=== PATIENT | female | born 1995 | race Caucasian/White ===

== ENCOUNTER → 2022-05-16 13:00 | Outpatient (CLI) | payer OTHER, MEDICAID, SELFPAY ==
[2022-05-16 14:12] LABS: Influenza A - CEPHEID Flu A NEGATIVE (NEGATIVE); Influenza B - CEPHEID Flu B NEGATIVE (NEGATIVE); Respiratory Syncytial Virus Negative (Negative)
[2022-05-16 14:16] LABS: COVID-19 CEPHEID PCR (VTM/NP) Negative (Negative)
== END ==
PROVIDERS: Visit Provider Student in an Organized Health Care Education/Training Program
DX: J02.9 Acute pharyngitis, unspecified (principal); R05.9 Cough, unspecified
CPT/HCPCS: 0241U; 87070; 87880

== ENCOUNTER → 2022-08-15 16:13 | Outpatient (CLI) | payer OTHER, MEDICAID, SELFPAY ==
[2022-08-15 17:32] LABS: Influenza A - CEPHEID Flu A NEGATIVE (NEGATIVE); Influenza B - CEPHEID Flu B NEGATIVE (NEGATIVE); Respiratory Syncytial Virus Negative (Negative)
[2022-08-15 18:22] LABS: COVID-19 CEPHEID 4-PLEX PCR Negative (Negative)
== END ==
PROVIDERS: Visit Provider Registered Nurse
DX: R05.1 Acute cough (principal); Z20.822 Contact with and (suspected) exposure to COVID-19
CPT/HCPCS: 0241U

== ENCOUNTER → 2022-08-25 16:53 | Outpatient (CLI) | payer OTHER, MEDICAID, SELFPAY ==
[2022-08-25 17:54] LABS: Add Manual Diff / Slide Review NO; Basophils Absolute Auto 100 /uL (0-100); Basophils Percent Auto 0.6 % (0-2); Eosinophils Absolute Auto 0 /uL (0-450); Eosinophils Percent Auto 0.1 % (2-4); Hemoglobin 14.1 g/dL (12.0-16.0); Lymphocytes Absolute Auto 2000 /uL (1100-4500); Lymphocytes Percent Auto 18.5 % (25-40); Mean Corpuscular HGB Conc 33.7 % (30-36); Mean Corpuscular Hemoglobin 30.6 PG (26-34); Monocytes Absolute Auto 600 /uL (0-900); Monocytes Percent Auto 5.8 % (3-14); Neutrophils Absolute Auto 8000 /uL (1500-7000); Platelet Count 218 X10^3/uL (150-400); Red Blood Cell Count 4.62 X10^6/uL (4.0-5.2); Red Cell Distribution Width 13.2 % (11.6-14.8); White Blood Cell Count 10.7 X10^3/uL (4.5-11.0)
[2022-08-25 18:12] LABS: Alanine Aminotransferase 32 IU/L (<35); Albumin 4.6 g/dL (3.5-5.0); Albumin Globulin Ratio 1.5 (1.0-2.8); Alkaline Phosphatase 80 U/L (38-126); Aspartate Aminotransferase 33 IU/L (14-36); Bilirubin Total 1.3 mg/dL (0.2-1.3); Blood Urea Nitrogen 24 mg/dL (7-17); Calcium 9.9 mg/dL (8.4-10.2); Carbon Dioxide 26 mmol/L (22-32); Chloride 99 mmol/L (98-107); Cholesterol 164 mg/dL (140-199); Estimated Glomerular Filt Rate > 60 mL/min (>60); Globulin 3.1 g/dL (1.7-4.1); Glucose 70 mg/dL (70-100); HDL Cholesterol 75 mg/dL (40-60); HEMOLYSIS < 15 (0-50); LDL Cholesterol Calculated 71 mg/dL (<100); Lipase 39 U/L (23-300); Potassium 3.6 mmol/L (3.4-5.1); Sodium 135 mmol/L (137-145); Total Protein 7.7 g/dL (6.3-8.2); Triglycerides 88 mg/dL (35-150)
== END ==
PROVIDERS: PCP Family Medicine; Referring Provider Family Medicine; Visit Provider Family Medicine
DX: F12.90 Cannabis use, unspecified, uncomplicated (principal); R10.13 Epigastric pain; R11.10 Vomiting, unspecified; Z78.9 Other specified health status
CPT/HCPCS: 36415; 80053; 80061; 81025; 83690; 85025

== ENCOUNTER 2022-09-14 01:50 | Emergency (ER) | payer OTHER, MEDICAID, SELFPAY ==
[2022-09-14 02:04] VITALS: BP 112/66; PULSE 67; RESP 20; TEMP 36.9; O2SAT 100; BMI 22.4
--- NOTE | 2022-09-14 02:14 | ED.SKABFB ---
HPI - Skin/Abscess/Foreign Bdy General Chief complaint: Skin/Abscess/Foreign Body Stated complaint: rt hand infection under pointer finger Time Seen by Provider: 09/14/22 01:59 Source: patient Mode of arrival: Ambulatory Limitations: no limitations History of Present Illness HPI narrative: Patient is an otherwise healthy 27-year-old patient who a couple days ago had an avulsion of the fingernail of her right index finger. She states it happened while she was asleep. She did have artificial nails on at the time. She states that the skin underneath the nail was exposed. He thinks it was approximately half way back the nail that was broken off. He then went to the nail salon where she stated that they glued the avulsed portion of the nail back down to her finger and also to the nail that was still present. They then cover the area with nail American. Since that time she has had increasing pain and discomfort and swelling over the area. She did take some ibuprofen. Related Data Home Medications Medication Instructions Recorded Confirmed aripiprazole 5 mg tablet 5 mg PO DAILY 06/28/22 09/12/22 buspirone 5 mg tablet 5 mg PO BID 06/28/22 09/12/22 methylphenidate HCl 10 mg tablet 10 mg PO DAILY 06/28/22 09/12/22 (Ritalin) Naltrexone PO 08/15/22 09/12/22 naltrexone 50 mg tablet 50 mg PO DAILY 08/25/22 09/12/22 Previous Rx's Medication Instructions Recorded azelastine 137 mcg (0.1 %) nasal 2 spray intranasal BID #30 mL 05/16/22 spray aerosol methocarbamol 500 mg tablet 500 mg PO TID PRN muscle spasm #30 06/28/22 tabs naproxen 375 mg tablet,delayed 375 mg PO BID #20 tabs 06/28/22 release ipratropium bromide 42 mcg (0.06 2 spray intranasal TID PRN allergy 08/15/22 %) nasal spray symptoms #15 mL omeprazole 20 mg capsule,delayed 20 mg PO DAILY #30 caps 08/25/22 release cephalexin 500 mg capsule 500 mg PO QID 7 days #28 caps 09/14/22 Allergies Allergy/AdvReac Type Severity Reaction Status Date / Time zolpidem [From Ambien] Allergy Mild Hallucinati Verified 09/12/22 18:10 ng Review of Systems Constitutional Constitutional: Reports system reviewed and no additional complaints, except as documented Musculoskeletal Musculoskeletal: Reports system reviewed and no additional complaints, except as documented Integumentary/Breasts Skin/Breast: Reports system reviewed and no additional complaints, except as documented Neurologic Neurologic: Reports system reviewed and no additional complaints, except as documented Hematologic/Lymphatic On Anticoagulants: No Patient History Medical History Alcohol use Marijuana use Social History Smoking Status: Former smoker Smoking Status: Former smoker Substance Use Type: marijuana Exam Initial Vital Signs Initial Vital Signs: Vital Signs Temperature 98.4 F 09/14/22 02:04 Pulse Rate 67 09/14/22 02:04 Respiratory Rate 20 09/14/22 02:04 Blood Pressure 112/66 09/14/22 02:04 Pulse Oximetry 100 09/14/22 02:04 Oxygen Delivery Method 09/14/22 02:04 Cardio Pulses: radial pulses present on the left Skin Other: Redness surrounding the nail of the left index finger and also on the pad of the finger. No active drainage. Neuro General: patient alert and patient awake Extrem Other: Patient does have a soft pad of the finger. Tender distal aspect of left index finger Course Orders Ordered: Discontinued Medications Cephalexin HCl (Cephalexin 250 Mg Capsule) 500 mg PO NOW ONE Stop: 09/14/22 02:16 Vital Signs Vital signs: Vital Signs - 8 hr 09/14/22 02:04 Temperature 98.4 F Pulse Rate 67 Respiratory Rate 20 Blood Pressure 112/66 Pulse Oximetry 100 Oxygen Delivery Method Room Air MDM - Skin/Abscess/Foreign Bdy MDM Narrative Medical decision making narrative: Patient has have findings that are consistent with a cellulitis of the left index finger. I have low suspicion for a Felon based on her presentation today. Had a long discussion with her regarding the fact that they glued the fingernail back down to the finger. I told her that our options were to treat her with oral antibiotics and do nothing with the nail. I discussed my concern with this is that potentially there is a developing infection in between the nail in the nail bed that may not improve with the oral antibiotics. We discussed potentially doing a finger block and removing the finger now although I did informed her that I was unsure as to how much more damage that we would caused the nailbed given the fingernail has been glued down to it per her report. After this discussion the patient opted to just do oral antibiotics and see if this improves her symptoms and she stated that if her symptoms do not improve or worsen that she would return to the emergency department for further evaluation. Discharge Plan Departure Patient Disposition: Home Clinical Impression: Cellulitis Instructions: DI for Cellulitis -- Adult Activity Restrictions/Additional Instructions: I do recommend that you take the antibiotics as directed. You can wash your hands like normal. If your symptoms worsen or do not improve with antibiotics you should be re-evaluated. Prescriptions: New cephalexin 500 mg capsule 500 mg PO QID 7 Days Qty: 28 0RF No Action buspirone 5 mg tablet 5 mg PO BID aripiprazole 5 mg tablet 5 mg PO DAILY methylphenidate HCl [Ritalin] 10 mg tablet 10 mg PO DAILY naproxen 375 mg tablet,delayed release (DR/EC) 375 mg PO BID Qty: 20 0RF methocarbamol 500 mg tablet 500 mg PO TID PRN (Reason: muscle spasm) Qty: 30 0RF Naltrexone PO ipratropium bromide 42 mcg (0.06 %) spray,non-aerosol 2 spray intranasal TID PRN (Reason: allergy symptoms) Qty: 15 0RF Rx Instructions: administer into each nostril azelastine 137 mcg (0.1 %) aerosol,spray 2 spray intranasal BID Qty: 30 0RF Rx Instructions: administer into each nostril omeprazole 20 mg capsule,delayed release(DR/EC) 20 mg PO DAILY Qty: 30 11RF naltrexone 50 mg tablet 50 mg PO DAILY Referrals: Radha Baca DO [Primary Care Provider] - Stand Alone Forms: Patient Portal/API
[2022-09-14] MEDS: ACETAMINOPHEN 325 MG TABLET 650 MG PO (02:52)
[2022-09-14] MEDS: cephALEXin 250 MG CAPSULE 500 MG PO (02:52)
== END 2022-09-14 02:57 | disposition home or self-care (01) ==
PROVIDERS: Emergency Provider Emergency Medicine; PCP Family Medicine
DX: L03.012 Cellulitis of left finger (principal)
CPT/HCPCS: 99283

== ENCOUNTER 2022-09-16 13:41 | Emergency (ER) | payer OTHER, MEDICAID, SELFPAY ==
[2022-09-16 13:52] VITALS: BP 125/83; PULSE 80; RESP 20; TEMP 37; O2SAT 99; BMI 22.4
[2022-09-16] MEDS: LIDOCAINE 2% INJ SDV 5ML 5 ML INJ (15:38)
[2022-09-16] MEDS: IBUPROFEN 400 MG TABLET 800 MG PO (15:53)
--- NOTE | 2022-09-16 15:55 | PC.NURSE ---
Pt sitting in chair in rm 3. Reports she is taking a medication that is contraindicated to use opioids. Pt states she forgets the name of the medication being taken. Declined Hydrocodone tablet. Reports that she is UTD on her tetanus vaccine and declined injection. Pt declined torodol injection and ibuprofen given instead. Pt denies nausea and declined zofran ODT. Lidocaine scanned and given to Becky Ayala NP for admin for I&D. Pt in NAD.
[2022-09-16 16:18] VITALS: BP 112/66; PULSE 60; RESP 16; O2SAT 100
[2022-09-16] MEDS: BACITRACIN OINT 0.9 GM PCKT 1 APPLIC TOP (16:18)
--- NOTE | 2022-09-16 18:50 | ED.SKABFB ---
HPI - Skin/Abscess/Foreign Bdy <Jocelyne Ayala, [facility] - Last Filed: 09/16/22 19:42> General Chief complaint: Skin/Abscess/Foreign Body Stated complaint: Finger infection, not getting better Time Seen by Provider: 09/16/22 14:56 Source: patient Mode of arrival: Family Vehicle Limitations: no limitations History of Present Illness HPI narrative: This is a 27 year female presents to the emergency department after she came 2 days ago for finger infection concerns after she had an injury with an acrylic nail which pulled up on natural nail. This was fully removed and patient went back to the nail salon having she lack nail [place] applied which sealed in possible infection as she has come in today with worsening pain to the distal fingertip, obvious pus underneath the skin and worsening pain in her fingertips. There does not appear to be a proximal nail bed involvement, this is on the fingertip, she does not have tenderness when pressing over the fingernail but her fingertips is painful without drainage. She denies fever chills, denies redness or streaking up her hand, denies any mobility changes or deficit, no numbness or tingling. She was seen in the emergency department 2 days ago and started on cephalexin, no interventions or procedures were done at that time. Related Data Home Medications Medication Instructions Recorded Confirmed aripiprazole 5 mg tablet 5 mg PO DAILY 06/28/22 09/12/22 buspirone 5 mg tablet 5 mg PO BID 06/28/22 09/12/22 methylphenidate HCl 10 mg tablet 10 mg PO DAILY 06/28/22 09/12/22 (Ritalin) Naltrexone PO 08/15/22 09/12/22 naltrexone 50 mg tablet 50 mg PO DAILY 08/25/22 09/12/22 Previous Rx's Medication Instructions Recorded azelastine 137 mcg (0.1 %) nasal 2 spray intranasal BID #30 mL 05/16/22 spray aerosol methocarbamol 500 mg tablet 500 mg PO TID PRN muscle spasm #30 06/28/22 tabs naproxen 375 mg tablet,delayed 375 mg PO BID #20 tabs 06/28/22 release ipratropium bromide 42 mcg (0.06 2 spray intranasal TID PRN allergy 08/15/22 %) nasal spray symptoms #15 mL omeprazole 20 mg capsule,delayed 20 mg PO DAILY #30 caps 08/25/22 release cephalexin 500 mg capsule 500 mg PO QID 7 days #28 caps 09/14/22 mupirocin 2 % topical ointment 1 applic topical DAILY #15 grams 09/16/22 Allergies Allergy/AdvReac Type Severity Reaction Status Date / Time zolpidem [From Ambien] Allergy Mild Hallucinati Verified 09/12/22 18:10 ng Review of Systems <SONIA Huang - Last Filed: 09/16/22 19:42> Review of Systems ROS Unobtainable: All systems reviewed & are unremarkable except as noted in HPI and below Patient History <SONIA Huang - Last Filed: 09/16/22 19:42> Medical History Alcohol use Marijuana use Social History Smoking Status: Former smoker Smoking Status: Former smoker tobacco type: cigarettes alcohol intake frequency: 0-2 drinks per day Substance Use Type: marijuana Exam <SONIA Huang - Last Filed: 09/16/22 19:42> Narrative Exam Narrative: Reviewed vitals signs and nursing notes. General: cooperative, comfortable, in no acute distress, well groomed MSK: moves all extremities, neurovascularly intact, no weakness, normal tone Skin: brisk capillary refill, without pallor or erythema, abscess noted to the distal fingertip that does not progress underneath the nail bed however is approximately 1 cm in diameter, superficial skin is clear showing purulent drainage underneath. No bogginess to palpation of the fingernail, no erythema or edema to the finger circumferentially, no streaking or erythema ascending proximally, this is a distal fingertip infection that does not appear to be extending, normal range of motion and strength, no sensation changes, without motor or sensory deficits Psych: mental status is grossly normal, congruent mood, normal affect, pleasant and cooperative Initial Vital Signs Initial Vital Signs: Vital Signs Temperature 98.6 F 09/16/22 13:52 Pulse Rate 80 09/16/22 13:52 Respiratory Rate 20 09/16/22 13:52 Blood Pressure 125/83 09/16/22 13:52 Pulse Oximetry 99 09/16/22 13:52 Oxygen Delivery Method 09/16/22 13:52 <Marina Guido DO - Last Filed: 09/17/22 08:03> Initial Vital Signs Initial Vital Signs: Vital Signs Temperature 98.6 F 09/16/22 13:52 Pulse Rate 80 09/16/22 13:52 Respiratory Rate 20 09/16/22 13:52 Blood Pressure 125/83 09/16/22 13:52 Pulse Oximetry 99 09/16/22 13:52 Oxygen Delivery Method 09/16/22 13:52 Procedures <SONIA Huang - Last Filed: 09/16/22 19:42> Abscess I/D I&D #1: Site: hand (distal fingertip abscess in left 2nd digit) Side (if applicable): left Sedation/analgesia: none Amount of anesthesia used (mL): 0 Technique: needle aspiration (Very superficial abscess, this was needle aspirated for purulence drainage, then used a pair of scissors to incise along the length of the abscess, probed underneath the nail and no further abscess noted, this is isolated to the fingertip, no tenderness to palpation of the nail bed, thoroughly irrig) Amount of fluid expressed (mL): 2 Irrigation: Yes Packing used?: none Complications: other (No complications, patient was very anxious, no anesthetic needed as this was very superficial) Course <SONIA Huang - Last Filed: 09/16/22 19:42> Orders Ordered: Discontinued Medications Hydrocodone Bitart/Acetaminophen (Hydrocodone/Acet 5/325 Tablet) 1 tab PO NOW ONE Stop: 09/16/22 15:13 Last Admin: 09/16/22 15:50 Dose: Not Given Documented By: GONZÁLEZ Bacitracin (Bacitracin Oint 0.9 Gm Pckt) 1 applic TOP NOW ONE Stop: 09/16/22 16:05 Last Admin: 09/16/22 16:18 Dose: 1 applic Documented By: GONZÁLEZ Ibuprofen (Ibuprofen 400 Mg Tablet) 800 mg PO NOW ONE Stop: 09/16/22 15:51 Last Admin: 09/16/22 15:53 Dose: 800 mg Documented By: CTS Ketorolac Tromethamine (Ketorolac 30 Mg/Ml Vial) 15 mg IM NOW ONE Stop: 09/16/22 15:13 Last Admin: 09/16/22 15:50 Dose: Not Given Documented By: CTS Lidocaine HCl (Lidocaine 2% Inj Sdv 5ml) 5 ml INJ INTRA-OP ONE Stop: 09/16/22 15:13 Last Admin: 09/16/22 15:38 Dose: 5 ml Documented By: CTS Lidocaine HCl (Lidocaine 2% Inj Mdv 20ml) 1 ml INJ INTRA-OP ONE Stop: 09/16/22 15:13 Last Admin: 09/16/22 15:48 Dose: Not Given Documented By: CTS Ondansetron HCl (Ondansetron 4 Mg Odt) 4 mg SL NOW ONE Stop: 09/16/22 15:13 Last Admin: 09/16/22 15:48 Dose: Not Given Documented By: CTS Tetanus/Diphtheria Toxoids (Tetanus Diphtheria Toxoids 0.5 Ml Vial) 0.5 ml IM .ONCE ONE Stop: 09/16/22 15:13 Last Admin: 09/16/22 15:50 Dose: Not Given Documented By: CTS Vital Signs Vital signs: Vital Signs - 8 hr 09/16/22 13:52 09/16/22 16:18 Temperature 98.6 F Pulse Rate 80 60 Respiratory Rate 20 16 Blood Pressure 125/83 112/66 Pulse Oximetry 99 100 Oxygen Delivery Method Room Air Room Air <Marina Guido DO - Last Filed: 09/17/22 08:03> Orders Ordered: Discontinued Medications Hydrocodone Bitart/Acetaminophen (Hydrocodone/Acet 5/325 Tablet) 1 tab PO NOW ONE Stop: 09/16/22 15:13 Last Admin: 09/16/22 15:50 Dose: Not Given Documented By: CTS Bacitracin (Bacitracin Oint 0.9 Gm Pckt) 1 applic TOP NOW ONE Stop: 09/16/22 16:05 Last Admin: 09/16/22 16:18 Dose: 1 applic Documented By: CTS Ibuprofen (Ibuprofen 400 Mg Tablet) 800 mg PO NOW ONE Stop: 09/16/22 15:51 Last Admin: 09/16/22 15:53 Dose: 800 mg Documented By: CTS Ketorolac Tromethamine (Ketorolac 30 Mg/Ml Vial) 15 mg IM NOW ONE Stop: 09/16/22 15:13 Last Admin: 09/16/22 15:50 Dose: Not Given Documented By: CTS Lidocaine HCl (Lidocaine 2% Inj Sdv 5ml) 5 ml INJ INTRA-OP ONE Stop: 09/16/22 15:13 Last Admin: 09/16/22 15:38 Dose: 5 ml Documented By: CTS Lidocaine HCl (Lidocaine 2% Inj Mdv 20ml) 1 ml INJ INTRA-OP ONE Stop: 09/16/22 15:13 Last Admin: 09/16/22 15:48 Dose: Not Given Documented By: CTS Ondansetron HCl (Ondansetron 4 Mg Odt) 4 mg SL NOW ONE Stop: 09/16/22 15:13 Last Admin: 09/16/22 15:48 Dose: Not Given Documented By: CTS Tetanus/Diphtheria Toxoids (Tetanus Diphtheria Toxoids 0.5 Ml Vial) 0.5 ml IM .ONCE ONE Stop: 09/16/22 15:13 Last Admin: 09/16/22 15:50 Dose: Not Given Documented By: CTS Vital Signs Vital signs: Vital Signs - 8 hr 09/16/22 13:52 09/16/22 16:18 Temperature 98.6 F Pulse Rate 80 60 Respiratory Rate 20 16 Blood Pressure 125/83 112/66 Pulse Oximetry 99 100 Oxygen Delivery Method Room Air Room Air MDM - Skin/Abscess/Foreign Bdy <SONIA Huang - Last Filed: 09/16/22 19:42> MDM Narrative Medical decision making narrative: Chief Complaint: Fingertip abscess and pain Independent historian: Patient Differential diagnoses include but are not limited to: Subungual hematoma/abscess, cellulitis, necrotizing fasciitis, neurovascular deficit, compartment syndrome, extension to the deeper tissue planes including tenosynovitis and osteomyelitis. I have independently reviewed the patient's vital signs and nursing notes as well as prior records if available. Course of care: Patient's tetanus was updated today, her pain was treated with Toradol, hydrocodone, Zofran, and bacitracin, she is currently on cephalexin, no further antibiotic needs are necessary at this time, does not appear to have surrounding cellulitis. This patient presents with a painful fluid pocket with fluctuance and surrounding induration and erythema, concerning for an abscess of the distal fingertip. I&D was performed with deloculation and purulence was expressed. Small amount of induration remaining. There is no lymphangitic spread visible. Low concern for osteomyelitis. Patient is not immunocompromised, and there is no bullae, pain out of proportion, or rapid progression concerning for necrotizing fasciitis. Gentle needle aspiration of superficial abscess had purulent drainage approximately 5 mL,, probing and further debridement did not show any deep tunneling or ascending up the proximal nail bed, no bogginess to the nail bed or concern for subungual hematoma/abscess as there does not appear to be evidence of after nail [place] was removed over this nail bed aspect. Patient will continue her cephalexin prescription, prescribed for her mupirocin ointment to apply topically and encouraged her to wash her hands frequently and come back if she develops any worsening symptoms like proximal spread of erythema, cellulitis, discharge worsening or worsening pain or mobility changes. Social considerations that may affect disposition: none Questions are addressed and there is agreement with the plan and for follow-up. Patient is appropriate for outpatient management. MIPS: This encounter doesn't have any diagnosis' associated with MIPS criteria. Discharge Plan Departure Patient Disposition: Home Clinical Impression: Abscess around fingernail Qualifiers: Laterality: left Qualified Code(s): L03.012 - Cellulitis of left finger Instructions: DI for Skin Abscess Activity Restrictions/Additional Instructions: *You have been diagnosed with fingertip infection called an abscess with a collection pus underneath the skin. This was drained today, you may shower and wash your hands like usual, please cover with antibiotic ointment and a Band-Aid afterwards and go back to the nail salon to have this acrylic and she lack removed so that you can see with the fingernail looks like. Use ibuprofen and Tylenol as needed for your pain, sorry for how anxious you were today, please come back to the emergency department if you have worsening symptoms related to this. Stay on your antibiotic, this should get better and not get worse. *What to do: *Please continue to take your regular medications as directed. [ x] New medication prescriptions sent to your pharmacy: [ [facility]] [ ] New medication written as a paper prescription [ ] No new medications given *Please follow up with your primary care provider in 2-3 days, call for an appointment. Let them know you were seen in the Emergency Department and that we asked that you be seen for follow-up. We will electronically transmit a record of today's note if your PCP is in our system *If you do not have a primary care provider please contact [phone] to establish care with one of the [facility] primary care providers. *Return to Emergency Department if you should have any new, worsening, or concerning symptoms, such as [fever greater than 101F, chills, worsening pain, persistent vomiting or other bothersome symptoms]. Prescriptions: New mupirocin 2 % ointment 1 applic topical DAILY Qty: 15 0RF No Action buspirone 5 mg tablet 5 mg PO BID aripiprazole 5 mg tablet 5 mg PO DAILY methylphenidate HCl [Ritalin] 10 mg tablet 10 mg PO DAILY naproxen 375 mg tablet,delayed release (DR/EC) 375 mg PO BID Qty: 20 0RF methocarbamol 500 mg tablet 500 mg PO TID PRN (Reason: muscle spasm) Qty: 30 0RF Naltrexone PO ipratropium bromide 42 mcg (0.06 %) spray,non-aerosol 2 spray intranasal TID PRN (Reason: allergy symptoms) Qty: 15 0RF Rx Instructions: administer into each nostril azelastine 137 mcg (0.1 %) aerosol,spray 2 spray intranasal BID Qty: 30 0RF Rx Instructions: administer into each nostril omeprazole 20 mg capsule,delayed release(DR/EC) 20 mg PO DAILY Qty: 30 11RF naltrexone 50 mg tablet 50 mg PO DAILY cephalexin 500 mg capsule 500 mg PO QID 7 Days Qty: 28 0RF Referrals: Radha Baca DO [Primary Care Provider] - Stand Alone Forms: Patient Portal/API <Marina Guido DO - Last Filed: 09/17/22 08:03> Cosign ED Attending Cosschuylerature Attestation: I was immediately available in the department for consultation. Documentation has been reviewed. Case was discussed.
== END 2022-09-16 16:18 | disposition home or self-care (01) ==
PROVIDERS: Emergency Provider Nurse Practitioner Critical Care Medicine; PCP Family Medicine
DX: L03.012 Cellulitis of left finger (principal)
CPT/HCPCS: 10060; 99283

== ENCOUNTER 2022-09-18 06:43 | Emergency (ER) | payer OTHER, MEDICAID, SELFPAY ==
[2022-09-18 07:01] VITALS: BP 131/73; PULSE 68; RESP 20; TEMP 37.1; O2SAT 97; BMI 22.4
[2022-09-18 07:11] VITALS: PULSE 54; O2SAT 98
[2022-09-18] MEDS: ONDANSETRON 4 MG ODT SL (07:14)
--- NOTE | 2022-09-18 07:18 | ED.NAVMDI ---
HPI - Nausea/Vomiting/Diarrhea General Chief complaint: Nausea/Vomiting/Diarrhea Stated complaint: throwing up, can't hold any liquid down Time Seen by Provider: 09/18/22 07:01 Source: patient Mode of arrival: Ambulatory Limitations: no limitations History of Present Illness HPI Narrative: 27-year-old female who has been seen here in the emergency department a couple times over the past couple days for an infection related to her index finger. The last time she was seen here she had an abscess drained. She was placed on topical antibiotics. She stated that over the past 24 hours she has had nausea and vomiting and upper abdominal pain. At about 0400 hours this morning things got much worse. She denies any fevers. No diarrhea. No urinary symptoms. Related Data Home Medications Medication Instructions Recorded Confirmed aripiprazole 5 mg tablet 5 mg PO DAILY 06/28/22 09/12/22 buspirone 5 mg tablet 5 mg PO BID 06/28/22 09/12/22 methylphenidate HCl 10 mg tablet 10 mg PO DAILY 06/28/22 09/12/22 (Ritalin) Naltrexone PO 08/15/22 09/12/22 naltrexone 50 mg tablet 50 mg PO DAILY 08/25/22 09/12/22 Previous Rx's Medication Instructions Recorded azelastine 137 mcg (0.1 %) nasal 2 spray intranasal BID #30 mL 05/16/22 spray aerosol methocarbamol 500 mg tablet 500 mg PO TID PRN muscle spasm #30 06/28/22 tabs naproxen 375 mg tablet,delayed 375 mg PO BID #20 tabs 06/28/22 release ipratropium bromide 42 mcg (0.06 2 spray intranasal TID PRN allergy 08/15/22 %) nasal spray symptoms #15 mL omeprazole 20 mg capsule,delayed 20 mg PO DAILY #30 caps 08/25/22 release cephalexin 500 mg capsule 500 mg PO QID 7 days #28 caps 09/14/22 mupirocin 2 % topical ointment 1 applic topical DAILY #15 grams 09/16/22 lorazepam 0.5 mg tablet (Ativan) 0.5 mg PO BID PRN nausea and 09/18/22 vomiting #7 tabs ondansetron 4 mg disintegrating 4 mg PO Q8H PRN nausea and 09/18/22 tablet vomiting #20 tabs vit no.95-ferrous 1 tab PO DAILY #30 tabs 09/18/22 fumarate 28 mg-folic acid 800 mcg tablet Allergies Allergy/AdvReac Type Severity Reaction Status Date / Time zolpidem [From Ambien] Allergy Mild Hallucinati Verified 09/12/22 18:10 ng Review of Systems Constitutional Constitutional: Reports system reviewed and no additional complaints, except as documented Gastrointestinal Gastrointestinal: Reports system reviewed and no additional complaints, except as documented Genitourinary Genitourinary: Reports system reviewed and no additional complaints, except as documented Integumentary/Breasts Skin/Breast: Reports system reviewed and no additional complaints, except as documented Neurologic Neurologic: Reports system reviewed and no additional complaints, except as documented Patient History Medical History Alcohol use Marijuana use Social History Smoking Status: Former smoker Smoking Status: Former smoker tobacco type: cigarettes alcohol intake frequency: 0-2 drinks per day Substance Use Type: marijuana Exam Initial Vital Signs Initial Vital Signs: Vital Signs Temperature 98.8 F 09/18/22 07:01 Pulse Rate 68 09/18/22 07:01 Respiratory Rate 20 09/18/22 07:01 Blood Pressure 131/73 09/18/22 07:01 Pulse Oximetry 97 09/18/22 07:01 Oxygen Delivery Method 09/18/22 07:01 Resp Effort & Inspection: normal respiratory effort Auscultation: clear to auscultation bilaterally Cardio Rate: regular rate Rhythm: regular rhythm GI Palpation: tender (Upper abdomen) Skin General: no rashes or lesions noted Neuro General: patient alert and patient awake Course Orders Ordered: ED Orders 09/18/22 07:35 Complete Blood Count AUTO DIFF Stat Comprehensive Metabolic Panel Stat HCG Quantitative /Beta subunit Stat Lipase Stat Test Serum,Qual Stat 09/18/22 08:24 US OB <= 14 weeks fetus Stat Discontinued Medications Sodium Chloride (Normal Saline 0.9%) 1,000 mls @ 1,000 mls/hr IV BOLUS ONE Stop: 09/18/22 08:19 Last Infusion: 09/18/22 08:34 Dose: 0 mls/hr Documented By: Admin: 09/18/22 07:40 Dose: 1,000 mls/hr Documented By: GONZÁLEZ Sodium Chloride (Normal Saline 0.9%) 1,000 mls @ 1,000 mls/hr IV BOLUS ONE Stop: 09/18/22 09:26 Last Infusion: 09/18/22 09:35 Dose: 0 mls/hr Documented By: Admin: 09/18/22 08:37 Dose: 1,000 mls/hr Documented By: GONZÁLEZ Ketorolac Tromethamine (Ketorolac 30 Mg/Ml Vial) 30 mg IV NOW ONE Stop: 09/18/22 08:03 Last Admin: 09/18/22 08:05 Dose: 30 mg Documented By: GONZÁLEZ Lorazepam (Lorazepam 2 Mg/Ml Inj) 1 mg IV NOW ONE Stop: 09/18/22 08:52 Last Admin: 09/18/22 09:21 Dose: 1 mg Documented By: GONZÁLEZ Metoclopramide HCl (Metoclopramide 10 Mg/2 Ml Inj) 10 mg IV NOW ONE Stop: 09/18/22 07:48 Last Admin: 09/18/22 08:05 Dose: 10 mg Documented By: GONZÁLEZ Ondansetron HCl (Ondansetron 4 Mg Odt) 4 mg SL NOW ONE Stop: 09/18/22 07:02 Last Admin: 09/18/22 07:14 Dose: 4 mg Documented By: SYLVIA Ondansetron HCl (Ondansetron 4 Mg/2 Ml Inj) 4 mg IV NOW ONE Stop: 09/18/22 07:21 Last Admin: 09/18/22 07:40 Dose: 4 mg Documented By: GONZÁLEZ Pantoprazole Sodium (Pantoprazole 40 Mg Vial) 40 mg IV NOW ONE Stop: 09/18/22 08:03 Last Admin: 09/18/22 08:05 Dose: 40 mg Documented By: GONZÁLEZ Promethazine HCl (Promethazine 25 Mg Tablet) 25 mg PO NOW ONE Stop: 09/18/22 11:12 Last Admin: 09/18/22 11:33 Dose: 25 mg Documented By: GONZÁLEZ Vital Signs Vital signs: Vital Signs - 8 hr 09/18/22 07:01 09/18/22 07:11 09/18/22 07:30 Temperature 98.8 F Pulse Rate 68 54 L 66 Respiratory Rate 20 Blood Pressure 131/73 Pulse Oximetry 97 98 95 Oxygen Delivery Method Room Air 09/18/22 07:31 09/18/22 07:31 09/18/22 12:04 Temperature Pulse Rate 66 64 Respiratory Rate Blood Pressure 120/84 116/75 Pulse Oximetry 99 99 Oxygen Delivery Method MDM - Nausea/Vomiting/Diarrhea Lab Data Attestation: I reviewed the patient's lab results. 09/18/22 07:35 09/18/22 07:35 Labs: Lab Results 09/18/22 09/18/22 09/18/22 Range/Units 07:35 07:35 07:35 WBC 10.0 (4.5-11.0) X10^3/uL RBC 4.28 (4.0-5.2) X10^6/uL Hgb 13.2 (12.0-16.0) g/dL Hct 38.9 (36-46) % MCV 91.0 (80-100) fL MCH 30.8 (26-34) PG MCHC 33.8 (30-36) % RDW 12.8 (11.6-14.8) % Plt Count 234 (150-400) X10^3/uL Neut % (Auto) 77.6 H (50-75) % Lymph % (Auto) 13.2 L (25-40) % [place] % (Auto) 7.9 (3-14) % Eos % (Auto) 0.9 L (2-4) % Baso % (Auto) 0.4 (0-2) % Neut # (Auto) 7800 H (0437-2868) /uL Lymph # (Auto) 1300 (2973-1758) /uL [place] # (Auto) 800 (0-900) /uL Eos # (Auto) 100 (0-450) /uL Baso # (Auto) 0 (0-100) /uL Sodium 137 (137-145) mmol/L Potassium 4.0 (3.4-5.1) mmol/L Chloride 104 (98-107) mmol/L Carbon Dioxide 22 (22-32) mmol/L BUN 18 H (7-17) mg/dL Creatinine 0.62 (0.52-1.04) mg/dL Estimated GFR > 60 (>60) mL/min BUN/Creatinine Ratio 29.0 H (6-22) Glucose 108 H (70-100) mg/dL Calcium 9.1 (8.4-10.2) mg/dL Total Bilirubin 1.0 (0.2-1.3) mg/dL AST 32 (14-36) IU/L ALT 33 (<35) IU/L Alkaline Phosphatase 57 (38-126) U/L Total Protein 7.5 (6.3-8.2) g/dL Albumin 4.3 (3.5-5.0) g/dL Globulin 3.2 (1.7-4.1) g/dL Albumin/Globulin Ratio 1.3 (1.0-2.8) Lipase 37 (23-300) U/L HCG, Quant mIU/mL Serum , Qual Positive H (Negative) 09/18/22 Range/Units 07:35 WBC (4.5-11.0) X10^3/uL RBC (4.0-5.2) X10^6/uL Hgb (12.0-16.0) g/dL Hct (36-46) % MCV (80-100) fL MCH (26-34) PG MCHC (30-36) % RDW (11.6-14.8) % Plt Count (150-400) X10^3/uL Neut % (Auto) (50-75) % Lymph % (Auto) (25-40) % [place] % (Auto) (3-14) % Eos % (Auto) (2-4) % Baso % (Auto) (0-2) % Neut # (Auto) (9667-8533) /uL Lymph # (Auto) (6180-1203) /uL [place] # (Auto) (0-900) /uL Eos # (Auto) (0-450) /uL Baso # (Auto) (0-100) /uL Sodium (137-145) mmol/L Potassium (3.4-5.1) mmol/L Chloride (98-107) mmol/L Carbon Dioxide (22-32) mmol/L BUN (7-17) mg/dL Creatinine (0.52-1.04) mg/dL Estimated GFR (>60) mL/min BUN/Creatinine Ratio (6-22) Glucose (70-100) mg/dL Calcium (8.4-10.2) mg/dL Total Bilirubin (0.2-1.3) mg/dL AST (14-36) IU/L ALT (<35) IU/L Alkaline Phosphatase (38-126) U/L Total Protein (6.3-8.2) g/dL Albumin (3.5-5.0) g/dL Globulin (1.7-4.1) g/dL Albumin/Globulin Ratio (1.0-2.8) Lipase (23-300) U/L HCG, Quant 11449 mIU/mL Serum , Qual (Negative) Imaging Data US - OB: Radiologist's Impression: PROCEDURE:? US OB <= 14 WEEKS FETUS ? INDICATIONS:? UNKNOWN DATES HCG QUALITATIVE POSITIVE ? OUTSIDE/PRIOR DATING DATA:? Last menstrual period (LMP):? 07/23/2022.? LMP-based estimated date of delivery (JOHNNIE):? 04/29/2023.? First dating scan (date and location):? 09/18/2022.? Estimated date of delivery (JOHNNIE) from first dating scan:? 05/12/2023. The calculations are made using the ultrasound JOHNNIE of 05/12/2023.? ? TECHNIQUE:? Real-time scanning was performed of the fetus and maternal pelvic organs, with image documentation.? ? COMPARISON:? None. ? FINDINGS:? ? Embryo:? 0.5 cm, 6 weeks 2 days Heart rate:? 109 beats per minute ? ? Maternal organs:? Ovaries unremarkable. ? ? ? IMPRESSION:? Living very early 1st trimester intrauterine with crown-rump length and heartbeat measuring 6 weeks 2 days ? We strive to produce accurate, complete, and clear reports of imaging services. To assist us in improving patient care, this report was composed using standard report templates and voice recognition software. Therefore, it may contain abnormal punctuation, insertions and/or omissions. Occasional wrong-word or sound-alike substitutions may occur. Though we review the report and make efforts to correct it, we do recommend that the report be read carefully in proper context to recognize any text inaccuracies. MDM Narrative Medical decision making narrative: Patient did have a positive test today with an intrauterine at 6 weeks on the ultrasound. This was news to the patient. I suspect that her vomiting today is related to the antibiotics she is been on and also the . It did take quite a bit of medications to try to keep this under control. Ativan seemed to be the best medication. Patient was able to tolerate a small amount of intake. She stated that her finger has been improving after the I&D a couple days ago so I will have her stop taking the antibiotics. She was given information for follow-up with OB. Was sent home with nausea medication. No indication for further radiologic studies. Given return precautions and follow-up instructions. They expressed understanding and agreement. Discharge Plan Departure Patient Disposition: Home Clinical Impression: Nausea and vomiting during Instructions: Nausea of (Alternative Therapy) Activity Restrictions/Additional Instructions: I do recommend that you stop taking the antibiotic pills. You can continue to use the antibiotic ointment. Use the nausea medication as needed. Recommend that you make an appointment with a OB provider for follow-up. Try to increase your fluid intake by drinking small amounts over longer periods of time. Return to the emergency department for any new or worsening symptoms. Prescriptions: New ondansetron 4 mg tablet,disintegrating 4 mg PO Q8H PRN (Reason: nausea and vomiting) Qty: 20 0RF lorazepam [Ativan] 0.5 mg tablet 0.5 mg PO BID PRN (Reason: nausea and vomiting) Qty: 7 0RF PNV cmb#95-ferrous fumarate-FA 28 mg iron- 800 mcg tablet 1 tab PO DAILY Qty: 30 3RF No Action buspirone 5 mg tablet 5 mg PO BID aripiprazole 5 mg tablet 5 mg PO DAILY methylphenidate HCl [Ritalin] 10 mg tablet 10 mg PO DAILY naproxen 375 mg tablet,delayed release (DR/EC) 375 mg PO BID Qty: 20 0RF methocarbamol 500 mg tablet 500 mg PO TID PRN (Reason: muscle spasm) Qty: 30 0RF Naltrexone PO ipratropium bromide 42 mcg (0.06 %) spray,non-aerosol 2 spray intranasal TID PRN (Reason: allergy symptoms) Qty: 15 0RF Rx Instructions: administer into each nostril azelastine 137 mcg (0.1 %) aerosol,spray 2 spray intranasal BID Qty: 30 0RF Rx Instructions: administer into each nostril omeprazole 20 mg capsule,delayed release(DR/EC) 20 mg PO DAILY Qty: 30 11RF naltrexone 50 mg tablet 50 mg PO DAILY cephalexin 500 mg capsule 500 mg PO QID 7 Days Qty: 28 0RF mupirocin 2 % ointment 1 applic topical DAILY Qty: 15 0RF Referrals: Yessica Kern MD [Physician] - Radha Baca DO [Primary Care Provider] - Stand Alone Forms: Patient Portal/API
[2022-09-18 07:30] VITALS: PULSE 66; O2SAT 95
[2022-09-18 07:31] VITALS: BP 120/84; PULSE 66; O2SAT 99
[2022-09-18] MEDS: SODIUM CHLORIDE 0.9% 1,000 ML 1000 ML IV ×2 (07:40→08:37)
[2022-09-18] MEDS: ONDANSETRON 4 MG/2 ML INJ IV (07:40)
[2022-09-18 07:54] LABS: Add Manual Diff / Slide Review NO; Basophils Absolute Auto 0 /uL (0-100); Basophils Percent Auto 0.4 % (0-2); Eosinophils Absolute Auto 100 /uL (0-450); Eosinophils Percent Auto 0.9 % (2-4); Hematocrit 38.9 % (36-46); Hemoglobin 13.2 g/dL (12.0-16.0); Lymphocytes Absolute Auto 1300 /uL (1100-4500); Lymphocytes Percent Auto 13.2 % (25-40); Mean Corpuscular HGB Conc 33.8 % (30-36); Mean Corpuscular Hemoglobin 30.8 PG (26-34); Monocytes Absolute Auto 800 /uL (0-900); Monocytes Percent Auto 7.9 % (3-14); Neutrophils Absolute Auto 7800 /uL (1500-7000); Neutrophils Percent Auto 77.6 % (50-75); Platelet Count 234 X10^3/uL (150-400); Red Blood Cell Count 4.28 X10^6/uL (4.0-5.2); Red Cell Distribution Width 12.8 % (11.6-14.8)
[2022-09-18 08:02] LABS: Alanine Aminotransferase 33 IU/L (<35); Albumin 4.3 g/dL (3.5-5.0); Albumin Globulin Ratio 1.3 (1.0-2.8); Alkaline Phosphatase 57 U/L (38-126); Aspartate Aminotransferase 32 IU/L (14-36); Blood Urea Nitrogen 18 mg/dL (7-17); Calcium 9.1 mg/dL (8.4-10.2); Carbon Dioxide 22 mmol/L (22-32); Chloride 104 mmol/L (98-107); Estimated Glomerular Filt Rate > 60 mL/min (>60); Globulin 3.2 g/dL (1.7-4.1); Glucose 108 mg/dL (70-100); HEMOLYSIS < 15 (0-50); Lipase 37 U/L (23-300); Sodium 137 mmol/L (137-145); Total Protein 7.5 g/dL (6.3-8.2)
[2022-09-18] MEDS: PANTOPRAZOLE 40 MG VIAL IV (08:05)
[2022-09-18] MEDS: METOCLOPRAMIDE 10 MG/2 ML INJ IV (08:05)
[2022-09-18] MEDS: KETOROLAC 30 MG/ML VIAL IV (08:05)
[2022-09-18 08:16] LABS: Pregnancy Test Serum,Qual Positive (Negative)
--- NOTE | 2022-09-18 08:24 | DI.US.S_ITS ---
PROCEDURE: US OB <= 14 WEEKS FETUS INDICATIONS: UNKNOWN DATES HCG QUALITATIVE POSITIVE OUTSIDE/PRIOR DATING DATA: Last menstrual period (LMP): 07/23/2022. LMP-based estimated date of delivery (JOHNNIE): 04/29/2023. First dating scan (date and location): 09/18/2022. Estimated date of delivery (JOHNNIE) from first dating scan: 05/12/2023. The calculations are made using the ultrasound JOHNNIE of 05/12/2023. TECHNIQUE: Real-time scanning was performed of the fetus and maternal pelvic organs, with image documentation. COMPARISON: None. FINDINGS: Embryo: 0.5 cm, 6 weeks 2 days Heart rate: 109 beats per minute Maternal organs: Ovaries unremarkable. IMPRESSION: Living very early 1st trimester intrauterine with crown-rump length and heartbeat measuring 6 weeks 2 days We strive to produce accurate, complete, and clear reports of imaging services. To assist us in improving patient care, this report was composed using standard report templates and voice recognition software. Therefore, it may contain abnormal punctuation, insertions and/or omissions. Occasional wrong-word or sound-alike substitutions may occur. Though we review the report and make efforts to correct it, we do recommend that the report be read carefully in proper context to recognize any text inaccuracies. Dictated by: Zachery Miller M.D. on 09/18/2022 at 9:16 Approved by: Zachery Miller M.D. on 09/18/2022 at 9:18
[2022-09-18] MEDS: LORazepam 2 MG/ML INJ 1 MG IV (09:21)
[2022-09-18 09:30] LABS: HCG Quantitative /Beta subunit 27033 mIU/mL
[2022-09-18] MEDS: PROMETHAZINE 25 MG TABLET PO (11:33)
[2022-09-18 12:04] VITALS: BP 116/75; PULSE 64; O2SAT 99
== END 2022-09-18 12:05 | disposition home or self-care (01) ==
PROVIDERS: Emergency Provider Emergency Medicine; PCP Family Medicine
DX: R11.2 Nausea with vomiting, unspecified (principal); R10.10 Upper abdominal pain, unspecified; Z32.01 Encounter for pregnancy test, result positive
CPT/HCPCS: 36415; 76801; 80053; 83690; 84702; 84703; 85025; 96361; 96374; 96375; 99284; C9113; J1885; J2060; J2405; J2765

== ENCOUNTER → 2022-09-28 18:07 | Outpatient (CLI) | payer OTHER, MEDICAID, SELFPAY | PROVIDERS: PCP Family Medicine; Visit Provider Registered Nurse | DX: R30.0 Dysuria (principal) | CPT/HCPCS: 81002; 87086; 87210 ==

== ENCOUNTER 2022-10-15 09:03 | Emergency (ER) | payer OTHER, MEDICAID, SELFPAY ==
[2022-10-15 09:12] VITALS: BP 136/87; PULSE 84; RESP 16; TEMP 36.8; O2SAT 96; BMI 22.4
--- NOTE | 2022-10-15 09:23 | ED.PREGNANCY ---
HPI - General Chief complaint: OB/Uterine Contractions Stated complaint: poss miscarriage per pt Time Seen by Provider: 10/15/22 09:05 History of Present Illness HPI Narrative: Patient is a 27-year-old healthy female who presents today at presenting today concerned that she may be having a miscarriage. She was seen evaluated at [place] last week she was diagnosed with subchorionic hemorrhage. Today she feels like she is no longer constipated she sleeping well she is minimally nauseated she is not having any vaginal bleeding and minimal cramps she is worried that she may be miscarried. She is no painful or frequent urination Related Data Home Medications Medication Instructions Recorded Confirmed aripiprazole 15 mg tablet 15 mg PO DAILY 09/28/22 buspirone 5 mg tablet 5 mg PO TID 09/28/22 melatonin 5 mg capsule mg PO .HS PRN insomnia 09/28/22 Previous Rx's Medication Instructions Recorded vit no.95-ferrous 1 tab PO DAILY #30 tabs 09/18/22 fumarate 28 mg-folic acid 800 mcg tablet ondansetron 4 mg disintegrating 4 mg PO Q8H PRN nausea and 09/22/22 tablet vomiting #30 tabs Allergies Allergy/AdvReac Type Severity Reaction Status Date / Time zolpidem [From Ambien] AdvReac Intermediate Hallucinati Verified 09/28/22 13:08 ng Review of Systems Review of Systems ROS Unobtainable: All systems reviewed & are unremarkable except as noted in HPI and below Exam Initial Vital Signs Initial Vital Signs: Vital Signs Temperature 98.3 F 10/15/22 09:12 Pulse Rate 84 10/15/22 09:12 Respiratory Rate 16 10/15/22 09:12 Blood Pressure 136/87 10/15/22 09:12 Pulse Oximetry 96 10/15/22 09:12 Oxygen Delivery Method Room Air 10/15/22 09:12 GENERAL: Alert well-appearing 19-year-old female and in no acute distress. HEENT: Head atraumatic,EOMI, pupils reactive, face symmetric, moist mucous membranes CARDIOVASCULAR: Regular rate and rhythm without murmurs, rubs or gallops. RESPIRATORY: Breath sounds equal bilaterally, no wheezes rales or rhonchi. ABDOMEN: Soft, nontender. Normoactive bowel sounds all 4 quadrants. No guarding or rebound. EXTREMITIES: Normal range of motion, no clubbing or edema. Neurovascularly intact NEUROLOGICAL: Alert and oriented x4. SKIN: Warm, dry, no laceration, no petechiae, no rashes or lesions. Course Vital Signs Vital signs: Vital Signs - 8 hr 10/15/22 09:12 Temperature 98.3 F Pulse Rate 84 Respiratory Rate 16 Blood Pressure 136/87 Pulse Oximetry 96 Oxygen Delivery Method Room Air MDM - OB/Uterine Contractions MDM Narrative Medical decision making narrative: Patient 19-year-old healthy female presenting today worried that she is no longer experiencing symptoms and worried that she may no longer be . Bedside ultrasound done by myself identified IUP heartbeat is seen and heart rate 169 found by doppler. Patient is overall reassured. She is not having any vaginal bleeding she is not having any cramping. At this time I see no need for any further workup. She is an appointment Dr. Harshad LANDRUM November 01. She did have a tele visit on September 28 with him. Discharge Plan Departure Patient Disposition: Home Clinical Impression: Instructions: DI for -- Discomforts and Remedies Activity Restrictions/Additional Instructions: *You have been diagnosed with *What to do: At this time ultrasound was overall reassuring it was not an official ultrasound *Continue to take medications as directed *Follow up with your primary care provider in 2-3 days or call [phone] *Return to ER if you should have increasing vaginal bleeding cramping or any new, worsening or concerning symptoms Prescriptions: No Action aripiprazole 15 mg tablet 15 mg PO DAILY buspirone 5 mg tablet 5 mg PO TID melatonin 5 mg capsule PO .HS PRN (Reason: insomnia) ondansetron 4 mg tablet,disintegrating 4 mg PO Q8H PRN (Reason: nausea and vomiting) Qty: 30 5RF PNV cmb#95-ferrous fumarate-FA 28 mg iron- 800 mcg tablet 1 tab PO DAILY Qty: 30 3RF Referrals: Radha Baca DO [Primary Care Provider] - Stand Alone Forms: Patient Portal/API
--- NOTE | 2022-10-15 09:36 | PC.NURSE ---
pt was concerned with changes in her body the last few days. different bowel patterns, sleeping patterns and some abdominal discomfort. she was diagnosed with subcorionic hematoma last week at an ultrasound and she is here today worried the changes in her body may be due to a miscarriage. pt denies bleeding at this time. US and doppler done at bedside by provider with RN present.
== END 2022-10-15 09:39 | disposition home or self-care (01) ==
PROVIDERS: Emergency Provider Emergency Medicine; PCP Family Medicine
DX: Z34.00 Encounter for supervision of normal first pregnancy, unspecified trimester (principal); Z71.1 Person with feared health complaint in whom no diagnosis is made
CPT/HCPCS: 99281

== ENCOUNTER 2022-10-22 20:19 | Emergency (ER) | payer OTHER, MEDICAID, SELFPAY ==
[2022-10-22] VITALS (8 sets, daily range): BP systolic 97–106; BP diastolic 62–73; PULSE 61–78; RESP 14; TEMP 37.2; O2SAT 94–100; BMI 22.4
--- NOTE | 2022-10-22 20:45 | DI.US.S_ITS ---
PROCEDURE: US OB <= 14 WEEKS FETUS INDICATIONS: LOWER ABDOMEN BURNING/DIZZINESS OUTSIDE/PRIOR DATING DATA: Last menstrual period (LMP): 07/23/2022. LMP-based estimated date of delivery (JOHNNIE): 04/29/2023. First dating scan (date and location): 09/18/2022. Estimated date of delivery (JOHNNIE) from first dating scan: 05/12/2023. TECHNIQUE: Real-time scanning was performed of the fetus and maternal pelvic organs, with image documentation. COMPARISON: [facility], , OB <= 14 WEEKS FETUS, 09/18/2022, 8:42. FINDINGS: Embryo: There is an intrauterine with a gestational sac, yolk sac, and pole demonstrated. The crown-rump length measures up to 4.9 cm corresponding to a gestational age of 11 weeks 4 days. There is heart motion with a rate of 169 beats per minute. Maternal organs: Ovaries appear within normal size limits. No adnexal masses. IMPRESSION: 1. Single living intrauterine demonstrating appropriate interval growth with calculated gestational age of 11 weeks 4 days, concordant with calculated gestational age of 11 weeks 1 day by initial ultrasound. We strive to produce accurate, complete, and clear reports of imaging services. To assist us in improving patient care, this report was composed using standard report templates and voice recognition software. Therefore, it may contain abnormal punctuation, insertions and/or omissions. Occasional wrong-word or sound-alike substitutions may occur. Though we review the report and make efforts to correct it, we do recommend that the report be read carefully in proper context to recognize any text inaccuracies. Dictated by: Doyle Cary M.D. on 10/22/2022 at 22:32 Approved by: Doyle Cary M.D. on 10/22/2022 at 22:42
[2022-10-22 21:17] LABS: Alanine Aminotransferase 21 IU/L (<35); Albumin 4.5 g/dL (3.5-5.0); Albumin Globulin Ratio 1.4 (1.0-2.8); Bilirubin Total 0.8 mg/dL (0.2-1.3); Blood Urea Nitrogen 14 mg/dL (7-17); Calcium 9.6 mg/dL (8.4-10.2); Carbon Dioxide 26 mmol/L (22-32); Chloride 99 mmol/L (98-107); Estimated Glomerular Filt Rate > 60 mL/min (>60); Globulin 3.3 g/dL (1.7-4.1); Glucose 65 mg/dL (70-100); Lipase 55 U/L (23-300); Sodium 134 mmol/L (137-145); Total Protein 7.8 g/dL (6.3-8.2)
[2022-10-22 21:21] LABS: Aspartate Aminotransferase 27 IU/L (14-36); Potassium 3.8 mmol/L (3.4-5.1)
[2022-10-22 21:22] LABS: Alkaline Phosphatase 43 U/L (38-126)
[2022-10-22 21:59] LABS: HCG Quantitative /Beta subunit 155020 mIU/mL; HEMOLYSIS 52 (0-50)
[2022-10-22] MEDS: SODIUM CHLORIDE 0.9% 1,000 ML 1000 ML IV (22:05)
[2022-10-22 22:38] LABS: Add Manual Diff / Slide Review NO; Basophils Absolute Auto 100 /uL (0-100); Basophils Percent Auto 1.1 % (0-2); Eosinophils Absolute Auto 100 /uL (0-450); Eosinophils Percent Auto 0.6 % (2-4); Hematocrit 37.2 % (36-46); Hemoglobin 12.6 g/dL (12.0-16.0); Lymphocytes Absolute Auto 2200 /uL (1100-4500); Mean Corpuscular HGB Conc 33.9 % (30-36); Mean Corpuscular Hemoglobin 29.9 PG (26-34); Mean Corpuscular Volume 88.4 fL (80-100); Monocytes Absolute Auto 900 /uL (0-900); Monocytes Percent Auto 7.3 % (3-14); Neutrophils Absolute Auto 8800 /uL (1500-7000); Platelet Count 235 X10^3/uL (150-400)
[2022-10-22] MEDS: ONDANSETRON 4 MG/2 ML INJ IV (22:57)
--- NOTE | 2022-10-22 23:25 | ED_ITS ---
HPI - Abdominal Pain General Chief Complaint: Abdominal Pain Stated Complaint: lower ab burning, dizzy, 11 wks preg Time Seen by Provider: 10/22/22 20:22 Source: patient Mode of arrival: Ambulatory History of Present Illness HPI narrative: 27-year-old female nonsmoker is a at about 11 weeks and presents with the chief complaint of a burning sensation in her lower abdomen over the past day or so. She denies vaginal bleeding, discharge or leakage of fluid. She has no dysuria, frequency or urgency. She has been a bit nauseated and admittedly drinking and eating less. She does complain of some dizziness upon standing. She is had no fever or chills. She denies runny nose, sore throat or cough. She has no chest pain or shortness of breath. Related Data Home Medications Medication Instructions Recorded Confirmed aripiprazole 15 mg tablet 15 mg PO DAILY 09/28/22 buspirone 5 mg tablet 5 mg PO TID 09/28/22 melatonin 5 mg capsule mg PO .HS PRN insomnia 09/28/22 Previous Rx's Medication Instructions Recorded vit no.95-ferrous 1 tab PO DAILY #30 tabs 09/18/22 fumarate 28 mg-folic acid 800 mcg tablet ondansetron 4 mg disintegrating 4 mg PO Q8H PRN nausea and 09/22/22 tablet vomiting #30 tabs ondansetron 4 mg disintegrating 4 mg PO TID-QID PRN nausea and 10/22/22 tablet vomiting #10 tabs Allergies Allergy/AdvReac Type Severity Reaction Status Date / Time zolpidem [From Ambien] AdvReac Intermediate Hallucinati Verified 10/22/22 20:33 ng Review of Systems Review of Systems Narrative: GENERAL: See HPI HEENT: Denies sinus pain, ear pain, sore throat, difficulty swallowing, dizziness. RESPIRATORY: Denies dyspnea, cough, wheezing, hemoptysis, sputum. CARDIOVASCULAR: Denies chest pain, palpitations, orthopnea, edema, GASTROINTESTINAL: See HPI : Denies dysuria, frequency, incontinence, hematuria, urinary retention. MUSCULOSKELETAL: denies weakness, joint pain, or bony pain SKIN: Denies rash, skin lesions, or other NEUROLOGIC: Denies weakness, headache, numbness, change in speech, confusion, seizures, incoordination. PSYCHIATRIC: No concerning psychosocial issues. 12 point review of systems is negative except for those stated above Patient History Medical History ADHD Alcohol use Anorexia nervosa Anxiety Bulimia Depression Marijuana use Migraine without aura Surgical History History of appendectomy [place] teeth extracted Family History Mother Heart attack Hypertension Alcoholism Grandmother Kidney disease Family/Other Breast cancer Father Alcoholism Grandfather Alcoholism Grandfather Alcoholism Social History marital status: unmarried,living together household members: significant other and friend(s) lives independently: Yes caregiver/support person: No housing: apartment pets and animals: Yes (dog, cats, fish; aware of toxo precautions) education level: other (GED) 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) current occupational exposures/hazards: Yes (aware of chemical precautions) special boni needs: No travel history: recent seatbelt use: always water heater temp set < 120 deg: No working smoke detector in home: Yes fire extinguisher in home: No carbon monox detector in home: Yes firearms in home: No do you feel safe at home: Yes Smoking Status: Former smoker second hand exposure: No alcohol intake: former (2-3/day prior to ) substance use type: marijuana (agrees not to use while /) during the past year weight has: remained stable well-balanced diet: daily or most days daily servings fruits/ve or more times/day caffeine: Yes (aware of 200mg limit) Type(s) of exercise: aerobic, weight lifting and running frequency: 5-6 times per week Smoking Status: Former smoker tobacco type: cigarettes alcohol intake frequency: 0-2 drinks per day Substance Use Type: marijuana Exam Narrative Exam Narrative: GENERAL: [27] year old patient appears stated age. Well-developed patient, in mild distress. HEAD: Atraumatic. Normocephalic. EYES: Pupils equal round and reactive. Extraocular motions intact. No scleral icterus. No injection or drainage. ENT: Nose without bleeding, purulent drainage. Throat without erythema, tonsillar hypertrophy or exudate. Airway patent. NECK: Trachea midline. Non tender CARDIOVASCULAR: Regular rate and rhythm without murmurs, gallops, or rubs. RESPIRATORY: Clear to auscultation. Breath sounds equal bilaterally. No wheezes, rales, or rhonchi. GASTROINTESTINAL: Abdomen soft, non-tender, nondistended. EXTREMITIES: No edema or joint tenderness. BACK: Nontender without deformity or crepitance. No flank tenderness. NEURO: AOx3. SKIN: No rash or erythema of visible areas Initial Vital Signs Initial Vital Signs: Vital Signs Temperature 98.9 F 10/22/22 20:33 Pulse Rate 64 10/22/22 20:33 Respiratory Rate 14 10/22/22 20:33 Blood Pressure 106/69 10/22/22 20:33 Pulse Oximetry 100 10/22/22 20:33 Oxygen Delivery Method Room Air 10/22/22 20:33 Course Orders Ordered: ED Orders 10/22/22 20:45 US OB <= 14 weeks fetus Stat Comprehensive Metabolic Panel Stat HCG Quantitative /Beta subunit Stat Lipase Stat 10/22/22 22:25 Complete Blood Count AUTO DIFF Stat Discontinued Medications Sodium Chloride (Normal Saline 0.9%) 1,000 mls @ 1,000 mls/hr IV BOLUS ONE Stop: 10/22/22 21:45 Last Admin: 10/22/22 21:31 Dose: Not Given Documented By: ANJANA Sodium Chloride (Normal Saline 0.9%) 1,000 mls @ 1,000 mls/hr IV BOLUS ONE Stop: 10/22/22 23:53 Last Infusion: 10/22/22 23:11 Dose: 0 mls/hr Documented By: Admin: 10/22/22 22:05 Dose: 1,000 mls/hr Documented By: HEATH Ondansetron HCl (Ondansetron 4 Mg Odt) 4 mg PO NOW PRN PRN Reason: Nausea And Vomiting Ondansetron HCl (Ondansetron 4 Mg/2 Ml Inj) 4 mg IV NOW PRN PRN Reason: Nausea And Vomiting Last Admin: 10/22/22 22:57 Dose: 4 mg Documented By: HEATH Ondansetron HCl (Ondansetron 4 Mg Odt Prepack) 1 bottle MISC SEEINSTR ONE Stop: 10/22/22 23:33 Last Admin: 10/22/22 23:58 Dose: 1 bottle Documented By: HEATH Vital Signs Vital signs: Vital Signs - 8 hr 10/22/22 20:33 10/22/22 21:50 10/22/22 21:51 Temperature 98.9 F Pulse Rate 64 66 66 Respiratory Rate 14 Blood Pressure 106/69 Pulse Oximetry 100 100 100 Oxygen Delivery Method Room Air Oxygen Flow Rate 10/22/22 21:51 10/22/22 21:58 10/22/22 21:58 Temperature Pulse Rate 78 Respiratory Rate Blood Pressure 102/64 102/62 Pulse Oximetry 94 Oxygen Delivery Method Oxygen Flow Rate 10/22/22 22:00 10/22/22 22:00 10/22/22 22:30 Temperature Pulse Rate 67 Respiratory Rate Blood Pressure 97/65 102/65 Pulse Oximetry 100 Oxygen Delivery Method Oxygen Flow Rate 10/22/22 22:30 10/22/22 22:54 10/22/22 22:54 Temperature Pulse Rate 61 70 Respiratory Rate Blood Pressure 99/71 Pulse Oximetry 100 Oxygen Delivery Method Oxygen Flow Rate 10/22/22 23:00 10/22/22 23:00 10/23/22 00:00 Temperature Pulse Rate 78 Respiratory Rate Blood Pressure 101/73 98/62 Pulse Oximetry 100 Oxygen Delivery Method Room Air Oxygen Flow Rate 0 10/23/22 00:00 Temperature Pulse Rate 78 Respiratory Rate Blood Pressure Pulse Oximetry 100 Oxygen Delivery Method Oxygen Flow Rate MDM - Abdominal Pain Lab Data 10/22/22 22:25 10/22/22 20:45 Labs: Lab Results 10/22/22 10/22/22 Range/Units 20:45 22:25 WBC 12.0 H (4.5-11.0) X10^3/uL RBC 4.20 (4.0-5.2) X10^6/uL Hgb 12.6 (12.0-16.0) g/dL Hct 37.2 (36-46) % MCV 88.4 (80-100) fL MCH 29.9 (26-34) PG MCHC 33.9 (30-36) % RDW 13.0 (11.6-14.8) % Plt Count 235 (150-400) X10^3/uL Neut % (Auto) 73.0 (50-75) % Lymph % (Auto) 18.0 L (25-40) % [place] % (Auto) 7.3 (3-14) % Eos % (Auto) 0.6 L (2-4) % Baso % (Auto) 1.1 (0-2) % Neut # (Auto) 8800 H (5582-4014) /uL Lymph # (Auto) 2200 (7520-9396) /uL [place] # (Auto) 900 (0-900) /uL Eos # (Auto) 100 (0-450) /uL Baso # (Auto) 100 (0-100) /uL Sodium 134 L (137-145) mmol/L Potassium 3.8 (3.4-5.1) mmol/L Chloride 99 (98-107) mmol/L Carbon Dioxide 26 (22-32) mmol/L BUN 14 (7-17) mg/dL Creatinine 0.50 L (0.52-1.04) mg/dL Estimated GFR > 60 (>60) mL/min BUN/Creatinine Ratio 28.0 H (6-22) Glucose 65 L (70-100) mg/dL Calcium 9.6 (8.4-10.2) mg/dL Total Bilirubin 0.8 (0.2-1.3) mg/dL AST 27 (14-36) IU/L ALT 21 (<35) IU/L Alkaline Phosphatase 43 (38-126) U/L Total Protein 7.8 (6.3-8.2) g/dL Albumin 4.5 (3.5-5.0) g/dL Globulin 3.3 (1.7-4.1) g/dL Albumin/Globulin Ratio 1.4 (1.0-2.8) Lipase 55 (23-300) U/L HCG, Quant 911255 mIU/mL Point of care testing: Point of Care Testing Glucose POC 67 Urine Dip Bedside Urine Glucose Negative Bedside Urine Bilirubin - Negative Bedside Urine Ketone - Negative Urine Specific [place] 1.010 Bedside Urine Occult Blood - Negative Bedside Urine pH 8.0 Bedside Urine Protein - Negative Bedside Urine Urobilinogen - Negative Bedside Urine Nitrite - Negative Bedside Urine Leukocytes - Negative Esterase MDM Narrative Medical decision making narrative: [27] year old patient presents with lower abdominal burning and lightheadedness Multiple etiologies for patient's symptoms considered including, but not limited to: [ complication, urine infection, dehydration Prior Charts reviewed in our EMR Primary Historian: patient Labs reviewed and interpreted by myself: Minimal leukocytosis without left shift, no signs of anemia, electrolytes and renal function within normal limits, urine without signs of infection Imaging reviewed: Ultrasound demonstrates a single living intrauterine preg tmaeka at 11 weeks Patient's symptoms improved over duration of stay with above-stated therapies. Particularly after fluids and eating some, blood sugar was noted to be in the 60s at 1 point. Otherwise she is feeling significant improvement, labs and imaging are very reassuring. No significant abnormalities requiring further evaluation at this time Findings and discharge diagnosis discussed with patient/family followed by verbalization of understanding Return precautions discussed with patient/family whom verbalize understanding of diagnosis and plan Discharge Plan Departure Patient Disposition: Home Clinical Impression: Hypoglycemia Instructions: DI for Hypoglycemia Activity Restrictions/Additional Instructions: *You have been diagnosed with [ low blood sugar and vomiting] *What to do: *Please continue to take your regular medications as directed. [x ] New medication prescriptions sent to your pharmacy: [facility] ] [ ] New medication written as a paper prescription [ ] No new medications given *Please follow up with your primary care provider in 2-3 days, call for an appointment. Let them know you were seen in the Emergency Department and that we ask that you be seen in follow up. We will electronically transmit a record of today's note if your PCP is in our system *If you do not have a primary care provider please contact the [facility] Resource line at [phone]. They will ask some questions about your medical history and help get you set up with a doctor in the community. *Return to Emergency Department if you should have any new, worsening or concerning symptoms, such as [fever greater than 101 F, shaking chills, worsening pain, persistent vomiting or other bothersome symptoms] Prescriptions: New ondansetron 4 mg tablet,disintegrating 4 mg PO TID-QID PRN (Reason: nausea and vomiting) Qty: 10 0RF No Action aripiprazole 15 mg tablet 15 mg PO DAILY buspirone 5 mg tablet 5 mg PO TID melatonin 5 mg capsule PO .HS PRN (Reason: insomnia) ondansetron 4 mg tablet,disintegrating 4 mg PO Q8H PRN (Reason: nausea and vomiting) Qty: 30 5RF PNV cmb#95-ferrous fumarate-FA 28 mg iron- 800 mcg tablet 1 tab PO DAILY Qty: 30 3RF Referrals: Salari,Ali, DO [Primary Care Provider] - Stand Alone Forms: Patient Portal/API
[2022-10-22] MEDS: ONDANSETRON 4 MG ODT PREPACK 1 BOTTLE MISC (23:58)
[2022-10-23] VITALS: BP 98/62; PULSE 78; O2SAT 100
== END 2022-10-23 00:04 | disposition home or self-care (01) ==
PROVIDERS: Emergency Provider Emergency Medicine; PCP Family Medicine
DX: O26.891 Other specified pregnancy related conditions, first trimester (principal); E16.2 Hypoglycemia, unspecified; Z3A.11 11 weeks gestation of pregnancy
CPT/HCPCS: 36415; 76801; 76817; 80053; 81003; 82962; 83690; 84702; 85025; 96361; 96374; 99284; J2405

== ENCOUNTER 2022-10-28 09:50 | Emergency (ER) | payer OTHER, MEDICAID, SELFPAY ==
[2022-10-28 10:10] VITALS: PULSE 75; RESP 18; TEMP 36.9; O2SAT 100; BMI 22.8
--- NOTE | 2022-10-28 10:20 | DI.US.S_ITS ---
PROCEDURE: US OB <= 14 WEEKS FETUS INDICATIONS: PAIN; POSSIBLE ECTOPIC OUTSIDE/PRIOR DATING DATA: Last menstrual period (LMP): 07/23/2022 LMP-based estimated date of delivery (JOHNNIE): 04/29/2023 First dating scan (date and location): 09/18/2022 Estimated date of delivery (JOHNNIE) from first dating scan: 05/12/2023 TECHNIQUE: Real-time scanning was performed of the fetus and maternal pelvic organs, with image documentation. COMPARISON: [facility], OB <= 14 WEEKS FETUS, 10/22/2022, 21:19. FINDINGS: Embryo: There is an intrauterine with gestational sac and pole. The crown-rump length measurements measures 5.4 cm consistent with 12 weeks 0 days gestation. The placenta appears to be formed posterior and unremarkable in appearance. Heart rate: 169 BPM Maternal organs: Ovaries appear within normal limits of size. No adnexal mass. IMPRESSION: Unremarkable appearance of the ovaries. Single living intrauterine with with heart rate measuring 169 BPM demonstrating appropriate interval growth with calculated gestational age of 12 weeks 0 days which is concordant with gestational age of 12 weeks 0 days by LMP. We strive to produce accurate, complete, and clear reports of imaging services. To assist us in improving patient care, this report was composed using standard report templates and voice recognition software. Therefore, it may contain abnormal punctuation, insertions and/or omissions. Occasional wrong-word or sound-alike substitutions may occur. Though we review the report and make efforts to correct it, we do recommend that the report be read carefully in proper context to recognize any text inaccuracies. Dictated by: Shubham Saldana D.O. on 10/28/2022 at 10:27 Approved by: Shubham Saldana D.O. on 10/28/2022 at 10:34
--- NOTE | 2022-10-28 10:20 | ED.ABDPAIN ---
HPI - Abdominal Pain General Chief Complaint: Abdominal Pain Stated Complaint: 12 wks , lt side cramping Time Seen by Provider: 10/28/22 10:16 Source: patient, RN notes reviewed and old records reviewed Mode of arrival: Ambulatory Limitations: no limitations History of Present Illness HPI narrative: This is a 27-year-old female with no reported medical issues who is approximately 12 weeks , patient has been seen she states she has had ultrasound. She states she started having cramping particularly in the left side of her abdomen initially was on both sides. Patient states she had some low back pain but states that is chronic and not new. She denies fevers or chills. No nausea or vomiting. No chest pain or shortness of breath. Patient has been a little constipated she has not had a bowel movement in 2 or 3 days she states she has been passing gas. She states that is atypical she would normally stool more regularly. She denies dysuria, urgency or frequency. She denies any vaginal bleeding or discharge. Patient states no daily medications sides . Allergy to zolpidem. Denies active tobacco, alcohol or illicit. Patient's care is with Dr. Patricia, IT TRAINING SPECIALIST. Related Data Home Medications Medication Instructions Recorded Confirmed aripiprazole 15 mg tablet 15 mg PO DAILY 09/28/22 buspirone 5 mg tablet 5 mg PO TID 09/28/22 melatonin 5 mg capsule mg PO .HS PRN insomnia 09/28/22 Previous Rx's Medication Instructions Recorded ondansetron 4 mg disintegrating 4 mg PO Q8H PRN nausea and 09/22/22 tablet vomiting #30 tabs ondansetron 4 mg disintegrating 4 mg PO TID-QID PRN nausea and 10/22/22 tablet vomiting #10 tabs vit no.95-ferrous 1 tab PO DAILY #90 tabs 10/27/22 fumarate 28 mg-folic acid 800 mcg tablet Allergies Allergy/AdvReac Type Severity Reaction Status Date / Time zolpidem [From Ambien] AdvReac Intermediate Hallucinati Verified 10/22/22 20:33 ng Review of Systems Review of Systems ROS Unobtainable: All systems reviewed & are unremarkable except as noted in HPI and below Patient History Medical History ADHD Alcohol use Anorexia nervosa Anxiety Bulimia Depression Marijuana use Migraine without aura Surgical History History of appendectomy [place] teeth extracted Family History Mother Heart attack Hypertension Alcoholism Grandmother Kidney disease Family/Other Breast cancer Father Alcoholism Grandfather Alcoholism Grandfather Alcoholism Social History marital status: unmarried,living together household members: significant other and friend(s) lives independently: Yes caregiver/support person: No housing: apartment pets and animals: Yes (dog, cats, fish; aware of toxo precautions) education level: other (GED) 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) current occupational exposures/hazards: Yes (aware of chemical precautions) special boni needs: No travel history: recent seatbelt use: always water heater temp set < 120 deg: No working smoke detector in home: Yes fire extinguisher in home: No carbon monox detector in home: Yes firearms in home: No do you feel safe at home: Yes Smoking Status: Former smoker second hand exposure: No alcohol intake: former (2-3/day prior to ) substance use type: marijuana (agrees not to use while /) during the past year weight has: remained stable well-balanced diet: daily or most days daily servings fruits/ve or more times/day caffeine: Yes (aware of 200mg limit) Type(s) of exercise: aerobic, weight lifting and running frequency: 5-6 times per week Smoking Status: Former smoker tobacco type: cigarettes alcohol intake frequency: 0-2 drinks per day Substance Use Type: marijuana Exam Narrative Exam Narrative: GENERAL: Alert and oriented x three, female in mild distress. HEENT: Head normocephalic, atraumatic, EOMI, pupils reactive, face symmetric, moist mucous membranes NECK: Supple, full range of motion CARDIOVASCULAR: Regular rate and rhythm without murmurs, rubs or gallops. RESPIRATORY: Breath sounds equal bilaterally, no wheezes rales or rhonchi. ABDOMEN: Soft, nontender. Nondistended. Normoactive bowel sounds all 4 quadrants. No guarding or rebound, rigidity, no mass : No CVA tenderness EXTREMITIES: Normal range of motion, no clubbing or edema. Neurovascularly intact NEUROLOGICAL: Cranial nerves II through XII grossly intact. Moving all extremities, ambulating without issue. SKIN: Warm, dry, no petechiae, no rashes or lesions. Initial Vital Signs Initial Vital Signs: Vital Signs Temperature 98.4 F 10/28/22 10:10 Pulse Rate 75 10/28/22 10:10 Respiratory Rate 18 10/28/22 10:10 Pulse Oximetry 100 10/28/22 10:10 Oxygen Delivery Method Room Air 10/28/22 10:10 Course Orders Ordered: ED Orders 10/28/22 10:20 US OB <= 14 weeks fetus Stat Discontinued Medications Acetaminophen (Acetaminophen 325 Mg Tablet) 975 mg PO NOW ONE Stop: 10/28/22 10:24 Last Admin: 10/28/22 10:26 Dose: 975 mg Documented By: LSE Vital Signs Vital signs: Vital Signs - 8 hr 10/28/22 12:55 Temperature 98.3 F Pulse Rate 72 Respiratory Rate 16 Blood Pressure 111/72 Pulse Oximetry 98 Oxygen Delivery Method Room Air MDM - Abdominal Pain Lab Data Point of care testing: Urine Dip Bedside Urine Glucose Negative Bedside Urine Bilirubin - Negative Bedside Urine Ketone - Negative Urine Specific [place] 1.01 Bedside Urine Occult Blood - Negative Bedside Urine pH 7.5 Bedside Urine Protein - Negative Bedside Urine Urobilinogen - Negative Bedside Urine Nitrite - Negative Bedside Urine Leukocytes - Negative Esterase Imaging Data US - OB: Radiologist's Impression: Close Ultrasound (Signed) ShanaShubham - 10/28/22 Ultrasound (Signed) Doyle Cary - 10/22/22 DI Result 10/08/22 DI Result CC 10/08/22 DI Result 10/08/22 Ultrasound (Signed) Zachery Miller - 09/18/22 Launch?[address] [address] Ultrasound Report Signed Patient: Berenice Figueroa MR#: [id number] : 1995 Acct:[id number] Age/Sex: 27 / F Date of Service: 10/28/22 Loc: ED Accession Number: [id number] ?? Procedure: US OB <= 14 weeks fetus Ordering Provider: Marina Guido D.O. PROCEDURE:? US OB <= 14 WEEKS FETUS ? INDICATIONS:? PAIN; POSSIBLE ECTOPIC ? OUTSIDE/PRIOR DATING DATA:? Last menstrual period (LMP):? 07/23/2022 LMP-based estimated date of delivery (JOHNNIE):? 04/29/2023 First dating scan (date and location):? 09/18/2022 Estimated date of delivery (JOHNNIE) from first dating scan:? 05/12/2023 ? TECHNIQUE:? Real-time scanning was performed of the fetus and maternal pelvic organs, with image documentation.? ? COMPARISON:? [facility], , OB <= 14 WEEKS FETUS, 10/22/2022, 21:19. ? FINDINGS:? ? Embryo:? There is an intrauterine with gestational sac and pole.? The crown-rump length measurements measures 5.4 cm consistent with 12 weeks 0 days gestation. ?The placenta appears to be formed posterior and unremarkable in appearance. ? Heart rate:? 169 BPM ? Maternal organs:? Ovaries appear within normal limits of size.? No adnexal mass. ? ? IMPRESSION:? ? Unremarkable appearance of the ovaries. ? Single living intrauterine with with heart rate measuring 169 BPM demonstrating appropriate interval growth with calculated gestational age of 12 weeks 0 days which is concordant with gestational age of 12 weeks 0 days by LMP. ? We strive to produce accurate, complete, and clear reports of imaging services. To assist us in improving patient care, this report was composed using standard report templates and voice recognition software. Therefore, it may contain abnormal punctuation, insertions and/or omissions. Occasional wrong-word or sound-alike substitutions may occur. Though we review the report and make efforts to correct it, we do recommend that the report be read carefully in proper context to recognize any text inaccuracies. ? ? Dictated by: Shubham Saldana D.O. on 10/28/2022 at 10:27 ? ? Approved by: Shubham Saldana D.O. on 10/28/2022 at 10:34?? MDM Narrative Medical decision making narrative: This is a 27-year-old female who presents with complaint of likely constipation but has lower abdominal pain he is approximately 12 weeks . ultrasound shows fetus with 169 beats per minute consistent with dates. No other abruption or placenta changes are appreciated, patient does not wish to pursue any other lab work she is a difficult stick suspect she is constipated. We had discussed and she does have some symptoms consistent with this. And states now she feels like there is some stool ready to come out. Discharge Plan Departure Patient Disposition: Home Clinical Impression: Abdominal pain affecting Instructions: DI for Abdominal Pain -- Early Activity Restrictions/Additional Instructions: Follow-up if your symptoms are persisting. I would recommend increasing your fluid intake, high-fiber foods and foods such as prunes, juice, watermelon to help with stooling. You can use a glycerin suppository 1-2 times daily if you feel there is stool at the rectal opening. Please return for fevers, new or worsening abdominal pain, lightheadedness or passing out, persistent vomiting, black or bloody stools, vaginal bleeding or other new or concerning changes. Prescriptions: No Action aripiprazole 15 mg tablet 15 mg PO DAILY buspirone 5 mg tablet 5 mg PO TID melatonin 5 mg capsule PO .HS PRN (Reason: insomnia) PNV cmb#95-ferrous fumarate-FA 28 mg iron- 800 mcg tablet 1 tab PO DAILY Qty: 90 1RF ondansetron 4 mg tablet,disintegrating 4 mg PO Q8H PRN (Reason: nausea and vomiting) Qty: 30 5RF ondansetron 4 mg tablet,disintegrating 4 mg PO TID-QID PRN (Reason: nausea and vomiting) Qty: 10 0RF Referrals: Radha Baca DO [Primary Care Provider] - Paul Patricia MD [Physician] - Stand Alone Forms: Patient Portal/API
[2022-10-28] MEDS: ACETAMINOPHEN 325 MG TABLET 975 MG PO (10:26)
[2022-10-28 12:55] VITALS: BP 111/72; PULSE 72; RESP 16; TEMP 36.8; O2SAT 98
== END 2022-10-28 12:48 | disposition home or self-care (01) ==
PROVIDERS: Emergency Provider Emergency Medicine; PCP Family Medicine
DX: O26.891 Other specified pregnancy related conditions, first trimester (principal); R10.30 Lower abdominal pain, unspecified; Z3A.12 12 weeks gestation of pregnancy
CPT/HCPCS: 76801; 81003; 99283

== ENCOUNTER 2022-10-28 18:33 | Emergency (ER) | payer OTHER, MEDICAID, SELFPAY ==
[2022-10-28 18:42] VITALS: BP 114/73; PULSE 80; RESP 18; TEMP 36.9; O2SAT 100
--- NOTE | 2022-10-28 18:54 | ED.GENADULT ---
HPI - General Adult General Chief complaint: Abdominal Pain Stated complaint: VISITED TODAY WORSENING SYMPTOMS N/V/CONSTIPATION Time Seen by Provider: 10/28/22 18:46 Source: patient and family () Mode of arrival: Ambulatory Limitations: no limitations History of Present Illness HPI narrative: Patient is a 19 female who was seen here earlier in the day for lower abdominal discomfort and constipation. She is 12 weeks . She had an ultrasound which showed a normal 12 week . Was diagnosed with constipation was discharged home. States that since she is been off she is started to vomit. States she is having cramping along the bottom portion of her abdomen. States it feels like she needs to have a bowel movement but can not. She is here with her who also provided some HPI. She is not having any vaginal bleeding or vaginal discharge. She has been doing suppositories at home and also increasing her fiber. She is been doing MiraLax but has been doing it every few days. It has been several days since she is had what she considers a normal bowel movement. No urinary symptoms. Related Data Home Medications Medication Instructions Recorded Confirmed aripiprazole 15 mg tablet 15 mg PO DAILY 09/28/22 buspirone 5 mg tablet 5 mg PO TID 09/28/22 melatonin 5 mg capsule mg PO .HS PRN insomnia 09/28/22 Previous Rx's Medication Instructions Recorded ondansetron 4 mg disintegrating 4 mg PO Q8H PRN nausea and 09/22/22 tablet vomiting #30 tabs ondansetron 4 mg disintegrating 4 mg PO TID-QID PRN nausea and 10/22/22 tablet vomiting #10 tabs vit no.95-ferrous 1 tab PO DAILY #90 tabs 10/27/22 fumarate 28 mg-folic acid 800 mcg tablet Allergies Allergy/AdvReac Type Severity Reaction Status Date / Time zolpidem [From Ambien] AdvReac Intermediate Hallucinati Verified 10/22/22 20:33 ng Review of Systems Constitutional Constitutional: Reports system reviewed and no additional complaints, except as documented Gastrointestinal Gastrointestinal: Reports system reviewed and no additional complaints, except as documented Genitourinary Genitourinary: Reports system reviewed and no additional complaints, except as documented Integumentary/Breasts Skin/Breast: Reports system reviewed and no additional complaints, except as documented Neurologic Neurologic: Reports system reviewed and no additional complaints, except as documented Hematologic/Lymphatic On Anticoagulants: No Patient History Medical History ADHD Alcohol use Anorexia nervosa Anxiety Bulimia Depression Marijuana use Migraine without aura Surgical History History of appendectomy [place] teeth extracted Family History Mother Heart attack Hypertension Alcoholism Grandmother Kidney disease Family/Other Breast cancer Father Alcoholism Grandfather Alcoholism Grandfather Alcoholism Social History marital status: unmarried,living together household members: significant other and friend(s) lives independently: Yes caregiver/support person: No housing: apartment pets and animals: Yes (dog, cats, fish; aware of toxo precautions) education level: other (GED) 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) current occupational exposures/hazards: Yes (aware of chemical precautions) special boni needs: No travel history: recent seatbelt use: always water heater temp set < 120 deg: No working smoke detector in home: Yes fire extinguisher in home: No carbon monox detector in home: Yes firearms in home: No do you feel safe at home: Yes Smoking Status: Former smoker second hand exposure: No alcohol intake: former (2-3/day prior to ) substance use type: marijuana (agrees not to use while /) during the past year weight has: remained stable well-balanced diet: daily or most days daily servings fruits/ve or more times/day caffeine: Yes (aware of 200mg limit) Type(s) of exercise: aerobic, weight lifting and running frequency: 5-6 times per week Smoking Status: Former smoker tobacco type: cigarettes alcohol intake frequency: 0-2 drinks per day Substance Use Type: marijuana Exam Initial Vital Signs Initial Vital Signs: Vital Signs Temperature 98.4 F 10/28/22 18:42 Pulse Rate 80 10/28/22 18:42 Respiratory Rate 18 10/28/22 18:42 Blood Pressure 114/73 10/28/22 18:42 Pulse Oximetry 100 10/28/22 18:42 Oxygen Delivery Method Room Air 10/28/22 18:42 HENMT Head: normal to inspection and normocephalic Cardio Rate: regular rate Rhythm: regular rhythm GI Inspection: normal to inspection and non-distended Palpation: soft, No firm and No guarding Auscultation: normal bowel sounds Neuro General: patient alert, patient awake and moves all extremities Extrem General: capillary refill normal Course Orders Ordered: Discontinued Medications Sodium Biphosphate/Sodium Phosphate (Fleets Enema) 1 each [place] NOW ONE Stop: 10/28/22 18:55 Last Admin: 10/28/22 19:10 Dose: 1 each Documented By: ANTHONY Vital Signs Vital signs: Vital Signs - 8 hr 10/28/22 18:42 10/28/22 20:31 Temperature 98.4 F Pulse Rate 80 76 Respiratory Rate 18 16 Blood Pressure 114/73 113/65 Pulse Oximetry 100 100 Oxygen Delivery Method Room Air Room Air Medical Decision Making MDM Narrative Medical decision making narrative: Patient has a very benign abdominal exam and not having any OB related symptoms. No urinary symptoms as well. She is good bowel sounds. Given her status would not recommend a CT scan of her abdomen. Do have low suspicion for an acute intra-abdominal surgical issue to include bowel obstruction or appendicitis. She was given an enema which she did have a bowel movement afterwards that she states did improve her symptoms somewhat but not completely. We discussed the use of laxatives at home. We will hold on any further radiologic studies. She was given return precautions. She expressed understanding and agreement. Discharge Plan Departure Patient Disposition: Home Clinical Impression: Constipation Instructions: DI for Constipation Activity Restrictions/Additional Instructions: I recommend that you continue to take your medications as directed and keep all of your scheduled medical appointments. Contact your primary doctor for a follow-up. I do recommend the laxatives such as MiraLax like we discussed. Be sure that you are staying hydrated. Return to the emergency department for new symptoms. Prescriptions: No Action aripiprazole 15 mg tablet 15 mg PO DAILY buspirone 5 mg tablet 5 mg PO TID melatonin 5 mg capsule PO .HS PRN (Reason: insomnia) PNV cmb#95-ferrous fumarate-FA 28 mg iron- 800 mcg tablet 1 tab PO DAILY Qty: 90 1RF ondansetron 4 mg tablet,disintegrating 4 mg PO Q8H PRN (Reason: nausea and vomiting) Qty: 30 5RF ondansetron 4 mg tablet,disintegrating 4 mg PO TID-QID PRN (Reason: nausea and vomiting) Qty: 10 0RF Referrals: Radha Baca DO [Primary Care Provider] - Stand Alone Forms: Patient Portal/API
[2022-10-28] MEDS: FLEETS ENEMA 1 EACH PR (19:10)
[2022-10-28 20:31] VITALS: BP 113/65; PULSE 76; RESP 16; O2SAT 100
== END 2022-10-28 20:34 | disposition home or self-care (01) ==
PROVIDERS: Emergency Provider Emergency Medicine; PCP Family Medicine
DX: O26.891 Other specified pregnancy related conditions, first trimester (principal); K59.00 Constipation, unspecified; Z3A.12 12 weeks gestation of pregnancy; R10.30 Lower abdominal pain, unspecified
CPT/HCPCS: 76801; 81003; 99283; 99284

== ENCOUNTER → 2022-11-01 16:31 | Outpatient (CLI) | payer OTHER, MEDICAID, SELFPAY ==
[2022-11-01 17:05] LABS: Specimen Label NATERA
[2022-11-01 17:59] LABS: Add Manual Diff / Slide Review NO; Basophils Absolute Auto 0 /uL (0-100); Basophils Percent Auto 0.4 % (0-2); Eosinophils Absolute Auto 100 /uL (0-450); Eosinophils Percent Auto 0.5 % (2-4); Hematocrit 36.2 % (36-46); Hemoglobin 12.6 g/dL (12.0-16.0); Lymphocytes Absolute Auto 2100 /uL (1100-4500); Lymphocytes Percent Auto 18.9 % (25-40); Mean Corpuscular HGB Conc 34.8 % (30-36); Mean Corpuscular Hemoglobin 30.7 PG (26-34); Mean Corpuscular Volume 88.3 fL (80-100); Monocytes Absolute Auto 800 /uL (0-900); Monocytes Percent Auto 7.2 % (3-14); Neutrophils Absolute Auto 8000 /uL (1500-7000); Platelet Count 256 X10^3/uL (150-400); Red Cell Distribution Width 12.9 % (11.6-14.8)
[2022-11-01 20:55] LABS: Urine N gonorrhoeae NOT DETECTED
[2022-11-01 21:19] LABS: Urine Chlamydia NOT DETECTED
[2022-11-02 07:10] LABS: RPR Screen Non Reactive (Non Reactive)
[2022-11-02 18:54] LABS: Hep C Virus Ab w/Reflex Quant NEGATIVE s/c (NEGATIVE); Hepatitis B Surface Antigen NEGATIVE s/c (NEGATIVE); Rubella Antibody IgG 56.8 IU/mL (>15)
[2022-11-02 19:03] LABS: HIV 1 & 2 Ab/Ag 4th Gen Combo NEGATIVE (NEGATIVE)
[2022-11-03 07:31] LABS: Varicella IgG Antibody 1698 index (Immune >165)
== END ==
PROVIDERS: PCP Family Medicine; Referring Provider Obstetrics & Gynecology; Visit Provider Obstetrics & Gynecology
DX: Z34.01 Encounter for supervision of normal first pregnancy, first trimester (principal); Z3A.12 12 weeks gestation of pregnancy; Z11.3 Encounter for screening for infections with a predominantly sexual mode of transmission
CPT/HCPCS: 36415; 80055; 86787; 86803; 86850; 86900; 86901; 87086; 87389; 87491; 87591

== ENCOUNTER 2022-11-05 09:33 | Emergency (ER) | payer OTHER, MEDICAID, SELFPAY ==
[2022-11-05 09:45] VITALS: BP 131/73; PULSE 80; RESP 12; TEMP 36.7; O2SAT 99; BMI 22.8
--- NOTE | 2022-11-05 09:52 | ED_ITS ---
HPI - Recheck/Abnormal Lab/Rx General Chief Complaint: Recheck/Abnormal Lab/Rx Stated Complaint: took the wrong medication Time Seen by Provider: 11/05/22 09:37 Source: patient Mode of arrival: Ambulatory Limitations: no limitations History of Present Illness HPI narrative: Patient is a 19-year-old at approximately 13 weeks EGA who today took Ativan instead of Zofran for her nausea. She states she had a prescription for Ativan that she was given during the initial part of her because of excessive vomiting. She was told that she should stop taking this and start taking the Zofran. She is unsure as to how many time she took it because the patient's states he was just looking at the descriptions when the bottle and that they were both for nausea and so he was giving her the medication for nausea. She is not having any specific OB related complaints. She has a follow-up appointment scheduled in approximately 3 weeks. Related Data Home Medications Medication Instructions Recorded Confirmed aripiprazole 15 mg tablet 15 mg PO DAILY 09/28/22 11/05/22 buspirone 5 mg tablet 5 mg PO TID 09/28/22 11/05/22 melatonin 5 mg capsule 5 mg PO .HS PRN insomnia 09/28/22 11/05/22 Previous Rx's Medication Instructions Recorded ondansetron 4 mg disintegrating 4 mg PO TID-QID PRN nausea and 10/22/22 tablet vomiting #10 tabs vit no.95-ferrous 1 tab PO DAILY #90 tabs 10/27/22 fumarate 28 mg-folic acid 800 mcg tablet Allergies Allergy/AdvReac Type Severity Reaction Status Date / Time zolpidem [From Ambien] AdvReac Intermediate Hallucinati Verified 11/05/22 09:48 ng Review of Systems Constitutional Constitutional: Reports system reviewed and no additional complaints, except as documented Gastrointestinal Gastrointestinal: Reports system reviewed and no additional complaints, except as documented Genitourinary Genitourinary: Reports system reviewed and no additional complaints, except as documented Integumentary/Breasts Skin/Breast: Reports system reviewed and no additional complaints, except as documented Patient History Medical History ADHD Alcohol use Anorexia nervosa Anxiety Bulimia Depression Marijuana use Migraine without aura Surgical History History of appendectomy [place] teeth extracted Family History Mother Heart attack Hypertension Alcoholism Grandmother Kidney disease Family/Other Breast cancer Father Alcoholism Grandfather Alcoholism Grandfather Alcoholism Social History marital status: unmarried,living together household members: significant other and friend(s) lives independently: Yes caregiver/support person: No housing: apartment pets and animals: Yes (dog, cats, fish; aware of toxo precautions) education level: other (GED) 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) current occupational exposures/hazards: Yes (aware of chemical precautions) special boni needs: No travel history: recent seatbelt use: always water heater temp set < 120 deg: No working smoke detector in home: Yes fire extinguisher in home: No carbon monox detector in home: Yes firearms in home: No do you feel safe at home: Yes Smoking Status: Former smoker second hand exposure: No alcohol intake: former (2-3/day prior to ) substance use type: marijuana (agrees not to use while /) during the past year weight has: remained stable well-balanced diet: daily or most days daily servings fruits/ve or more times/day caffeine: Yes (aware of 200mg limit) Type(s) of exercise: aerobic, weight lifting and running frequency: 5-6 times per week Smoking Status: Former smoker tobacco type: cigarettes alcohol intake frequency: 0-2 drinks per day Substance Use Type: marijuana Exam Initial Vital Signs Initial Vital Signs: Vital Signs Temperature 98.1 F 11/05/22 09:45 Pulse Rate 80 11/05/22 09:45 Respiratory Rate 12 11/05/22 09:45 Blood Pressure 131/73 11/05/22 09:45 Pulse Oximetry 99 11/05/22 09:45 Oxygen Delivery Method Room Air 11/05/22 09:45 HENMT Head: normal to inspection and normocephalic Resp Effort & Inspection: normal respiratory effort Cardio Rate: regular rate GI Inspection: normal to inspection Skin General: no rashes or lesions noted Neuro General: patient alert and patient awake Course Vital Signs Vital signs: Vital Signs - 8 hr 11/05/22 09:45 Temperature 98.1 F Pulse Rate 80 Respiratory Rate 12 Blood Pressure 131/73 Pulse Oximetry 99 Oxygen Delivery Method Room Air MDM - Recheck/Abnormal Lab/Rx MDM Narrative Medical decision making narrative: Patient inadvertently took Ativan instead of Zofran. States she is no longer nauseous. She denies any other ingestions. No specific workup required today. She is no specific GI related complaints. I advised that they completely separate the 2 medications so she does not inadvertently take this medication again. She was instructed to keep all of her scheduled medical appointments. She was given return precautions. She expressed understanding and agreement. Discharge Plan Departure Patient Disposition: Home Clinical Impression: Nausea and vomiting during Instructions: DI for Safely Taking and Storing Medications -- Adults Activity Restrictions/Additional Instructions: I recommend that you separate the Ativan/lorazepam from the Zofran/ondansetron. You should be taken the Zofran for the nausea. Please keep all of your scheduled medical appointments. Return to the emergency department for new symptoms. Prescriptions: No Action aripiprazole 15 mg tablet 15 mg PO DAILY buspirone 5 mg tablet 5 mg PO TID melatonin 5 mg capsule 5 mg PO .HS PRN (Reason: insomnia) PNV cmb#95-ferrous fumarate-FA 28 mg iron- 800 mcg tablet 1 tab PO DAILY Qty: 90 1RF ondansetron 4 mg tablet,disintegrating 4 mg PO TID-QID PRN (Reason: nausea and vomiting) Qty: 10 0RF Referrals: Radha Baca DO [Primary Care Provider] - Stand Alone Forms: Patient Portal/API
== END 2022-11-05 10:05 | disposition home or self-care (01) ==
PROVIDERS: Emergency Provider Emergency Medicine; PCP Family Medicine
DX: O21.9 Vomiting of pregnancy, unspecified (principal); Z3A.13 13 weeks gestation of pregnancy
CPT/HCPCS: 99281

== ENCOUNTER 2022-11-13 10:53 | Emergency (ER) | payer OTHER, MEDICAID, SELFPAY ==
[2022-11-13 11:00] VITALS: BP 122/76; PULSE 73; RESP 18; TEMP 36.6; O2SAT 100; BMI 22.8
== END 2022-11-13 12:11 | disposition left against medical advice (07) ==
PROVIDERS: Emergency Provider Student in an Organized Health Care Education/Training Program; PCP Family Medicine
CPT/HCPCS: 99281

== ENCOUNTER 2022-11-21 03:21 | Emergency (ER) | payer OTHER, MEDICAID, SELFPAY ==
--- NOTE | 2022-11-21 03:25 | ED.GENADULT ---
HPI - General Adult General Chief complaint: Extremity Problem,Nontraumatic Stated complaint: muscle spasms in legs Time Seen by Provider: 11/21/22 03:25 History of Present Illness HPI narrative: 27-year-old at 15 weeks presents complaining of leg cramping at night that is keeping her awake. Today she is tried Epsom salt baths, lotion, heat, increased water intake, adding Gatorade for electrolytes and Tylenol. She is finding that the cramps will typically start in her thighs and go down the legs and then back up again and will interfere with sleep. She has no other specific complaints. She is not yet felt the baby move, no vaginal discharge, no fevers, cough, chills, cramping or vaginal bleeding. Related Data Home Medications Medication Instructions Recorded Confirmed aripiprazole 15 mg tablet 15 mg PO DAILY 09/28/22 11/05/22 buspirone 5 mg tablet 5 mg PO TID 09/28/22 11/05/22 melatonin 5 mg capsule 5 mg PO .HS PRN insomnia 09/28/22 11/05/22 Previous Rx's Medication Instructions Recorded ondansetron 4 mg disintegrating 4 mg PO TID-QID PRN nausea and 10/22/22 tablet vomiting #10 tabs vit no.95-ferrous 1 tab PO DAILY #90 tabs 10/27/22 fumarate 28 mg-folic acid 800 mcg tablet fluticasone propionate 50 1 spray intranasal DAILY 11/16/22 mcg/actuation nasal congestion, middle ear effusion 12 spray,suspension (Allergy Relief days #16 grams (fluticasone)) Allergies Allergy/AdvReac Type Severity Reaction Status Date / Time zolpidem [From Ambien] AdvReac Intermediate Hallucinati Verified 11/13/22 11:08 ng Review of Systems Review of Systems Narrative: Pertinent positive and negative findings as per HPI Patient History Medical History ADHD Alcohol use Anorexia nervosa Anxiety Bulimia Depression Marijuana use Migraine without aura Surgical History History of appendectomy [place] teeth extracted Family History Mother Heart attack Hypertension Alcoholism Grandmother Kidney disease Family/Other Breast cancer Father Alcoholism Grandfather Alcoholism Grandfather Alcoholism Social History marital status: unmarried,living together household members: significant other and friend(s) lives independently: Yes caregiver/support person: No housing: apartment pets and animals: Yes (dog, cats, fish; aware of toxo precautions) education level: other (GED) 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) current occupational exposures/hazards: Yes (aware of chemical precautions) special boni needs: No travel history: recent seatbelt use: always water heater temp set < 120 deg: No working smoke detector in home: Yes fire extinguisher in home: No carbon monox detector in home: Yes firearms in home: No do you feel safe at home: Yes Smoking Status: Former smoker second hand exposure: No alcohol intake: former (2-3/day prior to ) substance use type: marijuana (agrees not to use while /) during the past year weight has: remained stable well-balanced diet: daily or most days daily servings fruits/ve or more times/day caffeine: Yes (aware of 200mg limit) Type(s) of exercise: aerobic, weight lifting and running frequency: 5-6 times per week Smoking Status: Former smoker tobacco type: cigarettes alcohol intake frequency: 0-2 drinks per day Substance Use Type: does not use Exam Initial Vital Signs Initial Vital Signs: Vital Signs Temperature 98.8 F 11/21/22 03:28 Pulse Rate 65 11/21/22 03:28 Respiratory Rate 16 11/21/22 03:28 Blood Pressure 109/75 11/21/22 03:28 Pulse Oximetry 99 11/21/22 03:28 Oxygen Delivery Method Room Air 11/21/22 03:28 General: Alert appropriate in no acute distress Respiratory: Able to speak in full sentences, no obvious respiratory distress Skin: No obvious rashes, warm and dry Neurologic: Grossly intact no obvious asymmetries or abnormalities Psych: appropriate insight and affect, cooperative Course Vital Signs Vital signs: Vital Signs - 8 hr 11/21/22 03:28 Temperature 98.8 F Pulse Rate 65 Respiratory Rate 16 Blood Pressure 109/75 Pulse Oximetry 99 Oxygen Delivery Method Room Air Medical Decision Making MDM Narrative Medical decision making narrative: CC: Leg cramps, acute problem self-limited Complicating co-morbidities: 15 weeks' , history of anorexia/bulimia, Data collected from: patient, significant other Social determinants of health that may influence the patients condition: Current Medical records reviewed: Recent urgent care and OBGYN notes reviewed Differential considered: Leg cramps NOS, blood clot, electrolyte abnormality, claudication Exam documented above, pertinent findings include: Benign exam, no swelling to the lower extremities no evidence of blood clots Lab Test not indicated with today's visit Discussion: 27-year-old woman 15 weeks gestational age complaining of leg cramps. At this time there is no indication for additional workup. There is no suggestion of DVT, infection, life-threatening abnormality certainly no evidence of vascular or neurogenic claudication. We discussed continuing use of all of the things that she is tried so far. I also suggest trying brand-name Calm powdered drink that has magnesium and calcium and is specifically formulated for insomnia and leg cramps. It is safe . Reassurance was given, questions were answered and she is safe for discharge home Discharge Plan Departure Patient Disposition: Home Clinical Impression: Cramp in lower extremity associated with sleep Qualifiers: Weeks of gestation: 15 weeks Qualified Code(s): Z3A.15 - 15 weeks gestation of Instructions: DI for -- Discomforts and Remedies, DI for Nocturnal Leg Cramps Activity Restrictions/Additional Instructions: Thank you for coming in tonight I am sorry that you are suffering with these leg cramps and having difficulty sleeping. So far, you are doing everything right. I would continue with the Epsom salt baths, the lotion, heat increased water as well as Gatorade. My additional suggestion at this point would be to try brand name product called Calm -they sell it at [employer]. This a powdered drink that is a combination of magnesium and calcium to help with sleep and it can sometimes help with leg cramps. For the next couple of nights I would recommend to Tylenol and a glass of the powdered calm(the taste great as warm tea as well) and see if this gives you a chance to get to sleep and stay asleep without the leg cramps. Unfortunately, this can be a normally expected side effect in and hopefully will get better as the progresses. Please keep your routine schedule appointments If you find that you are getting worse or develop any new symptoms, please feel free to return to the emergency department for further evaluation. Prescriptions: No Action fluticasone propionate [Allergy Relief (fluticasone)] 50 mcg/actuation spray,suspension 1 spray intranasal DAILY 12 Days Qty: 16 0RF Rx Instructions: administer into each nostril aripiprazole 15 mg tablet 15 mg PO DAILY buspirone 5 mg tablet 5 mg PO TID melatonin 5 mg capsule 5 mg PO .HS PRN (Reason: insomnia) PNV cmb#95-ferrous fumarate-FA 28 mg iron- 800 mcg tablet 1 tab PO DAILY Qty: 90 1RF ondansetron 4 mg tablet,disintegrating 4 mg PO TID-QID PRN (Reason: nausea and vomiting) Qty: 10 0RF Referrals: Radha Baca DO [Primary Care Provider] - Stand Alone Forms: Patient Portal/API
[2022-11-21 03:28] VITALS: BP 109/75; PULSE 65; RESP 16; TEMP 37.1; O2SAT 99; BMI 22.6
== END 2022-11-21 03:46 | disposition home or self-care (01) ==
PROVIDERS: Emergency Provider Emergency Medicine; PCP Family Medicine
DX: O26.892 Other specified pregnancy related conditions, second trimester (principal); G47.62 Sleep related leg cramps; Z3A.15 15 weeks gestation of pregnancy
CPT/HCPCS: 99281

== ENCOUNTER 2022-11-22 20:24 | Emergency (ER) | payer OTHER, MEDICAID, SELFPAY ==
[2022-11-22 20:37] VITALS: BP 115/76; PULSE 81; RESP 14; TEMP 36.9; O2SAT 100; BMI 22.4
== END 2022-11-22 21:37 | disposition left against medical advice (07) ==
PROVIDERS: Emergency Provider Emergency Medicine; PCP Family Medicine
DX: S31.41XA Laceration without foreign body of vagina and vulva, initial encounter (principal)
CPT/HCPCS: 99281

== ENCOUNTER → 2022-11-28 16:01 | Outpatient (CLI) | payer OTHER, MEDICAID, SELFPAY ==
[2022-12-02 20:27] LABS: AFP Value 32.4 ng/mL (.); Gest Age on Col Date 21.1 weeks (.); Insulin Dep Diabetes No (.); OSBR Risk 1IN 10000 (.); Results Report (.); Test Results *Screen Negative* (.)
== END ==
PROVIDERS: PCP Family Medicine; Referring Provider Obstetrics & Gynecology; Visit Provider Obstetrics & Gynecology
DX: Z34.02 Encounter for supervision of normal first pregnancy, second trimester (principal); Z3A.16 16 weeks gestation of pregnancy
CPT/HCPCS: 82105

== ENCOUNTER 2022-12-05 14:57 | Emergency (ER) | payer OTHER, MEDICAID, SELFPAY ==
[2022-12-05 15:03] VITALS: BP 114/76; PULSE 78; RESP 16; TEMP 36.9; O2SAT 96; BMI 22.4
--- NOTE | 2022-12-05 15:31 | ED.GENADULT ---
HPI - General Adult General Chief complaint: Abdominal Pain Stated complaint: 17 weeks preg, cramping LLQ Time Seen by Provider: 12/05/22 15:10 Source: patient Mode of arrival: Ambulatory History of Present Illness HPI narrative: Patient is a 27-year-old at approximately 17 weeks EGA who is here for evaluation of left lower quadrant abdominal pain. She states that it did start earlier today. It is now almost resolved. She did have an episode of diarrhea but she did not think change any of her pain. She thought that it did radiate down to the front of her left leg. She is not having any urinary symptoms. No vaginal bleeding. No uterine cramping. No blood in her stool. She is 2 weeks away from her next OB appointment. Related Data Home Medications Medication Instructions Recorded Confirmed aripiprazole 15 mg tablet 15 mg PO DAILY 09/28/22 11/28/22 buspirone 5 mg tablet 5 mg PO TID 09/28/22 11/28/22 melatonin 5 mg capsule 5 mg PO .HS PRN insomnia 09/28/22 11/28/22 Previous Rx's Medication Instructions Recorded ondansetron 4 mg disintegrating 4 mg PO TID-QID PRN nausea and 10/22/22 tablet vomiting #10 tabs vit no.95-ferrous 1 tab PO DAILY #90 tabs 10/27/22 fumarate 28 mg-folic acid 800 mcg tablet mupirocin 2 % topical ointment 1 applic topical TID #15 grams 11/23/22 Allergies Allergy/AdvReac Type Severity Reaction Status Date / Time zolpidem [From Ambien] AdvReac Intermediate Hallucinati Verified 11/28/22 15:40 ng Review of Systems Constitutional Constitutional: Reports system reviewed and no additional complaints, except as documented Gastrointestinal Gastrointestinal: Reports system reviewed and no additional complaints, except as documented Genitourinary Genitourinary: Reports system reviewed and no additional complaints, except as documented Musculoskeletal Musculoskeletal: Reports system reviewed and no additional complaints, except as documented Integumentary/Breasts Skin/Breast: Reports system reviewed and no additional complaints, except as documented Hematologic/Lymphatic On Anticoagulants: No Patient History Medical History ADHD (~2020) Alcohol use Anorexia nervosa (~2013) Anxiety Back pain Bulimia (~2012) Depression Irregular menstrual cycle (~2005) Marijuana use Migraine without aura Ovarian cyst (~2012) PCOS (polycystic ovarian syndrome) Shoulder pain Surgical History (Updated 11/27/22 @ 21:38 by Claudette Baig) Anesthesia History of appendectomy [place] teeth extracted (~2021) Family History (Updated 11/27/22 @ 21:42 by Claudette Baig) Mother Heart attack Hypertension Alcoholism Hyperlipidemia Mental health problem Grandmother Kidney disease History of heart disease Hyperlipidemia Hypertension Mental health problem Family/Other Breast cancer Father Alcoholism Mental health problem Grandfather Alcoholism Grandfather Alcoholism Hypertension Mental health problem Brother Mental health problem Grandmother Breast cancer Hypertension Mental health problem Social History marital status: unmarried,living together household members: significant other and friend(s) lives independently: Yes caregiver/support person: No housing: apartment pets and animals: Yes (dog, cats, fish; aware of toxo precautions) education level: other (GED) 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) current occupational exposures/hazards: Yes (aware of chemical precautions) special boni needs: No travel history: recent seatbelt use: always water heater temp set < 120 deg: No working smoke detector in home: Yes fire extinguisher in home: No carbon monox detector in home: Yes firearms in home: No do you feel safe at home: Yes Smoking Status: Former smoker second hand exposure: No alcohol intake: former (2-3/day prior to ) substance use type: marijuana (agrees not to use while /) during the past year weight has: remained stable well-balanced diet: daily or most days daily servings fruits/ve or more times/day caffeine: Yes (aware of 200mg limit) Type(s) of exercise: aerobic, weight lifting and running frequency: 5-6 times per week Smoking Status: Former smoker tobacco type: cigarettes alcohol intake frequency: 0-2 drinks per day Substance Use Type: does not use Exam Initial Vital Signs Initial Vital Signs: Vital Signs Temperature 98.4 F 12/05/22 15:03 Pulse Rate 78 12/05/22 15:03 Respiratory Rate 16 12/05/22 15:03 Blood Pressure 114/76 12/05/22 15:03 Pulse Oximetry 96 12/05/22 15:03 Oxygen Delivery Method Room Air 12/05/22 15:03 Const General: cooperative, comfortable and No ill appearing HENMA Head: normal to inspection and normocephalic GI Inspection: normal to inspection Palpation: soft, No firm and No tender Skin General: no rashes or lesions noted Extrem General: normal to inspection and capillary refill normal Course Vital Signs Vital signs: Vital Signs - 8 hr 12/05/22 15:03 Temperature 98.4 F Pulse Rate 78 Respiratory Rate 16 Blood Pressure 114/76 Pulse Oximetry 96 Oxygen Delivery Method Room Air Medical Decision Making Lab Data Lab results reviewed: Yes I reviewed the patient's lab results. Labs: Urine Dip Bedside Urine Glucose Negative Bedside Urine Bilirubin - Negative Bedside Urine Ketone - Negative Urine Specific [place] 1.015 Bedside Urine Occult Blood - Negative Bedside Urine pH 6.0 Bedside Urine Protein - Negative Bedside Urine Urobilinogen - Negative Bedside Urine Nitrite - Negative Bedside Urine Leukocytes - Negative Esterase Point of care testing: Urine Dip Bedside Urine Glucose Negative Bedside Urine Bilirubin - Negative Bedside Urine Ketone - Negative Urine Specific [place] 1.015 Bedside Urine Occult Blood - Negative Bedside Urine pH 6.0 Bedside Urine Protein - Negative Bedside Urine Urobilinogen - Negative Bedside Urine Nitrite - Negative Bedside Urine Leukocytes - Negative Esterase MDM Narrative Medical decision making narrative: Bedside ultrasound shows intrauterine with a heart tone of 168. There is also movement. Patient has a benign abdominal exam. Actually has no discomfort on palpation today. Her urinalysis is unremarkable. Had a discussion today regarding her symptoms. I do feel given her status that we should hold on any radiologic studies for now. No indication for lab testing. Low suspicion for labor. Low suspicion for kidney stone, pyelonephritis or other intra-abdominal surgical issue. Will discharge patient home with return precautions. She expressed understanding and agreement. Discharge Plan Departure Patient Disposition: Home Clinical Impression: Abdominal pain affecting Instructions: DI for Abdominal Pain-Adult Activity Restrictions/Additional Instructions: I do recommend that you continue to take all of your medications as directed and keep all of your scheduled medical appointments. Return to the emergency department for any new or worsening symptoms. Prescriptions: No Action mupirocin 2 % ointment 1 applic topical TID Qty: 15 0RF aripiprazole 15 mg tablet 15 mg PO DAILY buspirone 5 mg tablet 5 mg PO TID melatonin 5 mg capsule 5 mg PO .HS PRN (Reason: insomnia) PNV cmb#95-ferrous fumarate-FA 28 mg iron- 800 mcg tablet 1 tab PO DAILY Qty: 90 1RF ondansetron 4 mg tablet,disintegrating 4 mg PO TID-QID PRN (Reason: nausea and vomiting) Qty: 10 0RF Referrals: Radha Baca DO [Primary Care Provider] - Stand Alone Forms: Patient Portal/API
== END 2022-12-05 15:57 | disposition home or self-care (01) ==
PROVIDERS: Emergency Provider Emergency Medicine; PCP Family Medicine
DX: O26.892 Other specified pregnancy related conditions, second trimester (principal); R10.32 Left lower quadrant pain; Z3A.17 17 weeks gestation of pregnancy
CPT/HCPCS: 81003; 99281; 99282

== ENCOUNTER → 2022-12-26 10:21 | Outpatient (CLI) | payer OTHER, MEDICAID, SELFPAY ==
--- NOTE | 2022-12-26 10:22 | DI.US.S_ITS ---
PROCEDURE: US OB >= 14 WEEKS FETUS INDICATIONS: 20WK ANATOMY SCAN OUTSIDE/PRIOR DATING DATA: Last menstrual period (LMP): 07/23/2022. LMP-based estimated date of delivery (JOHNNIE): 04/29/2023. First dating scan (date and location): 09/18/2022 Estimated date of delivery (JOHNNIE) from first dating scan: 05/12/2023 TECHNIQUE: Real-time scanning was performed of the fetus, with image documentation and biometric measurements. Endovaginal scanning: None COMPARISON: None. FINDINGS: General: A single living intrauterine gestation is present. Presentation: Cephalic. Placenta: Placental position is lateral , without previa. Amniotic fluid index: 8.8 cm, normal range is 5-24 cm. heart rate: 144 beats per minute. Maternal cervical canal: 3 point cm long. Normal lower limit is 2.5 cm. biometrics: Biparietal diameter: 4.9 cm, 20 week 6 day Head circumference: 17.5 cm, 20 week 0 day Abdominal circumference: 14.9 cm, 20 week 1 day Femur length: 3.4 cm, 20 week 4 day Clinically estimated gestational age: 20 week 3 day Composite gestational age from present scan: 20 week 3 day Estimated weight and percentile: 349 g, 41 percentile Anatomic survey: Neuro: Ventricles are non-dilated at less than 10 mm. Cisterna magna is normal at 3-11 mm. Cerebellum is normal in size and morphology. Nuchal skin fold: Normal at less than 6 mm between 14-21 weeks gestational age. Face: Nose and lips, facial profile are normal. Spine: No evidence for spina bifida. Heart: 4-chambered heart is present, with normal ventricular outflow tracts. Diaphragm: Diaphragm is intact. Stomach: Left-sided stomach is present. Kidneys: No hydronephrosis. Normal is less than 5 mm in 2nd trimester, less than 7 mm in 3rd trimester. Cord: 3-vessel cord has orthotopic insertion. Bladder: Normal in size. Extremities: All 4 extremities identified. IMPRESSION: Single live intrauterine consistent with a 20 week 3 day gestation Approved by: Colton Noonan M.D. on 12/26/2022 at 14:21
== END ==
PROVIDERS: PCP Family Medicine; Referring Provider Obstetrics & Gynecology; Visit Provider Obstetrics & Gynecology
DX: Z34.02 Encounter for supervision of normal first pregnancy, second trimester (principal); Z3A.20 20 weeks gestation of pregnancy
CPT/HCPCS: 76811

== ENCOUNTER 2023-01-08 06:43 | Outpatient (CLI) | payer OTHER, MEDICAID, SELFPAY | END 2023-01-08 07:38 | disposition home or self-care (01) | LOC: LABOR 07:49 → OB 01-12 06:18 | PROVIDERS: PCP Family Medicine; Referring Provider Obstetrics & Gynecology; Visit Provider Obstetrics & Gynecology | DX: O36.8120 Decreased fetal movements, second trimester, not applicable or unspecified (principal); Z3A.22 22 weeks gestation of pregnancy | CPT/HCPCS: 59025; G0378; G0379 ==

== ENCOUNTER 2023-01-15 17:53 | Outpatient (CLI) | payer OTHER, MEDICAID, SELFPAY ==
[2023-01-15 18:23] LABS: Appearance Urine UA CLEAR; Bilirubin Urine UA NEGATIVE (NEGATIVE); Color Urine UA YELLOW; Glucose Urine UA NEGATIVE (Negative); Ketones Urine UA NEGATIVE (NEGATIVE); Leukocyte Esterase Urine UA NEGATIVE (NEGATIVE); Nitrite Urine UA NEGATIVE (Negative); Occult Blood Urine UA NEGATIVE (Negative); Protein Urine UA NEGATIVE (Negative); Urobilinogen Urine UA 0.2 E.U./dL (0.2)
[2023-01-15 18:31] LABS: pH Urine UA 6.5 (4.5-8.0)
[2023-01-15 18:51] LABS: Bacteria Urine Few (2-10); RBC Urine 1-5/HPF (0-5/HPF); Squamous Epithelial Cell Urine 1-5 /HPF (0-5/HPF); WBC Urine 1-5/HPF (0-5/HPF)
[2023-01-15 18:52] LABS: Culture Indicated Urine Cult Not Indicated
[2023-01-15 19:22] LABS: COVID19 -Nasal RAPID Negative (Negative)
== END 2023-01-15 19:13 | disposition home or self-care (01) ==
LOC: OB 01-26 09:49
PROVIDERS: PCP Family Medicine; Referring Provider Family Medicine; Visit Provider Family Medicine
DX: O21.9 Vomiting of pregnancy, unspecified (principal); O26.892 Other specified pregnancy related conditions, second trimester; R19.7 Diarrhea, unspecified; Z3A.23 23 weeks gestation of pregnancy; Z20.822 Contact with and (suspected) exposure to COVID-19
CPT/HCPCS: 59025; 81001; 87635; C9803; G0378; G0379

== ENCOUNTER 2023-02-09 16:22 | Observation (INO) | payer OTHER, MEDICAID, SELFPAY ==
--- NOTE | 2023-02-09 17:06 | DI.US.S_ITS ---
PROCEDURE: US OB LIMITED INDICATIONS: HEAVY VAGINAL BLEEDING 26 WEEKS, RULE OUT ABRUPTION OUTSIDE/PRIOR DATING DATA: Last menstrual period (LMP): 07/23/2022. LMP-based estimated date of delivery (JOHNNIE): 04/29/2023. First dating scan (date and location): 09/18/2022. Estimated date of delivery (JOHNNIE) from first dating scan: 05/12/2023. The calculations are made using the sonographic JOHNNIE of 05/12/2023. TECHNIQUE: Real-time scanning was performed of the fetus, with image documentation. Endovaginal scanning: Not performed COMPARISON: None. FINDINGS: A single living intrauterine gestation is present. Presentation: Breech. Placenta: Placental position is right lateral, without previa. No evidence of abruption. Maternal cervical canal: 4.7 cm long. Normal lower limit is 2.5 cm. Estimated gestational age from initial scan: 26 weeks 6 days. IMPRESSION: No evidence of placental abruption. Dictated by: Satnam Mendoza M.D. on 02/09/2023 at 17:44 Approved by: Satnam Mendoza M.D. on 02/09/2023 at 17:45
--- NOTE | 2023-02-09 17:12 | P.TNLD_ITS ---
Visit Information Visit Information Date of evaluation: 02/09/23 Primary OB Provider: Paul Patricia On-call OB Provider: Sara Dowling Reason for Evaluation: Yes other Comments/Additional reasons for admission: Excessive vaginal bleeding after intercourse [facility] Medical History ADHD (~2020) Alcohol use Anorexia nervosa (~2013) Anxiety Back pain Bulimia (~2012) Depression Irregular menstrual cycle (~2005) Marijuana use Migraine without aura Ovarian cyst (~2012) PCOS (polycystic ovarian syndrome) Shoulder pain Surgical History (Updated 11/27/22 @ 21:38 by Claudette Baig) Anesthesia History of appendectomy [place] teeth extracted (~2021) Family History (Updated 11/27/22 @ 21:42 by Claudette Baig) Mother Heart attack Hypertension Alcoholism Hyperlipidemia Mental health problem Grandmother Kidney disease History of heart disease Hyperlipidemia Hypertension Mental health problem Family/Other Breast cancer Father Alcoholism Mental health problem Grandfather Alcoholism Grandfather Alcoholism Hypertension Mental health problem Brother Mental health problem Grandmother Breast cancer Hypertension Mental health problem Social History marital status: unmarried,living together household members: significant other and friend(s) lives independently: Yes caregiver/support person: No housing: apartment pets and animals: Yes (dog, cats, fish; aware of toxo precautions) education level: other (GED) 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) current occupational exposures/hazards: Yes (aware of chemical precautions) special boni needs: No travel history: recent seatbelt use: always water heater temp set < 120 deg: No working smoke detector in home: Yes fire extinguisher in home: No carbon monox detector in home: Yes firearms in home: No do you feel safe at home: Yes Smoking Status: Former smoker second hand exposure: No alcohol intake: former (2-3/day prior to ) substance use type: marijuana (agrees not to use while /) during the past year weight has: remained stable well-balanced diet: daily or most days daily servings fruits/ve or more times/day caffeine: Yes (aware of 200mg limit) Type(s) of exercise: aerobic, weight lifting and running frequency: 5-6 times per week Review of Systems Review of Systems Narrative: Patient had bleeding that started after intercourse. Initially was light and then began gushing heavier. She complains of feeling pressure and discomfort similar to she starts her menses. She is feeling the baby move. Exam Vital Signs (past 8 hours): Blood pressure 115/65, pulse 68, afebrile Narrative Exam Narrative: Abdomen is soft, nontender. There is blood on the vulva and in inner thighs of the patient. Speculum exam there is a moderate amount of red blood in the vagina. Cervix is closed. Vaginal exam the cervix is long, closed, fetus is high. Objective Imaging US - abdomen: My impression: No official reading yet but no obvious evidence of abruption or previous seen on ultrasound. No cause for the vaginal bleeding seen. Evaluation Evaluation Baseline heart rate: 130 Variability: Moderate (11-25) monitor accelerations: Present Monitor Decelerations: Absent Category of Tracing: Reactive Cervical dilation (cm): 0 Cervical effacement (%): 0 station: -4 Diagnosis, Plan/Disposition Final Diagnosis (1) 26 weeks gestation of : Status: Acute (2) Vaginal bleeding in patient after first trimester: Status: Acute Problem details: Postcoital Plan/Disposition Plan: Bleeding has stopped. Patient discharged home. Call if bleeding increases, increased pain, decreased movement. Keep routine OB visit. OB Disposition: home
== END 2023-02-09 18:57 | disposition home or self-care (01) ==
PROVIDERS: Admitting Provider Obstetrics & Gynecology; Referring Provider Obstetrics & Gynecology; Visit Provider Obstetrics & Gynecology
DX: O46.92 Antepartum hemorrhage, unspecified, second trimester (principal); Z3A.26 26 weeks gestation of pregnancy
CPT/HCPCS: 59025; 76815; G0378; G0379

== ENCOUNTER 2023-02-14 03:57 | Observation (INO) | payer OTHER, MEDICAID, SELFPAY ==
[2023-02-14 05:15] LABS: Appearance Urine UA SL CLOUDY; Bilirubin Urine UA NEGATIVE (NEGATIVE); Color Urine UA YELLOW; Glucose Urine UA NEGATIVE (Negative); Ketones Urine UA NEGATIVE (NEGATIVE); Leukocyte Esterase Urine UA NEGATIVE (NEGATIVE); Nitrite Urine UA NEGATIVE (Negative); Occult Blood Urine UA NEGATIVE (Negative); Protein Urine UA NEGATIVE (Negative); Specific Gravity Urine UA 1.015 (1.000-1.035); Urobilinogen Urine UA 0.2 E.U./dL (0.2)
[2023-02-14] MEDS: ACETAMINOPHEN 325 MG TABLET 975 MG PO (05:18)
[2023-02-14 05:23] LABS: Amorphous Sediment Urine 3+; Bacteria Urine Occasional (0-1); Culture Indicated Urine Cult Not Indicated; RBC Urine None Seen (0-5/HPF); Squamous Epithelial Cell Urine 0-1 /HPF (0-5/HPF); WBC Urine 0-1/HPF (0-5/HPF)
[2023-02-14 05:28] LABS: COVID19 -Nasal RAPID Negative (Negative)
[2023-02-14 06:16] LABS: Fetal Fibronectin Negative
--- NOTE | 2023-02-14 08:55 | PM.OBTRLD ---
Visit Information Visit Information Date of evaluation: 02/14/23 Primary OB Provider: Paul Patricia On-call OB Provider: Paul Patricia Reason for Evaluation: Yes other Comments/Additional reasons for admission: Berenice is a 28 yo at 27+1 presenting with lower abdominal cramping following an episode of PCP 5 days ago which resolved spontaneously. She has noted no further bleeding or any significant change in vaginal discharge. She denies UTI symptoms and also denies leakage of fluid per vagina. The cramping is intermittent rather than continuous but seems to be increasing in intensity according to the patient. The cramping subsides somewhat when she lays down and hydrates but then seems to return when she gets up and is more active. She is been at pelvic rest since the episode of bleeding and is curtailed her exercise regimen. [facility] Medical History ADHD (~2020) Alcohol use Anorexia nervosa (~2013) Anxiety Back pain Bulimia (~2012) Depression Irregular menstrual cycle (~2005) Marijuana use Migraine without aura Ovarian cyst (~2012) PCOS (polycystic ovarian syndrome) Shoulder pain Surgical History (Updated 11/27/22 @ 21:38 by Claudette Baig) Anesthesia History of appendectomy [place] teeth extracted (~2021) Family History (Updated 11/27/22 @ 21:42 by Claudette Baig) Mother Heart attack Hypertension Alcoholism Hyperlipidemia Mental health problem Grandmother Kidney disease History of heart disease Hyperlipidemia Hypertension Mental health problem Family/Other Breast cancer Father Alcoholism Mental health problem Grandfather Alcoholism Grandfather Alcoholism Hypertension Mental health problem Brother Mental health problem Grandmother Breast cancer Hypertension Mental health problem Social History marital status: unmarried,living together household members: significant other and friend(s) lives independently: Yes caregiver/support person: No housing: apartment pets and animals: Yes (dog, cats, fish; aware of toxo precautions) education level: other (GED) 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) current occupational exposures/hazards: Yes (aware of chemical precautions) special boni needs: No travel history: recent seatbelt use: always water heater temp set < 120 deg: No working smoke detector in home: Yes fire extinguisher in home: No carbon monox detector in home: Yes firearms in home: No do you feel safe at home: Yes Smoking Status: Former smoker second hand exposure: No alcohol intake: former (2-3/day prior to ) substance use type: marijuana (agrees not to use while /) during the past year weight has: remained stable well-balanced diet: daily or most days daily servings fruits/ve or more times/day caffeine: Yes (aware of 200mg limit) Type(s) of exercise: aerobic, weight lifting and running frequency: 5-6 times per week Exam HENMT Head: normal to inspection, normocephalic and atraumatic Eyes General: appearance normal, both eyes and all related structures Resp Effort & Inspection: normal respiratory effort and able to speak in complete sentences Uterus Location (Fundal Height): 27 Estimated Weight (lbs): 3 Extrem Right lower extremity: normal to inspection Objective Labs Labs: Laboratory Results - last 24 hr 02/14/23 02/14/23 02/14/23 04:50 04:58 05:00 Urine Color Yellow Urine Appearance Sl cloudy Urine pH 7.0 Ur Specific [place] 1.015 Urine Protein Negative Urine Glucose (UA) Negative Urine Ketones Negative Urine Occult Blood Negative Urine Nitrate Negative Urine Bilirubin Negative Urine Urobilinogen 0.2 Ur Leukocyte Esterase Negative Urine RBC None seen Urine WBC 0-1/hpf Ur Squamous Epith Cells 0-1 /hpf Amorphous Sediment 3+ Urine Bacteria Occasional (0-1) Ur Culture Indicated? Cult not indicated SARS-CoV-2 (PCR) Negative Fibronectin Negative Evaluation Evaluation Baseline heart rate: 145 Variability: Average (6-10) monitor accelerations: Present Monitor Decelerations: Episodic and Variable Category of Tracing: Reactive Status: Category l Comments: No contraction activity noted or palpated. Cervical exam declined. Diagnosis, Plan/Disposition Final Diagnosis (1) Abdominal cramping affecting , antepartum: Status: Acute Plan/Disposition Plan: Continue close observation for signs/symptoms of premature labor but at this point there is no indication that her cramping is uterine in origin. Patient will follow-up with me in the office in 48 hours or as needed. OB Disposition: home
== END 2023-02-14 08:30 | disposition home or self-care (01) ==
PROVIDERS: Admitting Provider Obstetrics & Gynecology; Referring Provider Obstetrics & Gynecology; Visit Provider Obstetrics & Gynecology
DX: O26.892 Other specified pregnancy related conditions, second trimester (principal); R10.9 Unspecified abdominal pain; Z3A.27 27 weeks gestation of pregnancy; Z20.822 Contact with and (suspected) exposure to COVID-19
CPT/HCPCS: 59025; 59050; 81001; 82731; 87635; C9803; G0378; G0379

== ENCOUNTER 2023-02-16 12:47 | Outpatient (CLI) | payer OTHER, MEDICAID, SELFPAY | END 2023-02-16 13:25 | disposition home or self-care (01) | LOC: LABOR 13:17 → OB 02-19 06:34 | PROVIDERS: Referring Provider Obstetrics & Gynecology; Visit Provider Obstetrics & Gynecology | DX: O36.8120 Decreased fetal movements, second trimester, not applicable or unspecified (principal); Z3A.27 27 weeks gestation of pregnancy | CPT/HCPCS: 36415; 59025; 82950; 85014; 85018; G0378; G0379 ==

== ENCOUNTER → 2023-02-16 13:29 | Outpatient (CLI) | payer OTHER, MEDICAID, SELFPAY ==
[2023-02-16 15:05] LABS: Hematocrit 34.3 % (36-46)
[2023-02-16 15:28] LABS: GTT (PREG) 1 Hour PP 50gm Dose 105 mg/dL (76-139)
== END ==
PROVIDERS: Referring Provider Obstetrics & Gynecology; Visit Provider Obstetrics & Gynecology
DX: Z34.02 Encounter for supervision of normal first pregnancy, second trimester (principal); Z3A.27 27 weeks gestation of pregnancy
CPT/HCPCS: 36415; 82950; 85014; 85018

== ENCOUNTER 2023-03-13 13:26 | Outpatient (CLI) | payer OTHER, MEDICAID, SELFPAY ==
[2023-03-13 14:51] LABS: Appearance Urine UA CLEAR; Bilirubin Urine UA NEGATIVE (NEGATIVE); Color Urine UA YELLOW; Glucose Urine UA NEGATIVE (Negative); Ketones Urine UA NEGATIVE (NEGATIVE); Leukocyte Esterase Urine UA NEGATIVE (NEGATIVE); Nitrite Urine UA NEGATIVE (Negative); Occult Blood Urine UA NEGATIVE (Negative); Protein Urine UA NEGATIVE (Negative); Urobilinogen Urine UA 0.2 E.U./dL (0.2)
[2023-03-13 15:03] LABS: Bacteria Urine Occasional (0-1); Culture Indicated Urine Cult Not Indicated; RBC Urine 0-1/HPF (0-5/HPF); Squamous Epithelial Cell Urine 0-1 /HPF (0-5/HPF); WBC Urine 0-1/HPF (0-5/HPF)
== END 2023-03-13 15:00 | disposition home or self-care (01) ==
LOC: LABOR 14:19 → OB 03-15 12:21
PROVIDERS: Referring Provider Obstetrics & Gynecology; Visit Provider Obstetrics & Gynecology
DX: O60.03 Preterm labor without delivery, third trimester (principal); Z3A.31 31 weeks gestation of pregnancy
CPT/HCPCS: 59025; 81001; G0378; G0379

== ENCOUNTER 2023-03-25 18:45 | Outpatient (CLI) | payer OTHER, MEDICAID, SELFPAY | END 2023-03-25 20:05 | disposition home or self-care (01) | LOC: LABOR 18:48 → OB 03-27 06:16 | PROVIDERS: Referring Provider Obstetrics & Gynecology; Visit Provider Obstetrics & Gynecology | DX: O36.8130 Decreased fetal movements, third trimester, not applicable or unspecified (principal); Z3A.33 33 weeks gestation of pregnancy | CPT/HCPCS: 59025; G0378; G0379 ==

== ENCOUNTER → 2023-03-27 12:16 | Outpatient (CLI) | payer OTHER, MEDICAID, SELFPAY ==
--- NOTE | 2023-03-27 12:17 | DI.US.S_ITS ---
PROCEDURE: US OB LIMITED INDICATIONS: EFW OUTSIDE/PRIOR DATING DATA: Last menstrual period (LMP): 07/23/2022. LMP-based estimated date of delivery (JOHNNIE): 04/29/2023. First dating scan (date and location): 09/18/2022. Estimated date of delivery (JOHNNIE) from first dating scan: 05/12/2023. TECHNIQUE: Real-time scanning was performed of the fetus, with image documentation and biometric measurements. Endovaginal scanning: Not performed COMPARISON: [facility], OB LIMITED, 02/09/2023, 17:24. FINDINGS: General: A single living intrauterine gestation is present. Presentation: Vertex. Placenta: Placental position is right fundal , without previa. Amniotic fluid index: 7.9 cm, normal range is 5-24 cm. Single deepest vertical pocket is 4.7 cm. heart rate: 137 beats per minute. Maternal cervical canal: 4.0 cm long. Normal lower limit is 2.5 cm. biometrics: Biparietal diameter: 8.1 cm 32 weeks 5 days Head circumference: 29.1 cm 32 weeks 0 days Abdominal circumference: 28.5 cm 32 weeks 4 days Femur length: 6.3 cm 32 weeks 4 days estimated gestational age: 33 weeks 3 days Composite gestational age from present scan: 32 weeks 3 days Estimated weight and percentile: 1985 g, 17th percentile Other: Not applicable. IMPRESSION: 1. Single living intrauterine in vertex presentation. 2. Estimated weight at the 17th percentile. We strive to produce accurate, complete, and clear reports of imaging services. To assist us in improving patient care, this report was composed using standard report templates and voice recognition software. Therefore, it may contain abnormal punctuation, insertions and/or omissions. Occasional wrong-word or sound-alike substitutions may occur. Though we review the report and make efforts to correct it, we do recommend that the report be read carefully in proper context to recognize any text inaccuracies. Dictated by: Yemi Suarez M.D. on 03/27/2023 at 17:29 Approved by: Yemi Suarez M.D. on 03/27/2023 at 17:34
== END ==
PROVIDERS: Referring Provider Obstetrics & Gynecology; Visit Provider Obstetrics & Gynecology
DX: O26.843 Uterine size-date discrepancy, third trimester (principal); Z3A.32 32 weeks gestation of pregnancy
CPT/HCPCS: 76815

== ENCOUNTER 2023-04-01 19:14 | Outpatient (CLI) | payer OTHER, MEDICAID, SELFPAY ==
[2023-04-01] MEDS: ACETAMINOPHEN 325 MG TABLET 650 MG PO (20:04)
[2023-04-01] MEDS: ONDANSETRON 4 MG ODT SL (20:04)
[2023-04-01] MEDS: CALCIUM CARBONATE 500 MG TAB 1000 MG PO (20:04)
--- NOTE | 2023-04-02 07:50 | P.TNLD_ITS ---
Visit Information Visit Information Date of evaluation: 04/01/23 Primary OB Provider: Paul Patricia On-call OB Provider: Sara Dowling Reason for Evaluation: Yes other Comments/Additional reasons for admission: 34 week gestation with nausea and headaches Vital Signs Vital Signs: Blood pressure 123/83, pulse of 83, temperature 36.5? [facility] Medical History ADHD (~2020) Alcohol use Anorexia nervosa (~2013) Anxiety Back pain Bulimia (~2012) Depression Irregular menstrual cycle (~2005) Marijuana use Migraine without aura Ovarian cyst (~2012) PCOS (polycystic ovarian syndrome) Shoulder pain Surgical History (Updated 11/27/22 @ 21:38 by Claudette Baig) Anesthesia History of appendectomy [place] teeth extracted (~2021) Family History (Updated 11/27/22 @ 21:42 by Claudette Baig) Mother Heart attack Hypertension Alcoholism Hyperlipidemia Mental health problem Grandmother Kidney disease History of heart disease Hyperlipidemia Hypertension Mental health problem Family/Other Breast cancer Father Alcoholism Mental health problem Grandfather Alcoholism Grandfather Alcoholism Hypertension Mental health problem Brother Mental health problem Grandmother Breast cancer Hypertension Mental health problem Social History marital status: unmarried,living together household members: significant other and friend(s) lives independently: Yes caregiver/support person: No housing: apartment pets and animals: Yes (dog, cats, fish; aware of toxo precautions) education level: other (GED) 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) current occupational exposures/hazards: Yes (aware of chemical precautions) special boni needs: No travel history: recent seatbelt use: always water heater temp set < 120 deg: No working smoke detector in home: Yes fire extinguisher in home: No carbon monox detector in home: Yes firearms in home: No do you feel safe at home: Yes Smoking Status: Former smoker second hand exposure: No alcohol intake: former (2-3/day prior to ) substance use type: marijuana (agrees not to use while /) during the past year weight has: remained stable well-balanced diet: daily or most days daily servings fruits/ve or more times/day caffeine: Yes (aware of 200mg limit) Type(s) of exercise: aerobic, weight lifting and running frequency: 5-6 times per week Review of Systems Review of Systems Narrative: Patient denies scotomata or epigastric pain. No fevers. No leakage of fluid. No vaginal bleeding. Good movement. Evaluation Evaluation Baseline heart rate: 140 Variability: Moderate (11-25) monitor accelerations: Present Monitor Decelerations: Absent Contraction Frequency (minutes): 0 Diagnosis, Plan/Disposition Final Diagnosis (1) Headache: Status: Acute (2) Nausea: Status: Acute (3) 34 weeks gestation of : Status: Acute Plan/Disposition Plan: Patient was evaluated for headache and nausea at 34 weeks' gestation. No evidence of preeclampsia. Patient's symptoms improved with Zofran Tylenol. Patient is discharged home to be followed up at her routine OB visit with precautions reviewed. OB Disposition: home
== END 2023-04-01 20:20 | disposition home or self-care (01) ==
LOC: OB 04-02 11:55
PROVIDERS: Referring Provider Specialist; Visit Provider Specialist
DX: O99.891 Other specified diseases and conditions complicating pregnancy (principal); O21.9 Vomiting of pregnancy, unspecified; R19.7 Diarrhea, unspecified; R51.9 Headache, unspecified; Z3A.34 34 weeks gestation of pregnancy
CPT/HCPCS: 59025; G0378; G0379

== ENCOUNTER 2023-04-16 07:20 | Outpatient (CLI) | payer OTHER, MEDICAID, SELFPAY ==
--- NOTE | 2023-04-16 08:40 | P.TNLD_ITS ---
Visit Information Visit Information Date of evaluation: 04/16/23 On-call OB Provider: Maty Bailey Reason for Evaluation: Yes other Comments/Additional reasons for admission: 28yo G1 at 36+2wks presents with her support person for left groin pain that woke her from sleep. She states she has had intermittent bilateral groin pain over the last few weeks, but this time the pain woke her from sleep and has been constant. She states the pain is worse with standing and walking, better with resting. Denies abdominal pain, vaginal bleeding, leaking fluid, or decreased movement. Denies fever, chills, new nausea, vomiting, or diarrhea. Reports some baseline nausea due to her GERD. Vital Signs Vital Signs: BP 117/78, P 85, T 36.3 PFSH Medical History ADHD (~2020) Alcohol use Anorexia nervosa (~2013) Anxiety Back pain Bulimia (~2012) Depression Irregular menstrual cycle (~2005) Marijuana use Migraine without aura Ovarian cyst (~2012) PCOS (polycystic ovarian syndrome) Shoulder pain Surgical History (Updated 11/27/22 @ 21:38 by Claudette Baig) Anesthesia History of appendectomy [place] teeth extracted (~2021) Family History (Updated 11/27/22 @ 21:42 by Claudette Baig) Mother Heart attack Hypertension Alcoholism Hyperlipidemia Mental health problem Grandmother Kidney disease History of heart disease Hyperlipidemia Hypertension Mental health problem Family/Other Breast cancer Father Alcoholism Mental health problem Grandfather Alcoholism Grandfather Alcoholism Hypertension Mental health problem Brother Mental health problem Grandmother Breast cancer Hypertension Mental health problem Social History marital status: unmarried,living together household members: significant other and friend(s) lives independently: Yes caregiver/support person: No housing: apartment pets and animals: Yes (dog, cats, fish; aware of toxo precautions) education level: other (GED) 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) current occupational exposures/hazards: Yes (aware of chemical precautions) special boni needs: No travel history: recent seatbelt use: always water heater temp set < 120 deg: No working smoke detector in home: Yes fire extinguisher in home: No carbon monox detector in home: Yes firearms in home: No do you feel safe at home: Yes Smoking Status: Former smoker second hand exposure: No alcohol intake: former (2-3/day prior to ) substance use type: marijuana (agrees not to use while /) during the past year weight has: remained stable well-balanced diet: daily or most days daily servings fruits/ve or more times/day caffeine: Yes (aware of 200mg limit) Type(s) of exercise: aerobic, weight lifting and running frequency: 5-6 times per week Review of Systems Review of Systems ROS: Yes All systems reviewed with the patient and are negative except as otherwise documented Exam Const General: comfortable, well developed and No acute distress Resp Effort & Inspection: normal respiratory effort and able to speak in complete sentences GI Other: gravid, no fundal tenderness, no uterine tenderness, mildly tender to palpation of left groin, no masses appreciated Presentation: vertex Evaluation Evaluation Baseline heart rate: 130 Variability: Moderate (11-25) monitor accelerations: Present Monitor Decelerations: Absent Contraction Frequency (minutes): 0 Category of Tracing: Reactive Comments: bedside sono: vtx presentation, SDP 3.7cm Diagnosis, Plan/Disposition Final Diagnosis (1) Left groin pain: Status: Acute Plan/Disposition Plan: 28yo at 36+2wks here with constant left groin pain that occurred last night. Obstetric evaluation reassuring. Her pain seems musculoskeletal in nature. -encouraged to try a support belt, use warm compresses, and rest -encouraged to stay well hydrated as well -f/u in clinic this week as scheduled OB Disposition: home
== END 2023-04-16 08:35 | disposition home or self-care (01) ==
LOC: LABOR 08:42 → OB 04-18 06:17
PROVIDERS: Referring Provider Specialist; Visit Provider Specialist
DX: O26.893 Other specified pregnancy related conditions, third trimester (principal); R10.32 Left lower quadrant pain; Z3A.36 36 weeks gestation of pregnancy
CPT/HCPCS: 59025; 76815; G0378; G0379

== ENCOUNTER 2023-04-16 13:36 | Observation (INO) | payer OTHER, MEDICAID, SELFPAY ==
--- NOTE | 2023-04-16 14:39 | PM.OBTRLD ---
Visit Information Visit Information Date of evaluation: 04/16/23 Primary OB Provider: Yessica Kern On-call OB Provider: Sara Dowling Reason for Evaluation: Yes other Comments/Additional reasons for admission: Patient comes in for the 2nd time today for complaints groin pain on the left side. The patient had pain that woke her from sleep and presented to labor and delivery earlier today. She went home and the pain only intensified after laying down and placing a heating pad so she returned. No vaginal bleeding. No fevers. Vital Signs Vital Signs: Blood pressure 115/72, pulse of 90, temperature 36.4? [facility] Medical History ADHD (~2020) Alcohol use Anorexia nervosa (~2013) Anxiety Back pain Bulimia (~2012) Depression Irregular menstrual cycle (~2005) Marijuana use Migraine without aura Ovarian cyst (~2012) PCOS (polycystic ovarian syndrome) Shoulder pain Surgical History (Updated 11/27/22 @ 21:38 by Claudette Baig) Anesthesia History of appendectomy [place] teeth extracted (~2021) Family History (Updated 11/27/22 @ 21:42 by Claudette Baig) Mother Heart attack Hypertension Alcoholism Hyperlipidemia Mental health problem Grandmother Kidney disease History of heart disease Hyperlipidemia Hypertension Mental health problem Family/Other Breast cancer Father Alcoholism Mental health problem Grandfather Alcoholism Grandfather Alcoholism Hypertension Mental health problem Brother Mental health problem Grandmother Breast cancer Hypertension Mental health problem Social History marital status: unmarried,living together household members: significant other and friend(s) lives independently: Yes caregiver/support person: No housing: apartment pets and animals: Yes (dog, cats, fish; aware of toxo precautions) education level: other (GED) 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) current occupational exposures/hazards: Yes (aware of chemical precautions) special boni needs: No travel history: recent seatbelt use: always water heater temp set < 120 deg: No working smoke detector in home: Yes fire extinguisher in home: No carbon monox detector in home: Yes firearms in home: No do you feel safe at home: Yes Smoking Status: Former smoker second hand exposure: No alcohol intake: former (2-3/day prior to ) substance use type: marijuana (agrees not to use while /) during the past year weight has: remained stable well-balanced diet: daily or most days daily servings fruits/ve or more times/day caffeine: Yes (aware of 200mg limit) Type(s) of exercise: aerobic, weight lifting and running frequency: 5-6 times per week Exam Narrative Exam Narrative: On examination the patient's uterus is nontender. There is some minor tenderness with palpation of the groin on the left side. Evaluation Evaluation Baseline heart rate: 125 Variability: Moderate (11-25) monitor accelerations: Present Monitor Decelerations: Absent Contraction Frequency (minutes): 0 Category of Tracing: Reactive Status: Category l Diagnosis, Plan/Disposition Final Diagnosis (1) Left groin pain: Status: Acute (2) 36 weeks gestation of : Status: Acute Plan/Disposition Plan: Reassured patient that the pain she is feeling is either round ligament pain or pain from pressure the baby on her pelvic floor muscles. Patient is reassured. Discussed she should return if she has vaginal bleeding, menstrual like cramps that do not go away with rest and fluids, fevers. OB Disposition: home
== END 2023-04-16 14:40 | disposition home or self-care (01) ==
PROVIDERS: Admitting Provider Specialist; Referring Provider Specialist; Visit Provider Specialist
DX: O26.893 Other specified pregnancy related conditions, third trimester (principal); R10.32 Left lower quadrant pain; Z3A.36 36 weeks gestation of pregnancy
CPT/HCPCS: G0378; G0379

== ENCOUNTER → 2023-04-18 09:20 | Outpatient (CLI) | payer OTHER, MEDICAID, SELFPAY ==
[2023-04-19 11:00] LABS: Strep Grp B PCR NEG for Grp B Strep
== END ==
PROVIDERS: Visit Provider Obstetrics & Gynecology
DX: Z34.03 Encounter for supervision of normal first pregnancy, third trimester (principal); Z3A.36 36 weeks gestation of pregnancy
CPT/HCPCS: 87653

== ENCOUNTER 2023-04-24 01:07 | Emergency (ER) | payer OTHER, MEDICAID, SELFPAY ==
[2023-04-24 01:16] VITALS: BP 110/74; PULSE 90; RESP 18; TEMP 36.6; O2SAT 97; BMI 26.6
--- NOTE | 2023-04-24 01:34 | ED_ITS ---
HPI - URI/Sore Throat General Chief Complaint: Upper Respiratory Symptoms Stated Complaint: throat hurts to swallow Time Seen by Provider: 04/24/23 01:20 Source: patient Mode of arrival: Ambulatory History of Present Illness HPI Narrative: Patient 28-year-old female currently 37 weeks presenting today with sore throat that started after dinner tonight. He reports that this hurts to swallow but she was not sure if it was an allergic reaction she denies any throat swelling or difficulty swallowing. She says it just hurts. She is not had any fever. She took Tylenol just prior to arrival she previously took Benadryl. She feels like the pain has progressively gotten worse. She denies any abdominal pain nausea vomiting cough or ear pain. No one else is sick and she remains afebrile. Related Data Home Medications Medication Instructions Recorded Confirmed aripiprazole 15 mg tablet 15 mg PO DAILY 09/28/22 04/05/23 buspirone 5 mg tablet 5 mg PO TID 09/28/22 04/05/23 melatonin 5 mg capsule 5 mg PO .HS PRN insomnia 09/28/22 04/05/23 doxylamine succinate 25 mg tablet 25 mg PO PRN PRN Sleep 03/13/23 04/05/23 (Unisom (doxylamine)) fluticasone propionate 50 50 mcg intranasal 03/13/23 04/05/23 mcg/actuation nasal spray,suspension Previous Rx's Medication Instructions Recorded vit no.95-ferrous 1 tab PO DAILY #90 tabs 10/27/22 fumarate 28 mg-folic acid 800 mcg tablet omeprazole 40 mg capsule,delayed 40 mg PO DAILY acid reflux #30 caps 04/15/23 release Allergies Allergy/AdvReac Type Severity Reaction Status Date / Time zolpidem [From Ambien] AdvReac Intermediate Hallucinati Verified 04/05/23 11:40 ng Review of Systems Review of Systems ROS Unobtainable: All systems reviewed & are unremarkable except as noted in HPI and below Patient History Medical History ADHD (~2020) Alcohol use Anorexia nervosa (~2013) Anxiety Back pain Bulimia (~2012) Depression Irregular menstrual cycle (~2005) Marijuana use Migraine without aura Ovarian cyst (~2012) PCOS (polycystic ovarian syndrome) Shoulder pain Surgical History Anesthesia History of appendectomy [place] teeth extracted (~2021) Family History Mother Heart attack Hypertension Alcoholism Hyperlipidemia Mental health problem Grandmother Kidney disease History of heart disease Hyperlipidemia Hypertension Mental health problem Family/Other Breast cancer Father Alcoholism Mental health problem Grandfather Alcoholism Grandfather Alcoholism Hypertension Mental health problem Brother Mental health problem Grandmother Breast cancer Hypertension Mental health problem Social History marital status: unmarried,living together household members: significant other and friend(s) lives independently: Yes caregiver/support person: No housing: apartment pets and animals: Yes (dog, cats, fish; aware of toxo precautions) education level: other (GED) 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) current occupational exposures/hazards: Yes (aware of chemical precautions) special boni needs: No travel history: recent seatbelt use: always water heater temp set < 120 deg: No working smoke detector in home: Yes fire extinguisher in home: No carbon monox detector in home: Yes firearms in home: No do you feel safe at home: Yes Smoking Status: Former smoker second hand exposure: No alcohol intake: former (2-3/day prior to ) substance use type: marijuana (agrees not to use while /) during the past year weight has: remained stable well-balanced diet: daily or most days daily servings fruits/ve or more times/day caffeine: Yes (aware of 200mg limit) Type(s) of exercise: aerobic, weight lifting and running frequency: 5-6 times per week Smoking Status: Former smoker tobacco type: cigarettes alcohol intake frequency: 0-2 drinks per day Substance Use Type: does not use Exam Initial Vital Signs Initial Vital Signs: Vital Signs Temperature 97.8 F 04/24/23 01:16 Pulse Rate 90 04/24/23 01:16 Respiratory Rate 18 04/24/23 01:16 Blood Pressure 110/74 04/24/23 01:16 Pulse Oximetry 97 04/24/23 01:16 Oxygen Delivery Method Room Air 04/24/23 01:16 GENERAL: 28-year-old year old patient appears stated age. Well-developed patien t, in mild distress. HEAD: Atraumatic. Normocephalic. EYES: Pupils equal round and reactive. Extraocular motions intact. No scleral icterus. No injection or drainage. ENT: Nose without bleeding, purulent drainage. Throat without erythema, tonsillar hypertrophy or exudate. Airway patent. No uvula swelling or deviation no cervical lymphadenopathy NECK: Trachea midline. Non tender CARDIOVASCULAR: Regular rate and rhythm without murmurs, gallops, or rubs. RESPIRATORY: Clear to auscultation. Breath sounds equal bilaterally. No wheezes, rales, or rhonchi. GASTROINTESTINAL: Abdomen gravid soft non-tender, nondistended. EXTREMITIES: No edema or joint tenderness. NEURO: AOx3. SKIN: No rash or erythema of visible areas Course Orders Ordered: ED Orders 04/24/23 01:25 Strep Grp A by PCR Rapid Stat Throat Culture Stat 04/24/23 01:27 Covid-19 + FLU A/B + RSV - PCR Stat Vital Signs Vital signs: Vital Signs - 8 hr 04/24/23 01:16 04/24/23 02:31 Temperature 97.8 F 97.9 F Pulse Rate 90 72 Respiratory Rate 18 18 Blood Pressure 110/74 111/77 Pulse Oximetry 97 97 Oxygen Delivery Method Room Air Room Air MDM - URI/Sore Throat Lab Data Labs: Lab Results 04/24/23 04/24/23 Range/Units 01:25 01:25 SARS-CoV-2 (PCR) Negative (Negative) Influenza A (RT-PCR) Flu a negative (NEGATIVE) Influenza B (RT-PCR) Flu b negative (NEGATIVE) RSV (PCR) Negative (Negative) Group A Strep (PCR) Negative (Negative) MDM Narrative Medical decision making narrative: The patient 28-year-old female currently 37 weeks presenting today with sore throat ongoing for a few hours. She took Tylenol just prior to arrival. She has no uvula swelling or deviation not erythematous on exam. She has no airway obstruction no evidence of peritonsillar abscess or severe infection. Rapid strep and viral panel are negative. Supportive care only. She is not having any abdominal pain vaginal bleeding or any -related issue at this time. Discharge Plan Departure Patient Disposition: Home Clinical Impression: Upper respiratory infection Instructions: DI for Viral Upper Respiratory Infection -- Adult Activity Restrictions/Additional Instructions: *You have been diagnosed with upper respiratory *What to do: At this time no need for antibiotics probably viral. However I do recommend Re swabbing for COVID in a couple of days. Stay hydrated recommend tea with honey, cough drops etc *Continue to take medications as directed Tylenol 1000 mg every 6 hours if needed for [id number] *Follow up with your primary care provider in 2-3 days or call [phone] *Return to ER if you should have increasing pain inability to swallow, muffled voice or any new, worsening or concerning symptoms Prescriptions: No Action aripiprazole 15 mg tablet 15 mg PO DAILY buspirone 5 mg tablet 5 mg PO TID melatonin 5 mg capsule 5 mg PO .HS PRN (Reason: insomnia) PNV cmb#95-ferrous fumarate-FA 28 mg iron- 800 mcg tablet 1 tab PO DAILY Qty: 90 1RF omeprazole 40 mg capsule,delayed release(DR/EC) 40 mg PO DAILY Qty: 30 0RF Unisom (doxylamine) 25 mg Tablet 25 mg PO PRN PRN (Reason: Sleep) fluticasone propionate [Flonase] 50 mcg/actuation [place],Suspension 50 mcg INTRANASAL Referrals: Provider,Jong HOFFMANN [Primary Care Provider] - Stand Alone Forms: Patient Portal/API
[2023-04-24 01:47] LABS: Strep Grp A by PCR Rapid Negative (Negative)
[2023-04-24 02:12] LABS: Influenza A - CEPHEID Flu A NEGATIVE (NEGATIVE); Influenza B - CEPHEID Flu B NEGATIVE (NEGATIVE); Respiratory Syncytial Virus Negative (Negative)
[2023-04-24 02:14] LABS: COVID-19 CEPHEID 4-PLEX PCR Negative (Negative)
[2023-04-24 02:31] VITALS: BP 111/77; PULSE 72; RESP 18; TEMP 36.6; O2SAT 97
== END 2023-04-24 02:40 | disposition home or self-care (01) ==
PROVIDERS: Emergency Provider Emergency Medicine
DX: J06.9 Acute upper respiratory infection, unspecified (principal); Z20.822 Contact with and (suspected) exposure to COVID-19; Z3A.37 37 weeks gestation of pregnancy
CPT/HCPCS: 0241U; 87070; 87651; 99281; 99282

== ENCOUNTER 2023-04-25 07:23 | Emergency (ER) | payer OTHER, MEDICAID, SELFPAY ==
[2023-04-25 07:28] VITALS: BP 117/67; PULSE 98; RESP 16; TEMP 36.7; O2SAT 96; BMI 26.6
--- NOTE | 2023-04-25 07:53 | ED.URI ---
HPI - URI/Sore Throat General Chief Complaint: Upper Respiratory Symptoms Stated Complaint: here T-1/sore throat/fever/congestion Time Seen by Provider: 04/25/23 07:35 Source: patient Mode of arrival: Ambulatory Limitations: no limitations History of Present Illness HPI Narrative: Patient is 37 weeks , . She is been ill for 2 days with URI symptoms. She currently complains of sinus pressure, headache and sore throat. She has no dysphagia. She is no fever chills. She is occasional cough, no dyspnea. She is no chest discomfort. She is hydrating well. She did takes normal motion, she is no OB concerns. She is experiencing lower abdominal/suprapubic cramping. She has no dysuria or hematuria. She was seen here yesterday. COVID 19, influenza, and strep test are all negative. A throat culture is pending. Related Data Home Medications Medication Instructions Recorded Confirmed aripiprazole 15 mg tablet 15 mg PO DAILY 09/28/22 04/05/23 buspirone 5 mg tablet 5 mg PO TID 09/28/22 04/05/23 melatonin 5 mg capsule 5 mg PO .HS PRN insomnia 09/28/22 04/05/23 doxylamine succinate 25 mg tablet 25 mg PO PRN PRN Sleep 03/13/23 04/05/23 (Unisom (doxylamine)) fluticasone propionate 50 50 mcg intranasal 03/13/23 04/05/23 mcg/actuation nasal spray,suspension Previous Rx's Medication Instructions Recorded vit no.95-ferrous 1 tab PO DAILY #90 tabs 10/27/22 fumarate 28 mg-folic acid 800 mcg tablet omeprazole 40 mg capsule,delayed 40 mg PO DAILY acid reflux #30 caps 04/15/23 release Allergies Allergy/AdvReac Type Severity Reaction Status Date / Time zolpidem [From Ambien] AdvReac Intermediate Hallucinati Verified 04/25/23 07:51 ng Review of Systems Constitutional Constitutional: Reports body ache(s), Denies chills, Denies fever(s), Reports headache(s), Reports lethargy and Denies night sweats Eyes Eyes: Denies change in vision and Denies irritation ENT Ears, Nose, Mouth, and Throat: Denies dizziness, Denies otalgia, Reports headache(s), Denies neck pain and Reports sore throat Cardiovascular Cardiovascular: Denies chest pain Respiratory Respiratory: Denies chest congestion and Reports cough Gastrointestinal Gastrointestinal: Denies abdominal pain, Denies dyspepsia and Denies diarrhea Genitourinary Genitourinary: Denies dysuria, Denies pelvic pain and Reports other (No vaginal discharge or vaginal bleeding.) Musculoskeletal Musculoskeletal: Denies back pain and Denies neck pain Integumentary/Breasts Skin/Breast: Denies rash Neurologic Neurologic: Denies dizziness and Reports headache(s) Patient History Medical History Back pain Shoulder pain PCOS (polycystic ovarian syndrome) Ovarian cyst (~2012) Irregular menstrual cycle (~2005) ADHD (~2020) Anxiety Depression Migraine without aura Bulimia (~2012) Anorexia nervosa (~2013) Alcohol use Marijuana use Surgical History Anesthesia History of appendectomy [place] teeth extracted (~2021) Family History Mother Heart attack Hypertension Alcoholism Hyperlipidemia Mental health problem Grandmother Kidney disease History of heart disease Hyperlipidemia Hypertension Mental health problem Family/Other Breast cancer Father Alcoholism Mental health problem Grandfather Alcoholism Grandfather Alcoholism Hypertension Mental health problem Brother Mental health problem Grandmother Breast cancer Hypertension Mental health problem Social History marital status: unmarried,living together household members: significant other and friend(s) lives independently: Yes caregiver/support person: No housing: apartment pets and animals: Yes (dog, cats, fish; aware of toxo precautions) education level: other (GED) 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) current occupational exposures/hazards: Yes (aware of chemical precautions) special boni needs: No travel history: recent seatbelt use: always water heater temp set < 120 deg: No working smoke detector in home: Yes fire extinguisher in home: No carbon monox detector in home: Yes firearms in home: No do you feel safe at home: Yes Smoking Status: Former smoker second hand exposure: No alcohol intake: former (2-3/day prior to ) substance use type: marijuana (agrees not to use while /) during the past year weight has: remained stable well-balanced diet: daily or most days daily servings fruits/ve or more times/day caffeine: Yes (aware of 200mg limit) Type(s) of exercise: aerobic, weight lifting and running frequency: 5-6 times per week Smoking Status: Former smoker tobacco type: cigarettes alcohol intake frequency: 0-2 drinks per day Substance Use Type: does not use Exam Initial Vital Signs Initial Vital Signs: Vital Signs Temperature 98.1 F 04/25/23 07:28 Pulse Rate 98 H 04/25/23 07:28 Respiratory Rate 16 04/25/23 07:28 Blood Pressure 117/67 04/25/23 07:28 Pulse Oximetry 96 04/25/23 07:28 Oxygen Delivery Method Room Air 04/25/23 07:28 Const General: cooperative, comfortable and other (She appears fatigued.) Nutritional Appearance: average body habitus and well nourished [facility] Head: normocephalic and atraumatic Nose: external nose normal Face and sinus: normal facial exam and no sinus tenderness Mouth: oral mucosae normal, mucous membranes abnormal and other (No oropharyngeal erythema or exudate.) Eyes General: Yes appearance normal, both eyes and all related structures Conjunctivae: conjunctivae normal Neck Neck: no meningeal signs and No lymphadenopathy Resp Effort & Inspection: normal respiratory effort Auscultation: clear to auscultation bilaterally Cardio Palpation: normal PMI Rate: regular rate Rhythm: regular rhythm Heart Sounds: S1 normal, S2 normal and no murmurs GI Other: Gravid, consistent with 37 week . No uterine tenderness. Slight suprapubic discomfort with palpation. No guarding or rebound. No additional abdominal discomfort. Bowel sounds are normal. Back/Spine/Pelvis Back: No CVA tenderness Skin General: no rashes or lesions noted Neuro General: patient alert, patient awake and patient oriented x3 Course Course Course Narrative: Patient is 37 weeks . She is no fever, omkar vitals. Primary complaints are URI symptoms. She is value yesterday. Testing is repeated a. She is negative for COVID-19, influenza. Rapid strep testing was negative yesterday. Throat culture still pending. Evaluations consistent with URI. She is no OB complaints. I am going to encourage rest, hydration, and URI management. Throat culture results for probably be available tomorrow, we will contact her if necessary. Orders Ordered: ED Orders 04/25/23 10:03 Urine Culture Stat Urine Microscopic Stat Discontinued Medications Acetaminophen (Acetaminophen 325 Mg Tablet) 650 mg PO NOW ONE Stop: 04/25/23 08:03 Last Admin: 04/25/23 08:07 Dose: 650 mg Documented By: CTS Vital Signs Vital signs: Vital Signs - 8 hr 04/25/23 07:28 Temperature 98.1 F Pulse Rate 98 H Respiratory Rate 16 Blood Pressure 117/67 Pulse Oximetry 96 Oxygen Delivery Method Room Air MDM - URI/Sore Throat Lab Data Labs: Lab Results 04/25/23 04/25/23 Range/Units 07:39 10:03 Urine RBC 30-100/hpf H (0-5/HPF) Urine WBC 5-10/hpf H (0-5/HPF) Ur Squamous Epith Cells 1-5 /hpf (0-5/HPF) Calcium Oxalate Crystal Few H Urine Bacteria Occasional (0-1) (None) Urine Mucus 3+ H (Negative) Ur Culture Indicated? Specimen cultured SARS-CoV-2 (PCR) Negative (Negative) Influenza A (RT-PCR) Flu a negative (NEGATIVE) Influenza B (RT-PCR) Flu b negative (NEGATIVE) RSV (PCR) Negative (Negative) Urine Dip Bedside Urine Glucose Negative Bedside Urine Bilirubin + 1 Bedside Urine Ketone - Negative Urine Specific [place] 1.025 Bedside Urine Occult Blood +++ Bedside Urine pH 6.0 Bedside Urine Protein +/- 15 Bedside Urine Urobilinogen - Negative Bedside Urine Nitrite - Negative Bedside Urine Leukocytes +/- 15 Esterase [facility] Narrative Medical decision making narrative: Patient was seen here yesterday. She is 37 weeks , she presented with URI symptoms. Symptoms persist. Evaluation would suggest viral URI once again. Dysplasia congestion sore throat, she is no dyspnea. She is no dysphagia. COVID-19 and influenza testing was negative yesterday. Rapid strep is negative yesterday. She thinks she is hydrating well. She is not having GI symptoms. She is normal motion. Repeat testing of COVID-19 and influenza remain negative. A throat culture is pending. She is notified of the findings. She is advised to assure good hydration, Tylenol as needed for pain. She should follow-up with her doctor return here for persistent sinus congestion, increasing cough or fever. Discharge Plan Departure Patient Disposition: Home Clinical Impression: Upper respiratory infection, viral Instructions: Common Cold Activity Restrictions/Additional Instructions: Be sure you plenty of rest. Assure good hydration. Tylenol every 4 hours for headache, body aches, or fever. The throat culture results from yesterday are not yet available. We will contact you if there is a positive culture. This is unlikely. Recheck with your doctor in 3-4 days if not improving. There is a small amount of blood in the urine sample. This should simply be rechecked by your doctor in the next 1-2 weeks. Be sure you are drinking plenty of fluids. Return here as necessary. Prescriptions: No Action aripiprazole 15 mg tablet 15 mg PO DAILY buspirone 5 mg tablet 5 mg PO TID melatonin 5 mg capsule 5 mg PO .HS PRN (Reason: insomnia) PNV cmb#95-ferrous fumarate-FA 28 mg iron- 800 mcg tablet 1 tab PO DAILY Qty: 90 1RF omeprazole 40 mg capsule,delayed release(DR/EC) 40 mg PO DAILY Qty: 30 0RF Unisom (doxylamine) 25 mg Tablet 25 mg PO PRN PRN (Reason: Sleep) fluticasone propionate [Flonase] 50 mcg/actuation [place],Suspension 50 mcg INTRANASAL Referrals: ProviderJong [Primary Care Provider] - Stand Alone Forms: Patient Portal/API
[2023-04-25] MEDS: ACETAMINOPHEN 325 MG TABLET 650 MG PO (08:07)
--- NOTE | 2023-04-25 08:10 | PC.NURSE ---
resp panel pending. given hot tea and honey. sitting in waiting area for results. needs met.
[2023-04-25 08:20] LABS: Influenza A - CEPHEID Flu A NEGATIVE (NEGATIVE); Influenza B - CEPHEID Flu B NEGATIVE (NEGATIVE); Respiratory Syncytial Virus Negative (Negative)
[2023-04-25 08:21] LABS: COVID-19 CEPHEID 4-PLEX PCR Negative (Negative)
[2023-04-25 10:22] VITALS: BP 113/72; PULSE 88; O2SAT 97
[2023-04-25 10:34] LABS: RBC Urine 30-100/HPF (0-5/HPF)
[2023-04-25 10:35] LABS: Bacteria Urine Occasional (0-1); Mucus Urine 3+ (Negative); Squamous Epithelial Cell Urine 1-5 /HPF (0-5/HPF)
[2023-04-25 10:36] LABS: Calcium Oxalate Crystals Urine Few; Culture Indicated Urine Specimen Cultured; WBC Urine 5-10/HPF (0-5/HPF)
== END 2023-04-25 10:22 | disposition home or self-care (01) ==
PROVIDERS: Emergency Provider Emergency Medicine
DX: J06.9 Acute upper respiratory infection, unspecified (principal); Z20.822 Contact with and (suspected) exposure to COVID-19; Z3A.37 37 weeks gestation of pregnancy
CPT/HCPCS: 0241U; 81003; 81015; 87086; 99282; 99283

== ENCOUNTER → 2023-04-27 17:48 | Outpatient (CLI) | payer OTHER, MEDICAID, SELFPAY ==
[2023-04-27 18:08] LABS: Appearance Urine UA CLEAR; Bilirubin Urine UA NEGATIVE (NEGATIVE); Color Urine UA YELLOW; Glucose Urine UA NEGATIVE (Negative); Ketones Urine UA NEGATIVE (NEGATIVE); Leukocyte Esterase Urine UA NEGATIVE (NEGATIVE); Nitrite Urine UA NEGATIVE (Negative); Occult Blood Urine UA NEGATIVE (Negative); Protein Urine UA NEGATIVE (Negative)
[2023-04-27 18:19] LABS: Bacteria Urine Few (2-10); Culture Indicated Urine Cult Not Indicated; RBC Urine 0-1/HPF (0-5/HPF); Squamous Epithelial Cell Urine 10-30 /HPF (0-5/HPF); WBC Urine 1-5/HPF (0-5/HPF)
== END ==
PROVIDERS: Referring Provider Obstetrics & Gynecology; Visit Provider Obstetrics & Gynecology
DX: R82.90 Unspecified abnormal findings in urine (principal)
CPT/HCPCS: 81001

== ENCOUNTER 2023-04-29 00:15 | Outpatient (CLI) | payer OTHER, MEDICAID, SELFPAY ==
--- NOTE | 2023-04-29 07:59 | PM.OBTRLD ---
Visit Information Visit Information Date of evaluation: 04/29/23 Primary OB Provider: Paul Patricia On-call OB Provider: Sara Dowling Reason for Evaluation: Yes rule out labor Comments/Additional reasons for admission: Patient came in c/o contractions Vital Signs Vital Signs: BP 130/89 P 81 T 36.5 PFSH Medical History Back pain Shoulder pain PCOS (polycystic ovarian syndrome) Ovarian cyst (~2012) Irregular menstrual cycle (~2005) ADHD (~2020) Anxiety Depression Migraine without aura Bulimia (~2012) Anorexia nervosa (~2013) Alcohol use Marijuana use Surgical History Anesthesia History of appendectomy [place] teeth extracted (~2021) Family History Mother Heart attack Hypertension Alcoholism Hyperlipidemia Mental health problem Grandmother Kidney disease History of heart disease Hyperlipidemia Hypertension Mental health problem Family/Other Breast cancer Father Alcoholism Mental health problem Grandfather Alcoholism Grandfather Alcoholism Hypertension Mental health problem Brother Mental health problem Grandmother Breast cancer Hypertension Mental health problem Social History marital status: unmarried,living together household members: significant other and friend(s) lives independently: Yes caregiver/support person: No housing: apartment pets and animals: Yes (dog, cats, fish; aware of toxo precautions) education level: other (GED) 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) current occupational exposures/hazards: Yes (aware of chemical precautions) special boni needs: No travel history: recent seatbelt use: always water heater temp set < 120 deg: No working smoke detector in home: Yes fire extinguisher in home: No carbon monox detector in home: Yes firearms in home: No do you feel safe at home: Yes Smoking Status: Former smoker second hand exposure: No alcohol intake: former (2-3/day prior to ) substance use type: marijuana (agrees not to use while /) during the past year weight has: remained stable well-balanced diet: daily or most days daily servings fruits/ve or more times/day caffeine: Yes (aware of 200mg limit) Type(s) of exercise: aerobic, weight lifting and running frequency: 5-6 times per week Review of Systems Review of Systems Narrative: Patient in c/o possible labor. good movement, no leakage of fluid or bleeding. Timing contractions. Evaluation Evaluation Baseline heart rate: 125 Variability: Moderate (11-25) monitor accelerations: Present Monitor Decelerations: Absent Contraction Frequency (minutes): 10 Uterine Contraction Intensity: Mild Category of Tracing: Reactive Status: Category l Diagnosis, Plan/Disposition Final Diagnosis (1) 38 weeks gestation of : Status: Acute (2) False labor after 37 completed weeks of gestation: Status: Acute Plan/Disposition Plan: labor precautions reviewed OB Disposition: home
== END 2023-04-29 01:25 | disposition home or self-care (01) ==
LOC: LABOR 00:20 → OB 05-03 16:59
PROVIDERS: Referring Provider Obstetrics & Gynecology; Visit Provider Specialist
DX: O47.1 False labor at or after 37 completed weeks of gestation (principal); Z3A.38 38 weeks gestation of pregnancy
CPT/HCPCS: 59025; G0378; G0379

== ENCOUNTER → 2023-04-30 12:55 | Outpatient (CLI) | payer OTHER, MEDICAID, SELFPAY ==
[2023-04-30 14:43] LABS: Appearance Urine UA CLEAR; Bilirubin Urine UA NEGATIVE (NEGATIVE); Color Urine UA YELLOW; Glucose Urine UA NEGATIVE (Negative); Ketones Urine UA NEGATIVE (NEGATIVE); Leukocyte Esterase Urine UA NEGATIVE (NEGATIVE); Nitrite Urine UA NEGATIVE (Negative); Occult Blood Urine UA NEGATIVE (Negative); Protein Urine UA NEGATIVE (Negative); Urobilinogen Urine UA 0.2 E.U./dL (0.2)
[2023-04-30 14:44] LABS: pH Urine UA 6.5 (4.5-8.0)
[2023-04-30 14:47] LABS: Bacteria Urine None Seen; Culture Indicated Urine Cult Not Indicated; RBC Urine None Seen (0-5/HPF); Squamous Epithelial Cell Urine None Seen (0-5/HPF); WBC Urine None Seen (0-5/HPF)
== END ==
PROVIDERS: Referring Provider Obstetrics & Gynecology; Visit Provider Obstetrics & Gynecology
DX: R30.0 Dysuria (principal); Z3A.37 37 weeks gestation of pregnancy
CPT/HCPCS: 81001

== ENCOUNTER 2023-05-02 14:38 | Observation (INO) | payer OTHER, MEDICAID, SELFPAY ==
--- NOTE | 2023-05-02 15:56 | DI.US.S_ITS ---
PROCEDURE: US OB BIOPHYSICAL PROFILE INDICATIONS: VARIATIONS ON NON-STRESS TEST OUTSIDE/PRIOR DATING DATA: Last menstrual period (LMP): 07/23/2022. LMP-based estimated date of delivery (JOHNNIE): 04/29/2023. First dating scan (date and location): 09/18/2022. Estimated date of delivery (JOHNNIE) from first dating scan: 05/12/2023. The calculations are made using the ultrasound JOHNNIE of 05/12/2023. TECHNIQUE: Real-time scanning was performed of the fetus, with image documentation and biometric measurements. Biophysical profile was also obtained. COMPARISON: [facility], OB LIMITED, 03/27/2023, 12:24. [facility], OB LIMITED, 02/09/2023, 17:24. FINDINGS: General: A single living intrauterine gestation is present. Presentation: Vertex. Placenta: Placental position is fundal , without previa. Amniotic fluid index: 7.6 cm, normal range is 5-24 cm. Single deepest vertical pocket is 3.3 cm. heart rate: 128 beats per minute. Maternal cervical canal: Not measured cm long. Normal lower limit is 2.5 cm. biometrics: Composite gestational age from initial scan: 38 weeks 4 days Biophysical profile: Tone: 2 points. Movement: 2 points. Respiration: 2 points. Largest pocket of fluid: 2 points. IMPRESSION: Single live intrauterine with ultrasound gestational age today of 38 weeks 4 days. [facility] 02/27 We strive to produce accurate, complete, and clear reports of imaging services. To assist us in improving patient care, this report was composed using standard report templates and voice recognition software. Therefore, it may contain abnormal punctuation, insertions and/or omissions. Occasional wrong-word or sound-alike substitutions may occur. Though we review the report and make efforts to correct it, we do recommend that the report be read carefully in proper context to recognize any text inaccuracies. Dictated by: Anna Branch M.D. on 05/02/2023 at 17:07 Approved by: Anna Branch M.D. on 05/02/2023 at 17:08
== END 2023-05-02 16:56 | disposition home or self-care (01) ==
PROVIDERS: Admitting Provider Obstetrics & Gynecology; Referring Provider Obstetrics & Gynecology; Visit Provider Obstetrics & Gynecology
DX: O26.893 Other specified pregnancy related conditions, third trimester (principal); R11.2 Nausea with vomiting, unspecified; R19.7 Diarrhea, unspecified; M54.9 Dorsalgia, unspecified; Z3A.38 38 weeks gestation of pregnancy
CPT/HCPCS: 59025; 76819; G0378; G0379

== ENCOUNTER 2023-05-04 03:01 | Outpatient (CLI) | payer OTHER, MEDICAID, SELFPAY ==
[2023-05-04] MEDS: MORPHINE 10 MG/ML INJ 8 MG IM (03:55)
--- NOTE | 2023-05-04 08:24 | PM.OBTRLD ---
Visit Information Visit Information Date of evaluation: 05/04/23 On-call OB Provider: Yessenia Jaquez Reason for Evaluation: Yes rule out labor Vital Signs Vital Signs: T36 116/76 HR85 PFSH Medical History Back pain Shoulder pain PCOS (polycystic ovarian syndrome) Ovarian cyst (~2012) Irregular menstrual cycle (~2005) ADHD (~2020) Anxiety Depression Migraine without aura Bulimia (~2012) Anorexia nervosa (~2013) Alcohol use Marijuana use Surgical History Anesthesia History of appendectomy [place] teeth extracted (~2021) Family History Mother Heart attack Hypertension Alcoholism Hyperlipidemia Mental health problem Grandmother Kidney disease History of heart disease Hyperlipidemia Hypertension Mental health problem Family/Other Breast cancer Father Alcoholism Mental health problem Grandfather Alcoholism Grandfather Alcoholism Hypertension Mental health problem Brother Mental health problem Grandmother Breast cancer Hypertension Mental health problem Social History marital status: unmarried,living together household members: significant other and friend(s) lives independently: Yes caregiver/support person: No housing: apartment pets and animals: Yes (dog, cats, fish; aware of toxo precautions) education level: other (GED) 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) current occupational exposures/hazards: Yes (aware of chemical precautions) special boni needs: No travel history: recent seatbelt use: always water heater temp set < 120 deg: No working smoke detector in home: Yes fire extinguisher in home: No carbon monox detector in home: Yes firearms in home: No do you feel safe at home: Yes Smoking Status: Former smoker second hand exposure: No alcohol intake: former (2-3/day prior to ) substance use type: marijuana (agrees not to use while /) during the past year weight has: remained stable well-balanced diet: daily or most days daily servings fruits/ve or more times/day caffeine: Yes (aware of 200mg limit) Type(s) of exercise: aerobic, weight lifting and running frequency: 5-6 times per week Review of Systems Review of Systems ROS: Yes All systems reviewed with the patient and are negative except as otherwise documented Exam Const General: cooperative Resp Effort & Inspection: normal respiratory effort Extrem General: normal to inspection Psych Appearance: grossly normal Evaluation Evaluation Baseline heart rate: 120 Variability: Moderate (11-25) monitor accelerations: Present (15x15) Monitor Decelerations: Absent Contraction Frequency (minutes): 8 Uterine Contraction Intensity: Mild Category of Tracing: Reactive Status: Category l Cervical dilation (cm): 0 Diagnosis, Plan/Disposition Plan/Disposition Plan: 28yo at 38.6w presenting with continued back pains radiating down. Before she was feeling contractions/cramping in the front. Denies leaking fluid or bleeding. Good movement. Evaluated 2d ago for labor check. VSS Exam benign Cervix closed NST reactive 28yo at 38.6w, false labor - NST reactive - Uncomfortable, given morphine 8mg prior to discharge - Discharge to home with labor precautions
== END 2023-05-04 03:58 | disposition home or self-care (01) ==
LOC: OB 05-08 12:08
PROVIDERS: Referring Provider Obstetrics & Gynecology; Visit Provider Obstetrics & Gynecology
DX: O47.1 False labor at or after 37 completed weeks of gestation (principal); Z3A.38 38 weeks gestation of pregnancy
CPT/HCPCS: 59025; 96372; G0378; G0379; J2270

== ENCOUNTER 2023-05-07 11:22 | Outpatient (CLI) | payer OTHER, MEDICAID, SELFPAY | END 2023-05-07 12:05 | disposition home or self-care (01) | LOC: LABOR 11:32 → OB 05-08 12:08 | PROVIDERS: Referring Provider Obstetrics & Gynecology; Visit Provider Obstetrics & Gynecology | DX: O36.8130 Decreased fetal movements, third trimester, not applicable or unspecified (principal); O47.1 False labor at or after 37 completed weeks of gestation; Z3A.39 39 weeks gestation of pregnancy | CPT/HCPCS: 59025; G0378; G0379 ==

== ENCOUNTER 2023-05-08 17:48 | Outpatient (CLI) | payer OTHER, MEDICAID, SELFPAY ==
--- NOTE | 2023-05-08 19:07 | PM.OBTRLD ---
Visit Information Visit Information Date of evaluation: 05/08/23 Primary OB Provider: Paul Patricia On-call OB Provider: Paul Patricia Reason for Evaluation: Yes rule out labor Comments/Additional reasons for admission: Contractions have increased today. BOWI, no bleeding, PFSH Medical History Back pain Shoulder pain PCOS (polycystic ovarian syndrome) Ovarian cyst (~2012) Irregular menstrual cycle (~2005) ADHD (~2020) Anxiety Depression Migraine without aura Bulimia (~2012) Anorexia nervosa (~2013) Alcohol use Marijuana use Surgical History Anesthesia History of appendectomy [place] teeth extracted (~2021) Family History Mother Heart attack Hypertension Alcoholism Hyperlipidemia Mental health problem Grandmother Kidney disease History of heart disease Hyperlipidemia Hypertension Mental health problem Family/Other Breast cancer Father Alcoholism Mental health problem Grandfather Alcoholism Grandfather Alcoholism Hypertension Mental health problem Brother Mental health problem Grandmother Breast cancer Hypertension Mental health problem Social History marital status: unmarried,living together household members: significant other and friend(s) lives independently: Yes caregiver/support person: No housing: apartment pets and animals: Yes (dog, cats, fish; aware of toxo precautions) education level: other (GED) 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) current occupational exposures/hazards: Yes (aware of chemical precautions) special boni needs: No travel history: recent seatbelt use: always water heater temp set < 120 deg: No working smoke detector in home: Yes fire extinguisher in home: No carbon monox detector in home: Yes firearms in home: No do you feel safe at home: Yes Smoking Status: Former smoker second hand exposure: No alcohol intake: former (2-3/day prior to ) substance use type: marijuana (agrees not to use while /) during the past year weight has: remained stable well-balanced diet: daily or most days daily servings fruits/ve or more times/day caffeine: Yes (aware of 200mg limit) Type(s) of exercise: aerobic, weight lifting and running frequency: 5-6 times per week Evaluation Evaluation Baseline heart rate: 145 Variability: Moderate (11-25) monitor accelerations: Present Monitor Decelerations: Absent Contraction Frequency (minutes): 4 Uterine Contraction Intensity: Mild Category of Tracing: Reactive Status: Category l Cervical dilation (cm): 1 Cervical effacement (%): 60 station: -2 Diagnosis, Plan/Disposition Final Diagnosis (1) False labor after 37 completed weeks of gestation: Status: Acute Plan/Disposition Plan: [facility]ART and [facility] Home w/ instructions NETTIE visit scheduled for later this week Admit for ripening on the evening of 05/14/2023 OB Disposition: home
[2023-05-08] MEDS: hydrOXYzine 50 MG/ML INJ 25 MG IM (19:34)
[2023-05-08] MEDS: MORPHINE 10 MG/ML INJ IM (19:34)
== END 2023-05-08 19:55 | disposition home or self-care (01) ==
LOC: LABOR 17:51 → OB 05-25 11:03
PROVIDERS: Referring Provider Obstetrics & Gynecology; Visit Provider Obstetrics & Gynecology
DX: O47.1 False labor at or after 37 completed weeks of gestation (principal); Z3A.39 39 weeks gestation of pregnancy
CPT/HCPCS: 59025; 96372; G0378; G0379; J2270; J3410

== ENCOUNTER 2023-05-09 17:10 | Observation (INO) | payer OTHER, MEDICAID, SELFPAY ==
--- NOTE | 2023-05-09 18:15 | PM.OBTRLD ---
Visit Information Visit Information Date of evaluation: 05/09/23 Primary OB Provider: Paul Patricia On-call OB Provider: Suleman Goyal Reason for Evaluation: Yes other Comments/Additional reasons for admission: Decreased movement since earlier today Vital Signs Vital Signs: T: 36.4? C BP: 111/68 HR: 80 bpm PFSH Medical History Back pain Shoulder pain PCOS (polycystic ovarian syndrome) Ovarian cyst (~2012) Irregular menstrual cycle (~2005) ADHD (~2020) Anxiety Depression Migraine without aura Bulimia (~2012) Anorexia nervosa (~2013) Alcohol use Marijuana use Surgical History Anesthesia History of appendectomy [place] teeth extracted (~2021) Family History Mother Heart attack Hypertension Alcoholism Hyperlipidemia Mental health problem Grandmother Kidney disease History of heart disease Hyperlipidemia Hypertension Mental health problem Family/Other Breast cancer Father Alcoholism Mental health problem Grandfather Alcoholism Grandfather Alcoholism Hypertension Mental health problem Brother Mental health problem Grandmother Breast cancer Hypertension Mental health problem Social History marital status: unmarried,living together household members: significant other and friend(s) lives independently: Yes caregiver/support person: No housing: apartment pets and animals: Yes (dog, cats, fish; aware of toxo precautions) education level: other (GED) 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) current occupational exposures/hazards: Yes (aware of chemical precautions) special boni needs: No travel history: recent seatbelt use: always water heater temp set < 120 deg: No working smoke detector in home: Yes fire extinguisher in home: No carbon monox detector in home: Yes firearms in home: No do you feel safe at home: Yes Smoking Status: Former smoker second hand exposure: No alcohol intake: former (2-3/day prior to ) substance use type: marijuana (agrees not to use while /) during the past year weight has: remained stable well-balanced diet: daily or most days daily servings fruits/ve or more times/day caffeine: Yes (aware of 200mg limit) Type(s) of exercise: aerobic, weight lifting and running frequency: 5-6 times per week Evaluation Evaluation Baseline heart rate: 120 Variability: Moderate (11-25) monitor accelerations: Present Monitor Decelerations: Variable (mild) Contraction Frequency (minutes): 7 Uterine Contraction Intensity: Mild Category of Tracing: Reactive Status: Category ll Cervical dilation (cm): 1 Cervical effacement (%): 60 station: -2 Diagnosis, Plan/Disposition Final Diagnosis (1) Decreased movement: Status: Acute (2) 39 weeks gestation of : Status: Acute Plan/Disposition Plan: FHR initially somewhat flat, improved after maternal p.o. intake Reactive NST and now feeling normal movement Home with return precautions Scheduled for ripening on the evening of 05/14/2023 OB Disposition: home
== END 2023-05-09 18:24 | disposition home or self-care (01) ==
LOC: LABOR 17:14
PROVIDERS: Admitting Provider Obstetrics & Gynecology; Referring Provider Obstetrics & Gynecology; Visit Provider Obstetrics & Gynecology
DX: O36.8130 Decreased fetal movements, third trimester, not applicable or unspecified (principal); Z3A.39 39 weeks gestation of pregnancy
CPT/HCPCS: 59025; G0378; G0379

== ENCOUNTER 2023-05-09 21:45 | Inpatient (IN) | payer OTHER, MEDICAID, SELFPAY ==
[2023-05-10 00:03] VITALS: BP 120/76
[2023-05-10 01:50] LABS: Add Manual Diff / Slide Review NO; Basophils Absolute Auto 100 /uL (0-100); Eosinophils Absolute Auto 100 /uL (0-450); Eosinophils Percent Auto 0.7 % (2-4); Hemoglobin 11.8 g/dL (12.0-16.0); Lymphocytes Absolute Auto 2400 /uL (1100-4500); Lymphocytes Percent Auto 21.5 % (25-40); Mean Corpuscular HGB Conc 34.7 % (30-36); Mean Corpuscular Hemoglobin 30.8 PG (26-34); Mean Corpuscular Volume 88.8 fL (80-100); Monocytes Absolute Auto 800 /uL (0-900); Monocytes Percent Auto 7.1 % (3-14); Neutrophils Absolute Auto 7700 /uL (1500-7000); Neutrophils Percent Auto 69.7 % (50-75); Platelet Count 250 X10^3/uL (150-400); Red Blood Cell Count 3.83 X10^6/uL (4.0-5.2); Red Cell Distribution Width 12.9 % (11.6-14.8); White Blood Cell Count 11.1 X10^3/uL (4.5-11.0)
[2023-05-10] MEDS: fentaNYL 100 MCG/2 ML INJ IV ×3 (02:01→10:36)
--- NOTE | 2023-05-10 07:46 | PM.OBHP.1 ---
OB HPI Date/Time Date of admission: 05/09/23 Date Patient Seen: 05/10/23 Time Patient Seen: 07:45 History of Present Condition Chief complaint: observation of labor : 1 Para: 0 Estimated Date of Delivery: 05/12/23 Estimated Gestational Age (weeks): 39+5 Narrative: Berenice Figueroa is a 28 year old primigravida admitted now at 39+ 5 weeks gestational age with spontaneous rupture membranes at about 2000 on the evening of 05/09/2023. Fluid was clear and the patient has started having more intense contractions. Her course has generally been unremarkable aside from some anxiety and frequent visits to the center over various concerns in the 3rd trimester. Her early dating is solid and milestones are appropriate throughout. GBS is negative. History of Present care: good care Dating criteria: LMP confirmed by 1st trimester US Ultrasounds: normal 1st trimester US and normal mid trimester US Obstetrical complications: none Medical complications: none Preadmission Labs Blood type: O (+) positive -: Antibody screen: negative, GBS status: negative, HBsAG: negative, HIV: negative and RPR/VDLR: negative -: Chlamydia screen: not detected and Gonorrhea screen: not detected -: Rubella: immune and Varicella: immune HCT: 34.0 HCAB: negative PAP: Normal Quad screen: Normal (Normal AFP testing) Cell-free DNA: Low risk female 1 hr GTT: 105 Prior (ies) History: N/A Evaluation Evaluation Baseline heart rate: 130 Variability: Moderate (11-25) monitor accelerations: Present Monitor Decelerations: Absent Contraction Frequency (minutes): 5 Uterine Contraction Intensity: Mild Category of Tracing: Reactive Status: Category l Dilation (cm): 1 Effacement (%): 80 Dilation: 1-2 cm Effacement: >/=80% station: -2 Position of cervix: anterior Consistency: medium Lynn score: 8 Non-invasive Membranes Rupture Test: positive PFSH Medical History Back pain Shoulder pain PCOS (polycystic ovarian syndrome) Ovarian cyst (~2012) Irregular menstrual cycle (~2005) ADHD (~2020) Anxiety Depression Migraine without aura Bulimia (~2012) Anorexia nervosa (~2013) Alcohol use Marijuana use Surgical History Anesthesia History of appendectomy [place] teeth extracted (~2021) Family History Mother Heart attack Hypertension Alcoholism Hyperlipidemia Mental health problem Grandmother Kidney disease History of heart disease Hyperlipidemia Hypertension Mental health problem Family/Other Breast cancer Father Alcoholism Mental health problem Grandfather Alcoholism Grandfather Alcoholism Hypertension Mental health problem Brother Mental health problem Grandmother Breast cancer Hypertension Mental health problem Social History marital status: unmarried,living together household members: significant other and friend(s) lives independently: Yes caregiver/support person: No housing: apartment pets and animals: Yes (dog, cats, fish; aware of toxo precautions) education level: other (GED) 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) current occupational exposures/hazards: Yes (aware of chemical precautions) special boni needs: No travel history: recent seatbelt use: always water heater temp set < 120 deg: No working smoke detector in home: Yes fire extinguisher in home: No carbon monox detector in home: Yes firearms in home: No do you feel safe at home: Yes Smoking Status: Never smoker second hand exposure: No alcohol intake: former (2-3/day prior to ) substance use type: marijuana (agrees not to use while /) during the past year weight has: remained stable well-balanced diet: daily or most days daily servings fruits/ve or more times/day caffeine: Yes (aware of 200mg limit) Type(s) of exercise: aerobic, weight lifting and running frequency: 5-6 times per week Meds Home Medications and Allergies Home Medications Medication Instructions Recorded Confirmed Type aripiprazole 15 mg tablet 15 mg PO DAILY 09/28/22 05/10/23 History buspirone 5 mg tablet 10 mg PO TID 09/28/22 05/10/23 History melatonin 5 mg capsule 5 mg PO .HS PRN insomnia 09/28/22 05/03/23 History vit no.95-ferrous 1 tab PO DAILY #90 tabs 10/27/22 05/03/23 Rx fumarate 28 mg-folic acid 800 mcg tablet doxylamine succinate 25 mg tablet 25 mg PO PRN PRN Sleep 03/13/23 05/03/23 History (Unisom (doxylamine)) fluticasone propionate 50 50 mcg intranasal 03/13/23 05/03/23 History mcg/actuation nasal spray,suspension omeprazole 40 mg capsule,delayed 40 mg PO DAILY acid reflux #30 caps 04/15/23 05/03/23 Rx release Allergies Allergy/AdvReac Type Severity Reaction Status Date / Time zolpidem [From Ambien] AdvReac Intermediate Hallucinati Verified 05/03/23 15:57 ng Review of Systems Review of Systems Narrative: Problem-specific ROS positives included in HPI OB Exam Vital signs Blood Pressure: 111/68 Pulse Rate: 80 Temperature: 97.5 F HENMT Head: normal to inspection, normocephalic and atraumatic Eyes General: appearance normal, both eyes and all related structures Resp Effort & Inspection: normal respiratory effort and able to speak in complete sentences Auscultation: clear to auscultation bilaterally Cardio Rate: regular rate Rhythm: regular rhythm Heart Sounds: S1 normal, S2 normal and no murmurs Extremities Lower extremity: Yes normal to inspection GI Inspection: normal to inspection Palpation: Yes soft and Yes no hepatosplenomegaly Uterus Location (Fundal Height): 35 Presentation: vertex Estimated Weight (lbs): 7 Objective Labs 05/10/23 01:45 Labs: Laboratory Results - last 24 hr 05/10/23 01:45 WBC 11.1 H RBC 3.83 L Hgb 11.8 L Hct 34.0 L MCV 88.8 MCH 30.8 MCHC 34.7 RDW 12.9 Plt Count 250 Neut % (Auto) 69.7 Lymph % (Auto) 21.5 L [place] % (Auto) 7.1 Eos % (Auto) 0.7 L Baso % (Auto) 1.0 Neut # (Auto) 7700 H Lymph # (Auto) 2400 [place] # (Auto) 800 Eos # (Auto) 100 Baso # (Auto) 100 Blood Type O Positive Antibody Screen Negative Assessment and Plan Assessment and Plan Assessment and Plan narrative: ASSESSMENT 1. Intrauterine , 39+5 wks EGA 2. SROM, clear fluid 199905/09/2023 3. GBS Negative status PLAN 1. Admit for delivery 2. Initiate pitocin augmentation as spontaneous contractions are increasing in frequency/intensity but thus far have not affected any change in the cervical exam or descent of the vertex 3. See admission orders
[2023-05-10] MEDS: OXYTOCIN PREMIX 30 UNIT/500 ML PLAST..BAG IV (09:15)
[2023-05-10] MEDS: LACTATED RINGERS 1,000 ML 100 ML IV ×3 (09:16→17:28)
[2023-05-10] MEDS: BUSPIRONE 5 MG TABLET 15 MG PO ×2 (09:47→22:10)
[2023-05-10] MEDS: ARIPiprazole 10 MG TABLET 15 MG PO (09:47)
[2023-05-10 10:00] VITALS: BP 111/68; PULSE 80; TEMP 36.4
[2023-05-10] MEDS: ePHEDrine 50 MG/ML VIAL (12:50)
[2023-05-10] MEDS: FENT 2MCG/ML BUPIV 0.1% EPI 200 MCG/100 ML PLAST..BAG 8 MCG EPIDURAL ×2 (13:09→22:11)
[2023-05-10] MEDS: ONDANSETRON 4 MG/2 ML INJ (13:09)
--- NOTE | 2023-05-10 13:24 | PM.OBPNLAB ---
Date/Time Date Patient Seen: 05/10/23 Time Patient Seen: 12:55 Pain Control Pain control: epidural (just placed) Comments: Called to see patient for drop in blood pressure after epidural. heart rate dropped as well. Patient's pulse dropped to 40s to 50s. She was given IV ephedrine with return to normal. Pitocin was discontinued. Oxygen was placed on mom. Fluid bolus was given. Pelvic Exam Dilation (cm): 1.5 Effacement (%): 90 station: -1 Amniotic membrane status: Intact Contractions Contractions on admission: none Pitocin rate (mU/min): 0 Contraction frequency (min): 4 Contraction duration (min): 1 Contraction intensity: Mild Status status: Category ll Heart Rate Baseline: 135 Monitor Accelerations: Present Monitor Decelerations: Recurrent Monitor Variability: Moderate Assessment and Plan Assessment: induction ongoing Comments: Keep Pitocin off for 30 min, then restart
--- NOTE | 2023-05-10 13:27 | P.PCN_ITS ---
Regional [facility] <Johana De Dios CRNA - Last Filed: 05/11/23 07:41> Pre-procedure Procedure: Continuous Lumbar Epidural for L&D Labs: Hct 34.0 % (36-46) L 05/10/23 01:45 Plt Count 250 X10^3/uL (150-400) 05/10/23 01:45 Medications: Current Medications Generic Name Dose Route Start Last Admin Trade Name Freq PRN Reason Stop Dose Admin Aripiprazole 15 mg 05/10/23 09:45 05/10/23 09:47 Aripiprazole 10 Mg Tablet PO 15 mg DAILY [place] Administration Buspirone HCl 15 mg 05/10/23 09:45 05/10/23 09:47 Buspirone 5 Mg Tablet PO 15 mg BID [place] Administration Carboprost Tromethamine 250 mcg 05/09/23 22:52 Carboprost 250 Mcg/Ml Ampul IM Q90M PRN Bleeding Fentanyl 100 mcg 05/10/23 01:43 05/10/23 10:36 Fentanyl 100 Mcg/2 Ml Inj IV 50 mcg Q1H PRN Administration Pain, Severe (7-10) Oxytocin/Lactated Ringer's 30 unit in 500 mls @ 200 mls/hr 05/09/23 22:52 Oxytocin Premix IV CONT PRN Bleeding Protocol Tranexamic Acid 1,000 mg/ 100 mls @ 200 mls/hr 05/09/23 22:52 Sodium Chloride IV NOW PRN Bleeding Lactated Ringer's 1,000 mls @ 100 mls/hr 05/09/23 23:00 05/10/23 13:25 Lactated Ringers IV 100 mls/hr CONT LAKE Administration Oxytocin/Lactated Ringer's 30 unit in 500 mls @ 2 mls/hr 05/10/23 09:00 05/10/23 09:15 Oxytocin Premix IV 2 milliunit/min TITRATE [place] 2 mls/hr Administration Protocol 2 MILLIUNIT/MIN Lidocaine HCl 20 ml 05/09/23 22:52 Lidocaine 1% 20 Ml INJ INTRA-OP PRN Post Delivery Methylergonovine Maleate 0.2 mg 05/09/23 22:52 Methylergonovine 0.2 Mg Tablet PO Q6HR PRN Heavy Bleeding Methylergonovine Maleate 0.2 mg 05/09/23 22:52 Methylergonovine 0.2 Mg/Ml Vial IM NOW PRN Bleeding Misoprostol 800 mcg 05/09/23 22:52 Misoprostol 200 Mcg Tablet WI NOW PRN Bleeding Misoprostol 400 mcg 05/09/23 22:52 Misoprostol 200 Mcg Tablet SL NOW PRN Bleeding Naloxone HCl 0.2 mg 05/09/23 22:52 Naloxone 0.4 Mg/Ml Vial IV Q2MIN PRN Opiate Reversal Oxytocin 10 unit 05/09/23 22:52 Oxytocin 10 Unit/Ml Vial IM NOW PRN Bleeding pt admits to fear of needles and fear of blood. pt admits to severe anxiety and panic attacks. syncopal episodes since hospitalization for cardiac abnormalities from hypokalemia 2/2 anorexia. syncopal episodes include LINK, sweating, loss of consciousness. at 1245 while administering test dose pt states she isnt feeling right. pt HR dropped to 45 bpm. called for RN to draw up ephedrine. rolled patient onto left side. gave oxygen. checked BP. gave 10 mg ephedrine at 1250. BP 129/84. once patient on left side, after measures instituted pt states she is feeling better. pump started at 1309. Allergies: Allergies Allergy/AdvReac Type Severity Reaction Status Date / Time zolpidem [From Ambien] AdvReac Intermediate Hallucinati Verified 05/03/23 15:57 ng Procedure Insertion date: 05/10/23 Insertion time: 12:44 Prep/Local: betadine x3 Interspace: l3 l4 Patient position: sitting Needle: 17 gauge Tuohy Loss of resistance with: saline ADRI at (cm): 6 Catheter placed at SKIN (cm): 12 Catheter in SPACE (cm): 12 Sensory level: t8 Insertion: No CSF, No Blood, No Paresthesia with insertion, No Paresthesia with injection and No Test dose reaction Initial Medications TEST DOSE time: 12:45 BOLUS DOSE (mL): 0 Infusion INFUSION: 0.125% bupivacaine and with fentanyl 2 mcg/mL Post-procedure Anesthesia time START: 12:31 Anesthesia time END: 12:21 Post-procedure Anesthesia Assessment: Yes CV function: HR/BP stable, Yes Resp function: RR/sat/airway adequate, Yes Post-op hydration adequate, Yes Pain control adequate, Yes Nausea & vomiting absent, Yes Temperature > 36 C, Yes Mental status appropriate and Yes Anesthesia complications <Sen Robbins CRNA - Last Filed: 05/10/23 22:21> Pre-procedure Exam narrative: 175 Patient requested 'decrease' in GISELA rate. States 'feeling too little' , discussi on with RN, Dr Patricia, and patient. Rate decreased from 8ml down to 6mL / hour . PCEA dose adjusted up to 5mL / hour with LOCKOUT rate at 20mL / hr. Patient education regarding changes. Continue to monitor and progression with induction ~ 4cm. 1999 Patient request additional 'decrease' in GISELA rate d/t feeling to heavy in legs. Discussion with RN in room, patient and patient's significant other regarding concerns of decreasing rate too much while labor progressing. After questions answered, patient expressed verbal understanding. Decreased from 6mL/hr down to 4mL/hr base rate. Keeping PCEA dose at 5mL/hr with lockout remaining at 20mL/hr. Patient education and re-assurance. VS remaining stable for both mom and baby, RN at bedside continuing education and monitoring per OB. 2149 Requested patient be checked for labor progression. Patient c/o worsening pain over past 30min despite using PCEA dose x 2. Encourged ongoing use, GISELA settings reset, new epidural bag hung per RN, epidural dose bas rate increased to 6mL/hr, PCEA bolus per patient at 5ml/hr q 15min w/ 20mL total lockout per hour. Repositioned per RN (worse pain upper left hip which was upside) , fentanyl 2mL / 100mcg per epidural per FINANCIAL SECRETARY w/ 2mL 0.125% bupivacaine . RN will check patient within the hour, membrances ruptures > 24 hours. Infusion Subsequent interventions: see above notation in exam narrative for dosage adjustments
[2023-05-10] MEDS: ACETAMINOPHEN 325 MG TABLET 650 MG PO (14:40)
--- NOTE | 2023-05-10 17:25 | PM.OBPNLAB ---
Date/Time Date Patient Seen: 05/10/23 Time Patient Seen: 17:25 Pain Control Pain control: tolerating well and epidural Comments: Patient is ?freaked out? about her lack of muscle control of her lower extremities with epidural in place. Anesthesia consulted and will be in to reduce epidural infusion rate. Patient reassured. Pelvic Exam Effacement (%): 90 station: -1 Amniotic membrane status: Ruptured ([place] present, forebag ruptured w/ amnihook, clear fluid) Contractions Contractions on admission: irregular Monitor mode: External Pitocin rate (mU/min): 4 (Pitocin stopped earlier this afternoon due to decels following GISELA placement; now titrating upwards) Contraction frequency (min): 4 Contraction duration (min): 1 Contraction pattern: Regular Contraction phase: Resting Contraction intensity: Mild Status status: Category l Heart Rate Baseline: 135 Monitor Accelerations: Present Monitor Decelerations: Early and Episodic Monitor Variability: Moderate Assessment and Plan Assessment: induction ongoing Plan: continuous present management Comments: Close observation for signs/symptoms of chorio as we are approaching 24 hrs. s/p SROM. Anesthesia will evaluate for reduction of basal GISELA infusion rate. Patient will be cared for overnight by [facility] w/ Dr. Viri Kern as backup; warm phone handoff w/ Ariana Miller CNM @ [phone]
[2023-05-10] MEDS: diphenhydrAMINE 50 MG/ML VIAL 25 MG IV ×2 (17:32→18:06)
--- NOTE | 2023-05-11 00:44 | PM.OBPRVD ---
Events: Labor Augmentation and Prolonged Rupture Membrane (28hrs ) Labor & Delivery Delivery date: 05/11/23 Induction method: per pitocin protocol Delivery monitor: external FHT Route of delivery: Episiotomy description: None L&D Laceration Description: Perineal - 1st Degree (midline, well approximated and hemostatic, repair not indicated ) Estimated blood loss (mL): 255 Anesthesia Type: Epidural Narrative: Berenice progressed well in labor with pitocin augmentation. She was found to be C/C/+2 and started to push at 23:03. With a very dense epidural and a lot of coaching, Berenice pushed for 1hr and 18 minutes. FHR was primarily Cat 2 throughout 2nd stage. RT was present for delivery for concerns of recent fentanyl administration, decels and difficulty picking heart tones immediately prior to delivery. As baby was , CNM used external rectal pressure to aid in delivery of the chin. SNM guided VIRAL Miller to place hands on head, in CIERRA position, for easy delivery of shoulders through a single nuchal cord. Baby was placed on maternal abdomen where she was dried and stimulated. Apgars 8/9. They remained skin to skin while cord was cut and placenta was delivered. 30U Pitocin in 500mL LR infusion started at 250mL for AMSTL. Cord blood collected per unit policy. Placenta delivered spontaneously with gentle cord traction and maternal efforts and appeared to be intact. 3 vessel cord double clamped by RN and cut by VIRAL Miller at 6 minutes of life after cord pulsing had stopped. Perineum inspected and midline first degree perineal laceration noted, hemostatic and well approximated, repair not indicated. Swelling of perineum extending to anterior rectum noted as well. Blood loss measured 255 mL. Mom and baby left stable and skin to skin. Paul Ng and Berenice's family are thrilled to meet their baby girl Elen. Ariana SCOTT, ZEESHAN, IBCLC LIZANDRO Mccain Baby 1: Infant gender: Female Presentation: vertex Position: Left Occiput Anterior Placenta delivery description: Spontaneous Cord Vessel Description: 3 Vessels score (1 min): 8 score (5 min): 9 weight: 2.841 kg Plan for aftercare: Routine care
[2023-05-11] MEDS: KETOROLAC 30 MG/ML VIAL IV (02:09)
[2023-05-11] MEDS: ACETAMINOPHEN 325 MG TABLET 650 MG PO ×4 (02:09→20:02)
[2023-05-11] MEDS: DERMOPLAST SPRAY 20% 60 ML 1 SPRAY TOP ×2 (02:12→08:06)
[2023-05-11] MEDS: IBUPROFEN 600 MG TABLET PO ×3 (08:05→20:01)
[2023-05-11] MEDS: LANOLIN OINT 7 GM 1 APPLIC TOP (08:06)
[2023-05-11] MEDS: SUMAtriptan 25 MG TABLET 50 MG PO (08:58)
[2023-05-11] MEDS: BUSPIRONE 5 MG TABLET 10 MG PO ×2 (08:59→14:57)
[2023-05-11] MEDS: ARIPiprazole 10 MG TABLET 15 MG PO (08:59)
[2023-05-11] MEDS: CYCLOBENZAPRINE 10 MG TABLET PO ×2 (13:14→21:28)
[2023-05-11] MEDS: OXYCODONE IR 5 MG TABLET PO ×2 (14:15→20:01)
[2023-05-11] MEDS: LORazepam 1 MG TABLET 2 MG PO (14:19)
[2023-05-11] MEDS: LORazepam 1 MG TABLET PO (14:36)
--- NOTE | 2023-05-11 16:42 | PM.CN ---
History of Present Illness Consult details Chief complaint: OB Narrative: pt with c/o LINK. sitting up right in well lit room. able to ambulate. use rest room. and showered. LINK worsens in standing position (10/10 pain), some relief when sitting/laying in bed (3/10). pt with hx of syncope and LINK. pt also has hx of LINK and migraines. pt states the pain radiates between her shoulder blades and she is also sore in her lower back. validated concerns and LINK symptoms. encouraged PO intake of fluids, caffeine, good body mechanics for . encouraged to listen to body and rest when she needs it, ambulate when tolerating. orders given to RN. Meds Home Medications and Allergies Home Medications Medication Instructions Recorded Confirmed Type aripiprazole 15 mg tablet 15 mg PO DAILY 09/28/22 05/10/23 History buspirone 5 mg tablet 10 mg PO TID 09/28/22 05/10/23 History melatonin 5 mg capsule 5 mg PO .HS PRN insomnia 09/28/22 05/03/23 History vit no.95-ferrous 1 tab PO DAILY #90 tabs 10/27/22 05/03/23 Rx fumarate 28 mg-folic acid 800 mcg tablet doxylamine succinate 25 mg tablet 25 mg PO PRN PRN Sleep 03/13/23 05/03/23 History (Unisom (doxylamine)) fluticasone propionate 50 50 mcg intranasal 03/13/23 05/03/23 History mcg/actuation nasal spray,suspension omeprazole 40 mg capsule,delayed 40 mg PO DAILY acid reflux #30 caps 04/15/23 05/03/23 Rx release Allergies Allergy/AdvReac Type Severity Reaction Status Date / Time zolpidem [From Ambien] AdvReac Intermediate Hallucinati Verified 05/03/23 15:57 ng Objective Labs 05/10/23 01:45 PFSH Medical History Back pain Shoulder pain PCOS (polycystic ovarian syndrome) Ovarian cyst (~2012) Irregular menstrual cycle (~2005) ADHD (~2020) Anxiety Depression Migraine without aura Bulimia (~2012) Anorexia nervosa (~2013) Alcohol use Marijuana use Surgical History Anesthesia History of appendectomy [place] teeth extracted (~2021) Family History Mother Heart attack Hypertension Alcoholism Hyperlipidemia Mental health problem Grandmother Kidney disease History of heart disease Hyperlipidemia Hypertension Mental health problem Family/Other Breast cancer Father Alcoholism Mental health problem Grandfather Alcoholism Grandfather Alcoholism Hypertension Mental health problem Brother Mental health problem Grandmother Breast cancer Hypertension Mental health problem Social History marital status: unmarried,living together household members: significant other and friend(s) lives independently: Yes caregiver/support person: No housing: apartment pets and animals: Yes (dog, cats, fish; aware of toxo precautions) education level: other (GED) 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) current occupational exposures/hazards: Yes (aware of chemical precautions) special boni needs: No travel history: recent Safety seatbelt use: always water heater temp set < 120 deg: No working smoke detector in home: Yes fire extinguisher in home: No carbon monox detector in home: Yes firearms in home: No do you feel safe at home: Yes Tobacco & Substance Use Smoking Status: Never smoker second hand exposure: No alcohol intake: former (2-3/day prior to ) substance use type: marijuana (agrees not to use while /) Diet and Exercise during the past year weight has: remained stable well-balanced diet: daily or most days daily servings fruits/ve or more times/day caffeine: Yes (aware of 200mg limit) Type(s) of exercise: aerobic, weight lifting and running frequency: 5-6 times per week
[2023-05-11] MEDS: BUTALB/APAP/CAFFEINE 50/325/40 TABLET 1 EACH PO (17:16)
[2023-05-12] MEDS: OXYCODONE IR 5 MG TABLET PO (03:27)
[2023-05-12] MEDS: ACETAMINOPHEN 325 MG TABLET 650 MG PO (03:27)
[2023-05-12] MEDS: IBUPROFEN 600 MG TABLET PO ×2 (03:28→10:36)
[2023-05-12] MEDS: BUTALB/APAP/CAFFEINE 50/325/40 TABLET 1 EACH PO (08:51)
[2023-05-12] MEDS: BUSPIRONE 5 MG TABLET 10 MG PO (08:52)
--- NOTE | 2023-05-12 10:19 | P.DS_ITS ---
Discharge Providers Provider Date of admission: 05/09/23 21:45 Discharge Date: 05/12/23 Primary care physician: Jong HOFFMANN Provider Consults: 05/09/23 22:52 Consult to Anesthesiology Urgent Comment: Consulting Provider: Mendel Toney Reason for consultation: Epidural 05/12/23 00:51 Consult to Clinical Athletic Instructor Routine Comment: Discharge provider: Maty Bailey DO Summary Hospital Course Date Patient Seen: 05/12/23 Time Patient Seen: 10:20 Diagnoses: Term ramirez gestation, delivered via spontaneous vaginal delivery History of depression and anxiety History of anorexia/bulimia Hospital Course: 28-year-old G1 now P1 status post uncomplicated vaginal delivery, now day 2. She reports feeling well and better than yesterday. Her headache has improved with Fioricet and Flexeril. Her back pain is also improving. She states that her vaginal bleeding is similar to a period. She is otherwise ambulating, tolerating regular diet, voiding spontaneously. She does feel like she is constipated. She is otherwise meeting discharge criteria and will be discharged to home today. Peripartum Data Infant Delivery Method: Natural Vaginal Laceration Description: Perineal - 1st Degree complications: none Status at Discharge Cognitive/behavioral status at discharge: oriented Functional status at discharge: independent ambulation Time Spent with Patient Time attestation: Total time spent providing and/or coordinating discharge services: Time spent: Less than 30 minutes Objective Labs 05/10/23 01:45 Exam Vital Signs (past 8 hours): Vitals reviewed in obix, within normal parameters Const General: cooperative, healthy appearing, comfortable and No acute distress Resp Effort & Inspection: normal respiratory effort Skin General: no rashes or lesions noted Extrem General: normal to inspection Psych Mood: congruent mood Affect: normal affect Discharge Plan Discharge Plan Patient Disposition: Home Provider Discharge Comment: Use Tylenol or ibuprofen as needed for pain. Discharge orders & Medications Prescriptions: New dwsvwhtxmq-ninwfeuaqyoan-imvv 50-325-40 mg Tablet 1 tab PO Q4HR PRN (Reason: Headache) Qty: 20 0RF ibuprofen 600 mg Tablet 600 mg PO Q6HR PRN (Reason: Pain, Mild (1-3)) Qty: 30 0RF Purelan Cream 1 applic topical PRN PRN (Reason: Tenderness) Qty: 7 0RF cyclobenzaprine 10 mg Tablet 10 mg PO Q8HR PRN (Reason: Spasms) Qty: 10 0RF acetaminophen 325 mg Tablet 650 mg PO Q6HR PRN (Reason: Pain, Mild (1-3)) Qty: 30 0RF Rx Instructions: do not take with fioricet docusate sodium [Stool Softener] 100 mg capsule 100 mg PO BID Qty: 90 0RF Continued aripiprazole 15 mg tablet 15 mg PO DAILY buspirone 5 mg tablet 10 mg PO TID melatonin 5 mg capsule 5 mg PO .HS PRN (Reason: insomnia) PNV cmb#95-ferrous fumarate-FA 28 mg iron- 800 mcg tablet 1 tab PO DAILY Qty: 90 1RF omeprazole 40 mg capsule,delayed release(DR/EC) 40 mg PO DAILY Qty: 30 0RF Unisom (doxylamine) 25 mg Tablet 25 mg PO PRN PRN (Reason: Sleep) fluticasone propionate [Flonase] 50 mcg/actuation [place],Suspension 50 mcg INTRANASAL Follow up/Referrals: Paul Patricia MD [Physician] - ( Appt w/ Dr. Patricia: Jun 22 @ 1:30pm) Activity Restrictions/Additional Instructions: Nothing in the vagina for at least 6 weeks. Diet/Activity/Treatments Diet: Diet as Tolerated Activity: Activity as tolerated Visit Report/Discharge Packet Instructions: DI for Depression Stand Alone Forms: Discharge: Care, Patient Portal/API, Stroke Signs & Symptoms Discharge Data Primary Care Provider: ProviderJong
[2023-05-12] MEDS: DOCUSATE 100 MG CAPSULE PO (10:36)
[2023-05-12 15:30] VITALS: BP 118/81; PULSE 84; RESP 16; TEMP 37.2
== END 2023-05-12 16:00 | disposition home or self-care (01) | DRG 806 ==
PROVIDERS: Admitting Provider Obstetrics & Gynecology; Referring Provider Obstetrics & Gynecology; Visit Provider Obstetrics & Gynecology
DX: O42.12 Full-term premature rupture of membranes, onset of labor more than 24 hours following rupture (principal); O99.354 Diseases of the nervous system complicating childbirth; Z37.0 Single live birth; R51.9 Headache, unspecified; Z3A.39 39 weeks gestation of pregnancy; O99.344 Other mental disorders complicating childbirth; F41.9 Anxiety disorder, unspecified; F32.A Depression, unspecified; O36.8130 Decreased fetal movements, third trimester, not applicable or unspecified
CPT/HCPCS: 36415; 59025; 59050; 84112; 85025; 86850; 86900; 86901; G0378; G0379; J1200; J1885; J2405; J2590; J3010

== ENCOUNTER 2023-05-13 17:24 | Emergency (ER) | payer OTHER, MEDICAID, SELFPAY ==
[2023-05-13 17:29] VITALS: BP 140/88; PULSE 58; RESP 16; TEMP 36.4; O2SAT 100; BMI 26.4
[2023-05-13] MEDS: KETOROLAC 30 MG/ML VIAL 15 MG IV (17:54)
[2023-05-13] MEDS: SODIUM CHLORIDE 0.9% 1,000 ML 1000 ML IV (17:54)
[2023-05-13 18:03] LABS: Add Manual Diff / Slide Review NO; Basophils Absolute Auto 0 /uL (0-100); Basophils Percent Auto 0.4 % (0-2); Eosinophils Absolute Auto 400 /uL (0-450); Eosinophils Percent Auto 3.5 % (2-4); Hematocrit 31.9 % (36-46); Hemoglobin 11.1 g/dL (12.0-16.0); Lymphocytes Absolute Auto 2100 /uL (1100-4500); Lymphocytes Percent Auto 18.5 % (25-40); Mean Corpuscular HGB Conc 34.6 % (30-36); Mean Corpuscular Hemoglobin 31.1 PG (26-34); Mean Corpuscular Volume 89.8 fL (80-100); Monocytes Absolute Auto 700 /uL (0-900); Monocytes Percent Auto 6.3 % (3-14); Neutrophils Absolute Auto 8200 /uL (1500-7000); Neutrophils Percent Auto 71.3 % (50-75); Platelet Count 303 X10^3/uL (150-400); Red Blood Cell Count 3.56 X10^6/uL (4.0-5.2); Red Cell Distribution Width 13.2 % (11.6-14.8); White Blood Cell Count 11.5 X10^3/uL (4.5-11.0)
[2023-05-13 18:11] LABS: Appearance Urine UA CLEAR; Bilirubin Urine UA NEGATIVE (NEGATIVE); Color Urine UA YELLOW; Glucose Urine UA NEGATIVE (Negative); Ketones Urine UA NEGATIVE (NEGATIVE); Leukocyte Esterase Urine UA 1+ (NEGATIVE); Nitrite Urine UA NEGATIVE (Negative); Occult Blood Urine UA 1+ (Negative); Protein Urine UA NEGATIVE (Negative); Urobilinogen Urine UA 0.2 E.U./dL (0.2)
[2023-05-13 18:18] LABS: pH Urine UA 7.5 (4.5-8.0)
[2023-05-13 18:30] LABS: Bacteria Urine Many (>30); Culture Indicated Urine Specimen Cultured; RBC Urine 5-10/HPF (0-5/HPF); Squamous Epithelial Cell Urine 0-1 /HPF (0-5/HPF); WBC Urine 30-100/HPF (0-5/HPF)
[2023-05-13 18:41] LABS: Alanine Aminotransferase 19 IU/L (<35); Albumin 3.7 g/dL (3.5-5.0); Albumin Globulin Ratio 1.2 (1.0-2.8); Alkaline Phosphatase 118 U/L (38-126); Aspartate Aminotransferase 25 IU/L (14-36); BUN Creatinine Ratio 20.7 (6-22); Bilirubin Total 0.3 mg/dL (0.2-1.3); Blood Urea Nitrogen 12 mg/dL (7-17); Calcium 9.9 mg/dL (8.4-10.2); Chloride 105 mmol/L (98-107); Estimated Glomerular Filt Rate > 60 mL/min (>60); Globulin 3.2 g/dL (1.7-4.1); Glucose 86 mg/dL (70-100); HEMOLYSIS < 15 (0-50); Potassium 3.7 mmol/L (3.4-5.1); Sodium 137 mmol/L (137-145); Total Protein 6.9 g/dL (6.3-8.2)
[2023-05-13 18:42] LABS: Carbon Dioxide 25 mmol/L (22-32)
[2023-05-13 18:58] VITALS: BP 149/101; PULSE 74; RESP 16; O2SAT 99
[2023-05-13 19:23] VITALS: BP 123/64; PULSE 63; RESP 16; O2SAT 98
--- NOTE | 2023-05-13 19:27 | ED_ITS ---
HPI - Headache General Chief Complaint: Headache Stated Complaint: Thinks complications with epidural Time Seen by Provider: 05/13/23 19:27 Source: patient, RN notes reviewed and old records reviewed Mode of arrival: Ambulatory Limitations: no limitations History of Present Illness HPI Narrative: This is a 28-year-old female status post vaginal delivery, day 3. Patient had epidural and did have a syncopal episode when that occurred. She was doing well afterwards and she states after the epidural was removed she developed a headache which has been persistent. Patient states it is worse when she sits up or stands. It is better when she lays flat. She states it has been persistent. She is tried Tylenol and ibuprofen without improvement. She was prescribed Fioricet but it did not make it to the pharmacy and she is not been able to fill it. Patient denies fevers, states that she has had some tightness in her shoulders radiating down her arms but no paresthesias. No weakness. She denies chest pain or shortness of breath no nausea or vomiting. She denies any dysuria, urgency or frequency, no incontinence. No weakness in her lower extremities. She has not had a bowel movement since she left the hospital but had a small 1 before she was discharged. She is had persistent vaginal bleeding but states it has not been worsening. She has not had any new abdominal back or flank pain. Patient states she is on buspirone and aripiprazole for daily medications, patient states allergic to zolpidem. Denies any major surgeries. Patient states she is , she states they have been having some trouble with latching but she has not appointment tomorrow with services. Related Data Home Medications Medication Instructions Recorded Confirmed aripiprazole 15 mg tablet 15 mg PO DAILY 09/28/22 05/10/23 buspirone 5 mg tablet 10 mg PO TID 09/28/22 05/10/23 melatonin 5 mg capsule 5 mg PO .HS PRN insomnia 09/28/22 05/03/23 doxylamine succinate 25 mg tablet 25 mg PO PRN PRN Sleep 03/13/23 05/03/23 (Unisom (doxylamine)) fluticasone propionate 50 50 mcg intranasal 03/13/23 05/03/23 mcg/actuation nasal spray,suspension Previous Rx's Medication Instructions Recorded vit no.95-ferrous 1 tab PO DAILY #90 tabs 10/27/22 fumarate 28 mg-folic acid 800 mcg tablet omeprazole 40 mg capsule,delayed 40 mg PO DAILY acid reflux #30 caps 04/15/23 release acetaminophen 325 mg tablet 650 mg (2 x 325 mg) PO Q6HR PRN 05/12/23 Pain, Mild (1-3) #30 tabs dhcwwgrygr-xmeglwqeelcmo-nrimmrrd 1 tab PO Q4HR PRN Headache #20 tabs 05/12/23 50 mg-325 mg-40 mg tablet cyclobenzaprine 10 mg tablet 10 mg PO Q8HR PRN Spasms #10 tabs 05/12/23 docusate sodium 100 mg tablet 100 mg PO BID #90 tabs 05/12/23 ibuprofen 600 mg tablet 600 mg PO Q6HR PRN Pain, Mild 05/12/23 (1-3) #30 tabs lanolin (Purelan topical cream) 1 applic topical PRN PRN 05/12/23 Tenderness #7 grams ketorolac 10 mg tablet 10 mg PO Q6H PRN pain 5 days #14 05/13/23 tabs oxycodone 5 mg tablet 5 mg PO Q6H PRN pain #10 tabs 05/13/23 Allergies Allergy/AdvReac Type Severity Reaction Status Date / Time zolpidem [From Ambien] AdvReac Intermediate Hallucinati Verified 05/03/23 15:57 ng Review of Systems Review of Systems ROS Unobtainable: All systems reviewed & are unremarkable except as noted in HPI and below Patient History Medical History Back pain Shoulder pain PCOS (polycystic ovarian syndrome) Ovarian cyst (~2012) Irregular menstrual cycle (~2005) ADHD (~2020) Anxiety Depression Migraine without aura Bulimia (~2012) Anorexia nervosa (~2013) Alcohol use Marijuana use Surgical History Anesthesia History of appendectomy [place] teeth extracted (~2021) Family History Mother Heart attack Hypertension Alcoholism Hyperlipidemia Mental health problem Grandmother Kidney disease History of heart disease Hyperlipidemia Hypertension Mental health problem Family/Other Breast cancer Father Alcoholism Mental health problem Grandfather Alcoholism Grandfather Alcoholism Hypertension Mental health problem Brother Mental health problem Grandmother Breast cancer Hypertension Mental health problem Social History marital status: unmarried,living together household members: significant other and friend(s) lives independently: Yes caregiver/support person: No housing: apartment pets and animals: Yes (dog, cats, fish; aware of toxo precautions) education level: other (GED) 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) current occupational exposures/hazards: Yes (aware of chemical precautions) special boni needs: No travel history: recent seatbelt use: always water heater temp set < 120 deg: No working smoke detector in home: Yes fire extinguisher in home: No carbon monox detector in home: Yes firearms in home: No do you feel safe at home: Yes Smoking Status: Never smoker second hand exposure: No alcohol intake: former (2-3/day prior to ) substance use type: marijuana (agrees not to use while /) during the past year weight has: remained stable well-balanced diet: daily or most days daily servings fruits/ve or more times/day caffeine: Yes (aware of 200mg limit) Type(s) of exercise: aerobic, weight lifting and running frequency: 5-6 times per week Smoking Status: Never smoker tobacco type: cigarettes alcohol intake frequency: 0-2 drinks per day Substance Use Type: does not use Exam Narrative Exam Narrative: GEN: well nourished, well appearing female, alert and oriented x 3, patient appears to be in mild distress. Patient is seated upright in the bed. HEENT: Atraumatic, pupils are equal round reactive to light, extraocular movements are intact, no photophobia, nares are clear, TMs are clear with no fluid, there is no conjunctival pallor. Throat is clear without any exudates, erythema, tonsillar enlargement or uvular deviation, no facial droop. HEART: Regular rate and rhythm without murmur, clicks, rubs. Pulses are equal in upper and lower extremities LUNGS:Lungs clear to auscultation, no wheezes, rales, crackles, chest moves symmetrically ABD:bowel sounds normal, soft, non-tender, no guarding, rebound, rigidity, no masses noted, no hepatosplenomegaly :No CVA tenderness MSCL: Non-tender, no muscle atrophy, muscles strength 5/5 upper and lower extremities, full range of motion, normal gait NEURO:CN 2-12 intact, sensation normal, reflexes 2/4 upper and lower extremities. finger nose finger test normal, heel green test normal SKIN: No rash, erythema or other skin changes noted. Initial Vital Signs Initial Vital Signs: Vital Signs Temperature 97.5 F L 05/13/23 17:29 Pulse Rate 58 L 05/13/23 17:29 Respiratory Rate 16 05/13/23 17:29 Blood Pressure 140/88 05/13/23 17:29 Pulse Oximetry 100 05/13/23 17:29 Oxygen Delivery Method Room Air 05/13/23 17:29 Course Orders Ordered: ED Orders 05/13/23 17:43 UA Complete [Urinalysis and Microscopic] Stat Urine Culture Stat 05/13/23 17:50 Complete Blood Count AUTO DIFF Stat Comprehensive Metabolic Panel Stat Discontinued Medications Sodium Chloride (Normal Saline 0.9%) 1,000 mls @ 1,000 mls/hr IV BOLUS ONE Stop: 05/13/23 18:40 Last Infusion: 05/13/23 18:36 Dose: Infused Documented By: Admin: 05/13/23 17:54 Dose: 1,000 mls/hr Documented By: TC Ketorolac Tromethamine (Ketorolac 30 Mg/Ml Vial) 15 mg IV NOW ONE Stop: 05/13/23 17:42 Last Admin: 05/13/23 17:54 Dose: 15 mg Documented By: TC Vital Signs Vital signs: Vital Signs - 8 hr 05/13/23 17:29 05/13/23 18:58 05/13/23 19:23 Temperature 97.5 F L Pulse Rate 58 L 74 63 Respiratory Rate 16 16 16 Blood Pressure 140/88 149/101 H 123/64 Pulse Oximetry 100 99 98 Oxygen Delivery Method Room Air Room Air 05/13/23 19:47 05/13/23 20:16 Temperature 98.4 F Pulse Rate 56 L 57 L Respiratory Rate 16 16 Blood Pressure 146/84 H 155/82 H Pulse Oximetry 99 100 Oxygen Delivery Method Room Air Room Air MDM - Headache Lab Data 05/13/23 17:50 05/13/23 17:50 Labs: Lab Results 05/13/23 05/13/23 05/13/23 Range/Units 17:43 17:43 17:43 WBC (4.5-11.0) X10^3/uL RBC (4.0-5.2) X10^6/uL Hgb (12.0-16.0) g/dL Hct (36-46) % MCV (80-100) fL MCH (26-34) PG MCHC (30-36) % RDW (11.6-14.8) % Plt Count (150-400) X10^3/uL Neut % (Auto) (50-75) % Lymph % (Auto) (25-40) % [place] % (Auto) (3-14) % Eos % (Auto) (2-4) % Baso % (Auto) (0-2) % Neut # (Auto) (9119-7192) /uL Lymph # (Auto) (4774-0664) /uL [place] # (Auto) (0-900) /uL Eos # (Auto) (0-450) /uL Baso # (Auto) (0-100) /uL Sodium (137-145) mmol/L Potassium (3.4-5.1) mmol/L Chloride (98-107) mmol/L Carbon Dioxide (22-32) mmol/L BUN (7-17) mg/dL Creatinine (0.52-1.04) mg/dL Estimated GFR (>60) mL/min BUN/Creatinine Ratio (6-22) Glucose (70-100) mg/dL Calcium (8.4-10.2) mg/dL Total Bilirubin (0.2-1.3) mg/dL AST (14-36) IU/L ALT (<35) IU/L Alkaline Phosphatase (38-126) U/L Total Protein (6.3-8.2) g/dL Albumin (3.5-5.0) g/dL Globulin (1.7-4.1) g/dL Albumin/Globulin Ratio (1.0-2.8) Urine Color Yellow Urine Appearance Clear Urine pH 7.5 (4.5-8.0) Ur Specific [place] 1.010 (1.000-1.035) Urine Protein Negative (Negative) Urine Glucose (UA) Negative (Negative) g/dL Urine Ketones Negative (NEGATIVE) Urine Occult Blood 1+ H (Negative) Urine Nitrate Negative (Negative) Urine Bilirubin Negative (NEGATIVE) Urine Urobilinogen 0.2 (0.2) E.U./dL Ur Leukocyte Esterase 1+ H (NEGATIVE) Urine RBC Cancelled 5-10/hpf H Urine WBC Cancelled 30-100/hpf H Ur Squamous Epith Cells Cancelled Ur Transition Epith Cell Ur Renal Epithelial Cell Calcium Oxalate Crystal Uric Acid Crystals Triple Phos Crystals Other Crystals Amorphous Sediment Urine Bacteria Hyaline Casts Granular Casts RBC Casts WBC Casts Other Casts Urine Mucus Urine Trichomonas Urine Yeast Urine Sperm Ur Culture Indicated? Micro UA Comment 05/13/23 05/13/23 05/13/23 Range/Units 17:43 17:43 17:43 WBC (4.5-11.0) X10^3/uL RBC (4.0-5.2) X10^6/uL Hgb (12.0-16.0) g/dL Hct (36-46) % MCV (80-100) fL MCH (26-34) PG MCHC (30-36) % RDW (11.6-14.8) % Plt Count (150-400) X10^3/uL Neut % (Auto) (50-75) % Lymph % (Auto) (25-40) % [place] % (Auto) (3-14) % Eos % (Auto) (2-4) % Baso % (Auto) (0-2) % Neut # (Auto) (3218-3148) /uL Lymph # (Auto) (1042-4864) /uL [place] # (Auto) (0-900) /uL Eos # (Auto) (0-450) /uL Baso # (Auto) (0-100) /uL Sodium (137-145) mmol/L Potassium (3.4-5.1) mmol/L Chloride (98-107) mmol/L Carbon Dioxide (22-32) mmol/L BUN (7-17) mg/dL Creatinine (0.52-1.04) mg/dL Estimated GFR (>60) mL/min BUN/Creatinine Ratio (6-22) Glucose (70-100) mg/dL Calcium (8.4-10.2) mg/dL Total Bilirubin (0.2-1.3) mg/dL AST (14-36) IU/L ALT (<35) IU/L Alkaline Phosphatase (38-126) U/L Total Protein (6.3-8.2) g/dL Albumin (3.5-5.0) g/dL Globulin (1.7-4.1) g/dL Albumin/Globulin Ratio (1.0-2.8) Urine Color Urine Appearance Urine pH (4.5-8.0) Ur Specific [place] (1.000-1.035) Urine Protein (Negative) Urine Glucose (UA) (Negative) g/dL Urine Ketones (NEGATIVE) Urine Occult Blood (Negative) Urine Nitrate (Negative) Urine Bilirubin (NEGATIVE) Urine Urobilinogen (0.2) E.U./dL Ur Leukocyte Esterase (NEGATIVE) Urine RBC Urine WBC Ur Squamous Epith Cells 0-1 /hpf Ur Transition Epith Cell Cancelled Ur Renal Epithelial Cell Cancelled Calcium Oxalate Crystal Cancelled Uric Acid Crystals Cancelled Triple Phos Crystals Cancelled Other Crystals Cancelled Amorphous Sediment Cancelled Urine Bacteria Cancelled Many (>30) H Hyaline Casts Cancelled Granular Casts Cancelled RBC Casts Cancelled WBC Casts Cancelled Other Casts Cancelled Urine Mucus Cancelled Urine Trichomonas Cancelled Urine Yeast Cancelled Urine Sperm Cancelled Ur Culture Indicated? Cancelled Specimen cultured Micro UA Comment Cancelled 05/13/23 Range/Units 17:50 WBC 11.5 H (4.5-11.0) X10^3/uL RBC 3.56 L (4.0-5.2) X10^6/uL Hgb 11.1 L (12.0-16.0) g/dL Hct 31.9 L (36-46) % MCV 89.8 (80-100) fL MCH 31.1 (26-34) PG MCHC 34.6 (30-36) % RDW 13.2 (11.6-14.8) % Plt Count 303 (150-400) X10^3/uL Neut % (Auto) 71.3 (50-75) % Lymph % (Auto) 18.5 L (25-40) % [place] % (Auto) 6.3 (3-14) % Eos % (Auto) 3.5 (2-4) % Baso % (Auto) 0.4 (0-2) % Neut # (Auto) 8200 H (5768-3935) /uL Lymph # (Auto) 2100 (7973-7738) /uL [place] # (Auto) 700 (0-900) /uL Eos # (Auto) 400 (0-450) /uL Baso # (Auto) 0 (0-100) /uL Sodium 137 (137-145) mmol/L Potassium 3.7 (3.4-5.1) mmol/L Chloride 105 (98-107) mmol/L Carbon Dioxide 25 (22-32) mmol/L BUN 12 (7-17) mg/dL Creatinine 0.58 (0.52-1.04) mg/dL Estimated GFR > 60 (>60) mL/min BUN/Creatinine Ratio 20.7 (6-22) Glucose 86 (70-100) mg/dL Calcium 9.9 (8.4-10.2) mg/dL Total Bilirubin 0.3 (0.2-1.3) mg/dL AST 25 (14-36) IU/L ALT 19 (<35) IU/L Alkaline Phosphatase 118 (38-126) U/L Total Protein 6.9 (6.3-8.2) g/dL Albumin 3.7 (3.5-5.0) g/dL Globulin 3.2 (1.7-4.1) g/dL Albumin/Globulin Ratio 1.2 (1.0-2.8) Urine Color Urine Appearance Urine pH (4.5-8.0) Ur Specific [place] (1.000-1.035) Urine Protein (Negative) Urine Glucose (UA) (Negative) g/dL Urine Ketones (NEGATIVE) Urine Occult Blood (Negative) Urine Nitrate (Negative) Urine Bilirubin (NEGATIVE) Urine Urobilinogen (0.2) E.U./dL Ur Leukocyte Esterase (NEGATIVE) Urine RBC Urine WBC Ur Squamous Epith Cells Ur Transition Epith Cell Ur Renal Epithelial Cell Calcium Oxalate Crystal Uric Acid Crystals Triple Phos Crystals Other Crystals Amorphous Sediment Urine Bacteria Hyaline Casts Granular Casts RBC Casts WBC Casts Other Casts Urine Mucus Urine Trichomonas Urine Yeast Urine Sperm Ur Culture Indicated? Micro UA Comment Urine Dip Bedside Urine Glucose Negative Bedside Urine Bilirubin - Negative Bedside Urine Ketone - Negative Urine Specific [place] 1.005 Bedside Urine Occult Blood ++ Bedside Urine pH 7.0 Bedside Urine Protein - Negative Bedside Urine Urobilinogen - Negative Bedside Urine Nitrite - Negative Bedside Urine Leukocytes +/- 15 Esterase MDM Narrative Medical decision making narrative: 28-year-old female well-appearing with no fevers, has symptoms consistent with spinal headache. She did have a syncopal episode when they were placing her epidural but endorse quite a bit if you are if needles and has not had any additional and headache started after epidural was removed. Patient was given prescription for Fioricet and Flexeril but states she was not able to fill that because it was not initially sent. Patient has tried Tylenol ibuprofen [id number]. She had fluids here, Toradol she is feeling much improved and able to ambulate without significant worsening of her headache. We discussed blood patch but at this time she is feeling much better and is reluctant to pursue that. Patient has a white count 11 point consistent on the at 11.1 and 11 on 11/01/2022 hemoglobin appears stable at 11 platelets are appropriate at 303. Patient's electrolytes renal function and LFTs show no acute change today. Urine shows 5-10 RBCs 3200 wbc's, many bacteria was sent for culture. Patient does not have active UTI symptoms at this time so will hold off for culture. Discussed with patient she is going to fill her Fioricet prescription tomorrow, we will give a prescription for oral Toradol discussed she can take this while . Discussed fluids maybe helpful as well at home. Follow up as needed and return precautions discussed. If headaches are worsening significantly or other new changes which we reviewed patient should return emergently. Discharge Plan Departure Patient Disposition: Home Clinical Impression: Spinal headache Instructions: DI for Post-Spinal Puncture Headache Activity Restrictions/Additional Instructions: I hope you continue to feel better. Continue to hydrate regularly. Your urine was sent for culture if this is positive you will be contacted to be started on oral antibiotic for possible UTI or bladder infection. You may take Tylenol up to a 1000 mg every 6 hours as needed for pain, you can take this medication with the ketorolac. Overnight you can take ibuprofen up to 600 mg every 6 hours. Once you take the ketorolac or Toradol you may take 1 tablet every 6 hours, do not take other NSAIDs such as Aleve, ibuprofen or Motrin with this medication. You may take the Fioricet or drink caffeine with these medications sometimes helpful for post spinal headaches. Prescription was sent to [facility] in [place] for the ketorolac. Please return for fevers, rapidly worsening headache, passing out, new chest pain or shortness of breath, new numbness, tingling weakness, new incontinence, difficulty with ambulation, persistent vomiting or any other new or concerning changes. Prescriptions: New ketorolac 10 mg tablet 10 mg PO Q6H PRN (Reason: pain) 5 Days Qty: 14 0RF No Action aripiprazole 15 mg tablet 15 mg PO DAILY buspirone 5 mg tablet 10 mg PO TID melatonin 5 mg capsule 5 mg PO .HS PRN (Reason: insomnia) PNV cmb#95-ferrous fumarate-FA 28 mg iron- 800 mcg tablet 1 tab PO DAILY Qty: 90 1RF omeprazole 40 mg capsule,delayed release(DR/EC) 40 mg PO DAILY Qty: 30 0RF cyclobenzaprine 10 mg tablet 10 mg PO Q8HR PRN (Reason: Spasms) Qty: 10 0RF docusate sodium 100 mg tablet 100 mg PO BID Qty: 90 0RF oxycodone 5 mg tablet 5 mg PO Q6H PRN (Reason: pain) Qty: 10 0RF acetaminophen 325 mg Tablet 650 mg PO Q6HR PRN (Reason: Pain, Mild (1-3)) Qty: 30 0RF Rx Instructions: do not take with fioricet qhmvsywpmn-fnsyngdvbywcx-tsxp 50-325-40 mg Tablet 1 tab PO Q4HR PRN (Reason: Headache) Qty: 20 0RF ibuprofen 600 mg Tablet 600 mg PO Q6HR PRN (Reason: Pain, Mild (1-3)) Qty: 30 0RF Purelan Cream 1 applic topical PRN PRN (Reason: Tenderness) Qty: 7 0RF Unisom (doxylamine) 25 mg Tablet 25 mg PO PRN PRN (Reason: Sleep) fluticasone propionate 50 mcg/actuation [place],Suspension 50 mcg INTRANASAL Referrals: ProviderJong [Primary Care Provider] - Stand Alone Forms: Patient Portal/API
[2023-05-13 19:47] VITALS: BP 146/84; PULSE 56; RESP 16; O2SAT 99
[2023-05-13 20:16] VITALS: BP 155/82; PULSE 57; RESP 16; TEMP 36.9; O2SAT 100
== END 2023-05-13 20:17 | disposition home or self-care (01) ==
PROVIDERS: Emergency Medicine; Emergency Provider Emergency Medicine
DX: G97.1 Other reaction to spinal and lumbar puncture (principal)
CPT/HCPCS: 36415; 80053; 81001; 81003; 85025; 87086; 96361; 96374; 99284; J1885

== ENCOUNTER 2023-05-15 02:54 | Emergency (ER) | payer OTHER, MEDICAID, SELFPAY ==
[2023-05-15] VITALS (10 sets, daily range): BP systolic 107–162; BP diastolic 56–96; PULSE 52–86; RESP 16–20; TEMP 36.6; O2SAT 94–100; BMI 25.7
--- NOTE | 2023-05-15 03:15 | PC.NURSE ---
Patient presents to ED for headache since getting epidural on 05/10/2023. Patient seen for same in ED, states headache is worse when sitting or standing, and relief when lying down. Patient states photosensitivity and nausea, denies vomiting. Patient post- 4 days, states vaginal bleeding is decreasing.
--- NOTE | 2023-05-15 03:18 | DI.CT.S_ITS ---
PROCEDURE: CT HEAD/BRAIN WO CON INDICATIONS: severe LINK TECHNIQUE: Noncontrast 4.5 mm thick angled axial sections acquired from the foramen magnum to the vertex, with coronal and sagittal reformats. For radiation dose reduction, the following was used: automated exposure control, adjustment of mA and/or kV according to patient size. COMPARISON: None. FINDINGS: Image quality: Excellent. CSF spaces: Basal cisterns are patent. No extra-axial fluid collections. Ventricles are normal in size and shape. Brain: No midline shift. No intracranial masses or hemorrhage. [place]-white matter interface is normal. Skull and face: Calvarium and visualized facial bones are intact, without suspicious lesions. Sinuses: Visualized sinuses and mastoids are clear. IMPRESSION: No evidence acute intracranial process. Comment: Final report is concordant with preliminary interpretation provided by [facility]. Dictated by: Zachery Miller M.D. on 05/15/2023 at 7:50 Approved by: Zachery Miller M.D. on 05/15/2023 at 7:52
--- NOTE | 2023-05-15 03:27 | ED_ITS ---
HPI - Headache <Sean Loza DO - Last Filed: 05/15/23 21:36> General Chief Complaint: Headache Stated Complaint: spinal headache from epidural, gave meds not worki Time Seen by Provider: 05/15/23 03:01 Mode of arrival: Ambulatory History of Present Illness HPI Narrative: 28-year-old female nonsmoker is a that recently delivered by spontaneous vaginal delivery on 05/13. She had an epidural during delivery and no prior issues with hypertension presents with a chief complaint of ongoing headache. She states that ever since her delivery she has had a severe headache any time she sits up that improves when she lies flat. There was apparently discussion at the time of discharge and it was thought that her headache was not spinal in nature and that she also had back pain and shoulder pain this was thought to be musculoskeletal in nature. Since then she has been breast-feeding and taking various medications including Toradol, oxycodone, cyclobenzaprine that provide little relief, she states that the only thing that seems to help is lying flat. She has no fever or chills. She has no blurred vision or trouble with speech. She was seen and evaluated in the emergency department a few days ago and had thorough evaluation with prescriptions including Toradol and Fioricet given. Related Data Home Medications Medication Instructions Recorded Confirmed aripiprazole 15 mg tablet 15 mg PO DAILY 09/28/22 05/10/23 buspirone 5 mg tablet 10 mg PO TID 09/28/22 05/10/23 melatonin 5 mg capsule 5 mg PO .HS PRN insomnia 09/28/22 05/03/23 doxylamine succinate 25 mg tablet 25 mg PO PRN PRN Sleep 03/13/23 05/03/23 (Unisom (doxylamine)) fluticasone propionate 50 50 mcg intranasal 03/13/23 05/03/23 mcg/actuation nasal spray,suspension Previous Rx's Medication Instructions Recorded vit no.95-ferrous 1 tab PO DAILY #90 tabs 10/27/22 fumarate 28 mg-folic acid 800 mcg tablet omeprazole 40 mg capsule,delayed 40 mg PO DAILY acid reflux #30 caps 04/15/23 release acetaminophen 325 mg tablet 650 mg (2 x 325 mg) PO Q6HR PRN 05/12/23 Pain, Mild (1-3) #30 tabs [id number]-[id number]-[id number] 1 tab PO Q4HR PRN Headache #20 tabs 05/12/23 50 mg-325 mg-40 mg tablet cyclobenzaprine 10 mg tablet 10 mg PO Q8HR PRN Spasms #10 tabs 05/12/23 docusate sodium 100 mg tablet 100 mg PO BID #90 tabs 05/12/23 ibuprofen 600 mg tablet 600 mg PO Q6HR PRN Pain, Mild 05/12/23 (1-3) #30 tabs lanolin (Purelan topical cream) 1 applic topical PRN PRN 05/12/23 Tenderness #7 grams ketorolac 10 mg tablet 10 mg PO Q6H PRN pain 5 days #14 05/13/23 tabs oxycodone 5 mg tablet 5 mg PO Q6H PRN pain #10 tabs 05/13/23 Allergies Allergy/AdvReac Type Severity Reaction Status Date / Time zolpidem [From Ambien] AdvReac Intermediate Hallucinati Verified 05/03/23 15:57 ng Review of Systems <Sean Loza DO - Last Filed: 05/15/23 21:36> Review of Systems Narrative: GENERAL: Denies chills, fatigue, malaise, fever, sweats. HEENT: Denies sinus pain, ear pain, sore throat, difficulty swallowing, dizziness. RESPIRATORY: Denies dyspnea, cough, wheezing, hemoptysis, sputum. CARDIOVASCULAR: Denies chest pain, palpitations, orthopnea, edema, GASTROINTESTINAL: Denies nausea, vomiting, abdominal pain, diarrhea, constipation, melena. : Denies dysuria, frequency, incontinence, hematuria, urinary retention. MUSCULOSKELETAL: See HPI SKIN: Denies rash, skin lesions, or other NEUROLOGIC: See HPI PSYCHIATRIC: No concerning psychosocial issues. 12 point review of systems is negative except for those stated above Patient History <Sean Loza DO - Last Filed: 05/15/23 21:36> Medical History Back pain Shoulder pain PCOS (polycystic ovarian syndrome) Ovarian cyst (~2012) Irregular menstrual cycle (~2005) ADHD (~2020) Anxiety Depression Migraine without aura Bulimia (~2012) Anorexia nervosa (~2013) Alcohol use Marijuana use Surgical History Anesthesia History of appendectomy [place] teeth extracted (~2021) Family History Mother Heart attack Hypertension Alcoholism Hyperlipidemia Mental health problem Grandmother Kidney disease History of heart disease Hyperlipidemia Hypertension Mental health problem Family/Other Breast cancer Father Alcoholism Mental health problem Grandfather Alcoholism Grandfather Alcoholism Hypertension Mental health problem Brother Mental health problem Grandmother Breast cancer Hypertension Mental health problem Social History marital status: unmarried,living together household members: significant other and friend(s) lives independently: Yes caregiver/support person: No housing: apartment pets and animals: Yes (dog, cats, fish; aware of toxo precautions) education level: other (GED) 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) current occupational exposures/hazards: Yes (aware of chemical precautions) special boni needs: No travel history: recent seatbelt use: always water heater temp set < 120 deg: No working smoke detector in home: Yes fire extinguisher in home: No carbon monox detector in home: Yes firearms in home: No do you feel safe at home: Yes Smoking Status: Never smoker second hand exposure: No alcohol intake: former (2-3/day prior to ) substance use type: marijuana (agrees not to use while /) during the past year weight has: remained stable well-balanced diet: daily or most days daily servings fruits/ve or more times/day caffeine: Yes (aware of 200mg limit) Type(s) of exercise: aerobic, weight lifting and running frequency: 5-6 times per week Smoking Status: Never smoker tobacco type: cigarettes alcohol intake frequency: 0-2 drinks per day Substance Use Type: does not use Exam <Sean Loza DO - Last Filed: 05/15/23 21:36> Narrative Exam Narrative: GENERAL: []28 year old patient appears stated age. Well-developed patient, in mild distress. HEAD: Atraumatic. Normocephalic. EYES: Pupils equal round and reactive. Extraocular motions intact. No scleral icterus. No injection or drainage. ENT: Nose without bleeding, purulent drainage. Throat without erythema, tonsillar hypertrophy or exudate. Airway patent. NECK: Trachea midline. Non tender, negative Kernig's and Brudzinski's CARDIOVASCULAR: Regular rate and rhythm without murmurs, gallops, or rubs. RESPIRATORY: Clear to auscultation. Breath sounds equal bilaterally. No wheezes, rales, or rhonchi. GASTROINTESTINAL: Abdomen soft, non-tender, nondistended. EXTREMITIES: No edema or joint tenderness. BACK: Nontender without deformity or crepitance. No flank tenderness. NEURO: AOx3. SKIN: No rash or erythema of visible areas Initial Vital Signs Initial Vital Signs: Vital Signs Temperature 98 F 05/15/23 03:02 Pulse Rate 75 05/15/23 03:02 Respiratory Rate 18 05/15/23 03:02 Blood Pressure 162/96 H 05/15/23 03:02 Pulse Oximetry 100 05/15/23 03:02 Oxygen Delivery Method Room Air 05/15/23 03:02 <Eliezer Ruff MD - Last Filed: 05/15/23 08:35> Initial Vital Signs Initial Vital Signs: Vital Signs Temperature 98 F 05/15/23 03:02 Pulse Rate 75 05/15/23 03:02 Respiratory Rate 18 05/15/23 03:02 Blood Pressure 162/96 H 05/15/23 03:02 Pulse Oximetry 100 05/15/23 03:02 Oxygen Delivery Method Room Air 05/15/23 03:02 Course <Sean Loza DO - Last Filed: 05/15/23 21:36> Orders Ordered: Discontinued Medications Sodium Chloride (Normal Saline 0.9%) 1,000 mls @ 1,000 mls/hr IV BOLUS ONE Stop: 05/15/23 04:17 Last Infusion: 05/15/23 04:28 Dose: Infused Documented By: Admin: 05/15/23 03:28 Dose: 1,000 mls/hr Documented By: MICHELLE Ketorolac Tromethamine (Ketorolac 30 Mg/Ml Vial) 15 mg IV NOW ONE Stop: 05/15/23 03:19 Last Admin: 05/15/23 03:29 Dose: 15 mg Documented By: MICHELLE Midazolam HCl (Midazolam 2 Mg/2 Ml Vial) 2 mg IV NOW ONE Stop: 05/15/23 06:48 Last Admin: 05/15/23 06:50 Dose: 2 mg Documented By: MICHELLE Reevaluation(s) Reevaluation #1: initial BP elevated, however soon after initial check she is re-evaluated and BP improves to 127/89 Vital Signs Vital signs: Vital Signs - 8 hr 05/15/23 03:02 05/15/23 03:30 05/15/23 04:44 Temperature 98 F Pulse Rate 75 60 70 Respiratory Rate 18 16 20 Blood Pressure 162/96 H 127/89 107/56 L Pulse Oximetry 100 96 97 Oxygen Delivery Method Room Air Room Air Room Air 05/15/23 05:00 05/15/23 05:30 05/15/23 06:00 Temperature Pulse Rate 66 86 67 Respiratory Rate 16 16 18 Blood Pressure 135/96 H 138/89 139/91 H Pulse Oximetry 97 94 97 Oxygen Delivery Method Room Air Room Air Room Air 05/15/23 06:30 05/15/23 07:11 05/15/23 07:25 Temperature Pulse Rate 61 58 L 52 L Respiratory Rate 18 16 16 Blood Pressure 149/96 H 135/85 147/91 H Pulse Oximetry 97 97 97 Oxygen Delivery Method Room Air Room Air Room Air 05/15/23 07:40 Temperature Pulse Rate 55 L Respiratory Rate 16 Blood Pressure 140/85 Pulse Oximetry 98 Oxygen Delivery Method Room Air <Eliezer Ruff MD - Last Filed: 05/15/23 08:35> Orders Ordered: Discontinued Medications Sodium Chloride (Normal Saline 0.9%) 1,000 mls @ 1,000 mls/hr IV BOLUS ONE Stop: 05/15/23 04:17 Last Infusion: 05/15/23 04:28 Dose: Infused Documented By: Admin: 05/15/23 03:28 Dose: 1,000 mls/hr Documented By: MICHELLE Ketorolac Tromethamine (Ketorolac 30 Mg/Ml Vial) 15 mg IV NOW ONE Stop: 05/15/23 03:19 Last Admin: 05/15/23 03:29 Dose: 15 mg Documented By: MICHELLE Midazolam HCl (Midazolam 2 Mg/2 Ml Vial) 2 mg IV NOW ONE Stop: 05/15/23 06:48 Last Admin: 05/15/23 06:50 Dose: 2 mg Documented By: MICHELLE Vital Signs Vital signs: Vital Signs - 8 hr 05/15/23 03:02 05/15/23 03:30 05/15/23 04:44 Temperature 98 F Pulse Rate 75 60 70 Respiratory Rate 18 16 20 Blood Pressure 162/96 H 127/89 107/56 L Pulse Oximetry 100 96 97 Oxygen Delivery Method Room Air Room Air Room Air 05/15/23 05:00 05/15/23 05:30 05/15/23 06:00 Temperature Pulse Rate 66 86 67 Respiratory Rate 16 16 18 Blood Pressure 135/96 H 138/89 139/91 H Pulse Oximetry 97 94 97 Oxygen Delivery Method Room Air Room Air Room Air 05/15/23 06:30 05/15/23 07:11 05/15/23 07:25 Temperature Pulse Rate 61 58 L 52 L Respiratory Rate 18 16 16 Blood Pressure 149/96 H 135/85 147/91 H Pulse Oximetry 97 97 97 Oxygen Delivery Method Room Air Room Air Room Air 05/15/23 07:40 Temperature Pulse Rate 55 L Respiratory Rate 16 Blood Pressure 140/85 Pulse Oximetry 98 Oxygen Delivery Method Room Air MDM - Headache <Sean Loza, DO - Last Filed: 05/15/23 21:36> Lab Data 05/15/23 03:05 05/15/23 03:05 Labs: Lab Results 05/15/23 05/15/23 Range/Units 03:05 04:55 WBC 7.9 (4.5-11.0) X10^3/uL RBC 3.43 L (4.0-5.2) X10^6/uL Hgb 10.6 L (12.0-16.0) g/dL Hct 30.6 L (36-46) % MCV 89.3 (80-100) fL MCH 30.8 (26-34) PG MCHC 34.5 (30-36) % RDW 12.9 (11.6-14.8) % Plt Count 283 (150-400) X10^3/uL Neut % (Auto) 65.2 (50-75) % Lymph % (Auto) 24.0 L (25-40) % Faulk % (Auto) 8.0 (3-14) % Eos % (Auto) 2.6 (2-4) % Baso % (Auto) 0.2 (0-2) % Neut # (Auto) 5100 (0033-0947) /uL Lymph # (Auto) 1900 (4912-5016) /uL Faulk # (Auto) 600 (0-900) /uL Eos # (Auto) 200 (0-450) /uL Baso # (Auto) 0 (0-100) /uL Sodium 137 (137-145) mmol/L Potassium 4.0 (3.4-5.1) mmol/L Chloride 108 H (98-107) mmol/L Carbon Dioxide 23 (22-32) mmol/L BUN 23 H (7-17) mg/dL Creatinine 0.58 (0.52-1.04) mg/dL Estimated GFR > 60 (>60) mL/min BUN/Creatinine Ratio 39.7 H (6-22) Glucose 87 (70-100) mg/dL Uric Acid 3.6 (2.5-6.2) mg/dL Calcium 8.9 (8.4-10.2) mg/dL Total Bilirubin 0.3 (0.2-1.3) mg/dL AST 33 (14-36) IU/L ALT 29 (<35) IU/L Alkaline Phosphatase 107 (38-126) U/L Total Protein 6.3 (6.3-8.2) g/dL Albumin 3.2 L (3.5-5.0) g/dL Globulin 3.1 (1.7-4.1) g/dL Albumin/Globulin Ratio 1.0 (1.0-2.8) Urine RBC 1-5/hpf (0-5/HPF) Urine WBC 1-5/hpf (0-5/HPF) Ur Squamous Epith Cells None seen (0-5/HPF) Urine Bacteria None seen (None) Micro UA Comment * Urine Dip Bedside Urine Glucose Negative Bedside Urine Bilirubin - Negative Bedside Urine Ketone - Negative Urine Specific [place] 1.015 Bedside Urine Occult Blood +++ Bedside Urine pH 6.0 Bedside Urine Protein - Negative Bedside Urine Urobilinogen - Negative Bedside Urine Nitrite - Negative Bedside Urine Leukocytes - Negative Esterase <Eliezer Ruff MD - Last Filed: 05/15/23 08:35> Lab Data Labs: Lab Results 05/15/23 05/15/23 Range/Units 03:05 04:55 WBC 7.9 (4.5-11.0) X10^3/uL RBC 3.43 L (4.0-5.2) X10^6/uL Hgb 10.6 L (12.0-16.0) g/dL Hct 30.6 L (36-46) % MCV 89.3 (80-100) fL MCH 30.8 (26-34) PG MCHC 34.5 (30-36) % RDW 12.9 (11.6-14.8) % Plt Count 283 (150-400) X10^3/uL Neut % (Auto) 65.2 (50-75) % Lymph % (Auto) 24.0 L (25-40) % Faulk % (Auto) 8.0 (3-14) % Eos % (Auto) 2.6 (2-4) % Baso % (Auto) 0.2 (0-2) % Neut # (Auto) 5100 (5667-2262) /uL Lymph # (Auto) 1900 (8393-6200) /uL Faulk # (Auto) 600 (0-900) /uL Eos # (Auto) 200 (0-450) /uL Baso # (Auto) 0 (0-100) /uL Sodium 137 (137-145) mmol/L Potassium 4.0 (3.4-5.1) mmol/L Chloride 108 H (98-107) mmol/L Carbon Dioxide 23 (22-32) mmol/L BUN 23 H (7-17) mg/dL Creatinine 0.58 (0.52-1.04) mg/dL Estimated GFR > 60 (>60) mL/min BUN/Creatinine Ratio 39.7 H (6-22) Glucose 87 (70-100) mg/dL Uric Acid 3.6 (2.5-6.2) mg/dL Calcium 8.9 (8.4-10.2) mg/dL Total Bilirubin 0.3 (0.2-1.3) mg/dL AST 33 (14-36) IU/L ALT 29 (<35) IU/L Alkaline Phosphatase 107 (38-126) U/L Total Protein 6.3 (6.3-8.2) g/dL Albumin 3.2 L (3.5-5.0) g/dL Globulin 3.1 (1.7-4.1) g/dL Albumin/Globulin Ratio 1.0 (1.0-2.8) Urine RBC 1-5/hpf (0-5/HPF) Urine WBC 1-5/hpf (0-5/HPF) Ur Squamous Epith Cells None seen (0-5/HPF) Urine Bacteria None seen (None) Micro UA Comment * Urine Dip Bedside Urine Glucose Negative Bedside Urine Bilirubin - Negative Bedside Urine Ketone - Negative Urine Specific [place] 1.015 Bedside Urine Occult Blood +++ Bedside Urine pH 6.0 Bedside Urine Protein - Negative Bedside Urine Urobilinogen - Negative Bedside Urine Nitrite - Negative Bedside Urine Leukocytes - Negative Esterase MDM Narrative Medical decision making narrative: May 15, 2023 7:50 a.m.. Patient seen by Dr Loza. Patient also seen by anesthesia for blood patch. Add brief headache afterwards. However at this time headache free. Patient's heart rate noted at times goes down to the upper 40s. Likely vasovagal response from the procedure. In addition, patient did receive Versed and may be response to the medication. Blood pressure is stable. No headache at this time. Patient needs breast pump as she did not receive any consult for breast pump 4 days ago when she delivered a baby here. She has a breast pump at home but does not know how to use it.. Nursing staff here did contact L and D floor. Patient will need to make appointment today for consult. They are able to do that for her. She does have formula at home to give to patient to bridge feeding. Not toxic at discharge. Return precautions reviewed with her. She and partner desire discharge home. It has been 1 hour since blood patch. Instructions followed by anesthesia. Heart rate improved at time of discharge. 55-65 heart rate. Not toxic discharge. Return precautions reviewed with her. Discharge Plan Departure Patient Disposition: Home Clinical Impression: Spinal puncture headache Instructions: DI for Post-Spinal Puncture Headache Activity Restrictions/Additional Instructions: *You have been diagnosed with [spinal headache] *What to do: *Please continue to take your regular medications as directed. *Please follow up with your primary care provider in 2-3 days, call for an appointment. Let them know you were seen in the Emergency Department and that we ask that you be seen in follow up. We will electronically transmit a record of today's note if your PCP is in our system * no heavy lifting or vigorous activity for the next 24 hours *Return to Emergency Department if you should have any new, worsening or concerning symptoms, such as [fever greater than 101 F, shaking chills, worsening pain, persistent vomiting or other bothersome symptoms] Be sure to pump and dump breast milk through today. You have received medication and should be out of your body by tonight. You may resume tomorrow morning. Prescriptions: No Action aripiprazole 15 mg tablet 15 mg PO DAILY buspirone 5 mg tablet 10 mg PO TID melatonin 5 mg capsule 5 mg PO .HS PRN (Reason: insomnia) PNV cmb#95-ferrous fumarate-FA 28 mg iron- 800 mcg tablet 1 tab PO DAILY Qty: 90 1RF omeprazole 40 mg capsule,delayed release(DR/EC) 40 mg PO DAILY Qty: 30 0RF cyclobenzaprine 10 mg tablet 10 mg PO Q8HR PRN (Reason: Spasms) Qty: 10 0RF docusate sodium 100 mg tablet 100 mg PO BID Qty: 90 0RF oxycodone 5 mg tablet 5 mg PO Q6H PRN (Reason: pain) Qty: 10 0RF acetaminophen 325 mg Tablet 650 mg PO Q6HR PRN (Reason: Pain, Mild (1-3)) Qty: 30 0RF Rx Instructions: do not take with fioricet zzdppxjdtx-[id number]-zczx 50-325-40 mg Tablet 1 tab PO Q4HR PRN (Reason: Headache) Qty: 20 0RF ibuprofen 600 mg Tablet 600 mg PO Q6HR PRN (Reason: Pain, Mild (1-3)) Qty: 30 0RF Purelan Cream 1 applic topical PRN PRN (Reason: Tenderness) Qty: 7 0RF Unisom (doxylamine) 25 mg Tablet 25 mg PO PRN PRN (Reason: Sleep) fluticasone propionate 50 mcg/actuation [place],Suspension 50 mcg INTRANASAL ketorolac 10 mg tablet 10 mg PO Q6H PRN (Reason: pain) 5 Days Qty: 14 0RF Referrals: ProviderJong [Primary Care Provider] - Stand Alone Forms: Patient Portal/API
[2023-05-15] MEDS: SODIUM CHLORIDE 0.9% 1,000 ML 1000 ML IV (03:28)
[2023-05-15] MEDS: KETOROLAC 30 MG/ML VIAL 15 MG IV (03:29)
[2023-05-15 04:00] LABS: Add Manual Diff / Slide Review NO; Basophils Absolute Auto 0 /uL (0-100); Basophils Percent Auto 0.2 % (0-2); Eosinophils Absolute Auto 200 /uL (0-450); Eosinophils Percent Auto 2.6 % (2-4); Hematocrit 30.6 % (36-46); Hemoglobin 10.6 g/dL (12.0-16.0); Lymphocytes Absolute Auto 1900 /uL (1100-4500); Mean Corpuscular HGB Conc 34.5 % (30-36); Mean Corpuscular Hemoglobin 30.8 PG (26-34); Mean Corpuscular Volume 89.3 fL (80-100); Monocytes Absolute Auto 600 /uL (0-900); Neutrophils Absolute Auto 5100 /uL (1500-7000); Neutrophils Percent Auto 65.2 % (50-75); Platelet Count 283 X10^3/uL (150-400); Red Blood Cell Count 3.43 X10^6/uL (4.0-5.2); Red Cell Distribution Width 12.9 % (11.6-14.8); White Blood Cell Count 7.9 X10^3/uL (4.5-11.0)
[2023-05-15 04:12] LABS: Alanine Aminotransferase 29 IU/L (<35); Albumin 3.2 g/dL (3.5-5.0); Alkaline Phosphatase 107 U/L (38-126); Aspartate Aminotransferase 33 IU/L (14-36); BUN Creatinine Ratio 39.7 (6-22); Bilirubin Total 0.3 mg/dL (0.2-1.3); Blood Urea Nitrogen 23 mg/dL (7-17); Calcium 8.9 mg/dL (8.4-10.2); Carbon Dioxide 23 mmol/L (22-32); Chloride 108 mmol/L (98-107); Estimated Glomerular Filt Rate > 60 mL/min (>60); Globulin 3.1 g/dL (1.7-4.1); Glucose 87 mg/dL (70-100); HEMOLYSIS < 15 (0-50); Sodium 137 mmol/L (137-145); Total Protein 6.3 g/dL (6.3-8.2); Uric Acid 3.6 mg/dL (2.5-6.2)
[2023-05-15 05:40] LABS: Bacteria Urine None Seen; RBC Urine 1-5/HPF (0-5/HPF); Squamous Epithelial Cell Urine None Seen (0-5/HPF); WBC Urine 1-5/HPF (0-5/HPF)
[2023-05-15] MEDS: MIDAZOLAM 2 MG/2 ML VIAL IV (06:50)
--- NOTE | 2023-05-15 07:22 | PC.NURSE ---
report received, care assumed, pt lying supine in stretcher, patch placed at 0700 per offgoing RN. Pt on monitoring equipment, VSS.
--- NOTE | 2023-05-15 07:27 | PM.PROC.1 ---
Procedures Date/Time Date of procedure: 05/15/23 Time of procedure: 07:00 General Procedure description: 28 y/o now post delivery day 4 w/ c/o postural headache. Pt reports onset of LINK after delivery. She had an epidural in place for labor analgesia. She reports that the LINK improves with lying down, and is worse with sitting or standing. She denies any focal neurological changes, fever, chills, or rash. She has no history of chronic LINK. Associated sympoms are reported: neck ache and back pain between her scapulae. PDPH was considered prior to discharge, pt desired conservative management. This is her second visit to the ED since discharge. VS WNL (see EMR), labs reviewed (WBC, platelets normal, mild anemia), CT head (no acute intracranial process), afebrile. Pt alert, groggy (in ED since approx 0200), appropriate. No focal deficits noted. A: likely PDPH, with onset, symptoms, and mechanism consistent with dx. Other causes such as meningitis, intracranial bleed unlikely. P: epidural blood patch. Procedure: procedure was discussed with pt and SO. Risks, including infection, no improvement in symptoms, need for repeat were discussed. Benefits of likely resolution of PDPH, and alternative of conservative care. Pt agreed to proceed. Consent was signed and verified. 2mg versed were given for significant anxiety about the procedure. Pt seated with head resting on pillows, chloraprep, sterile drape, lido local at L3-4, Hustead advanced until clean ADRI with saline at 5cm. RN then maryann 20mL of blood after chloraprep and using sterile gloves for draw. A total of 8mL of blood injected into the epidural space, as pt noted significant feeling of fullness in the lower back. Pt tolerated procedure well with no complications. VS repeated after procedure normal (see EMR). Pt instructed to lay for 1h, then no strenuous activity for 24h. Follow-up instructions were given to call L&D if recurrence of symptomsm, fever, chills, or worsening of symptoms.
--- NOTE | 2023-05-15 07:31 | PC.NURSE ---
pt's out of room reporting pt feeling dizzy; pt awake, alert, reporting dizziness and feeling like I am dropping. pt's HR noted to be intermittently irregular and bradycardiac, down to 42. Dr. Loza aware. pt placed on court recording monitor for continuous monitoring, Q15min BP; BP hypertensive. Dr. Ruff notified of pt's new compliant of headache, reports just started. Dr. Ruff at bedside.
--- NOTE | 2023-05-15 07:55 | PC.NURSE ---
Per Dr. Ruff, pt reports resolved headache. Dr. Ruff aware of VS. Per Dr. Ruff, pt okay to be discharged, paperwork printed.
--- NOTE | 2023-05-15 11:37 | PC.NURSE ---
Pt called requesting to know what sedative she was given. Given information. No questions.
== END 2023-05-15 08:05 | disposition home or self-care (01) ==
PROVIDERS: Emergency Medicine; Emergency Provider Emergency Medicine
DX: G97.1 Other reaction to spinal and lumbar puncture (principal); R79.89 Other specified abnormal findings of blood chemistry
CPT/HCPCS: 36415; 62273; 70450; 80053; 81003; 81015; 84550; 85025; 87086; 96361; 96374; 96375; 99284; J1885; J2250

== ENCOUNTER 2023-05-16 12:19 | Emergency (ER) | payer OTHER, MEDICAID, SELFPAY ==
[2023-05-16] VITALS (13 sets, daily range): BP systolic 119–167; BP diastolic 76–97; PULSE 53–77; RESP 13–18; TEMP 36.8; O2SAT 98–100; BMI 26.2
[2023-05-16] MEDS: SODIUM CHLORIDE 0.9% 1,000 ML 1000 ML IV (13:22)
[2023-05-16 13:24] LABS: Add Manual Diff / Slide Review NO; Basophils Absolute Auto 0 /uL (0-100); Basophils Percent Auto 0.3 % (0-2); Eosinophils Absolute Auto 100 /uL (0-450); Eosinophils Percent Auto 0.8 % (2-4); Hematocrit 31.9 % (36-46); Lymphocytes Absolute Auto 1500 /uL (1100-4500); Lymphocytes Percent Auto 19.8 % (25-40); Mean Corpuscular HGB Conc 34.6 % (30-36); Mean Corpuscular Hemoglobin 30.6 PG (26-34); Mean Corpuscular Volume 88.5 fL (80-100); Monocytes Absolute Auto 400 /uL (0-900); Monocytes Percent Auto 5.6 % (3-14); Neutrophils Absolute Auto 5700 /uL (1500-7000); Neutrophils Percent Auto 73.5 % (50-75); Platelet Count 313 X10^3/uL (150-400); Red Blood Cell Count 3.61 X10^6/uL (4.0-5.2); Red Cell Distribution Width 13.1 % (11.6-14.8); White Blood Cell Count 7.8 X10^3/uL (4.5-11.0)
[2023-05-16] MEDS: HYDRALAZINE 20 MG/ML VIAL 10 MG IV (13:24)
--- NOTE | 2023-05-16 13:31 | ED.GENADULT ---
HPI - General Adult General Chief complaint: Hypertension Stated complaint: high bp 158/100 apx 1hr ago/headache since t-5 Time Seen by Provider: 05/16/23 12:47 Source: patient Mode of arrival: Ambulatory History of Present Illness HPI narrative: 28-year-old 001 at 5 days presents for headache and elevated blood pressure. 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 Reports persistent headache since her epidural, she received a blood patch yesterday. Lochia normal Related Data Home Medications Medication Instructions Recorded Confirmed aripiprazole 15 mg tablet 15 mg PO DAILY 09/28/22 05/10/23 buspirone 5 mg tablet 10 mg PO TID 09/28/22 05/10/23 melatonin 5 mg capsule 5 mg PO .HS PRN insomnia 09/28/22 05/03/23 doxylamine succinate 25 mg tablet 25 mg PO PRN PRN Sleep 03/13/23 05/03/23 (Unisom (doxylamine)) fluticasone propionate 50 50 mcg intranasal 03/13/23 05/03/23 mcg/actuation nasal spray,suspension Previous Rx's Medication Instructions Recorded vit no.95-ferrous 1 tab PO DAILY #90 tabs 10/27/22 fumarate 28 mg-folic acid 800 mcg tablet omeprazole 40 mg capsule,delayed 40 mg PO DAILY acid reflux #30 caps 04/15/23 release acetaminophen 325 mg tablet 650 mg (2 x 325 mg) PO Q6HR PRN 05/12/23 Pain, Mild (1-3) #30 tabs ycwkpefrly-veremhzfbbear-amtjrrit 1 tab PO Q4HR PRN Headache #20 tabs 05/12/23 50 mg-325 mg-40 mg tablet cyclobenzaprine 10 mg tablet 10 mg PO Q8HR PRN Spasms #10 tabs 05/12/23 docusate sodium 100 mg tablet 100 mg PO BID #90 tabs 05/12/23 ibuprofen 600 mg tablet 600 mg PO Q6HR PRN Pain, Mild 05/12/23 (1-3) #30 tabs lanolin (Purelan topical cream) 1 applic topical PRN PRN 05/12/23 Tenderness #7 grams ketorolac 10 mg tablet 10 mg PO Q6H PRN pain 5 days #14 05/13/23 tabs oxycodone 5 mg tablet 5 mg PO Q6H PRN pain #10 tabs 05/13/23 nifedipine 30 mg tablet,extended 30 mg PO DAILY #30 tabs 05/16/23 release Allergies Allergy/AdvReac Type Severity Reaction Status Date / Time zolpidem [From Ambien] AdvReac Intermediate Hallucinati Verified 05/03/23 15:57 ng Review of Systems Review of Systems Narrative: CONSTITUTIONAL- Denies: fever, chills, fatigue HEENT- Denies: sore throat, nosebleed, vision changes RESPIRATORY- Denies: shortness of breath, cough, wheezing CARDIAC- Denies: chest pain, edema, orthopnea GI- Denies: abdominal pain, nausea, vomiting, constipation, diarrhea - Denies: frequency, dysuria, hematuria, flank pain MSK- Denies: extremity pain, extremity swelling, joint pain, joint swelling SKIN- Denies: rash, itching, burn, swelling NEUROLOGICAL-reports: Headache Denies: numbness, weakness, dizziness PSYCHIATRIC- Denies: anxiety, depression, suicidal ideation, homicidal ideation Patient History Medical History Back pain Shoulder pain PCOS (polycystic ovarian syndrome) Ovarian cyst (~2012) Irregular menstrual cycle (~2005) ADHD (~2020) Anxiety Depression Migraine without aura Bulimia (~2012) Anorexia nervosa (~2013) Alcohol use Marijuana use Surgical History Anesthesia History of appendectomy [place] teeth extracted (~2021) Family History Mother Heart attack Hypertension Alcoholism Hyperlipidemia Mental health problem Grandmother Kidney disease History of heart disease Hyperlipidemia Hypertension Mental health problem Family/Other Breast cancer Father Alcoholism Mental health problem Grandfather Alcoholism Grandfather Alcoholism Hypertension Mental health problem Brother Mental health problem Grandmother Breast cancer Hypertension Mental health problem Social History marital status: unmarried,living together household members: significant other and friend(s) lives independently: Yes caregiver/support person: No housing: apartment pets and animals: Yes (dog, cats, fish; aware of toxo precautions) education level: other (GED) 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) current occupational exposures/hazards: Yes (aware of chemical precautions) special boni needs: No travel history: recent seatbelt use: always water heater temp set < 120 deg: No working smoke detector in home: Yes fire extinguisher in home: No carbon monox detector in home: Yes firearms in home: No do you feel safe at home: Yes Smoking Status: Never smoker second hand exposure: No alcohol intake: former (2-3/day prior to ) substance use type: marijuana (agrees not to use while /) during the past year weight has: remained stable well-balanced diet: daily or most days daily servings fruits/ve or more times/day caffeine: Yes (aware of 200mg limit) Type(s) of exercise: aerobic, weight lifting and running frequency: 5-6 times per week Smoking Status: Never smoker tobacco type: cigarettes alcohol intake frequency: 0-2 drinks per day Substance Use Type: does not use Exam Initial Vital Signs Initial Vital Signs: Vital Signs Temperature 98.3 F 05/16/23 12:36 Pulse Rate 53 L 05/16/23 12:36 Respiratory Rate 16 05/16/23 12:36 Blood Pressure 167/97 H 05/16/23 12:36 Pulse Oximetry 100 05/16/23 12:36 Oxygen Delivery Method Room Air 05/16/23 12:36 Const: Awake, alert, no acute distress, nontoxic appearing Eyes: PERRL, EOMI, conjunctiva normal ENT: Atraumatic, dentition normal, mucous membranes moist Cardiac: regular rate, regular rhythm RESP: unlabored, clear bilaterally, no wheezing GI: Atraumatic, soft, nontender, nondistended, no rebound, no guarding MSK: Atraumatic, full range of motion, pulses equal Skin: Warm, Dry, intact, no rashes Neuro: AO x3, CN II-XII grossly intact, moves all extremities Psych: affect normal, mood normal, not suicidal, not homicidal Course Course Course Narrative: hypertension. Given hydralazine due to pulse rate 60 with improvement in blood pressure to 130 systolic. Laboratory work is reviewed, mild elevation in ALT, no other acute abnormalities identified. Discussed patient's case with Dr. Patricia of [facility], he recommended initiation of 30 mg nifedipine extended release and he will have the clinic call to arrange follow up appointment. Patient already has oxycodone at home and she can take that for her headaches. ED return precautions discussed at bedside. Patient expressed understanding of the plan and is in agreement at this time. All questions answered at the time of discharge. Orders Ordered: ED Orders 05/16/23 13:05 CBC Auto Diff [Complete Blood Count AUTO DIFF] Stat CMP [Comprehensive Metabolic Panel] Stat 05/16/23 14:37 Creatinine Urine Random Stat UA Complete [Urinalysis and Microscopic] Stat Urine Culture Stat Discontinued Medications Hydralazine HCl (Hydralazine 20 Mg/Ml Vial) 10 mg IV NOW ONE Stop: 05/16/23 13:04 Last Admin: 05/16/23 13:24 Dose: 10 mg Documented By: HAROON Sodium Chloride (Normal Saline 0.9%) 1,000 mls @ 1,000 mls/hr IV BOLUS ONE Stop: 05/16/23 14:02 Last Infusion: 05/16/23 15:33 Dose: Infused Documented By: Admin: 05/16/23 13:22 Dose: 1,000 mls/hr Documented By: HAROON Ketorolac Tromethamine (Ketorolac 30 Mg/Ml Vial) 15 mg IV NOW ONE Stop: 05/16/23 13:52 Last Admin: 05/16/23 14:06 Dose: Not Given Documented By: KIERA Vital Signs Vital signs: Vital Signs - 8 hr 05/16/23 12:36 05/16/23 12:44 05/16/23 13:15 Temperature 98.3 F Pulse Rate 53 L 57 L Respiratory Rate 16 16 Blood Pressure 167/97 H 156/93 H 151/95 H Pulse Oximetry 100 98 Oxygen Delivery Method Room Air Room Air 05/16/23 13:24 05/16/23 13:30 05/16/23 13:45 Temperature Pulse Rate 55 L 53 L 71 Respiratory Rate Blood Pressure 163/92 H 163/94 H 142/86 H Pulse Oximetry 100 100 Oxygen Delivery Method Room Air Room Air 05/16/23 13:58 05/16/23 14:00 05/16/23 14:15 Temperature Pulse Rate 77 64 66 Respiratory Rate Blood Pressure 138/84 135/85 138/84 Pulse Oximetry 100 100 Oxygen Delivery Method Room Air Room Air 05/16/23 14:35 05/16/23 14:45 05/16/23 15:00 Temperature Pulse Rate 58 L 59 L 61 Respiratory Rate 18 14 13 Blood Pressure 151/83 H 144/87 H 120/85 Pulse Oximetry 100 100 100 Oxygen Delivery Method Room Air Room Air Room Air 05/16/23 15:33 Temperature Pulse Rate 77 Respiratory Rate 16 Blood Pressure 119/76 Pulse Oximetry 99 Oxygen Delivery Method Room Air Medical Decision Making Differential Diagnosis Differential Diagnosis: Eclampsia, preeclampsia, essential hypertension Lab Data 05/16/23 13:05 05/16/23 13:05 Labs: Lab Results 05/16/23 05/16/23 Range/Units 13:05 14:37 WBC 7.8 (4.5-11.0) X10^3/uL RBC 3.61 L (4.0-5.2) X10^6/uL Hgb 11.0 L (12.0-16.0) g/dL Hct 31.9 L (36-46) % MCV 88.5 (80-100) fL MCH 30.6 (26-34) PG MCHC 34.6 (30-36) % RDW 13.1 (11.6-14.8) % Plt Count 313 (150-400) X10^3/uL Neut % (Auto) 73.5 (50-75) % Lymph % (Auto) 19.8 L (25-40) % [place] % (Auto) 5.6 (3-14) % Eos % (Auto) 0.8 L (2-4) % Baso % (Auto) 0.3 (0-2) % Neut # (Auto) 5700 (4910-4171) /uL Lymph # (Auto) 1500 (8173-1987) /uL [place] # (Auto) 400 (0-900) /uL Eos # (Auto) 100 (0-450) /uL Baso # (Auto) 0 (0-100) /uL Sodium 137 (137-145) mmol/L Potassium 3.8 (3.4-5.1) mmol/L Chloride 107 (98-107) mmol/L Carbon Dioxide 22 (22-32) mmol/L BUN 15 (7-17) mg/dL Creatinine 0.54 (0.52-1.04) mg/dL Estimated GFR > 60 (>60) mL/min BUN/Creatinine Ratio 27.8 H (6-22) Glucose 124 H (70-100) mg/dL Calcium 9.2 (8.4-10.2) mg/dL Total Bilirubin 0.4 (0.2-1.3) mg/dL AST 36 (14-36) IU/L ALT 39 H (<35) IU/L Alkaline Phosphatase 114 (38-126) U/L Total Protein 6.4 (6.3-8.2) g/dL Albumin 3.4 L (3.5-5.0) g/dL Globulin 3.0 (1.7-4.1) g/dL Albumin/Globulin Ratio 1.1 (1.0-2.8) Urine Color Yellow Urine Appearance Clear Urine pH 7.5 (4.5-8.0) Ur Specific [place] 1.010 (1.000-1.035) Urine Protein Negative (Negative) Urine Glucose (UA) Negative (Negative) g/dL Urine Ketones Negative (NEGATIVE) Urine Occult Blood 3+ H (Negative) Urine Nitrate Negative (Negative) Urine Bilirubin Negative (NEGATIVE) Urine Urobilinogen 0.2 (0.2) E.U./dL Ur Leukocyte Esterase 2+ H (NEGATIVE) Urine RBC 1-5/hpf (0-5/HPF) Urine WBC 1-5/hpf (0-5/HPF) Ur Squamous Epith Cells 1-5 /hpf (0-5/HPF) Urine Bacteria Occasional (0-1) (None) Ur Culture Indicated? Specimen cultured Urine Creatinine 43.6 mg/dL Discharge Plan Departure Patient Disposition: Home Clinical Impression: Benign essential hypertension, Instructions: DI for High Blood Pressure Activity Restrictions/Additional Instructions: PLEASE FOLLOW UP WITH YOUR OBGYN CLINIC. TAKE THE NIFEDIPINE DAILY FOR YOUR BLOOD PRESSURE. Prescriptions: New nifedipine 30 mg tablet extended release 30 mg PO DAILY Qty: 30 0RF No Action aripiprazole 15 mg tablet 15 mg PO DAILY buspirone 5 mg tablet 10 mg PO TID melatonin 5 mg capsule 5 mg PO .HS PRN (Reason: insomnia) PNV cmb#95-ferrous fumarate-FA 28 mg iron- 800 mcg tablet 1 tab PO DAILY Qty: 90 1RF omeprazole 40 mg capsule,delayed release(DR/EC) 40 mg PO DAILY Qty: 30 0RF cyclobenzaprine 10 mg tablet 10 mg PO Q8HR PRN (Reason: Spasms) Qty: 10 0RF docusate sodium 100 mg tablet 100 mg PO BID Qty: 90 0RF oxycodone 5 mg tablet 5 mg PO Q6H PRN (Reason: pain) Qty: 10 0RF acetaminophen 325 mg Tablet 650 mg PO Q6HR PRN (Reason: Pain, Mild (1-3)) Qty: 30 0RF Rx Instructions: do not take with fioricet ipnqthtpog-omhsixvgjjwgp-upni 50-325-40 mg Tablet 1 tab PO Q4HR PRN (Reason: Headache) Qty: 20 0RF ibuprofen 600 mg Tablet 600 mg PO Q6HR PRN (Reason: Pain, Mild (1-3)) Qty: 30 0RF Purelan Cream 1 applic topical PRN PRN (Reason: Tenderness) Qty: 7 0RF Unisom (doxylamine) 25 mg Tablet 25 mg PO PRN PRN (Reason: Sleep) fluticasone propionate 50 mcg/actuation [place],Suspension 50 mcg INTRANASAL ketorolac 10 mg tablet 10 mg PO Q6H PRN (Reason: pain) 5 Days Qty: 14 0RF Referrals: ProviderJong [Primary Care Provider] - Stand Alone Forms: Patient Portal/API
[2023-05-16 13:39] LABS: Alanine Aminotransferase 39 IU/L (<35); Albumin 3.4 g/dL (3.5-5.0); Albumin Globulin Ratio 1.1 (1.0-2.8); Alkaline Phosphatase 114 U/L (38-126); Aspartate Aminotransferase 36 IU/L (14-36); BUN Creatinine Ratio 27.8 (6-22); Bilirubin Total 0.4 mg/dL (0.2-1.3); Blood Urea Nitrogen 15 mg/dL (7-17); Calcium 9.2 mg/dL (8.4-10.2); Carbon Dioxide 22 mmol/L (22-32); Chloride 107 mmol/L (98-107); Estimated Glomerular Filt Rate > 60 mL/min (>60); Glucose 124 mg/dL (70-100); HEMOLYSIS < 15 (0-50); Potassium 3.8 mmol/L (3.4-5.1); Sodium 137 mmol/L (137-145); Total Protein 6.4 g/dL (6.3-8.2)
--- NOTE | 2023-05-16 13:57 | PC.NURSE ---
1354: BP 133/84. Pt reports new dizziness and worsening headache at 7/10. Pt still reporting blurred vision and stiff neck. Provider made aware. New orders for pain meds.
--- NOTE | 2023-05-16 14:08 | PC.NURSE ---
Pt reports feeling like I couldn't catch my breath while she was nursing. Pt also reports worsening pressure in head. Pt talking in full sentences, RR 20 and 97% on RA. BP 133/84. LS clear and equal bilateral.
[2023-05-16 14:47] LABS: Appearance Urine UA CLEAR; Bilirubin Urine UA NEGATIVE (NEGATIVE); Color Urine UA YELLOW; Glucose Urine UA NEGATIVE (Negative); Ketones Urine UA NEGATIVE (NEGATIVE); Leukocyte Esterase Urine UA 2+ (NEGATIVE); Nitrite Urine UA NEGATIVE (Negative); Occult Blood Urine UA 3+ (Negative); Protein Urine UA NEGATIVE (Negative); Urobilinogen Urine UA 0.2 E.U./dL (0.2)
[2023-05-16 14:55] LABS: pH Urine UA 7.5 (4.5-8.0)
[2023-05-16 14:58] LABS: Bacteria Urine Occasional (0-1); Culture Indicated Urine Specimen Cultured; RBC Urine 1-5/HPF (0-5/HPF); Squamous Epithelial Cell Urine 1-5 /HPF (0-5/HPF); WBC Urine 1-5/HPF (0-5/HPF)
[2023-05-16 15:22] LABS: Creatinine Urine Random 43.6 mg/dL
== END 2023-05-16 15:36 | disposition home or self-care (01) ==
PROVIDERS: Emergency Provider Emergency Medicine
DX: O16.5 Unspecified maternal hypertension, complicating the puerperium (principal)
CPT/HCPCS: 80053; 81001; 82570; 85025; 87086; 96361; 96374; 99284; J0360

== ENCOUNTER 2023-05-17 12:48 | Emergency (ER) | payer OTHER, MEDICAID, SELFPAY ==
[2023-05-17] VITALS (25 sets, daily range): BP systolic 113–168; BP diastolic 69–96; PULSE 51–80; RESP 12–22; TEMP 37.1; O2SAT 95–100
--- NOTE | 2023-05-17 13:12 | ED_ITS ---
HPI - General Adult General Chief complaint: Hypertension Stated complaint: sent by DR Goyal Time Seen by Provider: 05/17/23 12:59 Source: patient Mode of arrival: Wheelchair History of Present Illness HPI narrative: Patient 28-year-old female presents for the 4th time to the ED with headache. She delivered 05/11/2023 she had an epidural on 05/10/2023 she has since presented to the ED he on 05/13 24, and again today all with headache. Initially was thought to be post lumbar puncture headache given fluids Toradol. Blood pressure initially mildly elevated in the 140s but quickly came down. She received a blood patch on the . She was seen here yesterday Ob was consulted she was started on nifedipine but it was not picked up yet [facility] has not yet filled it. She was also previously given Toradol orally so she is been taking that intermittently it does not seem to be helping. She had head CT on the which was negative. Today she presents with ongoing headaches reports that she is never been headache free. She is sometimes having some blurry vision. Denies numbness tingling or weakness. Feels nauseous feels better in a dark room. She reports that lochia is much improved. No abdominal pain. Yesterday she was given hydralazine in the ED. patient reports that her headache is significantly worse when she stands up or sits up. Today she was at appointment for baby however FP doctor her blood pressure noted it was quite elevated and sent her to the ED. Related Data Home Medications Medication Instructions Recorded Confirmed aripiprazole 15 mg tablet 15 mg PO DAILY 09/28/22 05/10/23 buspirone 5 mg tablet 10 mg PO TID 09/28/22 05/10/23 melatonin 5 mg capsule 5 mg PO .HS PRN insomnia 09/28/22 05/03/23 doxylamine succinate 25 mg tablet 25 mg PO PRN PRN Sleep 03/13/23 05/03/23 (Unisom (doxylamine)) fluticasone propionate 50 50 mcg intranasal 03/13/23 05/03/23 mcg/actuation nasal spray,suspension Previous Rx's Medication Instructions Recorded vit no.95-ferrous 1 tab PO DAILY #90 tabs 10/27/22 fumarate 28 mg-folic acid 800 mcg tablet omeprazole 40 mg capsule,delayed 40 mg PO DAILY acid reflux #30 caps 04/15/23 release acetaminophen 325 mg tablet 650 mg (2 x 325 mg) PO Q6HR PRN 05/12/23 Pain, Mild (1-3) #30 tabs fwqmvauwrx-ofvhezcknbtjo-fweqbfyi 1 tab PO Q4HR PRN Headache #20 tabs 05/12/23 50 mg-325 mg-40 mg tablet cyclobenzaprine 10 mg tablet 10 mg PO Q8HR PRN Spasms #10 tabs 05/12/23 docusate sodium 100 mg tablet 100 mg PO BID #90 tabs 05/12/23 ibuprofen 600 mg tablet 600 mg PO Q6HR PRN Pain, Mild 05/12/23 (1-3) #30 tabs lanolin (Purelan topical cream) 1 applic topical PRN PRN 05/12/23 Tenderness #7 grams ketorolac 10 mg tablet 10 mg PO Q6H PRN pain 5 days #14 05/13/23 tabs oxycodone 5 mg tablet 5 mg PO Q6H PRN pain #10 tabs 05/13/23 nifedipine 30 mg tablet,extended 30 mg PO DAILY #30 tabs 05/16/23 release hydrocodone 5 mg-acetaminophen 325 1 tab PO Q6H PRN pain #10 tabs 05/17/23 mg tablet hydrocodone 5 mg-acetaminophen 325 1 tab PO Q6H PRN pain #14 tabs 05/17/23 mg tablet Allergies Allergy/AdvReac Type Severity Reaction Status Date / Time zolpidem [From Ambien] AdvReac Intermediate Hallucinati Verified 05/17/23 13:04 ng Patient History Medical History Back pain Shoulder pain PCOS (polycystic ovarian syndrome) Ovarian cyst (~2012) Irregular menstrual cycle (~2005) ADHD (~2020) Anxiety Depression Migraine without aura Bulimia (~2012) Anorexia nervosa (~2013) Alcohol use Marijuana use Surgical History Anesthesia History of appendectomy [place] teeth extracted (~2021) Family History Mother Heart attack Hypertension Alcoholism Hyperlipidemia Mental health problem Grandmother Kidney disease History of heart disease Hyperlipidemia Hypertension Mental health problem Family/Other Breast cancer Father Alcoholism Mental health problem Grandfather Alcoholism Grandfather Alcoholism Hypertension Mental health problem Brother Mental health problem Grandmother Breast cancer Hypertension Mental health problem Social History marital status: unmarried,living together household members: significant other and friend(s) lives independently: Yes caregiver/support person: No housing: apartment pets and animals: Yes (dog, cats, fish; aware of toxo precautions) education level: other occupational status: employed current occupational exposures/hazards: Yes (aware of chemical precautions) special boni needs: No travel history: recent seatbelt use: always water heater temp set < 120 deg: No working smoke detector in home: Yes fire extinguisher in home: No carbon monox detector in home: Yes firearms in home: No do you feel safe at home: Yes Smoking Status: Never smoker second hand exposure: No alcohol intake: former substance use type: marijuana during the past year weight has: remained stable well-balanced diet: daily or most days daily servings fruits/ve or more times/day caffeine: Yes (aware of 200mg limit) Type(s) of exercise: aerobic, weight lifting and running frequency: 5-6 times per week Smoking Status: Never smoker tobacco type: cigarettes alcohol intake frequency: 0-2 drinks per day Substance Use Type: does not use Exam Initial Vital Signs Initial Vital Signs: Vital Signs Temperature 98.7 F 05/17/23 13:00 Pulse Rate 60 05/17/23 13:00 Respiratory Rate 20 05/17/23 13:00 Blood Pressure 155/95 H 05/17/23 13:00 Pulse Oximetry 100 05/17/23 13:00 Oxygen Delivery Method Room Air 05/17/23 13:00 GENERAL: Alert pleasant 28-year-old female appears uncomfortable and in no acute distress. HEENT: Head atraumatic,EOMI, pupils reactive, face symmetric, moist mucous membranes CARDIOVASCULAR: Regular rate and rhythm without murmurs, rubs or gallops. RESPIRATORY: Breath sounds equal bilaterally, no wheezes rales or rhonchi. ABDOMEN: Soft, nontender. Normoactive bowel sounds all 4 quadrants. No guarding or rebound. EXTREMITIES: Normal range of motion, no clubbing or edema. Neurovascularly intact NEUROLOGICAL: Alert and oriented x4.Normal gait and speech. Cranial nerves II through XII grossly intact. Wrapper Sheeter strength equal bilaterally able to lift lower extremity SKIN: Warm, dry, no laceration, no petechiae, no rashes or lesions. Course Orders Ordered: ED Orders 05/17/23 13:01 CBC Auto Diff [Complete Blood Count AUTO DIFF] Stat CMP [Comprehensive Metabolic Panel] Stat Uric Acid Stat 05/17/23 13:31 EKG-12 Lead Stat 05/17/23 14:05 UA Complete [Urinalysis and Microscopic] Stat Discontinued Medications Hydralazine HCl (Hydralazine 20 Mg/Ml Vial) 10 mg IV NOW ONE Stop: 05/17/23 13:14 Last Admin: 05/17/23 13:45 Dose: 10 mg Documented By: SPF Sodium Chloride (Normal Saline 0.9%) 1,000 mls @ 1,000 mls/hr IV BOLUS ONE Stop: 05/17/23 14:12 Last Infusion: 05/17/23 15:08 Dose: Infused Documented By: Admin: 05/17/23 13:35 Dose: 1,000 mls/hr Documented By: SPF Acetaminophen (Ofirmev) 1,000 mg in 100 mls @ 400 mls/hr IV NOW ONE Stop: 05/17/23 16:01 Last Infusion: 05/17/23 16:24 Dose: Infused Documented By: Admin: 05/17/23 15:57 Dose: 400 mls/hr Documented By: SPF Ketorolac Tromethamine (Ketorolac 30 Mg/Ml Vial) 15 mg IV NOW ONE Stop: 05/17/23 13:14 Last Admin: 05/17/23 13:39 Dose: 15 mg Documented By: SPF Metoclopramide HCl (Metoclopramide 10 Mg/2 Ml Inj) 10 mg IV NOW ONE Stop: 05/17/23 14:37 Last Admin: 05/17/23 16:18 Dose: Not Given Documented By: SPF Morphine Sulfate (Morphine 2 Mg/Ml Inj) 2 mg IV NOW ONE Stop: 05/17/23 14:40 Last Admin: 05/17/23 15:06 Dose: 2 mg Documented By: RLS Morphine Sulfate (Morphine 2 Mg/Ml Inj) 2 mg IV NOW ONE Stop: 05/17/23 15:48 Last Admin: 05/17/23 15:58 Dose: 2 mg Documented By: SPF Nifedipine (Nifedipine 30 Mg Tab Er) 30 mg PO NOW ONE Stop: 05/17/23 14:36 Last Admin: 05/17/23 15:06 Dose: 30 mg Documented By: LEOLA Ondansetron HCl (Ondansetron 4 Mg/2 Ml Inj) 4 mg IV NOW ONE Stop: 05/17/23 13:14 Last Admin: 05/17/23 13:34 Dose: 4 mg Documented By: DEENA Vital Signs Vital signs: Vital Signs - 8 hr 05/17/23 13:00 05/17/23 13:06 05/17/23 13:30 Temperature 98.7 F Pulse Rate 60 57 L 52 L Respiratory Rate 20 17 Blood Pressure 155/95 H Pulse Oximetry 100 100 100 Oxygen Delivery Method Room Air 05/17/23 13:30 05/17/23 13:45 05/17/23 13:51 Temperature Pulse Rate 51 L 60 Respiratory Rate 13 Blood Pressure 168/96 H 168/96 H 147/88 H Pulse Oximetry 100 Oxygen Delivery Method Room Air 05/17/23 14:00 05/17/23 14:15 05/17/23 14:30 Temperature Pulse Rate 69 72 73 Respiratory Rate 14 17 16 Blood Pressure 147/89 H Pulse Oximetry 100 Oxygen Delivery Method Room Air 05/17/23 14:45 05/17/23 15:00 05/17/23 15:06 Temperature Pulse Rate 68 70 80 Respiratory Rate 14 13 18 Blood Pressure Pulse Oximetry 99 Oxygen Delivery Method Room Air 05/17/23 15:06 05/17/23 15:07 05/17/23 15:07 Temperature Pulse Rate 67 69 Respiratory Rate 16 Blood Pressure 115/69 113/73 Pulse Oximetry 99 Oxygen Delivery Method 05/17/23 15:07 05/17/23 15:15 05/17/23 15:15 Temperature Pulse Rate 79 Respiratory Rate 16 Blood Pressure 113/73 113/71 Pulse Oximetry 99 Oxygen Delivery Method Room Air 05/17/23 15:30 05/17/23 15:30 05/17/23 15:45 Temperature Pulse Rate 64 73 Respiratory Rate 18 19 Blood Pressure 128/79 Pulse Oximetry 99 99 Oxygen Delivery Method Room Air Room Air 05/17/23 15:45 05/17/23 16:00 05/17/23 16:00 Temperature Pulse Rate 70 Respiratory Rate 15 Blood Pressure 139/87 141/91 H Pulse Oximetry 99 Oxygen Delivery Method 05/17/23 16:15 05/17/23 16:15 05/17/23 16:30 Temperature Pulse Rate 70 65 Respiratory Rate 17 14 Blood Pressure 125/79 Pulse Oximetry 96 96 Oxygen Delivery Method Room Air 05/17/23 16:30 05/17/23 16:45 05/17/23 16:45 Temperature Pulse Rate 63 Respiratory Rate 12 Blood Pressure 127/78 129/80 Pulse Oximetry 95 Oxygen Delivery Method Room Air 05/17/23 17:00 05/17/23 17:00 05/17/23 17:15 Temperature Pulse Rate 65 65 Respiratory Rate 16 13 Blood Pressure 129/83 Pulse Oximetry 97 95 Oxygen Delivery Method Room Air 05/17/23 17:15 05/17/23 17:30 05/17/23 17:30 Temperature Pulse Rate 70 Respiratory Rate 20 Blood Pressure 125/76 128/79 Pulse Oximetry 96 Oxygen Delivery Method Room Air 05/17/23 17:45 05/17/23 17:45 05/17/23 18:00 Temperature Pulse Rate 73 67 Respiratory Rate 22 20 Blood Pressure 122/80 Pulse Oximetry 96 97 Oxygen Delivery Method Room Air 05/17/23 18:00 05/17/23 18:15 Temperature Pulse Rate 72 Respiratory Rate 21 Blood Pressure 133/82 142/88 H Pulse Oximetry 96 Oxygen Delivery Method Room Air Medical Decision Making Lab Data 05/17/23 13:01 05/17/23 13:01 Labs: Lab Results 05/17/23 05/17/23 Range/Units 13:01 14:05 WBC 8.9 (4.5-11.0) X10^3/uL RBC 3.73 L (4.0-5.2) X10^6/uL Hgb 11.4 L (12.0-16.0) g/dL Hct 32.9 L (36-46) % MCV 88.3 (80-100) fL MCH 30.5 (26-34) PG MCHC 34.5 (30-36) % RDW 12.6 (11.6-14.8) % Plt Count 338 (150-400) X10^3/uL Neut % (Auto) 74.3 (50-75) % Lymph % (Auto) 18.3 L (25-40) % [place] % (Auto) 6.4 (3-14) % Eos % (Auto) 0.6 L (2-4) % Baso % (Auto) 0.4 (0-2) % Neut # (Auto) 6600 (4750-4746) /uL Lymph # (Auto) 1600 (7466-8329) /uL [place] # (Auto) 600 (0-900) /uL Eos # (Auto) 100 (0-450) /uL Baso # (Auto) 0 (0-100) /uL Sodium 137 (137-145) mmol/L Potassium 3.6 (3.4-5.1) mmol/L Chloride 108 H (98-107) mmol/L Carbon Dioxide 21 L (22-32) mmol/L BUN 15 (7-17) mg/dL Creatinine 0.58 (0.52-1.04) mg/dL Estimated GFR > 60 (>60) mL/min BUN/Creatinine Ratio 25.9 H (6-22) Glucose 86 (70-100) mg/dL Uric Acid 3.8 (2.5-6.2) mg/dL Calcium 9.5 (8.4-10.2) mg/dL Total Bilirubin 0.7 (0.2-1.3) mg/dL AST 32 (14-36) IU/L ALT 40 H (<35) IU/L Alkaline Phosphatase 126 (38-126) U/L Total Protein 7.2 (6.3-8.2) g/dL Albumin 3.9 (3.5-5.0) g/dL Globulin 3.3 (1.7-4.1) g/dL Albumin/Globulin Ratio 1.2 (1.0-2.8) Urine Color Yellow Urine Appearance Clear Urine pH 5.0 D (4.5-8.0) Ur Specific [place] 1.020 (1.000-1.035) Urine Protein Negative (Negative) Urine Glucose (UA) Negative (Negative) g/dL Urine Ketones Negative (NEGATIVE) Urine Occult Blood 3+ H (Negative) Urine Nitrate Negative (Negative) Urine Bilirubin Negative (NEGATIVE) Urine Urobilinogen 0.2 (0.2) E.U./dL Ur Leukocyte Esterase 1+ H (NEGATIVE) Urine RBC 5-10/hpf H (0-5/HPF) Urine WBC 10-30/hpf H D (0-5/HPF) Ur Squamous Epith Cells 1-5 /hpf (0-5/HPF) Urine Bacteria None seen (None) Ur Culture Indicated? Specimen cultured Urine Dip Bedside Urine Glucose Negative Bedside Urine Bilirubin - Negative Bedside Urine Ketone - Negative Urine Specific [place] 1.020 Bedside Urine Occult Blood +++ Bedside Urine pH 6.0 Bedside Urine Protein - Negative Bedside Urine Urobilinogen - Negative Bedside Urine Nitrite - Negative Bedside Urine Leukocytes ++ 125 Esterase Point of care testing: Urine Dip Bedside Urine Glucose Negative Bedside Urine Bilirubin - Negative Bedside Urine Ketone - Negative Urine Specific [place] 1.020 Bedside Urine Occult Blood +++ Bedside Urine pH 6.0 Bedside Urine Protein - Negative Bedside Urine Urobilinogen - Negative Bedside Urine Nitrite - Negative Bedside Urine Leukocytes ++ 125 Esterase ECG Data Interpretation: Normal sinus rhythm rate 52 MN interval 134 QRS [address] changes T-wave inversion noted only in V2 MDM Narrative Medical decision making narrative: Patient 28-year-old female with ongoing headache intermittently elevated blood pressures presents today with persistent headache. It is her 4th emergency department visit for headache. Initially concerned for spinal headache anesthesia was consulted she got blood patch on the she continues to have headache. Concern for hypertension started on nifedipine however she was unable to start taking it because pharmacy yet filled it. She missed her OB appointment today because she is been in the ED. she definitely has a positional headache she was slightly hypertensive no evidence of preeclampsia. She is no protein in her urine she is not swollen no elevation in uric acid or liver enzymes. Blood pressure is better after hydralazine and nifedipine. She is given Toradol Tylenol and 2 doses morphine she continues to have headache. Dr. Jaquez, on-call OB has actually been spoken to twice. Initially recommended patient just fill and take her medication no need for admission. After multiple doses of pain his blood pressure medications and can name to have headache she was consulted again. At this time she spoke with patient's Ob Dr. Patricia who reports that he will see her in the office tomorrow recommended continuing to take Zoloft and other medications. No imaging was done today however she did have a head CT on the which was negative. She has no fever no evidence of a meningitis. No leukocytosis. Blood work has been reviewed normal platelets no leukocytosis normal kidney function. She does have minimally elevated ALT which is rising previously was 19 today it is 40 AST is within. Discharge Plan Departure Patient Disposition: Home Clinical Impression: spinal headache Instructions: DI for Post-Spinal Puncture Headache Activity Restrictions/Additional Instructions: You are doing a great job At this time I do think her headache is probably from the epidural. Stay hydrated rest. I do recommend checking your blood pressure twice daily and recording it to determine if you really do need to take blood pressure medication. Please see or speak with Dr. Patricia tomorrow he is aware and will be calling Medication Fioricet: 1 tablet every 4 hours if needed for pain [place] 1 tablet every 6 hours only if needed for severe pain--> [facility] in [place] Toradol or ibuprofen/Aleve/Advil/naproxen as directed Please return to ED if persistently vomiting fever neck pain numbness tingling weakness or any new or concerning symptom CONTROLLED SUBSTANCE DISCHARGE (Narcotoic/benzodiazepine/Flexeril/Phenergan) 1. You have been prescribed narcotic medications, it does have acetaminophen/Tylenol/paracetamol in it, DO NOT TAKE MORE THAN 4,00mg in 24 hours of Tylenol. TRAMADOL DOES NOT CONTAIN TYLENOL 2. Please understand that we cannot provide further refills of narcotics, benzodiazepines or controlled substances through the ED and her pain management will need to be through your provider. 3. While on these medications you cannot drive or operate heavy machinery. 4. You cannot sign legal documents or perform any duties such as this. 5. As long as you're taking opiate pain medications he should also be taking a stool softener such as Colace, Dulcolax, MiraLAX or prune juice, to help avoid constipation. Prescriptions: New hydrocodone-acetaminophen 5-325 mg tablet 1 tab PO Q6H PRN (Reason: pain) Qty: 10 0RF hydrocodone-acetaminophen 5-325 mg tablet 1 tab PO Q6H PRN (Reason: pain) Qty: 14 0RF No Action aripiprazole 15 mg tablet 15 mg PO DAILY buspirone 5 mg tablet 10 mg PO TID melatonin 5 mg capsule 5 mg PO .HS PRN (Reason: insomnia) PNV cmb#95-ferrous fumarate-FA 28 mg iron- 800 mcg tablet 1 tab PO DAILY Qty: 90 1RF omeprazole 40 mg capsule,delayed release(DR/EC) 40 mg PO DAILY Qty: 30 0RF cyclobenzaprine 10 mg tablet 10 mg PO Q8HR PRN (Reason: Spasms) Qty: 10 0RF docusate sodium 100 mg tablet 100 mg PO BID Qty: 90 0RF oxycodone 5 mg tablet 5 mg PO Q6H PRN (Reason: pain) Qty: 10 0RF acetaminophen 325 mg Tablet 650 mg PO Q6HR PRN (Reason: Pain, Mild (1-3)) Qty: 30 0RF Rx Instructions: do not take with fioricet nbwykwmrgr-swxysnebtonec-dgaz 50-325-40 mg Tablet 1 tab PO Q4HR PRN (Reason: Headache) Qty: 20 0RF ibuprofen 600 mg Tablet 600 mg PO Q6HR PRN (Reason: Pain, Mild (1-3)) Qty: 30 0RF Purelan Cream 1 applic topical PRN PRN (Reason: Tenderness) Qty: 7 0RF nifedipine 30 mg tablet extended release 30 mg PO DAILY Qty: 30 0RF Unisom (doxylamine) 25 mg Tablet 25 mg PO PRN PRN (Reason: Sleep) fluticasone propionate 50 mcg/actuation [place],Suspension 50 mcg INTRANASAL ketorolac 10 mg tablet 10 mg PO Q6H PRN (Reason: pain) 5 Days Qty: 14 0RF Referrals: ProviderJong [Primary Care Provider] - Stand Alone Forms: Patient Portal/API
[2023-05-17 13:21] LABS: Add Manual Diff / Slide Review NO; Basophils Absolute Auto 0 /uL (0-100); Basophils Percent Auto 0.4 % (0-2); Eosinophils Absolute Auto 100 /uL (0-450); Eosinophils Percent Auto 0.6 % (2-4); Hematocrit 32.9 % (36-46); Hemoglobin 11.4 g/dL (12.0-16.0); Lymphocytes Absolute Auto 1600 /uL (1100-4500); Lymphocytes Percent Auto 18.3 % (25-40); Mean Corpuscular HGB Conc 34.5 % (30-36); Mean Corpuscular Hemoglobin 30.5 PG (26-34); Mean Corpuscular Volume 88.3 fL (80-100); Monocytes Absolute Auto 600 /uL (0-900); Monocytes Percent Auto 6.4 % (3-14); Neutrophils Absolute Auto 6600 /uL (1500-7000); Neutrophils Percent Auto 74.3 % (50-75); Platelet Count 338 X10^3/uL (150-400); Red Blood Cell Count 3.73 X10^6/uL (4.0-5.2); Red Cell Distribution Width 12.6 % (11.6-14.8); White Blood Cell Count 8.9 X10^3/uL (4.5-11.0)
[2023-05-17 13:25] LABS: Alanine Aminotransferase 40 IU/L (<35); Albumin 3.9 g/dL (3.5-5.0); Albumin Globulin Ratio 1.2 (1.0-2.8); Alkaline Phosphatase 126 U/L (38-126); Aspartate Aminotransferase 32 IU/L (14-36); BUN Creatinine Ratio 25.9 (6-22); Bilirubin Total 0.7 mg/dL (0.2-1.3); Blood Urea Nitrogen 15 mg/dL (7-17); Calcium 9.5 mg/dL (8.4-10.2); Carbon Dioxide 21 mmol/L (22-32); Chloride 108 mmol/L (98-107); Estimated Glomerular Filt Rate > 60 mL/min (>60); Globulin 3.3 g/dL (1.7-4.1); Glucose 86 mg/dL (70-100); HEMOLYSIS < 15 (0-50); Potassium 3.6 mmol/L (3.4-5.1); Sodium 137 mmol/L (137-145); Total Protein 7.2 g/dL (6.3-8.2)
[2023-05-17] MEDS: ONDANSETRON 4 MG/2 ML INJ IV (13:34)
[2023-05-17] MEDS: SODIUM CHLORIDE 0.9% 1,000 ML 1000 ML IV (13:35)
[2023-05-17] MEDS: KETOROLAC 30 MG/ML VIAL 15 MG IV (13:39)
[2023-05-17] MEDS: HYDRALAZINE 20 MG/ML VIAL 10 MG IV (13:45)
[2023-05-17 14:23] LABS: Appearance Urine UA CLEAR; Bilirubin Urine UA NEGATIVE (NEGATIVE); Color Urine UA YELLOW; Glucose Urine UA NEGATIVE (Negative); Ketones Urine UA NEGATIVE (NEGATIVE); Leukocyte Esterase Urine UA 1+ (NEGATIVE); Nitrite Urine UA NEGATIVE (Negative); Occult Blood Urine UA 3+ (Negative); Protein Urine UA NEGATIVE (Negative); Urobilinogen Urine UA 0.2 E.U./dL (0.2)
[2023-05-17 14:26] LABS: Bacteria Urine None Seen; Culture Indicated Urine Specimen Cultured; RBC Urine 5-10/HPF (0-5/HPF); Squamous Epithelial Cell Urine 1-5 /HPF (0-5/HPF); WBC Urine 10-30/HPF (0-5/HPF)
[2023-05-17 14:28] LABS: Uric Acid 3.8 mg/dL (2.5-6.2)
[2023-05-17] MEDS: MORPHINE 2 MG/ML INJ IV ×2 (15:06→15:58)
[2023-05-17] MEDS: NIFEdipine 30 MG TAB ER PO (15:06)
[2023-05-17] MEDS: ACETAMINOPHEN IV 1,000 MG/100 ML VIAL 400 MG IV (15:57)
--- NOTE | 2023-05-17 16:24 | PC.NURSE ---
Pt received all ordered IV morphine and tylenol, still feels a profound headache, sharp pain which worsens when she tries to sit up. Pt and family concerned about managing her pain at home if she is not admitted.
== END 2023-05-17 18:29 | disposition home or self-care (01) ==
PROVIDERS: Emergency Provider Emergency Medicine
DX: O89.4 Spinal and epidural anesthesia-induced headache during the puerperium (principal)
CPT/HCPCS: 36415; 80053; 81001; 81003; 84550; 85025; 93005; 93010; 96361; 96365; 96375; 96376; 99284; J0131; J0360; J1885; J2270; J2405

== ENCOUNTER 2023-05-22 18:17 | Emergency (ER) | payer OTHER, MEDICAID, SELFPAY ==
[2023-05-22 18:20] VITALS: BP 145/102; PULSE 70; RESP 16; TEMP 36.9; O2SAT 100; BMI 25.0
[2023-05-22] MEDS: NIFEdipine 30 MG TAB ER PO (18:47)
[2023-05-22 19:01] VITALS: BP 153/96
--- NOTE | 2023-05-22 19:41 | ED.GENADULT ---
HPI - General Adult General Chief complaint: Hypertension Stated complaint: BP 157/[address] Time Seen by Provider: 05/22/23 19:26 Source: patient and family Mode of arrival: Ambulatory History of Present Illness HPI narrative: The patient 28-year-old female presenting for the time the ED this month for elevated blood pressure. She delivered on 05/11/2023 she is had headache, thought to be combination of preeclampsia and spinal headache. She received a blood patch did not really work she got prescribed nicardipine. Today she reports that she did not feel quite right and took her blood pressure at [facility] and it was elevated. She denies any headache abdominal pain nausea or vomiting. She is been evaluated multiple times for preeclampsia and determine that she is not have preeclampsia. She is unsure if she took her nifedipine today or not. She has not gotten a blood pressure cuff at home they are waiting for it to come in the mail she is not been taking it regularly. She would a follow-up appointment from her last visit of the ED on May 18 that no is not yet complete. Patient otherwise appears well she does have slightly elevated blood pressure here. But is completely asymptomatic and looks much better than she has previously. She reports that the headache is improving. She was not sure if she could drink wine on her medication. Unclear if she is taking it. Related Data Home Medications Medication Instructions Recorded Confirmed aripiprazole 15 mg tablet 15 mg PO DAILY 09/28/22 05/18/23 buspirone 5 mg tablet 10 mg PO TID 09/28/22 05/18/23 melatonin 5 mg capsule 5 mg PO .HS PRN insomnia 09/28/22 05/18/23 doxylamine succinate 25 mg tablet 25 mg PO PRN PRN Sleep 03/13/23 05/18/23 (Unisom (doxylamine)) fluticasone propionate 50 50 mcg intranasal 03/13/23 05/18/23 mcg/actuation nasal spray,suspension Previous Rx's Medication Instructions Recorded vit no.95-ferrous 1 tab PO DAILY #90 tabs 10/27/22 fumarate 28 mg-folic acid 800 mcg tablet omeprazole 40 mg capsule,delayed 40 mg PO DAILY acid reflux #30 caps 04/15/23 release acetaminophen 325 mg tablet 650 mg (2 x 325 mg) PO Q6HR PRN 05/12/23 Pain, Mild (1-3) #30 tabs redhllzxcz-jeetasfpzgnna-qpvtknue 1 tab PO Q4HR PRN Headache #20 tabs 05/12/23 50 mg-325 mg-40 mg tablet cyclobenzaprine 10 mg tablet 10 mg PO Q8HR PRN Spasms #10 tabs 05/12/23 docusate sodium 100 mg tablet 100 mg PO BID #90 tabs 05/12/23 lanolin (Purelan topical cream) 1 applic topical PRN PRN 05/12/23 Tenderness #7 grams oxycodone 5 mg tablet 5 mg PO Q6H PRN pain #10 tabs 05/13/23 nifedipine 30 mg tablet,extended 30 mg PO DAILY #30 tabs 05/16/23 release hydrocodone 5 mg-acetaminophen 325 1 tab PO Q6H PRN pain #10 tabs 05/17/23 mg tablet hydrocodone 5 mg-acetaminophen 325 1 tab PO Q6H PRN pain #14 tabs 05/17/23 mg tablet hkzxfwlkkd-ytibkgu-quchmeee 50 2 cap PO Q4-6H PRN pain #30 caps 05/18/23 mg-325 mg-40 mg capsule ibuprofen 600 mg tablet 600 mg PO Q6HR PRN Pain, Mild 05/18/23 (1-3) #30 tabs lorazepam 1 mg tablet (Ativan) 1 mg PO TID PRN anxiety #20 tabs 05/18/23 metoclopramide HCl 10 mg tablet 10 mg PO Q6H for nausea/vomiting 05/21/23 #28 tabs Allergies Allergy/AdvReac Type Severity Reaction Status Date / Time zolpidem [From Ambien] AdvReac Intermediate Hallucinati Verified 05/18/23 13:26 ng Patient History Medical History Back pain Shoulder pain PCOS (polycystic ovarian syndrome) Ovarian cyst (~2012) Irregular menstrual cycle (~2005) ADHD (~2020) Anxiety Depression Migraine without aura Bulimia (~2012) Anorexia nervosa (~2013) Alcohol use Marijuana use Surgical History Anesthesia History of appendectomy [place] teeth extracted (~2021) Family History Mother Heart attack Hypertension Alcoholism Hyperlipidemia Mental health problem Grandmother Kidney disease History of heart disease Hyperlipidemia Hypertension Mental health problem Family/Other Breast cancer Father Alcoholism Mental health problem Grandfather Alcoholism Grandfather Alcoholism Hypertension Mental health problem Brother Mental health problem Grandmother Breast cancer Hypertension Mental health problem Social History marital status: unmarried,living together household members: significant other and friend(s) lives independently: Yes caregiver/support person: No housing: apartment pets and animals: Yes (dog, cats, fish; aware of toxo precautions) education level: other occupational status: employed current occupational exposures/hazards: Yes (aware of chemical precautions) special boni needs: No travel history: recent seatbelt use: always water heater temp set < 120 deg: No working smoke detector in home: Yes fire extinguisher in home: No carbon monox detector in home: Yes firearms in home: No do you feel safe at home: Yes Smoking Status: Never smoker second hand exposure: No alcohol intake: former substance use type: marijuana during the past year weight has: remained stable well-balanced diet: daily or most days daily servings fruits/ve or more times/day caffeine: Yes (aware of 200mg limit) Type(s) of exercise: aerobic, weight lifting and running frequency: 5-6 times per week Smoking Status: Never smoker tobacco type: cigarettes alcohol intake frequency: 0-2 drinks per day Substance Use Type: does not use Exam Initial Vital Signs Initial Vital Signs: Vital Signs Temperature 98.5 F 05/22/23 18:20 Pulse Rate 70 05/22/23 18:20 Respiratory Rate 16 05/22/23 18:20 Blood Pressure 145/102 H 05/22/23 18:20 Pulse Oximetry 100 05/22/23 18:20 Oxygen Delivery Method Room Air 05/22/23 18:20 GENERAL: Alert well-appearing 28-year-old and in no acute distress. HEENT: Head atraumatic,EOMI, pupils reactive, face symmetric, moist mucous membranes CARDIOVASCULAR: Regular rate and rhythm without murmurs, rubs or gallops. RESPIRATORY: Breath sounds equal bilaterally, no wheezes rales or rhonchi. ABDOMEN: Soft, nontender. Normoactive bowel sounds all 4 quadrants. No guarding or rebound. EXTREMITIES: Normal range of motion, no clubbing or edema. Neurovascularly intact NEUROLOGICAL: Alert and oriented x4.Normal gait and speech. SKIN: Warm, dry, no laceration, no petechiae, no rashes or lesions. Course Orders Ordered: ED Orders 05/22/23 18:40 Urine Culture Stat Urine Microscopic Stat Discontinued Medications Nifedipine (Nifedipine 30 Mg Tab Er) 30 mg PO NOW ONE Stop: 05/22/23 18:35 Last Admin: 05/22/23 18:47 Dose: 30 mg Documented By: JONNY Vital Signs Vital signs: Vital Signs - 8 hr 05/22/23 18:20 05/22/23 19:01 05/22/23 19:45 Temperature 98.5 F Pulse Rate 70 72 Respiratory Rate 16 18 Blood Pressure 145/102 H 153/96 H 155/96 H Pulse Oximetry 100 100 Oxygen Delivery Method Room Air Room Air Medical Decision Making Lab Data Labs: Lab Results 05/22/23 Range/Units 18:40 Urine RBC 5-10/hpf H (0-5/HPF) Urine WBC 1-5/hpf (0-5/HPF) Ur Squamous Epith Cells 1-5 /hpf (0-5/HPF) Urine Bacteria None seen (None) Urine Dip Bedside Urine Glucose Negative Bedside Urine Bilirubin - Negative Bedside Urine Ketone - Negative Urine Specific [place] 1.010 Bedside Urine Occult Blood +++ Bedside Urine pH 7.5 Bedside Urine Protein - Negative Bedside Urine Urobilinogen - Negative Bedside Urine Nitrite - Negative Bedside Urine Leukocytes +/- 15 Esterase Point of care testing: Urine Dip Bedside Urine Glucose Negative Bedside Urine Bilirubin - Negative Bedside Urine Ketone - Negative Urine Specific [place] 1.010 Bedside Urine Occult Blood +++ Bedside Urine pH 7.5 Bedside Urine Protein - Negative Bedside Urine Urobilinogen - Negative Bedside Urine Nitrite - Negative Bedside Urine Leukocytes +/- 15 Esterase MDM Narrative Medical decision making narrative: Patient 28-year-old female appears much better than I have seen her previously. Her blood pressure is elevated she is completely asymptomatic she does not have protein in her urine. She is been evaluated multiple times for preeclampsia unlikely to be preeclampsia but does have hypertension. It is unclear if she is compliant with her medication or not. There was difficulty picking up medications previously. She is given her dose of nifedipine here. Blood pressure remains slightly elevated. At this time I recommend she follow-up with her OB and PCP. Discharge Plan Departure Patient Disposition: Home Clinical Impression: Essential hypertension- Instructions: DI for High Blood Pressure Activity Restrictions/Additional Instructions: *You have been diagnosed with hypertension *What to do: At this time please get a blood pressure cuff check her blood pressure 1 to 2 times daily record it. You must take her blood pressure medication. Recommend a pillbox blister pack (can be given to by the pharmacy) *Continue to take medications as directed *Follow up with your primary care provider in 2-3 days or call [phone] *Return to ER if you should have headache swelling weakness nausea vomiting or any new, worsening or concerning symptoms Prescriptions: No Action aripiprazole 15 mg tablet 15 mg PO DAILY buspirone 5 mg tablet 10 mg PO TID melatonin 5 mg capsule 5 mg PO .HS PRN (Reason: insomnia) PNV cmb#95-ferrous fumarate-FA 28 mg iron- 800 mcg tablet 1 tab PO DAILY Qty: 90 1RF omeprazole 40 mg capsule,delayed release(DR/EC) 40 mg PO DAILY Qty: 30 0RF cyclobenzaprine 10 mg tablet 10 mg PO Q8HR PRN (Reason: Spasms) Qty: 10 0RF docusate sodium 100 mg tablet 100 mg PO BID Qty: 90 0RF oxycodone 5 mg tablet 5 mg PO Q6H PRN (Reason: pain) Qty: 10 0RF metoclopramide HCl 10 mg tablet 10 mg PO Q6H Qty: 28 0RF ibuprofen 600 mg tablet 600 mg PO Q6HR PRN (Reason: Pain, Mild (1-3)) Qty: 30 0RF aosqjocrwu-zalqhfs-rzqpnuom 50-325-40 mg capsule 2 cap PO Q4-6H PRN (Reason: pain) Qty: 30 0RF Rx Instructions: do not exceed 3 doses per 24 hrs lorazepam [Ativan] 1 mg tablet 1 mg PO TID PRN (Reason: anxiety) Qty: 20 0RF acetaminophen 325 mg Tablet 650 mg PO Q6HR PRN (Reason: Pain, Mild (1-3)) Qty: 30 0RF Rx Instructions: do not take with fioricet ljazbyetmt-olifyuwytjbti-fuen 50-325-40 mg Tablet 1 tab PO Q4HR PRN (Reason: Headache) Qty: 20 0RF Purelan Cream 1 applic topical PRN PRN (Reason: Tenderness) Qty: 7 0RF nifedipine 30 mg tablet extended release 30 mg PO DAILY Qty: 30 0RF Unisom (doxylamine) 25 mg Tablet 25 mg PO PRN PRN (Reason: Sleep) fluticasone propionate 50 mcg/actuation [place],Suspension 50 mcg INTRANASAL hydrocodone-acetaminophen 5-325 mg tablet 1 tab PO Q6H PRN (Reason: pain) Qty: 10 0RF hydrocodone-acetaminophen 5-325 mg tablet 1 tab PO Q6H PRN (Reason: pain) Qty: 14 0RF Referrals: ProviderJong [Primary Care Provider] - Stand Alone Forms: Patient Portal/API
[2023-05-22 19:43] LABS: Bacteria Urine None Seen; RBC Urine 5-10/HPF (0-5/HPF); Squamous Epithelial Cell Urine 1-5 /HPF (0-5/HPF); WBC Urine 1-5/HPF (0-5/HPF)
[2023-05-22 19:45] VITALS: BP 155/96; PULSE 72; RESP 18; O2SAT 100
== END 2023-05-22 19:57 | disposition home or self-care (01) ==
PROVIDERS: Student in an Organized Health Care Education/Training Program; Emergency Provider Emergency Medicine
DX: O16.5 Unspecified maternal hypertension, complicating the puerperium (principal)
CPT/HCPCS: 81003; 81015; 87086; 99283

== ENCOUNTER 2023-06-05 12:04 | Emergency (ER) | payer OTHER, MEDICAID, SELFPAY ==
[2023-06-05 12:11] VITALS: PULSE 84; O2SAT 100
[2023-06-05 12:16] VITALS: BP 129/89; PULSE 76; RESP 18; TEMP 36.6; O2SAT 100; BMI 26.1
--- NOTE | 2023-06-05 12:59 | ED_ITS ---
HPI - Extremity Problem <Chani Nix PA-C - Last Filed: 06/05/23 13:42> General Chief complaint: Extremity Problem,Nontraumatic Stated complaint: 3 wks post /ankle swelling Time Seen by Provider: 06/05/23 12:11 Source: patient and family Mode of arrival: Ambulatory History of Present Illness HPI Narrative: 28-year-old female who is 3 weeks with a history of hypertension, who presents with less than 1 day of lower extremity swelling bilaterally. She says she woke up this morning and her ankles were swollen. They are equally swollen and she has not experienced any trauma to the area no skin changes. She is taking her medication for hypertension daily. She denies fever chest pain, shortness of breath, back pain, palpitations, abdominal pain, nausea vomiting or diarrhea. She has been mostly staying at home not getting much exercise, Says she is not sure what kind of activity she can do now. She has a follow up with her provider in a few weeks. Related Data Home Medications Medication Instructions Recorded Confirmed aripiprazole 15 mg tablet 15 mg PO DAILY 09/28/22 05/18/23 buspirone 5 mg tablet 10 mg PO TID 09/28/22 05/18/23 melatonin 5 mg capsule 5 mg PO .HS PRN insomnia 09/28/22 05/18/23 doxylamine succinate 25 mg tablet 25 mg PO PRN PRN Sleep 03/13/23 05/18/23 (Unisom (doxylamine)) fluticasone propionate 50 50 mcg intranasal 03/13/23 05/18/23 mcg/actuation nasal spray,suspension Previous Rx's Medication Instructions Recorded vit no.95-ferrous 1 tab PO DAILY #90 tabs 10/27/22 fumarate 28 mg-folic acid 800 mcg tablet omeprazole 40 mg capsule,delayed 40 mg PO DAILY acid reflux #30 caps 04/15/23 release acetaminophen 325 mg tablet 650 mg (2 x 325 mg) PO Q6HR PRN 05/12/23 Pain, Mild (1-3) #30 tabs lnaffczluo-xdffxkdfwpgrm-iderxjcm 1 tab PO Q4HR PRN Headache #20 tabs 05/12/23 50 mg-325 mg-40 mg tablet cyclobenzaprine 10 mg tablet 10 mg PO Q8HR PRN Spasms #10 tabs 05/12/23 docusate sodium 100 mg tablet 100 mg PO BID #90 tabs 05/12/23 lanolin (Purelan topical cream) 1 applic topical PRN PRN 05/12/23 Tenderness #7 grams oxycodone 5 mg tablet 5 mg PO Q6H PRN pain #10 tabs 05/13/23 hydrocodone 5 mg-acetaminophen 325 1 tab PO Q6H PRN pain #10 tabs 05/17/23 mg tablet hydrocodone 5 mg-acetaminophen 325 1 tab PO Q6H PRN pain #14 tabs 05/17/23 mg tablet pwfjvdilgc-gcturbl-zscsksev 50 2 cap PO Q4-6H PRN pain #30 caps 05/18/23 mg-325 mg-40 mg capsule ibuprofen 600 mg tablet 600 mg PO Q6HR PRN Pain, Mild 05/18/23 (1-3) #30 tabs lorazepam 1 mg tablet (Ativan) 1 mg PO TID PRN anxiety #20 tabs 05/18/23 metoclopramide HCl 10 mg tablet 10 mg PO Q6H for nausea/vomiting 05/21/23 #28 tabs nifedipine 30 mg tablet,extended 30 mg PO BID #60 tabs 05/26/23 release Allergies Allergy/AdvReac Type Severity Reaction Status Date / Time zolpidem [From Ambien] AdvReac Intermediate Hallucinati Verified 05/18/23 13:26 ng Review of Systems <Chani Nix PA-C - Last Filed: 06/05/23 13:42> Review of Systems Narrative: GENERAL: Denies chills, fatigue, malaise, fever, sweats. HEENT: Denies sinus pain, ear pain, sore throat, difficulty swallowing, dizziness. RESPIRATORY: Denies dyspnea, cough, wheezing, hemoptysis, sputum. CARDIOVASCULAR: Denies chest pain, palpitations, orthopnea, edema, GASTROINTESTINAL: Denies nausea, vomiting, abdominal pain, diarrhea, constipation, melena. : Denies dysuria, frequency, incontinence, hematuria, urinary retention. MUSCULOSKELETAL: Lower extremity edema bilaterally. denies weakness, joint pain, or bony pain. SKIN: Denies rash, skin lesions, or other NEUROLOGIC: Denies weakness, headache, numbness, change in speech, confusion, seizures, incoordination. PSYCHIATRIC: No concerning psychosocial issues. 12 point review of systems is negative except for those stated above Patient History <Chani Nix PA-C - Last Filed: 06/05/23 13:42> Medical History Back pain Shoulder pain PCOS (polycystic ovarian syndrome) Ovarian cyst (~2012) Irregular menstrual cycle (~2005) ADHD (~2020) Anxiety Depression Migraine without aura Bulimia (~2012) Anorexia nervosa (~2013) Alcohol use Marijuana use Surgical History Anesthesia History of appendectomy [place] teeth extracted (~2021) Family History Mother Heart attack Hypertension Alcoholism Hyperlipidemia Mental health problem Grandmother Kidney disease History of heart disease Hyperlipidemia Hypertension Mental health problem Family/Other Breast cancer Father Alcoholism Mental health problem Grandfather Alcoholism Grandfather Alcoholism Hypertension Mental health problem Brother Mental health problem Grandmother Breast cancer Hypertension Mental health problem Social History marital status: unmarried,living together household members: significant other and friend(s) lives independently: Yes caregiver/support person: No housing: apartment pets and animals: Yes (dog, cats, fish; aware of toxo precautions) education level: other occupational status: employed current occupational exposures/hazards: Yes (aware of chemical precautions) special boni needs: No travel history: recent seatbelt use: always water heater temp set < 120 deg: No working smoke detector in home: Yes fire extinguisher in home: No carbon monox detector in home: Yes firearms in home: No do you feel safe at home: Yes Smoking Status: Never smoker second hand exposure: No alcohol intake: former substance use type: marijuana during the past year weight has: remained stable well-balanced diet: daily or most days daily servings fruits/ve or more times/day caffeine: Yes (aware of 200mg limit) Type(s) of exercise: aerobic, weight lifting and running frequency: 5-6 times per week Smoking Status: Never smoker tobacco type: cigarettes alcohol intake frequency: 0-2 drinks per day Substance Use Type: does not use Exam <Chani Nix PA-C - Last Filed: 06/05/23 13:42> Narrative Exam Narrative: Lower extremities with warm dry intact skin, no erythema, no lesions. She has 2+ pitting edema over the mid foot and ankles bilaterally with 1+ pitting edema to the mid calf. Posterior calves are nontender. Abdomen is nontender. Lungs are clear to auscultation. Heart regular rate and rhythm. No CVA tenderness to palpation. Initial Vital Signs Initial Vital Signs: Vital Signs Pulse Rate 84 06/05/23 12:11 Pulse Oximetry 100 06/05/23 12:11 <Elijah Zepeda DO - Last Filed: 06/05/23 18:00> Initial Vital Signs Initial Vital Signs: Vital Signs Pulse Rate 84 06/05/23 12:11 Pulse Oximetry 100 06/05/23 12:11 Course <Chani Nix PA-C - Last Filed: 06/05/23 13:42> Orders Ordered: ED Orders 06/05/23 12:48 BMP [Basic Metabolic Panel] Stat Vital Signs Vital signs: Vital Signs - 8 hr 06/05/23 12:11 06/05/23 12:16 06/05/23 13:24 Temperature 97.8 F Pulse Rate 84 76 Pulse Rate [Bilateral Dorsalis Pedis] 75 Respiratory Rate 18 Blood Pressure 129/89 Pulse Oximetry 100 100 Oxygen Delivery Method Room Air 06/05/23 13:53 Temperature 97 F L Pulse Rate 76 Pulse Rate [Bilateral Dorsalis Pedis] Respiratory Rate 20 Blood Pressure 110/71 Pulse Oximetry 99 Oxygen Delivery Method Room Air <DO Ivonne Alexander Last Filed: 06/05/23 18:00> Orders Ordered: ED Orders 06/05/23 12:48 BMP [Basic Metabolic Panel] Stat Vital Signs Vital signs: Vital Signs - 8 hr 06/05/23 12:11 06/05/23 12:16 06/05/23 13:24 Temperature 97.8 F Pulse Rate 84 76 Pulse Rate [Bilateral Dorsalis Pedis] 75 Respiratory Rate 18 Blood Pressure 129/89 Pulse Oximetry 100 100 Oxygen Delivery Method Room Air 06/05/23 13:53 Temperature 97 F L Pulse Rate 76 Pulse Rate [Bilateral Dorsalis Pedis] Respiratory Rate 20 Blood Pressure 110/71 Pulse Oximetry 99 Oxygen Delivery Method Room Air MDM - Extremity (Nontraumatic) <Chani Nix PA-C - Last Filed: 06/05/23 13:42> Lab Data 06/05/23 12:48 Labs: Lab Results 06/05/23 Range/Units 12:48 Sodium 134 L (137-145) mmol/L Potassium 4.4 (3.4-5.1) mmol/L Chloride 105 (98-107) mmol/L Carbon Dioxide 25 (22-32) mmol/L BUN 27 H (7-17) mg/dL Creatinine 0.67 (0.52-1.04) mg/dL Estimated GFR > 60 (>60) mL/min BUN/Creatinine Ratio 40.3 H (6-22) Glucose 86 (70-100) mg/dL Calcium 9.3 (8.4-10.2) mg/dL MDM Narrative Medical decision making narrative: Exam is reassuring. Low suspicion for DVT since swelling is bilateral and equal. Patient was recently started on nifedipine which has a side effect profiles of lower extremity edema in up to 30% of patients. Patient was discussed with Dr. Zepeda. <Elijah Zepeda, - Last Filed: 06/05/23 18:00> Lab Data Labs: Lab Results 06/05/23 Range/Units 12:48 Sodium 134 L (137-145) mmol/L Potassium 4.4 (3.4-5.1) mmol/L Chloride 105 (98-107) mmol/L Carbon Dioxide 25 (22-32) mmol/L BUN 27 H (7-17) mg/dL Creatinine 0.67 (0.52-1.04) mg/dL Estimated GFR > 60 (>60) mL/min BUN/Creatinine Ratio 40.3 H (6-22) Glucose 86 (70-100) mg/dL Calcium 9.3 (8.4-10.2) mg/dL Discharge Plan Departure Patient Disposition: Home Clinical Impression: Lower extremity edema, Essential hypertension- Activity Restrictions/Additional Instructions: Your ankle swelling is most likely caused by your blood pressure medication. I recommend you go for daily walks, elevate your legs above the level of your heart or even up the wall, sleep with support under your legs, and continue to take your medication on a daily basis for your blood pressure. See your OB for your routine follow-up, or return to the ER for any new onset concerns or worsening symptoms. It was a pleasure to take care of you today. Prescriptions: No Action aripiprazole 15 mg tablet 15 mg PO DAILY buspirone 5 mg tablet 10 mg PO TID melatonin 5 mg capsule 5 mg PO .HS PRN (Reason: insomnia) PNV cmb#95-ferrous fumarate-FA 28 mg iron- 800 mcg tablet 1 tab PO DAILY Qty: 90 1RF omeprazole 40 mg capsule,delayed release(DR/EC) 40 mg PO DAILY Qty: 30 0RF cyclobenzaprine 10 mg tablet 10 mg PO Q8HR PRN (Reason: Spasms) Qty: 10 0RF docusate sodium 100 mg tablet 100 mg PO BID Qty: 90 0RF oxycodone 5 mg tablet 5 mg PO Q6H PRN (Reason: pain) Qty: 10 0RF metoclopramide HCl 10 mg tablet 10 mg PO Q6H Qty: 28 0RF nifedipine 30 mg tablet extended release 30 mg PO BID Qty: 60 6RF ibuprofen 600 mg tablet 600 mg PO Q6HR PRN (Reason: Pain, Mild (1-3)) Qty: 30 0RF kpcjmifjps-rpesxrt-ndjlhefd 50-325-40 mg capsule 2 cap PO Q4-6H PRN (Reason: pain) Qty: 30 0RF Rx Instructions: do not exceed 3 doses per 24 hrs lorazepam [Ativan] 1 mg tablet 1 mg PO TID PRN (Reason: anxiety) Qty: 20 0RF acetaminophen 325 mg Tablet 650 mg PO Q6HR PRN (Reason: Pain, Mild (1-3)) Qty: 30 0RF Rx Instructions: do not take with fioricet ewnehrcjjn-fibpgrycqfsll-jldd 50-325-40 mg Tablet 1 tab PO Q4HR PRN (Reason: Headache) Qty: 20 0RF Purelan Cream 1 applic topical PRN PRN (Reason: Tenderness) Qty: 7 0RF Unisom (doxylamine) 25 mg Tablet 25 mg PO PRN PRN (Reason: Sleep) fluticasone propionate 50 mcg/actuation [place],Suspension 50 mcg INTRANASAL hydrocodone-acetaminophen 5-325 mg tablet 1 tab PO Q6H PRN (Reason: pain) Qty: 10 0RF hydrocodone-acetaminophen 5-325 mg tablet 1 tab PO Q6H PRN (Reason: pain) Qty: 14 0RF Referrals: ProviderJong [Primary Care Provider] - Stand Alone Forms: Patient Portal/API ED Sign-out <Elijah Zepeda DO - Last Filed: 06/05/23 18:00> Cosign ED Attending Tylerature Attestation: I did evaluate the patient here in the emergency department and agree with the history and physical above. I have low suspicion for cellulitis/DVT. Her blood pressure here is unremarkable. This could potentially be medication related but no indication to change that based on her exam today. Will discharge patient home with return precautions.
[2023-06-05 13:14] LABS: BUN Creatinine Ratio 40.3 (6-22); Blood Urea Nitrogen 27 mg/dL (7-17); Calcium 9.3 mg/dL (8.4-10.2); Carbon Dioxide 25 mmol/L (22-32); Chloride 105 mmol/L (98-107); Estimated Glomerular Filt Rate > 60 mL/min (>60); Glucose 86 mg/dL (70-100); HEMOLYSIS < 15 (0-50); Sodium 134 mmol/L (137-145)
[2023-06-05 13:24] VITALS: PULSE 75
[2023-06-05 13:25] LABS: Potassium 4.4 mmol/L (3.4-5.1)
[2023-06-05 13:53] VITALS: BP 110/71; PULSE 76; RESP 20; TEMP 36.1; O2SAT 99
== END 2023-06-05 13:54 | disposition home or self-care (01) ==
PROVIDERS: Emergency Provider Physician Assistant
DX: O14.95 Unspecified pre-eclampsia, complicating the puerperium (principal)
CPT/HCPCS: 36415; 80048; 99281; 99283

== ENCOUNTER 2023-06-06 12:48 | Emergency (ER) | payer OTHER, MEDICAID, SELFPAY ==
[2023-06-06] VITALS (11 sets, daily range): BP systolic 112–151; BP diastolic 76–94; PULSE 61–93; RESP 18; TEMP 36.6; O2SAT 98–100; BMI 26.1
--- NOTE | 2023-06-06 13:00 | DI.US.S_ITS ---
PROCEDURE: US PELVIC COMPLETE INDICATIONS: BLEEDING TECHNIQUE: Real-time scanning was performed of the pelvic organs, with image documentation. Additional endovaginal scanning was necessary due to incomplete visualization of the adnexal and endometrial structures by transabdominal scanning. COMPARISON: None. FINDINGS: Uterus: Uterus is anteverted and normal in size at 9.2 x 4.8 x 5.8 cm. The myometrium is homogeneous. The endometrium measures 10 mm combined thickness. Irregular and heterogeneous endometrial echo complex. No crease vascularity. Ovaries: The right ovary measures 3.7 x 1.8 x 2.7 cm, with a calculated ovarian volume of 9.3 cc. The left ovary measures 3.5 x 2.7 x 2.4 cm, with a calculated ovarian volume of 12.0 cc. The ovaries have a normal sonographic appearance. Less than 12 follicles can be seen in each ovary. No adnexal masses are seen. Other: No pathologic free abdominal or pelvic fluid. IMPRESSION: Irregular and heterogeneous endometrial echo complex measuring up to 10 mm without increased vascularity. Retained products of conception are not definitively excluded and clinical correlation is recommended. We strive to produce accurate, complete, and clear reports of imaging services. To assist us in improving patient care, this report was composed using standard report templates and voice recognition software. Therefore, it may contain abnormal punctuation, insertions and/or omissions. Occasional wrong-word or sound-alike substitutions may occur. Though we review the report and make efforts to correct it, we do recommend that the report be read carefully in proper context to recognize any text inaccuracies. Dictated by: Graham Galarza M.D. on 06/06/2023 at 14:07 Approved by: Graham Galarza M.D. on 06/06/2023 at 14:08
--- NOTE | 2023-06-06 13:01 | ED_ITS ---
HPI - General Adult General Chief complaint: Vaginal Bleeding Stated complaint: POSTPARTUM3/4 WKS DOC REFFERED BLEEDING THRU PADS Time Seen by Provider: 06/06/23 13:00 Source: patient Mode of arrival: Ambulatory History of Present Illness HPI narrative: Patient is a 28-year-old female. Was seen here in the emergency department yesterday for lower extremity swelling. She is approximately 3 weeks . Is not . She states that she feels like the swelling that she had in her lower extremities yesterday is somewhat better today than what it was yesterday. She is hypertensive today but did not take her blood pressure medicines this morning. I did discussion with her yesterday that it potentially could have been her blood pressure medicines that was causing her lower extremity swelling however at the time I was not convinced enough that this was the cause and may no recommendations to stopping or changing this medicine with the patient was unsure as to what to do so she did not take it this morning. She is here in the emergency department today for vaginal bleeding. She states she was spotting yesterday but did not mentioned anything about it. Today she states that the bleeding has worsened. She contacted her OB doctor who advised she come to the emergency department for evaluation. Related Data Home Medications Medication Instructions Recorded Confirmed aripiprazole 15 mg tablet 15 mg PO DAILY 09/28/22 05/18/23 buspirone 5 mg tablet 10 mg PO TID 09/28/22 05/18/23 melatonin 5 mg capsule 5 mg PO .HS PRN insomnia 09/28/22 05/18/23 doxylamine succinate 25 mg tablet 25 mg PO PRN PRN Sleep 03/13/23 05/18/23 (Unisom (doxylamine)) fluticasone propionate 50 50 mcg intranasal 03/13/23 05/18/23 mcg/actuation nasal spray,suspension Previous Rx's Medication Instructions Recorded vit no.95-ferrous 1 tab PO DAILY #90 tabs 10/27/22 fumarate 28 mg-folic acid 800 mcg tablet omeprazole 40 mg capsule,delayed 40 mg PO DAILY acid reflux #30 caps 04/15/23 release acetaminophen 325 mg tablet 650 mg (2 x 325 mg) PO Q6HR PRN 05/12/23 Pain, Mild (1-3) #30 tabs dpuenjpmba-xlgpkqjrwoiee-ohmnidmx 1 tab PO Q4HR PRN Headache #20 tabs 10/21/23 50 mg-325 mg-40 mg tablet cyclobenzaprine 10 mg tablet 10 mg PO Q8HR PRN Spasms #10 tabs 05/12/23 docusate sodium 100 mg tablet 100 mg PO BID #90 tabs 05/12/23 lanolin (Purelan topical cream) 1 applic topical PRN PRN 05/12/23 Tenderness #7 grams oxycodone 5 mg tablet 5 mg PO Q6H PRN pain #10 tabs 05/13/23 hydrocodone 5 mg-acetaminophen 325 1 tab PO Q6H PRN pain #10 tabs 05/17/23 mg tablet hydrocodone 5 mg-acetaminophen 325 1 tab PO Q6H PRN pain #14 tabs 05/17/23 mg tablet ywqutjvvle-zfxstig-oopwxfhx 50 2 cap PO Q4-6H PRN pain #30 caps 05/18/23 mg-325 mg-40 mg capsule ibuprofen 600 mg tablet 600 mg PO Q6HR PRN Pain, Mild 05/18/23 (1-3) #30 tabs lorazepam 1 mg tablet (Ativan) 1 mg PO TID PRN anxiety #20 tabs 05/18/23 metoclopramide HCl 10 mg tablet 10 mg PO Q6H for nausea/vomiting 05/21/23 #28 tabs nifedipine 30 mg tablet,extended 30 mg PO BID #60 tabs 05/26/23 release Allergies Allergy/AdvReac Type Severity Reaction Status Date / Time zolpidem [From Ambien] AdvReac Intermediate Hallucinati Verified 05/18/23 13:26 ng Review of Systems Constitutional Constitutional: Reports system reviewed and no additional complaints, except as documented Gastrointestinal Gastrointestinal: Reports system reviewed and no additional complaints, except as documented Genitourinary Genitourinary: Reports system reviewed and no additional complaints, except as documented Musculoskeletal Musculoskeletal: Reports system reviewed and no additional complaints, except as documented Hematologic/Lymphatic On Anticoagulants: No Patient History Medical History Back pain Shoulder pain PCOS (polycystic ovarian syndrome) Ovarian cyst (~2012) Irregular menstrual cycle (~2005) ADHD (~2020) Anxiety Depression Migraine without aura Bulimia (~2012) Anorexia nervosa (~2013) Alcohol use Marijuana use Surgical History Anesthesia History of appendectomy [place] teeth extracted (~2021) Family History Mother Heart attack Hypertension Alcoholism Hyperlipidemia Mental health problem Grandmother Kidney disease History of heart disease Hyperlipidemia Hypertension Mental health problem Family/Other Breast cancer Father Alcoholism Mental health problem Grandfather Alcoholism Grandfather Alcoholism Hypertension Mental health problem Brother Mental health problem Grandmother Breast cancer Hypertension Mental health problem Social History marital status: unmarried,living together household members: significant other and friend(s) lives independently: Yes caregiver/support person: No housing: apartment pets and animals: Yes (dog, cats, fish; aware of toxo precautions) education level: other occupational status: employed current occupational exposures/hazards: Yes (aware of chemical precautions) special boni needs: No travel history: recent seatbelt use: always water heater temp set < 120 deg: No working smoke detector in home: Yes fire extinguisher in home: No carbon monox detector in home: Yes firearms in home: No do you feel safe at home: Yes Smoking Status: Current every day smoker second hand exposure: No alcohol intake: former substance use type: marijuana during the past year weight has: remained stable well-balanced diet: daily or most days daily servings fruits/ve or more times/day caffeine: Yes (aware of 200mg limit) Type(s) of exercise: aerobic, weight lifting and running frequency: 5-6 times per week Smoking Status: Current every day smoker tobacco type: vaping alcohol intake frequency: holidays/special occasions only Substance Use Type: does not use Exam Initial Vital Signs Initial Vital Signs: Vital Signs Pulse Rate 61 06/06/23 12:54 Blood Pressure 151/94 H 06/06/23 12:54 Pulse Oximetry 100 06/06/23 12:54 Const General: cooperative and comfortable HENMT Head: normal to inspection and normocephalic Resp Effort & Inspection: normal respiratory effort Cardio Rate: regular rate GI Inspection: non-distended Neuro General: patient alert and patient awake Extrem General: normal to inspection Course Orders Ordered: ED Orders 06/06/23 13:00 US pelvic complete Stat 06/06/23 13:13 Hemoglobin and Hematocrit Stat Vital Signs Vital signs: Vital Signs - 8 hr 06/06/23 12:54 06/06/23 12:54 06/06/23 12:55 Pulse Rate 61 67 Respiratory Rate 18 Blood Pressure 151/94 H 151/94 H Pulse Oximetry 100 100 Oxygen Delivery Method Room Air 06/06/23 13:00 06/06/23 13:50 06/06/23 13:51 Pulse Rate 64 Respiratory Rate Blood Pressure 127/85 Pulse Oximetry 100 100 Oxygen Delivery Method 06/06/23 13:51 06/06/23 14:00 06/06/23 14:00 Pulse Rate 63 67 Respiratory Rate Blood Pressure 112/79 Pulse Oximetry 100 99 Oxygen Delivery Method Medical Decision Making Lab Data Lab results reviewed: Yes I reviewed the patient's lab results. 06/06/23 13:13 Labs: Lab Results 06/06/23 Range/Units 13:13 Hgb 12.7 (12.0-16.0) g/dL Hct 38.6 (36-46) % Imaging Data US - DIRECTOR MEDICAL WRITING: Radiologist's Impression: PROCEDURE: US PELVIC COMPLETE INDICATIONS: BLEEDING TECHNIQUE: Real-time scanning was performed of the pelvic organs, with image documentation. Additional endovaginal scanning was necessary due to incomplete visualization of the adnexal and endometrial structures by transabdominal scanning. COMPARISON: None. FINDINGS: Uterus: Uterus is anteverted and normal in size at 9.2 x 4.8 x 5.8 cm. The myometrium is homogeneous. The endometrium measures 10 mm combined thickness. Irregular and heterogeneous endometrial echo complex. No crease vascularity. Ovaries: The right ovary measures 3.7 x 1.8 x 2.7 cm, with a calculated ovarian volume of 9.3 cc. The left ovary measures 3.5 x 2.7 x 2.4 cm, with a calculated ovarian volume of 12.0 cc. The ovaries have a normal sonographic appearance. Less than 12 follicles can be seen in each ovary. No adnexal masses are seen. Other: No pathologic free abdominal or pelvic fluid. IMPRESSION: Irregular and heterogeneous endometrial echo complex measuring up to 10 mm without increased vascularity. Retained products of conception are not definitively excluded and clinical correlation is recommended. MDM Narrative Medical decision making narrative: Patient does have a benign exam. She was initially hypertensive but she did not take her antihypertensive medicine this morning. We had her take it here in the ER and her blood pressure improved. She states that the lower extremity swelling she was having yesterday is actually improved as well. Ultrasound does not show definitive products of conception. I did discuss the case with Dr. Bailey on-call for can cleaner who agrees that the patient can be discharged home with routine follow-up. I did discuss this with the patient. We discussed return precautions. She expressed understanding and agreement with plan. Discharge Plan Departure Patient Disposition: Home Clinical Impression: Vaginal bleeding Instructions: DI for Vaginal Bleeding Activity Restrictions/Additional Instructions: Recommend that you continue to take all medications as directed. Keep all of your scheduled medical appointments. Return to the emergency department for new or worsening symptoms. Prescriptions: No Action aripiprazole 15 mg tablet 15 mg PO DAILY buspirone 5 mg tablet 10 mg PO TID melatonin 5 mg capsule 5 mg PO .HS PRN (Reason: insomnia) PNV cmb#95-ferrous fumarate-FA 28 mg iron- 800 mcg tablet 1 tab PO DAILY Qty: 90 1RF omeprazole 40 mg capsule,delayed release(DR/EC) 40 mg PO DAILY Qty: 30 0RF cyclobenzaprine 10 mg tablet 10 mg PO Q8HR PRN (Reason: Spasms) Qty: 10 0RF docusate sodium 100 mg tablet 100 mg PO BID Qty: 90 0RF oxycodone 5 mg tablet 5 mg PO Q6H PRN (Reason: pain) Qty: 10 0RF metoclopramide HCl 10 mg tablet 10 mg PO Q6H Qty: 28 0RF nifedipine 30 mg tablet extended release 30 mg PO BID Qty: 60 6RF ibuprofen 600 mg tablet 600 mg PO Q6HR PRN (Reason: Pain, Mild (1-3)) Qty: 30 0RF itxxadbuus-sfwvnan-ulxfwsel 50-325-40 mg capsule 2 cap PO Q4-6H PRN (Reason: pain) Qty: 30 0RF Rx Instructions: do not exceed 3 doses per 24 hrs lorazepam [Ativan] 1 mg tablet 1 mg PO TID PRN (Reason: anxiety) Qty: 20 0RF acetaminophen 325 mg Tablet 650 mg PO Q6HR PRN (Reason: Pain, Mild (1-3)) Qty: 30 0RF Rx Instructions: do not take with fioricet lewamcanac-gqmbmvvpptfhw-fcxj 50-325-40 mg Tablet 1 tab PO Q4HR PRN (Reason: Headache) Qty: 20 0RF Purelan Cream 1 applic topical PRN PRN (Reason: Tenderness) Qty: 7 0RF Unisom (doxylamine) 25 mg Tablet 25 mg PO PRN PRN (Reason: Sleep) fluticasone propionate 50 mcg/actuation [place],Suspension 50 mcg INTRANASAL hydrocodone-acetaminophen 5-325 mg tablet 1 tab PO Q6H PRN (Reason: pain) Qty: 10 0RF hydrocodone-acetaminophen 5-325 mg tablet 1 tab PO Q6H PRN (Reason: pain) Qty: 14 0RF Referrals: ProviderJong [Primary Care Provider] - Stand Alone Forms: Patient Portal/API
[2023-06-06 13:28] LABS: Hematocrit 38.6 % (36-46); Hemoglobin 12.7 g/dL (12.0-16.0)
== END 2023-06-06 15:13 | disposition home or self-care (01) ==
PROVIDERS: Emergency Provider Emergency Medicine
DX: O72.1 Other immediate postpartum hemorrhage (principal)
CPT/HCPCS: 76830; 76856; 85014; 85018; 99281; 99283

== ENCOUNTER 2023-06-19 05:07 | Emergency (ER) | payer OTHER, MEDICAID, SELFPAY ==
[2023-06-19 05:15] VITALS: BP 128/85; PULSE 76; RESP 18; TEMP 36.5; O2SAT 97; BMI 24.1
--- NOTE | 2023-06-19 05:27 | ED.GENADULT ---
HPI - General Adult General Chief complaint: Abdominal Pain Stated complaint: post had sex now feels weird Time Seen by Provider: 06/19/23 05:24 Source: patient Mode of arrival: Ambulatory History of Present Illness HPI narrative: Patient is a 28-year-old female. She is almost 6 weeks from a vaginal delivery. She is not . She states that she understands she was told not to have intercourse until her 6 week follow-up visit however last week she did have intercourse. Since that time she now feels ?weird? she had what appeared to be watery discharge in between her legs when she woke up 1 morning. She does not know where this came from. Was not bloody. She denies any urinary symptoms. She does have some vague generalized mild abdominal tenderness. No fevers. 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 She went to the walk-in clinic than the past couple days for the same symptoms that brought her in today. States she was told that everything was okay. No lab work was done. She was concerned about an infection. Related Data Home Medications Medication Instructions Recorded Confirmed aripiprazole 15 mg tablet 15 mg PO DAILY 09/28/22 05/18/23 buspirone 5 mg tablet 10 mg PO TID 09/28/22 05/18/23 melatonin 5 mg capsule 5 mg PO .HS PRN insomnia 09/28/22 05/18/23 doxylamine succinate 25 mg tablet 25 mg PO PRN PRN Sleep 03/13/23 05/18/23 (Unisom (doxylamine)) fluticasone propionate 50 50 mcg intranasal 03/13/23 05/18/23 mcg/actuation nasal spray,suspension Previous Rx's Medication Instructions Recorded vit no.95-ferrous 1 tab PO DAILY #90 tabs 10/27/22 fumarate 28 mg-folic acid 800 mcg tablet omeprazole 40 mg capsule,delayed 40 mg PO DAILY acid reflux #30 caps 04/15/23 release acetaminophen 325 mg tablet 650 mg (2 x 325 mg) PO Q6HR PRN 05/12/23 Pain, Mild (1-3) #30 tabs ftigpsqcwg-nmqutfytczhgu-gwybgmbx 1 tab PO Q4HR PRN Headache #20 tabs 05/12/23 50 mg-325 mg-40 mg tablet cyclobenzaprine 10 mg tablet 10 mg PO Q8HR PRN Spasms #10 tabs 05/12/23 docusate sodium 100 mg tablet 100 mg PO BID #90 tabs 05/12/23 lanolin (Purelan topical cream) 1 applic topical PRN PRN 05/12/23 Tenderness #7 grams oxycodone 5 mg tablet 5 mg PO Q6H PRN pain #10 tabs 05/13/23 hydrocodone 5 mg-acetaminophen 325 1 tab PO Q6H PRN pain #10 tabs 05/17/23 mg tablet hydrocodone 5 mg-acetaminophen 325 1 tab PO Q6H PRN pain #14 tabs 05/17/23 mg tablet qwrgymczdt-yhppmwd-uzcgssjx 50 2 cap PO Q4-6H PRN pain #30 caps 05/18/23 mg-325 mg-40 mg capsule ibuprofen 600 mg tablet 600 mg PO Q6HR PRN Pain, Mild 05/18/23 (1-3) #30 tabs lorazepam 1 mg tablet (Ativan) 1 mg PO TID PRN anxiety #20 tabs 05/18/23 metoclopramide HCl 10 mg tablet 10 mg PO Q6H for nausea/vomiting 05/21/23 #28 tabs nifedipine 30 mg tablet,extended 30 mg PO DAILY #60 tabs 06/15/23 release Allergies Allergy/AdvReac Type Severity Reaction Status Date / Time zolpidem [From Ambien] AdvReac Intermediate Hallucinati Verified 05/18/23 13:26 ng Review of Systems Constitutional Constitutional: Reports system reviewed and no additional complaints, except as documented Cardiovascular Cardiovascular: Reports system reviewed and no additional complaints, except as documented Respiratory Respiratory: Reports system reviewed and no additional complaints, except as documented Gastrointestinal Gastrointestinal: Reports system reviewed and no additional complaints, except as documented Genitourinary Genitourinary: Reports system reviewed and no additional complaints, except as documented Integumentary/Breasts Skin/Breast: Reports system reviewed and no additional complaints, except as documented Patient History Medical History Back pain Shoulder pain PCOS (polycystic ovarian syndrome) Ovarian cyst (~2012) Irregular menstrual cycle (~2005) ADHD (~2020) Anxiety Depression Migraine without aura Bulimia (~2012) Anorexia nervosa (~2013) Alcohol use Marijuana use Surgical History Anesthesia History of appendectomy [place] teeth extracted (~2021) Family History Mother Heart attack Hypertension Alcoholism Hyperlipidemia Mental health problem Grandmother Kidney disease History of heart disease Hyperlipidemia Hypertension Mental health problem Family/Other Breast cancer Father Alcoholism Mental health problem Grandfather Alcoholism Grandfather Alcoholism Hypertension Mental health problem Brother Mental health problem Grandmother Breast cancer Hypertension Mental health problem Social History marital status: unmarried,living together household members: significant other and friend(s) lives independently: Yes caregiver/support person: No housing: apartment pets and animals: Yes (dog, cats, fish; aware of toxo precautions) education level: other occupational status: employed current occupational exposures/hazards: Yes (aware of chemical precautions) special boni needs: No travel history: recent seatbelt use: always water heater temp set < 120 deg: No working smoke detector in home: Yes fire extinguisher in home: No carbon monox detector in home: Yes firearms in home: No do you feel safe at home: Yes Smoking Status: Current every day smoker second hand exposure: No alcohol intake: former substance use type: marijuana during the past year weight has: remained stable well-balanced diet: daily or most days daily servings fruits/ve or more times/day caffeine: Yes (aware of 200mg limit) Type(s) of exercise: aerobic, weight lifting and running frequency: 5-6 times per week Smoking Status: Current every day smoker tobacco type: vaping alcohol intake frequency: holidays/special occasions only Substance Use Type: does not use Exam Initial Vital Signs Initial Vital Signs: Vital Signs Temperature 97.7 F 06/19/23 05:15 Pulse Rate 76 06/19/23 05:15 Respiratory Rate 18 06/19/23 05:15 Blood Pressure 128/85 06/19/23 05:15 Pulse Oximetry 97 06/19/23 05:15 Oxygen Delivery Method Room Air 06/19/23 05:15 HENMT Head: normal to inspection and normocephalic Resp Effort & Inspection: normal respiratory effort Cardio Rate: regular rate GI Inspection: normal to inspection and non-distended Neuro General: patient alert and patient awake Course Orders Ordered: ED Orders 06/19/23 05:25 Complete Blood Count AUTO DIFF Stat Comprehensive Metabolic Panel Stat Lipase Stat Vital Signs Vital signs: Vital Signs - 8 hr 06/19/23 05:15 Temperature 97.7 F Pulse Rate 76 Respiratory Rate 18 Blood Pressure 128/85 Pulse Oximetry 97 Oxygen Delivery Method Room Air Medical Decision Making Lab Data Lab results reviewed: Yes I reviewed the patient's lab results. 06/19/23 06:14 06/19/23 06:14 Labs: Lab Results 06/19/23 Range/Units 06:14 WBC 6.5 (4.5-11.0) X10^3/uL RBC 4.16 (4.0-5.2) X10^6/uL Hgb 12.6 (12.0-16.0) g/dL Hct 37.3 (36-46) % MCV 89.6 (80-100) fL MCH 30.2 (26-34) PG MCHC 33.7 (30-36) % RDW 13.0 (11.6-14.8) % Plt Count 242 (150-400) X10^3/uL Neut % (Auto) 59.9 (50-75) % Lymph % (Auto) 29.8 (25-40) % [place] % (Auto) 8.6 (3-14) % Eos % (Auto) 0.9 L (2-4) % Baso % (Auto) 0.8 (0-2) % Neut # (Auto) 3900 (8013-1167) /uL Lymph # (Auto) 1900 (9849-3152) /uL [place] # (Auto) 600 (0-900) /uL Eos # (Auto) 100 (0-450) /uL Baso # (Auto) 100 (0-100) /uL Sodium 136 L (137-145) mmol/L Potassium 3.9 (3.4-5.1) mmol/L Chloride 103 (98-107) mmol/L Carbon Dioxide 24 (22-32) mmol/L BUN 20 H (7-17) mg/dL Creatinine 0.70 (0.52-1.04) mg/dL Estimated GFR > 60 (>60) mL/min BUN/Creatinine Ratio 28.6 H (6-22) Glucose 99 (70-100) mg/dL Calcium 9.5 (8.4-10.2) mg/dL Total Bilirubin 1.7 H (0.2-1.3) mg/dL AST 40 H (14-36) IU/L ALT 39 H (<35) IU/L Alkaline Phosphatase 80 (38-126) U/L Total Protein 7.2 (6.3-8.2) g/dL Albumin 4.2 (3.5-5.0) g/dL Globulin 3.0 (1.7-4.1) g/dL Albumin/Globulin Ratio 1.4 (1.0-2.8) Lipase 50 (23-300) U/L MDM Narrative Medical decision making narrative: Labs unremarkable. Will have patient keep her appointment with her OB provider on Sunday of this week. Discharge Plan Departure Patient Disposition: Home Clinical Impression: Feared complaint without diagnosis Activity Restrictions/Additional Instructions: I do recommend that you follow all of the instructions given to you by your OB provider. Keep your appointment that you have on Sunday of this week with your primary doctor. Return to the emergency department for new symptoms. Prescriptions: No Action aripiprazole 15 mg tablet 15 mg PO DAILY buspirone 5 mg tablet 10 mg PO TID melatonin 5 mg capsule 5 mg PO .HS PRN (Reason: insomnia) PNV cmb#95-ferrous fumarate-FA 28 mg iron- 800 mcg tablet 1 tab PO DAILY Qty: 90 1RF omeprazole 40 mg capsule,delayed release(DR/EC) 40 mg PO DAILY Qty: 30 0RF cyclobenzaprine 10 mg tablet 10 mg PO Q8HR PRN (Reason: Spasms) Qty: 10 0RF docusate sodium 100 mg tablet 100 mg PO BID Qty: 90 0RF oxycodone 5 mg tablet 5 mg PO Q6H PRN (Reason: pain) Qty: 10 0RF metoclopramide HCl 10 mg tablet 10 mg PO Q6H Qty: 28 0RF nifedipine 30 mg tablet extended release 30 mg PO DAILY Qty: 60 0RF ibuprofen 600 mg tablet 600 mg PO Q6HR PRN (Reason: Pain, Mild (1-3)) Qty: 30 0RF ctikbbjhmm-tynpvdo-ncdapsbv 50-325-40 mg capsule 2 cap PO Q4-6H PRN (Reason: pain) Qty: 30 0RF Rx Instructions: do not exceed 3 doses per 24 hrs lorazepam [Ativan] 1 mg tablet 1 mg PO TID PRN (Reason: anxiety) Qty: 20 0RF acetaminophen 325 mg Tablet 650 mg PO Q6HR PRN (Reason: Pain, Mild (1-3)) Qty: 30 0RF Rx Instructions: do not take with fioricet aruqchzxmx-sxmlopluozaaa-znvt 50-325-40 mg Tablet 1 tab PO Q4HR PRN (Reason: Headache) Qty: 20 0RF Purelan Cream 1 applic topical PRN PRN (Reason: Tenderness) Qty: 7 0RF Unisom (doxylamine) 25 mg Tablet 25 mg PO PRN PRN (Reason: Sleep) fluticasone propionate 50 mcg/actuation [place],Suspension 50 mcg INTRANASAL hydrocodone-acetaminophen 5-325 mg tablet 1 tab PO Q6H PRN (Reason: pain) Qty: 10 0RF hydrocodone-acetaminophen 5-325 mg tablet 1 tab PO Q6H PRN (Reason: pain) Qty: 14 0RF Referrals: ProviderJong [Primary Care Provider] - Stand Alone Forms: Patient Portal/API
[2023-06-19 06:23] LABS: Add Manual Diff / Slide Review NO; Basophils Absolute Auto 100 /uL (0-100); Basophils Percent Auto 0.8 % (0-2); Eosinophils Absolute Auto 100 /uL (0-450); Eosinophils Percent Auto 0.9 % (2-4); Hematocrit 37.3 % (36-46); Hemoglobin 12.6 g/dL (12.0-16.0); Lymphocytes Absolute Auto 1900 /uL (1100-4500); Lymphocytes Percent Auto 29.8 % (25-40); Mean Corpuscular HGB Conc 33.7 % (30-36); Mean Corpuscular Hemoglobin 30.2 PG (26-34); Mean Corpuscular Volume 89.6 fL (80-100); Monocytes Absolute Auto 600 /uL (0-900); Monocytes Percent Auto 8.6 % (3-14); Neutrophils Absolute Auto 3900 /uL (1500-7000); Neutrophils Percent Auto 59.9 % (50-75); Platelet Count 242 X10^3/uL (150-400); Red Blood Cell Count 4.16 X10^6/uL (4.0-5.2); White Blood Cell Count 6.5 X10^3/uL (4.5-11.0)
[2023-06-19 06:35] LABS: Alanine Aminotransferase 39 IU/L (<35); Albumin 4.2 g/dL (3.5-5.0); Albumin Globulin Ratio 1.4 (1.0-2.8); Alkaline Phosphatase 80 U/L (38-126); Aspartate Aminotransferase 40 IU/L (14-36); BUN Creatinine Ratio 28.6 (6-22); Bilirubin Total 1.7 mg/dL (0.2-1.3); Blood Urea Nitrogen 20 mg/dL (7-17); Calcium 9.5 mg/dL (8.4-10.2); Carbon Dioxide 24 mmol/L (22-32); Chloride 103 mmol/L (98-107); Estimated Glomerular Filt Rate > 60 mL/min (>60); Glucose 99 mg/dL (70-100); HEMOLYSIS < 15 (0-50); Lipase 50 U/L (23-300); Potassium 3.9 mmol/L (3.4-5.1); Sodium 136 mmol/L (137-145); Total Protein 7.2 g/dL (6.3-8.2)
[2023-06-19 06:49] VITALS: BP 119/72; PULSE 72; RESP 18; O2SAT 99
== END 2023-06-19 06:49 | disposition home or self-care (01) ==
PROVIDERS: Emergency Provider Emergency Medicine
DX: Z71.1 Person with feared health complaint in whom no diagnosis is made (principal)
CPT/HCPCS: 36415; 80053; 83690; 85025; 99282; 99283

== ENCOUNTER 2023-08-28 08:19 | Emergency (ER) | payer OTHER, MEDICAID, SELFPAY ==
[2023-08-28 08:52] VITALS: BP 139/83; PULSE 60; RESP 18; TEMP 36.6; O2SAT 98; BMI 24.1
--- NOTE | 2023-08-28 09:15 | ED.PREGNANCY ---
HPI - General Chief complaint: Vaginal Bleeding Stated complaint: vaginal bleeding just had period t-7 Time Seen by Provider: 08/28/23 09:14 Source: patient Mode of arrival: Ambulatory Limitations: no limitations History of Present Illness HPI Narrative: 28-year-old female , 4 months , not breast-feeding currently. Patient states she has had some abnormal vaginal bleeding. She notes that she had some persistent bleeding after her that was little bit prolonged. That had improved but she since had 3 proximally 4-5 day periods that started off with heavy bleeding the 1st day or so and then taper off about every other week for the past 6 weeks. She does note she was started on an oral contraceptive about 6-8 weeks ago did end up stopping that 1 because of side effects. She has recently started Kalpana as an oral contraceptive that was started around August 15. Patient states she has missed several tablets shows me in the packet she missed 1 tablet the 1st week and has missed 2 tablets intermittently on the 2nd week. She states she was on Kalpana remotely in the past but does not recall if she had any issues with breakthrough bleeding. She is on medications for mood disorder including aripiprazole BuSpar but no significant changes recently. Patient states she had a vaginal delivery, denies other surgeries. Has not had an ultrasound since delivery. She was following with Dr. Patricia for OBGYN for her . She denies any other symptoms no lightheadedness no passing out, no chest pain or shortness of breath, no nausea or vomiting no other GI or urinary symptoms. Does smoke, occasional alcohol, no IV drugs but uses marijuana. Related Data Home Medications Medication Instructions Recorded Confirmed aripiprazole 15 mg tablet 15 mg PO DAILY 09/28/22 06/25/23 buspirone 5 mg tablet 10 mg PO TID 09/28/22 06/25/23 melatonin 5 mg capsule 5 mg PO .HS PRN insomnia 09/28/22 06/25/23 doxylamine succinate 25 mg tablet 25 mg PO PRN PRN Sleep 03/13/23 06/25/23 (Unisom (doxylamine)) fluticasone propionate 50 50 mcg intranasal 03/13/23 06/25/23 mcg/actuation nasal spray,suspension Previous Rx's Medication Instructions Recorded vit no.95-ferrous 1 tab PO DAILY #90 tabs 10/27/22 fumarate 28 mg-folic acid 800 mcg tablet omeprazole 40 mg capsule,delayed 40 mg PO DAILY acid reflux #30 caps 04/15/23 release acetaminophen 325 mg tablet 650 mg (2 x 325 mg) PO Q6HR PRN 05/12/23 Pain, Mild (1-3) #30 tabs cncxcipigb-nrtxqspksfpju-maidyxyw 1 tab PO Q4HR PRN Headache #20 tabs 05/12/23 50 mg-325 mg-40 mg tablet cyclobenzaprine 10 mg tablet 10 mg PO Q8HR PRN Spasms #10 tabs 05/12/23 docusate sodium 100 mg tablet 100 mg PO BID #90 tabs 05/12/23 lanolin (Purelan topical cream) 1 applic topical PRN PRN 05/12/23 Tenderness #7 grams oxycodone 5 mg tablet 5 mg PO Q6H PRN pain #10 tabs 05/13/23 hydrocodone 5 mg-acetaminophen 325 1 tab PO Q6H PRN pain #10 tabs 05/17/23 mg tablet hydrocodone 5 mg-acetaminophen 325 1 tab PO Q6H PRN pain #14 tabs 05/17/23 mg tablet uuilffxiua-mymqchf-khbteqft 50 2 cap PO Q4-6H PRN pain #30 caps 05/18/23 mg-325 mg-40 mg capsule ibuprofen 600 mg tablet 600 mg PO Q6HR PRN Pain, Mild 05/18/23 (1-3) #30 tabs lorazepam 1 mg tablet (Ativan) 1 mg PO TID PRN anxiety #20 tabs 05/18/23 metoclopramide HCl 10 mg tablet 10 mg PO Q6H for nausea/vomiting 05/21/23 #28 tabs nifedipine 30 mg tablet,extended 30 mg PO DAILY #60 tabs 06/15/23 release levonorgestrel-ethinyl estradiol 1 tab PO DAILY #84 tabs 08/13/23 0.1 mg-20 mcg tablet Allergies Allergy/AdvReac Type Severity Reaction Status Date / Time zolpidem [From Ambien] AdvReac Intermediate Hallucinati Verified 06/25/23 13:36 ng Review of Systems Review of Systems ROS Unobtainable: All systems reviewed & are unremarkable except as noted in HPI and below Exam Narrative Exam Narrative: GENERAL: Alert and oriented x three, well-appearing female in mild distress. HEENT: Head normocephalic, atraumatic, EOMI, pupils reactive, face symmetric, moist mucous membranes NECK: Supple, full range of motion CARDIOVASCULAR: Regular rate and rhythm without murmurs, rubs or gallops. RESPIRATORY: Breath sounds equal bilaterally, no wheezes rales or rhonchi. ABDOMEN: Soft, nontender. Normoactive bowel sounds all 4 quadrants. No guarding or rebound, rigidity, no mass : No CVA tenderness EXTREMITIES: Normal range of motion, no clubbing or edema. Neurovascularly intact NEUROLOGICAL: Cranial nerves II through XII grossly intact. Moving all extremities SKIN: Warm, dry, no petechiae, no rashes or lesions. Initial Vital Signs Initial Vital Signs: Vital Signs Temperature 97.9 F 08/28/23 08:52 Pulse Rate 60 08/28/23 08:52 Respiratory Rate 18 08/28/23 08:52 Blood Pressure 139/83 08/28/23 08:52 Pulse Oximetry 98 08/28/23 08:52 Oxygen Delivery Method Room Air 08/28/23 08:52 Course Orders Ordered: ED Orders 08/28/23 10:08 Urine Microscopic Stat Vital Signs Vital signs: Vital Signs - 8 hr 08/28/23 08:52 Temperature 97.9 F Pulse Rate 60 Respiratory Rate 18 Blood Pressure 139/83 Pulse Oximetry 98 Oxygen Delivery Method Room Air MDM - OB/Uterine Contractions Lab Data Labs: Lab Results 08/28/23 Range/Units 10:08 Urine RBC 0-1/hpf (0-5/HPF) Urine WBC 1-5/hpf (0-5/HPF) Ur Squamous Epith Cells 10-30 /hpf H D (0-5/HPF) Urine Bacteria Few (2-10) H (None) Ur Culture Indicated? Cult not indicated Vol Urine Centrifuged 10ml (spun) Point of Care Testing Test Results Negative Urine Dip Bedside Urine Glucose Negative Bedside Urine Bilirubin - Negative Bedside Urine Ketone - Negative Urine Specific Rebuck 1.030 Bedside Urine Occult Blood ++ Bedside Urine pH 6.0 Bedside Urine Protein - Negative Bedside Urine Urobilinogen - Negative Bedside Urine Nitrite - Negative Bedside Urine Leukocytes +/- 15 Esterase MDM Narrative Medical decision making narrative: 28-year-old female comes in with complaint of abnormal vaginal bleeding she is 4 months , she has not been breast-feeding for the past several months. Patient states she just started on oral contraceptive has missed 3 doses intermittently over the past week and a half 2 weeks. She was on another oral contraceptive about 6-8 weeks ago took that for a month then stopped it. She then started this 1 most recently. She has had about 3 periods every other week for the past 6 weeks. She was having some persistent bleeding in the past but that had resolved. Patient had labs drawn earlier this week. She did not have a pelvic ultrasound at any point. Discussed with patient urine is negative, point of care urine does show blood consistent with reported vaginal bleeding. Does have leuk esterase but no urinary symptoms currently. Discussed with patient about drawing labs her vital signs are very stable she defers states she just had some drawn last couple days but has not had the results yet. We did discuss obtaining a pelvic ultrasound might be helpful, unlikely that patient has retained products of conception but would allow for further evaluation. Patient defers this as well. She is trying to set up follow up with her OBGYN but has been waiting for referral from her insurance. We did discuss switching that is switching up her controls having started 1, stopped it within a month then started a new 1 and miss several doses intermittently could cause some abnormal vaginal bleeding. I would encourage her to continue her Kalpana at this point she is only proximally 2 weeks and and has missed 3 doses and that she should try the best she can to take it regularly and her periods may normalize. Discussed return precautions. Patient does plan to follow up. Discharge Plan Departure Patient Disposition: Home Clinical Impression: Abnormal vaginal bleeding Activity Restrictions/Additional Instructions: Please follow-up with communication specialist if your symptoms are persisting, please call to set up a follow up appointment. Continue with your current oral contraceptive, try not to miss doses as this is more likely to cause breakthrough bleeding. Sometimes it is helpful to set a timer or an alarm on your phone. Please follow up the labs you had drawn earlier this week. Please return at any time if you are having worsening symptoms, increasing bleeding, lightheadedness or passing out, going through more than a tampon or pad hour, persistent vomiting, new abdominal back or flank pain or other new or concerning changes. Prescriptions: No Action aripiprazole 15 mg tablet 15 mg PO DAILY buspirone 5 mg tablet 10 mg PO TID melatonin 5 mg capsule 5 mg PO .HS PRN (Reason: insomnia) PNV cmb#95-ferrous fumarate-FA 28 mg iron- 800 mcg tablet 1 tab PO DAILY Qty: 90 1RF omeprazole 40 mg capsule,delayed release(DR/EC) 40 mg PO DAILY Qty: 30 0RF cyclobenzaprine 10 mg tablet 10 mg PO Q8HR PRN (Reason: Spasms) Qty: 10 0RF docusate sodium 100 mg tablet 100 mg PO BID Qty: 90 0RF oxycodone 5 mg tablet 5 mg PO Q6H PRN (Reason: pain) Qty: 10 0RF metoclopramide HCl 10 mg tablet 10 mg PO Q6H Qty: 28 0RF nifedipine 30 mg tablet extended release 30 mg PO DAILY Qty: 60 0RF levonorgestrel-ethinyl estrad 0.1-20 mg-mcg tablet 1 tab PO DAILY Qty: 84 3RF ibuprofen 600 mg tablet 600 mg PO Q6HR PRN (Reason: Pain, Mild (1-3)) Qty: 30 0RF idnudyiirq-vetratd-uocgqiww 50-325-40 mg capsule 2 cap PO Q4-6H PRN (Reason: pain) Qty: 30 0RF Rx Instructions: do not exceed 3 doses per 24 hrs lorazepam [Ativan] 1 mg tablet 1 mg PO TID PRN (Reason: anxiety) Qty: 20 0RF acetaminophen 325 mg Tablet 650 mg PO Q6HR PRN (Reason: Pain, Mild (1-3)) Qty: 30 0RF Rx Instructions: do not take with fioricet spcmsooaea-malyfgnyequzk-kprk 50-325-40 mg Tablet 1 tab PO Q4HR PRN (Reason: Headache) Qty: 20 0RF Purelan Cream 1 applic topical PRN PRN (Reason: Tenderness) Qty: 7 0RF Unisom (doxylamine) 25 mg Tablet 25 mg PO PRN PRN (Reason: Sleep) fluticasone propionate 50 mcg/actuation [place],Suspension 50 mcg INTRANASAL hydrocodone-acetaminophen 5-325 mg tablet 1 tab PO Q6H PRN (Reason: pain) Qty: 10 0RF hydrocodone-acetaminophen 5-325 mg tablet 1 tab PO Q6H PRN (Reason: pain) Qty: 14 0RF Referrals: Provider,Jong HOFFMANN [Primary Care Provider] - Paul Patricia MD [Physician] - Stand Alone Forms: Patient Portal/API
[2023-08-28 10:19] LABS: Bacteria Urine Few (2-10); RBC Urine 0-1/HPF (0-5/HPF); Squamous Epithelial Cell Urine 10-30 /HPF (0-5/HPF); Urine Volume 10mL (spun); WBC Urine 1-5/HPF (0-5/HPF)
[2023-08-28 10:20] LABS: Culture Indicated Urine Cult Not Indicated
[2023-08-28 10:37] VITALS: BP 123/74; PULSE 62; RESP 16; O2SAT 99
== END 2023-08-28 10:41 | disposition home or self-care (01) ==
PROVIDERS: Emergency Provider Emergency Medicine
DX: N93.9 Abnormal uterine and vaginal bleeding, unspecified (principal)
CPT/HCPCS: 81003; 81015; 81025; 99282

== ENCOUNTER → 2023-11-16 19:36 | Outpatient (CLI) | payer OTHER, SELFPAY ==
--- NOTE | 2023-11-16 19:39 | DI.MRI.S_ITS ---
PROCEDURE: MR HEAD/BRAIN WO CON INDICATIONS: Migraine, unspecified TECHNIQUE: Noncontrast axial T1 spin echo, axial T2 fast spin echo, sagittal and axial FLAIR, coronal T2 fast spin echo, axial gradient echo, axial diffusion and ADC through the brain. COMPARISON: None. FINDINGS: Image quality: This examination is limited by involuntary motion artifact. CSF Spaces: Basal cisterns are patent. No extra-axial fluid collections. Ventricles are normal in size and shape. Brain: No intracranial masses or hemorrhage. [place]/white matter interface is normal. Brainstem appears normal. Diffusion-weighted images demonstrate no acute infarct. No chronic ischemic insults. Normal intravascular flow voids are present. Skull and face: Calvarium has normal marrow signal. Orbits appear normal. Sinuses: Sinuses and mastoids are clear. IMPRESSION: Motion limited study, without a cause of headache identified. No abnormal white matter lesions are seen. To the limits of this noncontrast study, no findings masses or mass effect can be seen. No prior hemorrhage is identified. Dictated by: Tj Johnson M.D. on 11/19/2023 at 9:59 Approved by: Tj Johnson M.D. on 11/19/2023 at 10:00
== END ==
PROVIDERS: Referring Provider Nurse Practitioner Family; Visit Provider Nurse Practitioner Family
DX: G43.909 Migraine, unspecified, not intractable, without status migrainosus (principal)
CPT/HCPCS: 70551

== ENCOUNTER 2023-11-30 13:34 | Emergency (ER) | payer OTHER, SELFPAY ==
[2023-11-30 13:48] VITALS: BP 125/86; PULSE 72; RESP 16; TEMP 36.4; O2SAT 99; BMI 23.3
--- NOTE | 2023-11-30 14:00 | ED_ITS ---
HPI - Skin/Abscess/Foreign Bdy General Chief complaint: Skin/Abscess/Foreign Body Stated complaint: sent by reaction to medication Time Seen by Provider: 11/30/23 14:00 Source: patient Mode of arrival: Ambulatory History of Present Illness HPI narrative: Patient is a 28-year-old female history of severe PTSD recently started lamotrigine about 2 weeks ago. For the last week she has had increased anal and vaginal itching. She has had some mouth sores canker sores that are not away. She has not had any fever chills or eye involvement. She has psoriasis also she feels like in on the right side of her vagina between her labia inner thigh is a psoriasis plaque she feels like is acting up. She does have pretty bad vaginal itching as well sometimes it is painful. Her psychiatrist told her to come to the ER to go out [facility]. Related Data Home Medications Medication Instructions Recorded Confirmed aripiprazole 15 mg tablet 15 mg PO DAILY 09/28/22 06/25/23 buspirone 5 mg tablet 10 mg PO TID 09/28/22 06/25/23 melatonin 5 mg capsule 5 mg PO .HS PRN insomnia 09/28/22 06/25/23 doxylamine succinate 25 mg tablet 25 mg PO PRN PRN Sleep 03/13/23 06/25/23 (Unisom (doxylamine)) fluticasone propionate 50 50 mcg intranasal 03/13/23 06/25/23 mcg/actuation nasal spray,suspension Previous Rx's Medication Instructions Recorded vit no.95-ferrous 1 tab PO DAILY #90 tabs 10/27/22 fumarate 28 mg-folic acid 800 mcg tablet omeprazole 40 mg capsule,delayed 40 mg PO DAILY acid reflux #30 caps 04/15/23 release acetaminophen 325 mg tablet 650 mg (2 x 325 mg) PO Q6HR PRN 05/12/23 Pain, Mild (1-3) #30 tabs wpufhnbvrs-dyqwvvmwuqusf-ycicvuni 1 tab PO Q4HR PRN Headache #20 tabs 05/12/23 50 mg-325 mg-40 mg tablet cyclobenzaprine 10 mg tablet 10 mg PO Q8HR PRN Spasms #10 tabs 05/12/23 docusate sodium 100 mg tablet 100 mg PO BID #90 tabs 05/12/23 lanolin (Purelan topical cream) 1 applic topical PRN PRN 05/12/23 Tenderness #7 grams oxycodone 5 mg tablet 5 mg PO Q6H PRN pain #10 tabs 05/13/23 hydrocodone 5 mg-acetaminophen 325 1 tab PO Q6H PRN pain #10 tabs 05/17/23 mg tablet hydrocodone 5 mg-acetaminophen 325 1 tab PO Q6H PRN pain #14 tabs 05/17/23 mg tablet tmgemwtmfw-lqqdjfo-hjugrtbe 50 2 cap PO Q4-6H PRN pain #30 caps 05/18/23 mg-325 mg-40 mg capsule ibuprofen 600 mg tablet 600 mg PO Q6HR PRN Pain, Mild 05/18/23 (1-3) #30 tabs lorazepam 1 mg tablet (Ativan) 1 mg PO TID PRN anxiety #20 tabs 05/18/23 metoclopramide HCl 10 mg tablet 10 mg PO Q6H for nausea/vomiting 05/21/23 #28 tabs nifedipine 30 mg tablet,extended 30 mg PO DAILY #60 tabs 06/15/23 release levonorgestrel-ethinyl estradiol 1 tab PO DAILY #84 tabs 08/13/23 0.1 mg-20 mcg tablet Allergies Allergy/AdvReac Type Severity Reaction Status Date / Time zolpidem [From Ambien] AdvReac Intermediate Hallucinati Verified 11/30/23 13:53 ng Patient History Medical History Back pain Shoulder pain PCOS (polycystic ovarian syndrome) Ovarian cyst (~2012) Irregular menstrual cycle (~2005) ADHD (~2020) Anxiety Depression Migraine without aura Bulimia (~2012) Anorexia nervosa (~2013) Alcohol use Marijuana use Surgical History Anesthesia History of appendectomy [place] teeth extracted (~2021) Family History Mother Heart attack Hypertension Alcoholism Hyperlipidemia Mental health problem Grandmother Kidney disease History of heart disease Hyperlipidemia Hypertension Mental health problem Family/Other Breast cancer Father Alcoholism Mental health problem Grandfather Alcoholism Grandfather Alcoholism Hypertension Mental health problem Brother Mental health problem Grandmother Breast cancer Hypertension Mental health problem Social History marital status: unmarried,living together household members: significant other and friend(s) lives independently: Yes caregiver/support person: No housing: apartment pets and animals: Yes (dog, cats, fish; aware of toxo precautions) education level: other occupational status: employed current occupational exposures/hazards: Yes (aware of chemical precautions) special boni needs: No travel history: recent seatbelt use: always water heater temp set < 120 deg: No working smoke detector in home: Yes fire extinguisher in home: No carbon monox detector in home: Yes firearms in home: No do you feel safe at home: Yes Smoking Status: Former smoker second hand exposure: No alcohol intake: former substance use type: marijuana during the past year weight has: remained stable well-balanced diet: daily or most days daily servings fruits/ve or more times/day caffeine: Yes (aware of 200mg limit) Type(s) of exercise: aerobic, weight lifting and running frequency: 5-6 times per week Smoking Status: Former smoker tobacco type: vaping alcohol intake frequency: holidays/special occasions only Substance Use Type: marijuana Exam Initial Vital Signs Initial Vital Signs: Vital Signs Temperature 97.5 F L 11/30/23 13:48 Pulse Rate 72 11/30/23 13:48 Respiratory Rate 16 11/30/23 13:48 Blood Pressure 125/86 11/30/23 13:48 Pulse Oximetry 99 11/30/23 13:48 Oxygen Delivery Method Room Air 11/30/23 13:48 GENERAL: [Well-appearing, well-nourished] and in [no acute] distress. HEENT: Head atraumatic,EOMI, pupils reactive, face symmetric, [PHARYNX:] No sloughing no ulcers no blisters airway intact swelling or erythema on the right cheek but very unimpressive CARDIOVASCULAR: Regular rate and rhythm without murmurs, rubs or gallops. RESPIRATORY: Breath sounds equal bilaterally, no wheezes rales or rhonchi. ABDOMEN: Soft, nontender. Normoactive bowel sounds all 4 quadrants. No guarding or rebound. EXTREMITIES: Normal range of motion, no clubbing or edema. Neurovascularly intact NEUROLOGICAL: Alert and oriented x4.Normal gait and speech. SKIN: Right labia some erythema no sloughing increase vagina some mild erythema no sloughing or other rash Course Orders Ordered: ED Orders 11/30/23 14:25 CBC Auto Diff [Complete Blood Count AUTO DIFF] Stat CMP [Comprehensive Metabolic Panel] Stat Vital Signs Vital signs: Vital Signs - 8 hr 11/30/23 13:48 Temperature 97.5 F L Pulse Rate 72 Respiratory Rate 16 Blood Pressure 125/86 Pulse Oximetry 99 Oxygen Delivery Method Room Air MDM - Skin/Abscess/Foreign Bdy Lab Data 11/30/23 14:25 11/30/23 14:25 Labs: Lab Results 11/30/23 Range/Units 14:25 WBC 7.1 (4.5-11.0) X10^3/uL RBC 4.44 (4.0-5.2) X10^6/uL Hgb 13.6 (12.0-16.0) g/dL Hct 40.2 (36-46) % MCV 90.5 (80-100) fL MCH 30.5 (26-34) PG MCHC 33.7 (30-36) % RDW 13.8 (11.6-14.8) % Plt Count 242 (150-400) X10^3/uL Neut % (Auto) 64.7 (50-75) % Lymph % (Auto) 28.9 (25-40) % [place] % (Auto) 5.4 (3-14) % Eos % (Auto) 0.4 L (2-4) % Baso % (Auto) 0.6 (0-2) % Neut # (Auto) 4600 (4487-8163) /uL Lymph # (Auto) 2100 (4913-5606) /uL [place] # (Auto) 400 (0-900) /uL Eos # (Auto) 0 (0-450) /uL Baso # (Auto) 0 (0-100) /uL Sodium 140 (137-145) mmol/L Potassium 3.9 (3.4-5.1) mmol/L Chloride 106 (98-107) mmol/L Carbon Dioxide 28 (22-32) mmol/L BUN 20 H (7-17) mg/dL Creatinine 0.77 (0.52-1.04) mg/dL Estimated GFR > 60 (>60) mL/min BUN/Creatinine Ratio 26.0 H (6-22) Glucose 61 L (70-100) mg/dL Calcium 9.8 (8.4-10.2) mg/dL Total Bilirubin 1.2 (0.2-1.3) mg/dL AST 30 (14-36) IU/L ALT 21 (<35) IU/L Alkaline Phosphatase 63 (38-126) U/L Total Protein 8.1 (6.3-8.2) g/dL Albumin 5.0 (3.5-5.0) g/dL Globulin 3.1 (1.7-4.1) g/dL Albumin/Globulin Ratio 1.6 (1.0-2.8) MDM Narrative Medical decision making narrative: Patient 28-year-old female history of psoriasis and severe PTSD presenting today concern for Rocha Kamar. She does have some mucosal involvement mouth vaginal and anus however overall unimpressive. No significant ulcers or slough in. She also has psoriasis at baseline. She has not had any prodromal symptoms she has no ocular involvement no other torso or skin involvement. Blood work has been reviewed and overall reassuring This may or may not be sign of early Rcoha Kamar but not having any of the other effects in his complaining of pruritus. Time I recommended she stop lamotrigine continue to monitor if it is getting where she must return to ED immediately. I have counseled and educated both patient and in this regard. Discharge Plan Departure Patient Disposition: Home Clinical Impression: Medication reaction Instructions: DI for Rocha-Kamar Syndrome-Adult Activity Restrictions/Additional Instructions: *You have been diagnosed with medication reaction *What to do: At this time is may or may not be early Rocha-Kamar but not convinced. I do recommend that you stop lamotrigine. Discuss with your provider in monitor very closely *Continue to take medications as directed *Follow up with your primary care provider in 2-3 days or call [phone] *Return to ER if you should have any worsening rash blistering in mouth vaginal or rectal area or anywhere on body fever eye symptoms or any new, worsening or concerning symptoms Prescriptions: No Action aripiprazole 15 mg tablet 15 mg PO DAILY buspirone 5 mg tablet 10 mg PO TID melatonin 5 mg capsule 5 mg PO .HS PRN (Reason: insomnia) PNV cmb#95-ferrous fumarate-FA 28 mg iron- 800 mcg tablet 1 tab PO DAILY Qty: 90 1RF omeprazole 40 mg capsule,delayed release(DR/EC) 40 mg PO DAILY Qty: 30 0RF cyclobenzaprine 10 mg tablet 10 mg PO Q8HR PRN (Reason: Spasms) Qty: 10 0RF docusate sodium 100 mg tablet 100 mg PO BID Qty: 90 0RF oxycodone 5 mg tablet 5 mg PO Q6H PRN (Reason: pain) Qty: 10 0RF metoclopramide HCl 10 mg tablet 10 mg PO Q6H Qty: 28 0RF nifedipine 30 mg tablet extended release 30 mg PO DAILY Qty: 60 0RF levonorgestrel-ethinyl estrad 0.1-20 mg-mcg tablet 1 tab PO DAILY Qty: 84 3RF ibuprofen 600 mg tablet 600 mg PO Q6HR PRN (Reason: Pain, Mild (1-3)) Qty: 30 0RF lzsynnuwlg-fdcpajp-vwhtxyzs 50-325-40 mg capsule 2 cap PO Q4-6H PRN (Reason: pain) Qty: 30 0RF Rx Instructions: do not exceed 3 doses per 24 hrs lorazepam [Ativan] 1 mg tablet 1 mg PO TID PRN (Reason: anxiety) Qty: 20 0RF acetaminophen 325 mg Tablet 650 mg PO Q6HR PRN (Reason: Pain, Mild (1-3)) Qty: 30 0RF Rx Instructions: do not take with fioricet tjwfglttma-finvevloialde-fntk 50-325-40 mg Tablet 1 tab PO Q4HR PRN (Reason: Headache) Qty: 20 0RF Purelan Cream 1 applic topical PRN PRN (Reason: Tenderness) Qty: 7 0RF Unisom (doxylamine) 25 mg Tablet 25 mg PO PRN PRN (Reason: Sleep) fluticasone propionate 50 mcg/actuation [place],Suspension 50 mcg INTRANASAL hydrocodone-acetaminophen 5-325 mg tablet 1 tab PO Q6H PRN (Reason: pain) Qty: 10 0RF hydrocodone-acetaminophen 5-325 mg tablet 1 tab PO Q6H PRN (Reason: pain) Qty: 14 0RF Referrals: ProviderJong [Primary Care Provider] - Stand Alone Forms: Patient Portal/API
[2023-11-30 14:37] LABS: Add Manual Diff / Slide Review NO; Basophils Absolute Auto 0 /uL (0-100); Basophils Percent Auto 0.6 % (0-2); Eosinophils Absolute Auto 0 /uL (0-450); Eosinophils Percent Auto 0.4 % (2-4); Hematocrit 40.2 % (36-46); Hemoglobin 13.6 g/dL (12.0-16.0); Lymphocytes Absolute Auto 2100 /uL (1100-4500); Lymphocytes Percent Auto 28.9 % (25-40); Mean Corpuscular HGB Conc 33.7 % (30-36); Mean Corpuscular Hemoglobin 30.5 PG (26-34); Mean Corpuscular Volume 90.5 fL (80-100); Monocytes Absolute Auto 400 /uL (0-900); Monocytes Percent Auto 5.4 % (3-14); Neutrophils Absolute Auto 4600 /uL (1500-7000); Neutrophils Percent Auto 64.7 % (50-75); Platelet Count 242 X10^3/uL (150-400); Red Blood Cell Count 4.44 X10^6/uL (4.0-5.2); Red Cell Distribution Width 13.8 % (11.6-14.8); White Blood Cell Count 7.1 X10^3/uL (4.5-11.0)
[2023-11-30 14:54] LABS: Alanine Aminotransferase 21 IU/L (<35); Albumin Globulin Ratio 1.6 (1.0-2.8); Alkaline Phosphatase 63 U/L (38-126); Aspartate Aminotransferase 30 IU/L (14-36); Bilirubin Total 1.2 mg/dL (0.2-1.3); Blood Urea Nitrogen 20 mg/dL (7-17); Calcium 9.8 mg/dL (8.4-10.2); Carbon Dioxide 28 mmol/L (22-32); Chloride 106 mmol/L (98-107); Estimated Glomerular Filt Rate > 60 mL/min (>60); Globulin 3.1 g/dL (1.7-4.1); Glucose 61 mg/dL (70-100); HEMOLYSIS < 15 (0-50); Potassium 3.9 mmol/L (3.4-5.1); Sodium 140 mmol/L (137-145); Total Protein 8.1 g/dL (6.3-8.2)
[2023-11-30 15:15] VITALS: BP 129/86; PULSE 69; RESP 14; O2SAT 96
== END 2023-11-30 15:21 | disposition home or self-care (01) ==
PROVIDERS: Emergency Provider Emergency Medicine
DX: L29.0 Pruritus ani (principal); T50.905A Adverse effect of unspecified drugs, medicaments and biological substances, initial encounter
CPT/HCPCS: 36415; 80053; 85025; 99283

== ENCOUNTER 2023-12-05 10:03 | Emergency (ER) | payer OTHER, SELFPAY ==
[2023-12-05 10:13] VITALS: BP 135/83; PULSE 77; RESP 16; TEMP 36.3; O2SAT 100; BMI 23.3
--- NOTE | 2023-12-05 10:15 | ED_ITS ---
HPI - General Adult General Chief complaint: Urogenital-Female Stated complaint: pain while urinating Time Seen by Provider: 12/05/23 10:05 Source: patient Mode of arrival: Ambulatory Limitations: no limitations History of Present Illness HPI narrative: 28-year-old female who is here for evaluation of pain with urinating and also with sitting down specifically in her vaginal area. States last evening her and her were having sexual intercourse and ?trying something? when she states that it hurt very bad. Since that time she has had the discomfort. States she tried to look and did not specifically CAD injuries. No vaginal bleeding. No change in bowel habits. No fevers. No nausea vomiting. No abdominal pain. Related Data Home Medications Medication Instructions Recorded Confirmed aripiprazole 15 mg tablet 15 mg PO DAILY 09/28/22 06/25/23 buspirone 5 mg tablet 10 mg PO TID 09/28/22 06/25/23 melatonin 5 mg capsule 5 mg PO .HS PRN insomnia 09/28/22 06/25/23 doxylamine succinate 25 mg tablet 25 mg PO PRN PRN Sleep 03/13/23 06/25/23 (Unisom (doxylamine)) fluticasone propionate 50 50 mcg intranasal 03/13/23 06/25/23 mcg/actuation nasal spray,suspension Previous Rx's Medication Instructions Recorded vit no.95-ferrous 1 tab PO DAILY #90 tabs 10/27/22 fumarate 28 mg-folic acid 800 mcg tablet omeprazole 40 mg capsule,delayed 40 mg PO DAILY acid reflux #30 caps 04/15/23 release acetaminophen 325 mg tablet 650 mg (2 x 325 mg) PO Q6HR PRN 05/12/23 Pain, Mild (1-3) #30 tabs nepdcieeig-jkrnfhxufybww-hjzcvnhn 1 tab PO Q4HR PRN Headache #20 tabs 05/12/23 50 mg-325 mg-40 mg tablet cyclobenzaprine 10 mg tablet 10 mg PO Q8HR PRN Spasms #10 tabs 05/12/23 docusate sodium 100 mg tablet 100 mg PO BID #90 tabs 05/12/23 lanolin (Purelan topical cream) 1 applic topical PRN PRN 05/12/23 Tenderness #7 grams oxycodone 5 mg tablet 5 mg PO Q6H PRN pain #10 tabs 05/13/23 hydrocodone 5 mg-acetaminophen 325 1 tab PO Q6H PRN pain #10 tabs 05/17/23 mg tablet hydrocodone 5 mg-acetaminophen 325 1 tab PO Q6H PRN pain #14 tabs 05/17/23 mg tablet qjdyignrnu-uctvwbd-ajplvtpe 50 2 cap PO Q4-6H PRN pain #30 caps 05/18/23 mg-325 mg-40 mg capsule ibuprofen 600 mg tablet 600 mg PO Q6HR PRN Pain, Mild 05/18/23 (1-3) #30 tabs lorazepam 1 mg tablet (Ativan) 1 mg PO TID PRN anxiety #20 tabs 05/18/23 metoclopramide HCl 10 mg tablet 10 mg PO Q6H for nausea/vomiting 05/21/23 #28 tabs nifedipine 30 mg tablet,extended 30 mg PO DAILY #60 tabs 06/15/23 release levonorgestrel-ethinyl estradiol 1 tab PO DAILY #84 tabs 08/13/23 0.1 mg-20 mcg tablet lidocaine 5 % topical gel See Rx Instructions .Route 12/05/23 .COMPLEX PRN Irritation #30 grams Allergies Allergy/AdvReac Type Severity Reaction Status Date / Time zolpidem [From Ambien] AdvReac Intermediate Hallucinati Verified 12/05/23 10:33 ng Review of Systems Review of Systems Narrative: See HPI Patient History Medical History Back pain Shoulder pain PCOS (polycystic ovarian syndrome) Ovarian cyst (~2012) Irregular menstrual cycle (~2005) ADHD (~2020) Anxiety Depression Migraine without aura Bulimia (~2012) Anorexia nervosa (~2013) Alcohol use Marijuana use Surgical History Anesthesia History of appendectomy [place] teeth extracted (~2021) Family History Mother Heart attack Hypertension Alcoholism Hyperlipidemia Mental health problem Grandmother Kidney disease History of heart disease Hyperlipidemia Hypertension Mental health problem Family/Other Breast cancer Father Alcoholism Mental health problem Grandfather Alcoholism Grandfather Alcoholism Hypertension Mental health problem Brother Mental health problem Grandmother Breast cancer Hypertension Mental health problem Social History (System 12/05/23 @ 10:33 by Ariana Hassan) marital status: unmarried,living together household members: significant other and friend(s) lives independently: Yes caregiver/support person: No housing: apartment pets and animals: Yes (dog, cats, fish; aware of toxo precautions) education level: other occupational status: employed current occupational exposures/hazards: Yes (aware of chemical precautions) special boni needs: No travel history: recent seatbelt use: always water heater temp set < 120 deg: No working smoke detector in home: Yes fire extinguisher in home: No carbon monox detector in home: Yes firearms in home: No do you feel safe at home: Yes Smoking Status: Never smoker second hand exposure: No alcohol intake: former substance use type: marijuana during the past year weight has: remained stable well-balanced diet: daily or most days daily servings fruits/ve or more times/day caffeine: Yes (aware of 200mg limit) Type(s) of exercise: aerobic, weight lifting and running frequency: 5-6 times per week Exam Initial Vital Signs Initial Vital Signs: Vital Signs Temperature 97.4 F L 12/05/23 10:13 Pulse Rate 77 12/05/23 10:13 Respiratory Rate 16 12/05/23 10:13 Blood Pressure 135/83 12/05/23 10:13 Pulse Oximetry 100 12/05/23 10:13 Oxygen Delivery Method Room Air 12/05/23 10:13 HENMT Head: normal to inspection and normocephalic GI Inspection: normal to inspection and non-distended Palpation: soft, No firm and No tender Other: Patient has what appears to be irritation just inside the labia majora on the right. There are no vesicles noted. No pustules noted. No foreign body. Skin General: no rashes or lesions noted Neuro General: patient alert and patient awake Course Orders Ordered: ED Orders 12/05/23 10:10 Urinalysis and Microscopic Stat Urine Culture Stat 12/05/23 10:35 Genital Culture Stat Vital Signs Vital signs: Vital Signs - 8 hr 12/05/23 10:13 Temperature 97.4 F L Pulse Rate 77 Respiratory Rate 16 Blood Pressure 135/83 Pulse Oximetry 100 Oxygen Delivery Method Room Air Medical Decision Making Lab Data Labs: Lab Results 12/05/23 Range/Units 10:10 Urine Color Yellow Urine Appearance Sl cloudy Urine pH 6.5 (4.5-8.0) Ur Specific [place] 1.025 (1.000-1.035) Urine Protein 1+ H (Negative) Urine Glucose (UA) Negative (Negative) g/dL Urine Ketones Negative (NEGATIVE) Urine Occult Blood Negative (Negative) Urine Nitrate Negative (Negative) Urine Bilirubin Negative (NEGATIVE) Urine Urobilinogen 1.0 (0.2) E.U./dL Ur Leukocyte Esterase Trace H (NEGATIVE) Urine RBC None seen (0-5/HPF) Urine WBC 1-5/hpf (0-5/HPF) Ur Squamous Epith Cells 0-1 /hpf (0-5/HPF) Urine Bacteria Few (2-10) H (None) Ur Culture Indicated? Specimen cultured Vol Urine Centrifuged Low vol <10ml unspun A Point of Care Testing Test Results Negative Urine Dip Bedside Urine Glucose Negative Bedside Urine Bilirubin - Negative Bedside Urine Ketone - Negative Urine Specific [place] 1.025 Bedside Urine Occult Blood - Negative Bedside Urine pH 6.0 Bedside Urine Protein + 30 Bedside Urine Urobilinogen - Negative Bedside Urine Nitrite - Negative Bedside Urine Leukocytes +/- 15 Esterase Point of care testing: Point of Care Testing Test Results Negative Urine Dip Bedside Urine Glucose Negative Bedside Urine Bilirubin - Negative Bedside Urine Ketone - Negative Urine Specific [place] 1.025 Bedside Urine Occult Blood - Negative Bedside Urine pH 6.0 Bedside Urine Protein + 30 Bedside Urine Urobilinogen - Negative Bedside Urine Nitrite - Negative Bedside Urine Leukocytes +/- 15 Esterase MDM Narrative Medical decision making narrative: Patient has an area of irritation inside the right labia majora. It does have some question of a herpes infection although there was no vesicles. She also states that it started after an incident with sexual intercourse last evening. I do think that herpes is less likely. I did do a viral culture and also a bacterial culture. Her urinalysis today is not consistent with a UTI. A culture was pending. Will send her home with viscous lidocaine for topical comfort. She understands that we will contact her if we need to based on the culture results. She was given return precautions. She expressed understanding and agreement. Discharge Plan Departure Patient Disposition: Home Clinical Impression: Abrasion of vagina Activity Restrictions/Additional Instructions: There were multiple cultures pending at the time of your discharge we will contact you if we need to treat with any sort of medications. Recommend no sexual intercourse until the area of irritation is healed. Return to the emergency department for new symptoms. Prescriptions: New lidocaine 5 % gel See Rx Instructions .ROUTE .COMPLEX PRN (Reason: Irritation) Qty: 30 2RF Rx Instructions: Apply a small amount of the gel to the area of irritation q.4 hours as needed for discomfort Stand Alone Forms: Patient Portal/API
[2023-12-05 10:18] LABS: Appearance Urine UA SL CLOUDY; Bilirubin Urine UA NEGATIVE (NEGATIVE); Color Urine UA YELLOW; Glucose Urine UA NEGATIVE (Negative); Ketones Urine UA NEGATIVE (NEGATIVE); Leukocyte Esterase Urine UA TRACE (NEGATIVE); Nitrite Urine UA NEGATIVE (Negative); Occult Blood Urine UA NEGATIVE (Negative); Protein Urine UA 1+ (Negative); Specific Gravity Urine UA 1.025 (1.000-1.035)
[2023-12-05 10:19] LABS: Bacteria Urine Few (2-10); Culture Indicated Urine Specimen Cultured; RBC Urine None Seen (0-5/HPF); Squamous Epithelial Cell Urine 0-1 /HPF (0-5/HPF); Urine Volume Low Vol <10mL unspun; WBC Urine 1-5/HPF (0-5/HPF); pH Urine UA 6.5 (4.5-8.0)
== END 2023-12-05 10:45 | disposition home or self-care (01) ==
PROVIDERS: Emergency Provider Emergency Medicine
DX: S30.814A Abrasion of vagina and vulva, initial encounter (principal); X58.XXXA Exposure to other specified factors, initial encounter
CPT/HCPCS: 81001; 81003; 81025; 87070; 87077; 87086; 87186; 87205; 99282; 99283

== ENCOUNTER 2023-12-24 07:48 | Emergency (ER) | payer OTHER, SELFPAY ==
[2023-12-24 07:55] VITALS: BP 121/86; PULSE 69; RESP 18; TEMP 36.2; O2SAT 100; BMI 20.7
--- NOTE | 2023-12-24 08:04 | ED.HA ---
HPI - Headache General Chief Complaint: Headache Stated Complaint: headache Time Seen by Provider: 12/24/23 08:01 Mode of arrival: Ambulatory History of Present Illness HPI Narrative: 28-year-old female complains of left sided recurrent headache since 9:00 p.m. last night, somewhat sharp, no injury or trauma, some photophobia, no neck pain, no focal weakness or numbness to face arm or leg. She has had recurrent headache symptoms. She saw her provider in the last couple of months, was prescribed sumatriptan but lost the prescription, has not tried this. For her pain since last night she has been trying Tylenol and Motrin, which have not been helping. Slight blurred vision, no spots in field of vision, no trouble with speech, no trouble with swallowing. No trouble with gait. Related Data Home Medications Medication Instructions Recorded Confirmed aripiprazole 15 mg tablet 15 mg PO DAILY 09/28/22 06/25/23 buspirone 5 mg tablet 10 mg PO TID 09/28/22 06/25/23 melatonin 5 mg capsule 5 mg PO .HS PRN insomnia 09/28/22 06/25/23 doxylamine succinate 25 mg tablet 25 mg PO PRN PRN Sleep 03/13/23 06/25/23 (Unisom (doxylamine)) fluticasone propionate 50 50 mcg intranasal 03/13/23 06/25/23 mcg/actuation nasal spray,suspension Previous Rx's Medication Instructions Recorded vit no.95-ferrous 1 tab PO DAILY #90 tabs 10/27/22 fumarate 28 mg-folic acid 800 mcg tablet omeprazole 40 mg capsule,delayed 40 mg PO DAILY acid reflux #30 caps 04/15/23 release acetaminophen 325 mg tablet 650 mg (2 x 325 mg) PO Q6HR PRN 05/12/23 Pain, Mild (1-3) #30 tabs ijyzcxknxt-gpdqvkisutoma-uzsjbcpi 1 tab PO Q4HR PRN Headache #20 tabs 05/12/23 50 mg-325 mg-40 mg tablet cyclobenzaprine 10 mg tablet 10 mg PO Q8HR PRN Spasms #10 tabs 05/12/23 docusate sodium 100 mg tablet 100 mg PO BID #90 tabs 05/12/23 lanolin (Purelan topical cream) 1 applic topical PRN PRN 05/12/23 Tenderness #7 grams oxycodone 5 mg tablet 5 mg PO Q6H PRN pain #10 tabs 05/13/23 hydrocodone 5 mg-acetaminophen 325 1 tab PO Q6H PRN pain #10 tabs 05/17/23 mg tablet hydrocodone 5 mg-acetaminophen 325 1 tab PO Q6H PRN pain #14 tabs 05/17/23 mg tablet jxzkuprfjm-ghkfahn-pgliniry 50 2 cap PO Q4-6H PRN pain #30 caps 05/18/23 mg-325 mg-40 mg capsule ibuprofen 600 mg tablet 600 mg PO Q6HR PRN Pain, Mild 05/18/23 (1-3) #30 tabs lorazepam 1 mg tablet (Ativan) 1 mg PO TID PRN anxiety #20 tabs 05/18/23 metoclopramide HCl 10 mg tablet 10 mg PO Q6H for nausea/vomiting 05/21/23 #28 tabs nifedipine 30 mg tablet,extended 30 mg PO DAILY #60 tabs 06/15/23 release levonorgestrel-ethinyl estradiol 1 tab PO DAILY #84 tabs 08/13/23 0.1 mg-20 mcg tablet lidocaine 5 % topical gel See Rx Instructions .Route 12/05/23 .COMPLEX PRN Irritation #30 grams sumatriptan succinate 25 mg tablet See Rx Instructions PO .COMPLEX 12/24/23 (Imitrex) #10 tabs Allergies Allergy/AdvReac Type Severity Reaction Status Date / Time lamotrigine [From Lamictal] Allergy Verified 12/24/23 08:00 zolpidem [From Ambien] AdvReac Intermediate Hallucinati Verified 12/05/23 10:33 ng Review of Systems Review of Systems Narrative: as per HPI Patient History Medical History Back pain Shoulder pain PCOS (polycystic ovarian syndrome) Ovarian cyst (~2012) Irregular menstrual cycle (~2005) ADHD (~2020) Anxiety Depression Migraine without aura Bulimia (~2012) Anorexia nervosa (~2013) Alcohol use Marijuana use Surgical History Anesthesia History of appendectomy [place] teeth extracted (~2021) Family History Mother Heart attack Hypertension Alcoholism Hyperlipidemia Mental health problem Grandmother Kidney disease History of heart disease Hyperlipidemia Hypertension Mental health problem Family/Other Breast cancer Father Alcoholism Mental health problem Grandfather Alcoholism Grandfather Alcoholism Hypertension Mental health problem Brother Mental health problem Grandmother Breast cancer Hypertension Mental health problem Social History (System 12/05/23 @ 10:33 by Ariana Hassan) marital status: unmarried,living together household members: significant other and friend(s) lives independently: Yes caregiver/support person: No housing: apartment pets and animals: Yes (dog, cats, fish; aware of toxo precautions) education level: other occupational status: employed current occupational exposures/hazards: Yes (aware of chemical precautions) special boni needs: No travel history: recent seatbelt use: always water heater temp set < 120 deg: No working smoke detector in home: Yes fire extinguisher in home: No carbon monox detector in home: Yes firearms in home: No do you feel safe at home: Yes Smoking Status: Never smoker second hand exposure: No alcohol intake: former substance use type: marijuana during the past year weight has: remained stable well-balanced diet: daily or most days daily servings fruits/ve or more times/day caffeine: Yes (aware of 200mg limit) Type(s) of exercise: aerobic, weight lifting and running frequency: 5-6 times per week Smoking Status: Never smoker tobacco type: vaping alcohol intake frequency: a few times a month Substance Use Type: marijuana Exam Narrative Exam Narrative: GENERAL: Well-developed patient, in mild distress. Well-lit room. HEAD: Atraumatic. Normocephalic. EYES: Pupils equal round and reactive. Extraocular motions intact. No scleral icterus. No injection or drainage. ENT: Nose without bleeding, purulent drainage. Throat without erythema, tonsillar hypertrophy or exudate. Airway patent. NECK: Trachea midline. Non tender, moves neck easily without apparent discomfort CARDIOVASCULAR: Regular rate and rhythm without murmurs, gallops, or rubs. RESPIRATORY: Clear to auscultation. Breath sounds equal bilaterally. No wheezes, rales, or rhonchi. GASTROINTESTINAL: Abdomen soft, non-tender, nondistended. EXTREMITIES: No edema or joint tenderness. BACK: Nontender without deformity or crepitance. No flank tenderness. NEURO: AOx3. SKIN: No rash or erythema of visible areas Initial Vital Signs Initial Vital Signs: Vital Signs Temperature 97.1 F L 12/24/23 07:55 Pulse Rate 69 12/24/23 07:55 Respiratory Rate 18 12/24/23 07:55 Blood Pressure 121/86 12/24/23 07:55 Pulse Oximetry 100 12/24/23 07:55 Oxygen Delivery Method Room Air 12/24/23 07:55 Course Orders Ordered: Discontinued Medications Sumatriptan Succinate (Sumatriptan 6 Mg/0.5 Ml Vial) 6 mg SUBCUT NOW ONE Stop: 12/24/23 08:16 Last Admin: 12/24/23 08:40 Dose: 6 mg Documented By: DEENA Vital Signs Vital signs: Vital Signs - 8 hr 12/24/23 07:55 Temperature 97.1 F L Pulse Rate 69 Respiratory Rate 18 Blood Pressure 121/86 Pulse Oximetry 100 Oxygen Delivery Method Room Air MDM - Headache MDM Narrative Medical decision making narrative: 28-year-old female with recurrent headaches, usually right-sided, this episode is left-sided, but feels similar in quality, refractory to Tylenol/Motrin medications, previous prescription for sumatriptan trial was lost, not tried, she has not tried any other therapies. We did discussed various abortive treatment options that might include steroids, Compazine/Benadryl, however patient would like to try the sumatriptan, a subcutaneous 6 mg dose ordered. 0940, POC urine HCG negative. Headache much improved, would like to go home, home with family. We will send prescription for oral sumatriptan to use if needed for recurrence future headaches. Discharge Plan Departure Patient Disposition: Home Clinical Impression: Headache, Migraine Instructions: DI for Migraine Activity Restrictions/Additional Instructions: Recurrent headaches, usually right-sided, now left-sided, no injury no trauma, no fever. Unremarkable physical exam. Previous prescription for sumatriptan/Imitrex was not filled, subcutaneous dose given, good response to treatment. Headache improved significantly, home with family. We will send prescription for oral formulation sumatriptan to use if needed for future headaches trial. Follow up with your regular provider to assess response to this oral regimen, if used in the future. Return earlier to this/nearest emergency department for any change worsening symptoms or any concerns prior Prescriptions: New sumatriptan succinate [Imitrex] 25 mg tablet See Rx Instructions .ROUTE .COMPLEX Qty: 10 0RF Rx Instructions: take 1 tab at onset of headache; if no relief may repeat 1 tab after at least 2 hrs; max = 4 tabs/24 hr No Action aripiprazole 15 mg tablet 15 mg PO DAILY buspirone 5 mg tablet 10 mg PO TID melatonin 5 mg capsule 5 mg PO .HS PRN (Reason: insomnia) PNV cmb#95-ferrous fumarate-FA 28 mg iron- 800 mcg tablet 1 tab PO DAILY Qty: 90 1RF omeprazole 40 mg capsule,delayed release(DR/EC) 40 mg PO DAILY Qty: 30 0RF cyclobenzaprine 10 mg tablet 10 mg PO Q8HR PRN (Reason: Spasms) Qty: 10 0RF docusate sodium 100 mg tablet 100 mg PO BID Qty: 90 0RF oxycodone 5 mg tablet 5 mg PO Q6H PRN (Reason: pain) Qty: 10 0RF metoclopramide HCl 10 mg tablet 10 mg PO Q6H Qty: 28 0RF nifedipine 30 mg tablet extended release 30 mg PO DAILY Qty: 60 0RF levonorgestrel-ethinyl estrad 0.1-20 mg-mcg tablet 1 tab PO DAILY Qty: 84 3RF ibuprofen 600 mg tablet 600 mg PO Q6HR PRN (Reason: Pain, Mild (1-3)) Qty: 30 0RF skprzjxzmf-zonjrzt-grplqcto 50-325-40 mg capsule 2 cap PO Q4-6H PRN (Reason: pain) Qty: 30 0RF Rx Instructions: do not exceed 3 doses per 24 hrs lorazepam [Ativan] 1 mg tablet 1 mg PO TID PRN (Reason: anxiety) Qty: 20 0RF acetaminophen 325 mg Tablet 650 mg PO Q6HR PRN (Reason: Pain, Mild (1-3)) Qty: 30 0RF Rx Instructions: do not take with fioricet etstorifzs-vdfhmrgcwhazu-hhxh 50-325-40 mg Tablet 1 tab PO Q4HR PRN (Reason: Headache) Qty: 20 0RF Purelan Cream 1 applic topical PRN PRN (Reason: Tenderness) Qty: 7 0RF lidocaine 5 % gel See Rx Instructions .ROUTE .COMPLEX PRN (Reason: Irritation) Qty: 30 2RF Rx Instructions: Apply a small amount of the gel to the area of irritation q.4 hours as needed for discomfort Unisom (doxylamine) 25 mg Tablet 25 mg PO PRN PRN (Reason: Sleep) fluticasone propionate 50 mcg/actuation [place],Suspension 50 mcg INTRANASAL hydrocodone-acetaminophen 5-325 mg tablet 1 tab PO Q6H PRN (Reason: pain) Qty: 10 0RF hydrocodone-acetaminophen 5-325 mg tablet 1 tab PO Q6H PRN (Reason: pain) Qty: 14 0RF Referrals: ProviderJong [Primary Care Provider] - Stand Alone Forms: Patient Portal/API
[2023-12-24] MEDS: SUMAtriptan 6 MG/0.5 ML VIAL SUBCUT (08:40)
[2023-12-24 09:57] VITALS: BP 130/80; PULSE 59; RESP 16; O2SAT 100
== END 2023-12-24 09:58 | disposition home or self-care (01) ==
PROVIDERS: Emergency Provider Emergency Medicine
DX: G43.909 Migraine, unspecified, not intractable, without status migrainosus (principal)
CPT/HCPCS: 96372; 99281; 99283; J3030

== ENCOUNTER 2024-01-06 16:08 | Emergency (ER) | payer OTHER, SELFPAY ==
[2024-01-06 16:32] VITALS: BP 128/78; PULSE 97; RESP 16; TEMP 36.3; O2SAT 98; BMI 21.6
== END 2024-01-06 17:57 | disposition left against medical advice (07) ==
PROVIDERS: Emergency Provider Emergency Medicine
DX: R10.9 Unspecified abdominal pain (principal)
CPT/HCPCS: 99281

== ENCOUNTER 2024-01-16 08:37 | Emergency (ER) | payer OTHER, SELFPAY ==
[2024-01-16 08:50] VITALS: BP 125/86; PULSE 69; RESP 16; TEMP 36.7; O2SAT 100; BMI 21.6
--- NOTE | 2024-01-16 08:54 | ED_ITS ---
HPI - Skin/Abscess/Foreign Bdy General Chief complaint: Skin/Abscess/Foreign Body Stated complaint: unable to find tampon, thinks it might be stuck Time Seen by Provider: 01/16/24 08:44 Source: patient and family Mode of arrival: Ambulatory History of Present Illness HPI narrative: 29-year-old female who is here for evaluation of a potential retained tampon. She states that she put the tampon and sometimes in the past 24-48 hours. She stated that she can not find the string. She can not feel the tampon. She does not remember removing the tampon. She has had sexual intercourse since placing the tampon. Related Data Home Medications Medication Instructions Recorded Confirmed aripiprazole 15 mg tablet 15 mg PO DAILY 09/28/22 06/25/23 melatonin 5 mg capsule 5 mg PO .HS PRN insomnia 09/28/22 06/25/23 bupropion HCl 150 mg 24 hr tablet, 150 mg PO QAM 01/04/24 01/04/24 extended release sumatriptan succinate 25 mg tablet See Rx Instructions PO .COMPLEX 01/04/24 (Imitrex) topiramate 25 mg tablet mg PO 01/04/24 01/04/24 Previous Rx's Medication Instructions Recorded acetaminophen 325 mg tablet 650 mg (2 x 325 mg) PO Q6HR PRN 05/12/23 Pain, Mild (1-3) #30 tabs lanolin (Purelan topical cream) 1 applic topical PRN PRN 05/12/23 Tenderness #7 grams ibuprofen 600 mg tablet 600 mg PO Q6HR PRN Pain, Mild 05/18/23 (1-3) #30 tabs levonorgestrel-ethinyl estradiol 1 tab PO DAILY #84 tabs 08/13/23 0.1 mg-20 mcg tablet lidocaine 5 % topical gel See Rx Instructions .Route 12/05/23 .COMPLEX PRN Irritation #30 grams hydromorphone 2 mg tablet 4 mg (2 x 2 mg) PO ONCE #2 tabs 12/26/23 Allergies Allergy/AdvReac Type Severity Reaction Status Date / Time lamotrigine [From Lamictal] Allergy Verified 01/16/24 08:50 zolpidem [From Ambien] AdvReac Intermediate Hallucinati Verified 01/16/24 08:50 ng Review of Systems Genitourinary Genitourinary: Reports system reviewed and no additional complaints, except as documented Patient History Medical History Back pain Shoulder pain PCOS (polycystic ovarian syndrome) Ovarian cyst (~2012) Irregular menstrual cycle (~2005) ADHD (~2020) Anxiety Depression Migraine without aura Bulimia (~2012) Anorexia nervosa (~2013) Alcohol use Marijuana use Surgical History Anesthesia History of appendectomy [place] teeth extracted (~2021) Family History Mother Heart attack Hypertension Alcoholism Hyperlipidemia Mental health problem Grandmother Kidney disease History of heart disease Hyperlipidemia Hypertension Mental health problem Family/Other Breast cancer Father Alcoholism Mental health problem Grandfather Alcoholism Grandfather Alcoholism Hypertension Mental health problem Brother Mental health problem Grandmother Breast cancer Hypertension Mental health problem Social History marital status: unmarried,living together household members: significant other and friend(s) lives independently: Yes caregiver/support person: No housing: apartment pets and animals: Yes (dog, cats, fish; aware of toxo precautions) education level: other occupational status: employed current occupational exposures/hazards: Yes (aware of chemical precautions) special boni needs: No travel history: recent seatbelt use: always water heater temp set < 120 deg: No working smoke detector in home: Yes fire extinguisher in home: No carbon monox detector in home: Yes firearms in home: No do you feel safe at home: Yes Smoking Status: Never smoker second hand exposure: No alcohol intake: former substance use type: marijuana during the past year weight has: remained stable well-balanced diet: daily or most days daily servings fruits/ve or more times/day caffeine: Yes (aware of 200mg limit) Type(s) of exercise: aerobic, weight lifting and running frequency: 5-6 times per week Smoking Status: Never smoker tobacco type: vaping alcohol intake frequency: a few times a month Substance Use Type: marijuana Exam Initial Vital Signs Initial Vital Signs: Vital Signs Temperature 98.1 F 01/16/24 08:50 Pulse Rate 69 01/16/24 08:50 Respiratory Rate 16 01/16/24 08:50 Blood Pressure 125/86 01/16/24 08:50 Pulse Oximetry 100 01/16/24 08:50 Oxygen Delivery Method Room Air 01/16/24 08:50 Other: With nursing staff at bedside a speculum was placed. A tampon was found. He was easily removed. No other abnormalities noted. Course Vital Signs Vital signs: Vital Signs - 8 hr 01/16/24 08:50 Temperature 98.1 F Pulse Rate 69 Respiratory Rate 16 Blood Pressure 125/86 Pulse Oximetry 100 Oxygen Delivery Method Room Air MDM - Skin/Abscess/Foreign Bdy MDM Narrative Medical decision making narrative: Tampon was successfully removed. No other foreign bodies noted. No trauma noted. Discharge Plan Departure Patient Disposition: Home Clinical Impression: Retained tampon Activity Restrictions/Additional Instructions: Return to the emergency department for new or worsening symptoms. Prescriptions: No Action aripiprazole 15 mg tablet 15 mg PO DAILY melatonin 5 mg capsule 5 mg PO .HS PRN (Reason: insomnia) levonorgestrel-ethinyl estrad 0.1-20 mg-mcg tablet 1 tab PO DAILY Qty: 84 3RF ibuprofen 600 mg tablet 600 mg PO Q6HR PRN (Reason: Pain, Mild (1-3)) Qty: 30 0RF hydromorphone 2 mg tablet 4 mg PO ONCE Qty: 2 0RF Rx Instructions: Take tabs PO 1.5 hrs. prior to scheduled procedure sumatriptan succinate [Imitrex] 25 mg tablet See Rx Instructions .ROUTE .COMPLEX Rx Instructions: take 1 tab at onset of headache; if no relief may repeat 1 tab after at least 2 hrs; max = 4 tabs/24 hr bupropion HCl 150 mg tablet extended release 24 hr 150 mg PO QAM topiramate 25 mg tablet PO acetaminophen 325 mg Tablet 650 mg PO Q6HR PRN (Reason: Pain, Mild (1-3)) Qty: 30 0RF Rx Instructions: do not take with fioricet Purelan Cream 1 applic topical PRN PRN (Reason: Tenderness) Qty: 7 0RF lidocaine 5 % gel See Rx Instructions .ROUTE .COMPLEX PRN (Reason: Irritation) Qty: 30 2RF Rx Instructions: Apply a small amount of the gel to the area of irritation q.4 hours as needed for discomfort Referrals: ProviderJong [Primary Care Provider] - Stand Alone Forms: Patient Portal/API
--- NOTE | 2024-01-16 08:59 | PC.NURSE ---
Patient with c/o lost tampon in vagina. Stood by for exam with provider, tampon located and removed without difficulty.
== END 2024-01-16 09:06 | disposition home or self-care (01) ==
PROVIDERS: Emergency Provider Emergency Medicine
DX: T19.2XXA Foreign body in vulva and vagina, initial encounter (principal); W44.G0XA Other non-organic objects unspecified, entering into or through a natural orifice, initial encounter
CPT/HCPCS: 99281; 99283

== ENCOUNTER 2024-02-01 13:06 | Emergency (ER) | payer OTHER, SELFPAY ==
[2024-02-01 14:49] VITALS: BP 124/71; PULSE 62; RESP 14; TEMP 36.4; O2SAT 98; BMI 20.7
--- NOTE | 2024-02-01 16:59 | ED_ITS ---
HPI - Skin/Abscess/Foreign Bdy <SONIA Jerez - Last Filed: 02/01/24 17:04> General Chief complaint: Skin/Abscess/Foreign Body Stated complaint: crusty, draining belly button, redness/bump Time Seen by Provider: 02/01/24 15:09 Source: patient Mode of arrival: Ambulatory Limitations: no limitations History of Present Illness HPI narrative: 29-year-old female, never smoker, presents to the emergency department with belly button redness and discharge since this morning. [place] History of a belly button piercing but was at the 12 o'clock position, whereas the redness is at the 7 o'clock position. No home treatment. Related Data Home Medications Medication Instructions Recorded Confirmed aripiprazole 15 mg tablet 15 mg PO DAILY 09/28/22 01/22/24 melatonin 5 mg capsule 5 mg PO .HS PRN insomnia 09/28/22 01/22/24 bupropion HCl 150 mg 24 hr tablet, 150 mg PO QAM 01/04/24 01/22/24 extended release sumatriptan succinate 25 mg tablet See Rx Instructions PO .COMPLEX 01/04/24 01/22/24 (Imitrex) topiramate 25 mg tablet mg PO 01/04/24 01/22/24 levonorgestrel 17.5 mcg/24 hrs intrauterine 01/22/24 01/22/24 (5yrs) 19.5mg intrauterine device (Kyleena) Previous Rx's Medication Instructions Recorded acetaminophen 325 mg tablet 650 mg (2 x 325 mg) PO Q6HR PRN 05/12/23 Pain, Mild (1-3) #30 tabs lanolin (Purelan topical cream) 1 applic topical PRN PRN 05/12/23 Tenderness #7 grams ibuprofen 600 mg tablet 600 mg PO Q6HR PRN Pain, Mild 05/18/23 (1-3) #30 tabs lidocaine 5 % topical gel See Rx Instructions .Route 12/05/23 .COMPLEX PRN Irritation #30 grams hydromorphone 2 mg tablet 4 mg (2 x 2 mg) PO ONCE #2 tabs 12/26/23 sucralfate 100 mg/mL oral 10 ml PO QACHS PRN Painful 02/09/24 suspension (Carafate) swallowing #414 mL Allergies Allergy/AdvReac Type Severity Reaction Status Date / Time lamotrigine [From Lamictal] Allergy Verified 02/09/24 15:51 zolpidem [From Ambien] AdvReac Intermediate Hallucinati Verified 02/09/24 15:51 ng Review of Systems <SONIA Jerez - Last Filed: 02/01/24 17:04> Review of Systems Narrative: Narrative: See HPI. GENERAL: Denies chills, fatigue, fever, sweats. HEENT: Denies sinus pain, ear pain, sore throat, difficulty swallowing, dizziness. RESPIRATORY: Denies dyspnea, cough, wheezing, sputum. CARDIOVASCULAR: Denies chest pain, palpitations, edema. GASTROINTESTINAL: Denies nausea, vomiting, abdominal pain, diarrhea, constipation. : Denies dysuria, frequency, incontinence, hematuria, urinary retention, flank pain. MSK: Denies weakness, joint pain, or bony pain. SKIN: Denies rash or pruritis. Endorses belly button redness and discharge. NEUROLOGIC: Denies weakness, dizziness, headache, numbness, confusion. PSYCHIATRIC: No concerning psychosocial issues. Patient History <SNOIA Jerez - Last Filed: 02/01/24 17:04> Medical History Back pain Shoulder pain PCOS (polycystic ovarian syndrome) Ovarian cyst (~2012) Irregular menstrual cycle (~2005) ADHD (~2020) Anxiety Depression Migraine without aura Bulimia (~2012) Anorexia nervosa (~2013) Alcohol use Marijuana use Surgical History Anesthesia History of appendectomy [place] teeth extracted (~2021) Family History Mother Heart attack Hypertension Alcoholism Hyperlipidemia Mental health problem Grandmother Kidney disease History of heart disease Hyperlipidemia Hypertension Mental health problem Family/Other Breast cancer Father Alcoholism Mental health problem Grandfather Alcoholism Grandfather Alcoholism Hypertension Mental health problem Brother Mental health problem Grandmother Breast cancer Hypertension Mental health problem Social History marital status: unmarried,living together household members: significant other and friend(s) lives independently: Yes caregiver/support person: No housing: apartment pets and animals: Yes (dog, cats, fish; aware of toxo precautions) education level: other occupational status: employed current occupational exposures/hazards: Yes (aware of chemical precautions) special boni needs: No travel history: recent seatbelt use: always water heater temp set < 120 deg: No working smoke detector in home: Yes fire extinguisher in home: No carbon monox detector in home: Yes firearms in home: No do you feel safe at home: Yes Smoking Status: Never smoker second hand exposure: No alcohol intake: former substance use type: marijuana during the past year weight has: remained stable well-balanced diet: daily or most days daily servings fruits/ve or more times/day caffeine: Yes (aware of 200mg limit) Type(s) of exercise: aerobic, weight lifting and running frequency: 5-6 times per week Smoking Status: Never smoker tobacco type: vaping alcohol intake frequency: a few times a month Substance Use Type: marijuana Exam <SONIA Jerez - Last Filed: 02/01/24 17:04> Narrative Exam Narrative: Exam Narrative: GENERAL: This is a well-nourished, well-developed patient, in no acute distress HEAD: Atraumatic. Normocephalic. ENT: Nose without bleeding, purulent drainage. Airway patent. TMs and canals clear. RESPIRATORY: Respiratory rate and effort are normal. MSK: Moves all extremities. Normal range of motion, no clubbing or edema. Neurovascularly intact. NEURO: A&O x 3. SKIN: Warm, dry, no rashes or lesions noted. 7 o'clock position belly button is red with discharge. Using a Q-tip, was able to dislodge a sand gradual, that was causing quite a bit of discomfort. Initial Vital Signs Initial Vital Signs: Vital Signs Temperature 97.6 F 02/01/24 14:49 Pulse Rate 62 02/01/24 14:49 Respiratory Rate 14 02/01/24 14:49 Blood Pressure 124/71 02/01/24 14:49 Pulse Oximetry 98 02/01/24 14:49 Oxygen Delivery Method Room Air 02/01/24 14:49 Reviewed <Marina Guido DO - Last Filed: 02/05/24 11:13> Initial Vital Signs Initial Vital Signs: Vital Signs Temperature 97.6 F 02/01/24 14:49 Pulse Rate 62 02/01/24 14:49 Respiratory Rate 14 02/01/24 14:49 Blood Pressure 124/71 02/01/24 14:49 Pulse Oximetry 98 02/01/24 14:49 Oxygen Delivery Method Room Air 02/01/24 14:49 <Nikole Tang DO - Last Filed: 02/10/24 13:35> Initial Vital Signs Initial Vital Signs: Vital Signs Temperature 97.6 F 02/01/24 14:49 Pulse Rate 62 02/01/24 14:49 Respiratory Rate 14 02/01/24 14:49 Blood Pressure 124/71 02/01/24 14:49 Pulse Oximetry 98 02/01/24 14:49 Oxygen Delivery Method Room Air 02/01/24 14:49 Course <SONIA Jerez - Last Filed: 02/01/24 17:04> Orders Ordered: ED Orders 02/01/24 14:55 Wound Culture and Gram Stain Stat Vital Signs Vital signs: Vital Signs - 8 hr 02/01/24 14:49 Temperature 97.6 F Pulse Rate 62 Respiratory Rate 14 Blood Pressure 124/71 Pulse Oximetry 98 Oxygen Delivery Method Room Air <Marina Guido DO - Last Filed: 02/05/24 11:13> Orders Ordered: ED Orders 02/01/24 14:55 Wound Culture and Gram Stain Stat Vital Signs Vital signs: Vital Signs - 8 hr 02/01/24 14:49 Temperature 97.6 F Pulse Rate 62 Respiratory Rate 14 Blood Pressure 124/71 Pulse Oximetry 98 Oxygen Delivery Method Room Air <Nikole Tang DO - Last Filed: 02/10/24 13:35> Orders Ordered: ED Orders 02/01/24 14:55 Wound Culture and Gram Stain Stat Vital Signs Vital signs: Vital Signs - 8 hr 02/01/24 14:49 Temperature 97.6 F Pulse Rate 62 Respiratory Rate 14 Blood Pressure 124/71 Pulse Oximetry 98 Oxygen Delivery Method Room Air MDM - Skin/Abscess/Foreign Bdy <SONIA Jerez - Last Filed: 02/01/24 17:04> Differential Diagnosis Differential diagnosis: Likely cellulitis MDM Narrative Medical decision making narrative: 29-year-old female with redness and discharge from umbilicus. Assessment was encouraging and I suspect patient had a sand granule that was imbedded on her outer umbilicus, which caused redness and discharge. Granule removed with Q-tip and patient tolerated procedure well. Recommended proper wound care to include keeping the area clean and dry with application antibiotic ointment twice daily. Wound culture previously obtained and will contact patient with results if it requires antibiotic therapy. Discussed plan of care and return precautions with patient and , who verbalized understanding and was agreeable with course of action. <Marina Guido, DO - Last Filed: 02/05/24 11:13> MDM Narrative Medical decision making narrative: 29-year-old female with redness and discharge from umbilicus. Assessment was encouraging and I suspect patient had a sand granule that was imbedded on her outer umbilicus, which caused redness and discharge. Granule removed with Q-tip and patient tolerated procedure well. Recommended proper wound care to include keeping the area clean and dry with application antibiotic ointment twice daily. Wound culture previously obtained and will contact patient with results if it requires antibiotic therapy. Discussed plan of care and return precautions with patient and , who verbalized understanding and was agreeable with course of action. patient's culture came back as occasional WBCs scant Gram-positive cocci Staph aureus with light growth does have susceptibilities. Plan for call to patient is cellulitis has resolved does not need antibiotics if still present have her take doxycycline 100 mg 1 p.o. b.i.d. x7 days 14. Tablets to be called in the patient's pharmacy of choice Discharge Plan Departure Patient Disposition: Home Clinical Impression: Cellulitis Qualifiers: Site of cellulitis: trunk Site of cellulitis of trunk: umbilicus Qualified Code(s): L03.316 - Cellulitis of umbilicus Instructions: DI for Cellulitis -- Adult Activity Restrictions/Additional Instructions: *You have been diagnosed with localized cellulitis. I believe the belly button redness and discharge you were experiencing was from the foreign body, sand g ranule, that was imbedded in your skin. Please keep the area clean and dry and use a washcloth with your finger and warm soap and water to keep the area clean. Make sure you flush out the area thoroughly to make sure there is no other granules in there. You may apply bacitracin or triple antibiotic ointment twice daily. If the wound culture grows out anything that requires antibiotic therapy, we will contact you. Please feel free to return to the emergency department if redness or discharge significantly worsens. Otherwise, please follow-up with your family doctor as needed. *What to do: *Please continue to take your regular medications as directed. [ ] New medication prescriptions sent to your pharmacy: [ ] [ ] New medication written as a paper prescription [ x] No new medications given *Please follow up with your primary care provider in 2-3 days, call for an appointment. Let them know you were seen in the Emergency Department and that we ask that you be seen in follow up. We will electronically transmit a record of today's note if your PCP is in our system *If you do not have a primary care provider please contact the [facility] Resource line at [phone]. They will ask some questions about your medical history and help get you set up with a doctor in the community. ? Return to ER if you should have any new, worsening or concerning symptoms, such as worsening pain, severe headache, confusion, chest pain, difficulty breathing, fever greater than 101 F, shaking chills, persistent vomiting to the point that you cannot drink fluids, or other new or worsening symptoms. Prescriptions: No Action aripiprazole 15 mg tablet 15 mg PO DAILY melatonin 5 mg capsule 5 mg PO .HS PRN (Reason: insomnia) Kyleena 17.5 mcg/24 hrs (5 yrs) 19.5 mg intrauterine device intrauterine ibuprofen 600 mg tablet 600 mg PO Q6HR PRN (Reason: Pain, Mild (1-3)) Qty: 30 0RF hydromorphone 2 mg tablet 4 mg PO ONCE Qty: 2 0RF Rx Instructions: Take tabs PO 1.5 hrs. prior to scheduled procedure sumatriptan succinate [Imitrex] 25 mg tablet See Rx Instructions .ROUTE .COMPLEX Rx Instructions: take 1 tab at onset of headache; if no relief may repeat 1 tab after at least 2 hrs; max = 4 tabs/24 hr bupropion HCl 150 mg tablet extended release 24 hr 150 mg PO QAM topiramate 25 mg tablet PO acetaminophen 325 mg Tablet 650 mg PO Q6HR PRN (Reason: Pain, Mild (1-3)) Qty: 30 0RF Rx Instructions: do not take with fioricet Purelan Cream 1 applic topical PRN PRN (Reason: Tenderness) Qty: 7 0RF lidocaine 5 % gel See Rx Instructions .ROUTE .COMPLEX PRN (Reason: Irritation) Qty: 30 2RF Rx Instructions: Apply a small amount of the gel to the area of irritation q.4 hours as needed for discomfort sucralfate [Carafate] 100 mg/mL suspension 10 ml PO QACHS PRN (Reason: Painful swallowing) Qty: 414 0RF Referrals: Provider,Jong HOFFMANN [Primary Care Provider] - Stand Alone Forms: Patient Portal/API ED Sign-out <Nikole Tang DO - Last Filed: 02/10/24 13:35> Cosign ED Attending [place] Attestation: I was available for consultation.
[2024-02-01 17:03] VITALS: BP 115/76; PULSE 62; RESP 18; TEMP 37; O2SAT 99
== END 2024-02-01 17:04 | disposition home or self-care (01) ==
PROVIDERS: Emergency Provider Registered Nurse
DX: L03.316 Cellulitis of umbilicus (principal)
CPT/HCPCS: 87070; 87077; 87147; 87205; 99281; 99283

== ENCOUNTER 2024-02-09 15:42 | Emergency (ER) | payer OTHER, SELFPAY ==
[2024-02-09 15:44] VITALS: BP 111/72; PULSE 76; RESP 16; TEMP 36.8; O2SAT 100; BMI 20.7
--- NOTE | 2024-02-09 15:55 | ED_ITS ---
HPI - Allergic Reaction General Chief complaint: Allergic Reaction Stated complaint: ALLERGIC RXN/throat on fire Time Seen by Provider: 02/09/24 15:44 Source: patient Mode of arrival: Ambulatory History of Present Illness HPI narrative: Patient is a 29-year-old female who is here for evaluation of what she describes as her throat on fire and concern for an allergic reaction. She states that she ate some yogurt covered probiotic fruit bites that she purchase from a grocery store. She states that she has had these in the past in his never had any issues but he was fairly shortly after eating this medications that she started to feel like her throat was closing and that her throat was on fire. No problems breathing. No vomiting. No skin changes. No interventions prior to arrival. Related Data Home Medications Medication Instructions Recorded Confirmed aripiprazole 15 mg tablet 15 mg PO DAILY 09/28/22 01/22/24 melatonin 5 mg capsule 5 mg PO .HS PRN insomnia 09/28/22 01/22/24 bupropion HCl 150 mg 24 hr tablet, 150 mg PO QAM 01/04/24 01/22/24 extended release sumatriptan succinate 25 mg tablet See Rx Instructions PO .COMPLEX 01/04/24 01/22/24 (Imitrex) topiramate 25 mg tablet mg PO 01/04/24 01/22/24 levonorgestrel 17.5 mcg/24 hrs intrauterine 01/22/24 01/22/24 (5yrs) 19.5mg intrauterine device (Kyleena) Previous Rx's Medication Instructions Recorded acetaminophen 325 mg tablet 650 mg (2 x 325 mg) PO Q6HR PRN 05/12/23 Pain, Mild (1-3) #30 tabs lanolin (Purelan topical cream) 1 applic topical PRN PRN 05/12/23 Tenderness #7 grams ibuprofen 600 mg tablet 600 mg PO Q6HR PRN Pain, Mild 05/18/23 (1-3) #30 tabs lidocaine 5 % topical gel See Rx Instructions .Route 12/05/23 .COMPLEX PRN Irritation #30 grams hydromorphone 2 mg tablet 4 mg (2 x 2 mg) PO ONCE #2 tabs 12/26/23 sucralfate 100 mg/mL oral 10 ml PO QACHS PRN Painful 02/09/24 suspension (Carafate) swallowing #414 mL Allergies Allergy/AdvReac Type Severity Reaction Status Date / Time lamotrigine [From Lamictal] Allergy Verified 02/09/24 15:51 zolpidem [From Ambien] AdvReac Intermediate Hallucinati Verified 02/09/24 15:51 ng Review of Systems Review of Systems Narrative: See HPI Patient History Medical History Back pain Shoulder pain PCOS (polycystic ovarian syndrome) Ovarian cyst (~2012) Irregular menstrual cycle (~2005) ADHD (~2020) Anxiety Depression Migraine without aura Bulimia (~2012) Anorexia nervosa (~2013) Alcohol use Marijuana use Surgical History Anesthesia History of appendectomy [place] teeth extracted (~2021) Family History Mother Heart attack Hypertension Alcoholism Hyperlipidemia Mental health problem Grandmother Kidney disease History of heart disease Hyperlipidemia Hypertension Mental health problem Family/Other Breast cancer Father Alcoholism Mental health problem Grandfather Alcoholism Grandfather Alcoholism Hypertension Mental health problem Brother Mental health problem Grandmother Breast cancer Hypertension Mental health problem Social History marital status: unmarried,living together household members: significant other and friend(s) lives independently: Yes caregiver/support person: No housing: apartment pets and animals: Yes (dog, cats, fish; aware of toxo precautions) education level: other occupational status: employed current occupational exposures/hazards: Yes (aware of chemical precautions) special boni needs: No travel history: recent seatbelt use: always water heater temp set < 120 deg: No working smoke detector in home: Yes fire extinguisher in home: No carbon monox detector in home: Yes firearms in home: No do you feel safe at home: Yes Smoking Status: Never smoker second hand exposure: No alcohol intake: former substance use type: marijuana during the past year weight has: remained stable well-balanced diet: daily or most days daily servings fruits/ve or more times/day caffeine: Yes (aware of 200mg limit) Type(s) of exercise: aerobic, weight lifting and running frequency: 5-6 times per week Smoking Status: Never smoker tobacco type: vaping alcohol intake frequency: a few times a month Substance Use Type: marijuana Exam Initial Vital Signs Initial Vital Signs: Vital Signs Temperature 98.3 F 02/09/24 15:44 Pulse Rate 76 02/09/24 15:44 Respiratory Rate 16 02/09/24 15:44 Blood Pressure 111/72 02/09/24 15:44 Pulse Oximetry 100 02/09/24 15:44 Oxygen Delivery Method Room Air 02/09/24 15:44 Const General: cooperative and comfortable HENMT Head: normal to inspection and normocephalic Mouth: oral mucosae normal, tongue normal, oropharynx normal and moist mucous membranes Throat: posterior oropharynx normal and uvula midline Neck Neck: normal visual inspection Lymphatic: No lymphadenopathy Resp Effort & Inspection: normal respiratory effort Auscultation: clear to auscultation bilaterally Cardio Rate: regular rate Skin General: no rashes or lesions noted Neuro General: patient alert, patient awake and moves all extremities Course Orders Ordered: Discontinued Medications Al Hydrox/Mg Hydrox/Simethicone 20 ml/ Lidocaine HCl 15 ml 0 ml PO NOW ONE Stop: 02/09/24 15:55 Last Admin: 02/09/24 15:58 Dose: 25 ml Vital Signs Vital signs: Vital Signs - 8 hr 02/09/24 15:44 Temperature 98.3 F Pulse Rate 76 Respiratory Rate 16 Blood Pressure 111/72 Pulse Oximetry 100 Oxygen Delivery Method Room Air MDM - Allergic Reaction MDM Narrative Medical decision making narrative: Not convinced that her symptoms today are an allergic reaction. She was tolerating oral intake. She did report improvement in symptoms after the GI cocktail but then the symptoms started to return. Low suspicion that there is an esophageal foreign body. Afebrile. We will hold on any radiologic studies. Will send patient home with a prescription for Carafate to help soothe the esophagus. She was given return precautions and follow-up instructions. She expressed understanding and agreement. Discharge Plan Departure Patient Disposition: Home Clinical Impression: Odynophagia Activity Restrictions/Additional Instructions: Recommend a bland diet for the next couple days. Use the Carafate as directed. Recommend a soft diet as well. Continue all of your medications as directed. Return to the emergency department for new symptoms. Prescriptions: New sucralfate [Carafate] 100 mg/mL suspension 10 ml PO QACHS PRN (Reason: Painful swallowing) Qty: 414 0RF No Action aripiprazole 15 mg tablet 15 mg PO DAILY melatonin 5 mg capsule 5 mg PO .HS PRN (Reason: insomnia) Kyleena 17.5 mcg/24 hrs (5 yrs) 19.5 mg intrauterine device intrauterine ibuprofen 600 mg tablet 600 mg PO Q6HR PRN (Reason: Pain, Mild (1-3)) Qty: 30 0RF hydromorphone 2 mg tablet 4 mg PO ONCE Qty: 2 0RF Rx Instructions: Take tabs PO 1.5 hrs. prior to scheduled procedure sumatriptan succinate [Imitrex] 25 mg tablet See Rx Instructions .ROUTE .COMPLEX Rx Instructions: take 1 tab at onset of headache; if no relief may repeat 1 tab after at least 2 hrs; max = 4 tabs/24 hr bupropion HCl 150 mg tablet extended release 24 hr 150 mg PO QAM topiramate 25 mg tablet PO acetaminophen 325 mg Tablet 650 mg PO Q6HR PRN (Reason: Pain, Mild (1-3)) Qty: 30 0RF Rx Instructions: do not take with fioricet Purelan Cream 1 applic topical PRN PRN (Reason: Tenderness) Qty: 7 0RF lidocaine 5 % gel See Rx Instructions .ROUTE .COMPLEX PRN (Reason: Irritation) Qty: 30 2RF Rx Instructions: Apply a small amount of the gel to the area of irritation q.4 hours as needed for discomfort Referrals: ProviderJong [Primary Care Provider] - Stand Alone Forms: Patient Portal/API
[2024-02-09] MEDS: MAG HYDROX/ALUMINUM/SIMETH SUS 20 ML, LIDOCAINE VISCOUS 2% 15 ML PO (15:58)
[2024-02-09 16:33] VITALS: BP 107/88; PULSE 70; RESP 16; O2SAT 98
== END 2024-02-09 16:35 | disposition home or self-care (01) ==
PROVIDERS: Emergency Provider Emergency Medicine
DX: R13.10 Dysphagia, unspecified (principal)
CPT/HCPCS: 99283

== ENCOUNTER 2024-03-07 17:50 | Emergency (ER) | payer OTHER, SELFPAY ==
[2024-03-07] VITALS (7 sets, daily range): BP systolic 101–133; BP diastolic 70–88; PULSE 65–71; RESP 16; TEMP 36.9; O2SAT 100; BMI 20.5
[2024-03-07 18:24] LABS: Alanine Aminotransferase 23 IU/L (<35); Albumin 4.8 g/dL (3.5-5.0); Albumin Globulin Ratio 1.4 (1.0-2.8); Alkaline Phosphatase 67 U/L (38-126); Aspartate Aminotransferase 27 IU/L (14-36); BUN Creatinine Ratio 27.2 (6-22); Bilirubin Total 1.5 mg/dL (0.2-1.3); Blood Urea Nitrogen 25 mg/dL (7-17); Calcium 9.7 mg/dL (8.4-10.2); Carbon Dioxide 22 mmol/L (22-32); Chloride 107 mmol/L (98-107); Estimated Glomerular Filt Rate > 60 mL/min (>60); Globulin 3.4 g/dL (1.7-4.1); Glucose 81 mg/dL (70-100); HEMOLYSIS < 15 (0-50); Lipase 39 U/L (23-300); Sodium 139 mmol/L (137-145); Total Protein 8.2 g/dL (6.3-8.2)
[2024-03-07 18:29] LABS: Add Manual Diff / Slide Review NO; Basophils Absolute Auto 0 /uL (0-100); Basophils Percent Auto 0.5 % (0-2); Eosinophils Absolute Auto 0 /uL (0-450); Eosinophils Percent Auto 0.5 % (2-4); Hematocrit 41.3 % (36-46); Hemoglobin 14.1 g/dL (12.0-16.0); Lymphocytes Absolute Auto 2300 /uL (1100-4500); Lymphocytes Percent Auto 35.6 % (25-40); Mean Corpuscular HGB Conc 34.1 % (30-36); Mean Corpuscular Hemoglobin 30.7 PG (26-34); Monocytes Absolute Auto 500 /uL (0-900); Monocytes Percent Auto 7.8 % (3-14); Neutrophils Absolute Auto 3700 /uL (1500-7000); Neutrophils Percent Auto 55.6 % (50-75); Platelet Count 275 X10^3/uL (150-400); Red Blood Cell Count 4.59 X10^6/uL (4.0-5.2); Red Cell Distribution Width 13.8 % (11.6-14.8); White Blood Cell Count 6.6 X10^3/uL (4.5-11.0)
[2024-03-07 18:41] LABS: Bacteria Urine Moderate (10-30); RBC Urine None Seen (0-5/HPF); Squamous Epithelial Cell Urine 1-5 /HPF (0-5/HPF); Urine Volume 10mL (spun); WBC Urine 1-5/HPF (0-5/HPF)
[2024-03-07 18:42] LABS: Culture Indicated Urine Cult Not Indicated; Mucus Urine 3+ (Negative)
--- NOTE | 2024-03-07 19:15 | ED.GENADULT ---
HPI - General Adult General Chief complaint: Abdominal Pain Stated complaint: Gastroperesis Complications, Abd Pain Time Seen by Provider: 03/07/24 18:26 Source: patient Mode of arrival: Ambulatory History of Present Illness HPI narrative: 29-year-old woman with a history of anorexia and bulimia in the past. With workup at [facility] a number of years ago was diagnosed with gastroparesis. She is waxing and waning symptoms and can not seem to associate it with eating or behaviors. She currently is on Wellbutrin for depression and anxiety with Topamax to augment that, she comes in today complaining of low abdominal pain she describes as ?rocks and heaviness in the low abdomen. It is sharp with palpation she complains of increased bloating and with palpation of her abdomen can help herself expel quite a bit of gas. The last 24 hours she has been unable to eat with a sensation of early satiety. She notes in the last number of months she is dropped from 145 lb 223, without significant effort. She does have an appointment with Gastroenterology in approximately 2 weeks. She comes in today for further evaluation. When asked about habits she notes that she vapes marijuana daily usually once or twice. Who was not aware of diagnosis of cannabinoid hyperemesis syndrome but was open to learning more about this. She states as long she has not eating she has not actively vomiting. She has not had any abdominal imaging for a number of years. She did have a brain MRI for migraine workup in October of 2023 that was otherwise benign. She has not reporting fevers or chills. No chest pain palpitations or dyspnea Related Data Home Medications Medication Instructions Recorded Confirmed aripiprazole 15 mg tablet 15 mg PO DAILY 09/28/22 01/22/24 melatonin 5 mg capsule 5 mg PO .HS PRN insomnia 09/28/22 01/22/24 bupropion HCl 150 mg 24 hr tablet, 150 mg PO QAM 01/04/24 01/22/24 extended release sumatriptan succinate 25 mg tablet See Rx Instructions PO .COMPLEX 01/04/24 01/22/24 (Imitrex) topiramate 25 mg tablet mg PO 01/04/24 01/22/24 levonorgestrel 17.5 mcg/24 hrs intrauterine 01/22/24 01/22/24 (5yrs) 19.5mg intrauterine device (Kyleena) Previous Rx's Medication Instructions Recorded acetaminophen 325 mg tablet 650 mg (2 x 325 mg) PO Q6HR PRN 05/12/23 Pain, Mild (1-3) #30 tabs lanolin (Purelan topical cream) 1 applic topical PRN PRN 05/12/23 Tenderness #7 grams ibuprofen 600 mg tablet 600 mg PO Q6HR PRN Pain, Mild 05/18/23 (1-3) #30 tabs lidocaine 5 % topical gel See Rx Instructions .Route 12/05/23 .COMPLEX PRN Irritation #30 grams hydromorphone 2 mg tablet 4 mg (2 x 2 mg) PO ONCE #2 tabs 12/26/23 sucralfate 100 mg/mL oral 10 ml PO QACHS PRN Painful 02/09/24 suspension (Carafate) swallowing #414 mL Allergies Allergy/AdvReac Type Severity Reaction Status Date / Time lamotrigine [From Lamictal] Allergy Verified 03/07/24 17:57 zolpidem [From Ambien] AdvReac Intermediate Hallucinati Verified 03/07/24 17:57 ng Review of Systems Review of Systems Narrative: Pertinent positive and negative findings as per HPI Patient History Medical History Back pain Shoulder pain PCOS (polycystic ovarian syndrome) Ovarian cyst (~2012) Irregular menstrual cycle (~2005) ADHD (~2020) Anxiety Depression Migraine without aura Bulimia (~2012) Anorexia nervosa (~2013) Alcohol use Marijuana use Surgical History Anesthesia History of appendectomy [place] teeth extracted (~2021) Family History Mother Heart attack Hypertension Alcoholism Hyperlipidemia Mental health problem Grandmother Kidney disease History of heart disease Hyperlipidemia Hypertension Mental health problem Family/Other Breast cancer Father Alcoholism Mental health problem Grandfather Alcoholism Grandfather Alcoholism Hypertension Mental health problem Brother Mental health problem Grandmother Breast cancer Hypertension Mental health problem Social History marital status: unmarried,living together household members: significant other and friend(s) lives independently: Yes caregiver/support person: No housing: apartment pets and animals: Yes (dog, cats, fish; aware of toxo precautions) education level: other occupational status: employed current occupational exposures/hazards: Yes (aware of chemical precautions) special boni needs: No travel history: recent seatbelt use: always water heater temp set < 120 deg: No working smoke detector in home: Yes fire extinguisher in home: No carbon monox detector in home: Yes firearms in home: No do you feel safe at home: Yes Smoking Status: Never smoker second hand exposure: No alcohol intake: former substance use type: marijuana during the past year weight has: remained stable well-balanced diet: daily or most days daily servings fruits/ve or more times/day caffeine: Yes (aware of 200mg limit) Type(s) of exercise: aerobic, weight lifting and running frequency: 5-6 times per week Smoking Status: Never smoker tobacco type: vaping alcohol intake frequency: a few times a month Substance Use Type: marijuana Exam Initial Vital Signs Initial Vital Signs: Vital Signs Temperature 98.4 F 03/07/24 17:54 Pulse Rate 70 03/07/24 17:54 Respiratory Rate 16 03/07/24 17:54 Blood Pressure 133/88 03/07/24 17:54 Pulse Oximetry 100 03/07/24 17:54 Oxygen Delivery Method Room Air 03/07/24 17:54 General: Healthy appearing, in no acute distress. Able to give a complete and coherent history. Well-nourished well-developed HEENT: Moist mucous membranes, normal sclera with reactive pupils, Respiratory: Lungs are clear to auscultation, no wheezing no rales no rhonchi. Full and symmetrical air movement Cardiac: Regular rate and rhythm no murmurs no bruits Abdomen: Soft, mild distention, mild lower abdominal tenderness without rebound or guarding. No flank pain. Skin: Warm and dry, no rashes Neurologic: Grossly neurologically intact with no obvious asymmetries or abnormalities Extremities: No trauma, well perfused Psych: Cooperative, appropriate insight and affect Course Orders Ordered: ED Orders 03/07/24 18:00 Complete Blood Count AUTO DIFF Stat Comprehensive Metabolic Panel Stat Lipase Stat Urine Microscopic Stat 03/07/24 19:30 CT abdomen pelvis w con Stat Ondansetron HCl (Ondansetron 4 Mg/2 Ml Inj) 4 mg IV NOW PRN PRN Reason: Nausea And Vomiting Ondansetron HCl (Ondansetron 4 Mg Odt) 4 mg PO NOW PRN PRN Reason: Nausea And Vomiting Discontinued Medications Sodium Chloride (Normal Saline 0.9%) 1,000 mls @ 1,000 mls/hr IV BOLUS ONE Stop: 03/07/24 20:29 Last Infusion: 03/07/24 20:33 Dose: Infused Documented By: Admin: 03/07/24 19:45 Dose: 1,000 mls/hr Documented By: JESSE Vital Signs Vital signs: Vital Signs - 8 hr 03/07/24 17:54 03/07/24 18:13 03/07/24 18:13 Temperature 98.4 F Pulse Rate 70 70 Respiratory Rate 16 Blood Pressure 133/88 119/78 Pulse Oximetry 100 100 Oxygen Delivery Method Room Air 03/07/24 18:30 03/07/24 18:30 03/07/24 19:00 Temperature Pulse Rate 65 Respiratory Rate Blood Pressure 111/74 101/70 Pulse Oximetry 100 Oxygen Delivery Method 03/07/24 19:00 03/07/24 19:30 03/07/24 19:30 Temperature Pulse Rate 71 65 Respiratory Rate Blood Pressure 108/78 Pulse Oximetry 100 100 Oxygen Delivery Method 03/07/24 20:00 03/07/24 20:30 Temperature Pulse Rate 68 66 Respiratory Rate Blood Pressure Pulse Oximetry 100 100 Oxygen Delivery Method Medical Decision Making Lab Data 03/07/24 18:00 03/07/24 18:00 Labs: Lab Results 03/07/24 Range/Units 18:00 WBC 6.6 (4.5-11.0) X10^3/uL RBC 4.59 (4.0-5.2) X10^6/uL Hgb 14.1 (12.0-16.0) g/dL Hct 41.3 (36-46) % MCV 90.0 (80-100) fL MCH 30.7 (26-34) PG MCHC 34.1 (30-36) % RDW 13.8 (11.6-14.8) % Plt Count 275 (150-400) X10^3/uL Neut % (Auto) 55.6 (50-75) % Lymph % (Auto) 35.6 (25-40) % [place] % (Auto) 7.8 (3-14) % Eos % (Auto) 0.5 L (2-4) % Baso % (Auto) 0.5 (0-2) % Neut # (Auto) 3700 (6265-1368) /uL Lymph # (Auto) 2300 (4047-3403) /uL [place] # (Auto) 500 (0-900) /uL Eos # (Auto) 0 (0-450) /uL Baso # (Auto) 0 (0-100) /uL Sodium 139 (137-145) mmol/L Potassium 4.0 (3.4-5.1) mmol/L Chloride 107 (98-107) mmol/L Carbon Dioxide 22 (22-32) mmol/L BUN 25 H (7-17) mg/dL Creatinine 0.92 (0.52-1.04) mg/dL Estimated GFR > 60 (>60) mL/min BUN/Creatinine Ratio 27.2 H (6-22) Glucose 81 (70-100) mg/dL Calcium 9.7 (8.4-10.2) mg/dL Total Bilirubin 1.5 H (0.2-1.3) mg/dL AST 27 (14-36) IU/L ALT 23 (<35) IU/L Alkaline Phosphatase 67 (38-126) U/L Total Protein 8.2 (6.3-8.2) g/dL Albumin 4.8 (3.5-5.0) g/dL Globulin 3.4 (1.7-4.1) g/dL Albumin/Globulin Ratio 1.4 (1.0-2.8) Lipase 39 (23-300) U/L Urine RBC None seen (0-5/HPF) Urine WBC 1-5/hpf (0-5/HPF) Ur Squamous Epith Cells 1-5 /hpf (0-5/HPF) Urine Bacteria Moderate (10-30) H (None) Urine Mucus 3+ H (Negative) Ur Culture Indicated? Cult not indicated Vol Urine Centrifuged 10ml (spun) Point of Care Testing Test Results Negative Urine Dip Bedside Urine Glucose Negative Bedside Urine Bilirubin - Negative Bedside Urine Ketone - Negative Urine Specific [place] 1.030 Bedside Urine Occult Blood - Negative Bedside Urine pH 6.0 Bedside Urine Protein + 30 Bedside Urine Urobilinogen +/- 1mg Bedside Urine Nitrite - Negative Bedside Urine Leukocytes - Negative Esterase Point of care testing: Point of Care Testing Test Results Negative Urine Dip Bedside Urine Glucose Negative Bedside Urine Bilirubin - Negative Bedside Urine Ketone - Negative Urine Specific [place] 1.030 Bedside Urine Occult Blood - Negative Bedside Urine pH 6.0 Bedside Urine Protein + 30 Bedside Urine Urobilinogen +/- 1mg Bedside Urine Nitrite - Negative Bedside Urine Leukocytes - Negative Esterase Imaging Data CT scan - abdomen/pelvis: Radiologist's Impression: PROCEDURE: CT ABDOMEN PELVIS W CON INDICATIONS: diffuse abdominal pain, unexplained weight loss TECHNIQUE: After the administration of intravenous contrast, axial sections acquired from the lung bases to the pubic symphysis. Coronal and sagittal reformats were performed. For radiation dose reduction, the following was used: automated exposure control, adjustment of mA and/or kV according to patient size. COMPARISON: None. FINDINGS: Image quality: Diagnostic. Lower Chest: No significant findings. ABDOMEN: Liver: No solid mass. Gallbladder: No radiopaque gallstones or wall thickening. Biliary ducts: No biliary dilation. Pancreas: No ductal dilation. Spleen: Size is within normal limits. Adrenal Glands: No adrenal nodules. Kidneys and Ureters: No hydronephrosis. No solid mass. No complex renal cystic lesion which requires follow up. Single, punctate, nonobstructing left-sided nephrolithiasis. Stomach and Bowel: Normal colonic caliber, without significant wall thickening. Appendix is absent. Large colonic stool load. Peritoneum: No abnormal intraperitoneal fluid. No free air. Ventral Wall: No significant ventral hernia. Abdominal Nodes: No retroperitoneal or mesenteric adenopathy by size criteria. Vessels: Aorta and inferior vena cava are normal in size. PELVIS: Pelvic Organs: Unremarkable. Bladder: No bladder wall thickening, accounting for underdistention. Pelvic Nodes: No enlarged lymph nodes. Miscellaneous: No inguinal hernias are seen. Bones: No aggressive osseous abnormality. IMPRESSION: Large colonic stool load. Otherwise, no acute abnormality. Dictated by: Satnam Mendoza M.D. on 03/07/2024 at 20:07 MDM Narrative Medical decision making narrative: CC: Abdominal distention, early satiety, weight loss, is concerned that this may be gastroparesis. Some nausea no significant vomiting Complicating co-morbidities: History of anorexia and bulimia with eating disorder seeming to be much better controlled after we will bring her child's. History of migraines seemingly well controlled with current medications. She does vape marijuana daily Data collected from: patient, partner Medical records reviewed: Imaging studies at [facility] for the last 4 years reviewed. She has not had any abdominal imaging beyond OB Differential considered: Constipation, bowel obstruction, gastroparesis, complications of eating disorder, medication side effects Exam documented above, pertinent findings include: Patient's exam is actually fairly benign. She is alert, appropriate no localizing neurologic symptoms, appropriate affect insight good eye contact. Lower abdomen is slightly distended slightly tender certainly not a surgical abdomen. Lab Test results independently reviewed as above. Pertinent findings: She has not CBC is unremarkable Chemistries are reassuring, minimally elevated bilirubin at 1.5 Lipase is unremarkable Imaging studies independently reviewed: CT scan shows no acute findings beyond dramatic stool load Discussion: 29-year-old woman comes in with abdominal pain mild nausea fullness and heaviness in the lower quadrants. This is all entirely consistent with the volume of stool that is present in her colon along with a significant gas appreciated as well. We talked about the use of magnesium citrate she was sent home with a bottle of this. Also suggested a daily scoop of MiraLax to avoid getting to this level of constipation in the future. Normal lab results are reviewed with her. She does have an appointment with GI in the next 2 weeks and I did encourage her to keep this appointment. Questions are answered, at this time there was no indication for additional imaging study lab work or hospitalization. She is safe for discharge Discharge Plan Departure Patient Disposition: Home Clinical Impression: Abdominal pain Qualifiers: Abdominal location: lower abdomen, unspecified Qualified Code(s): R10.30 - Lower abdominal pain, unspecified Constipation Qualifiers: Constipation type: slow transit constipation Qualified Code(s): K59.01 - Slow transit constipation Instructions: DI for Constipation Activity Restrictions/Additional Instructions: Thank you for coming in today Your blood workup is quite reassuring. I am seeing no signs of infection. The CT scan that we did have your abdomen shows a large volume of stool and gas throughout. I do believe this is what is causing your discomfort. There does not appear to be any type of infection, mass or obstruction. I have given you a bottle of magnesium citrate, please drink the whole thing tomorrow morning and expect to have large volumes of stool returning. Some of the medications that you are on can worsen constipation. You may find that adding overall fiber to your diet as well as a daily large scoop of MiraLax we will help keep your stool soft and prevent getting to this degree of constipation in the future. Please do keep your scheduled appointment with Gastroenterology in 2 weeks. Prescriptions: No Action aripiprazole 15 mg tablet 15 mg PO DAILY melatonin 5 mg capsule 5 mg PO .HS PRN (Reason: insomnia) Kyleena 17.5 mcg/24 hrs (5 yrs) 19.5 mg intrauterine device intrauterine ibuprofen 600 mg tablet 600 mg PO Q6HR PRN (Reason: Pain, Mild (1-3)) Qty: 30 0RF hydromorphone 2 mg tablet 4 mg PO ONCE Qty: 2 0RF Rx Instructions: Take tabs PO 1.5 hrs. prior to scheduled procedure sumatriptan succinate [Imitrex] 25 mg tablet See Rx Instructions .ROUTE .COMPLEX Rx Instructions: take 1 tab at onset of headache; if no relief may repeat 1 tab after at least 2 hrs; max = 4 tabs/24 hr bupropion HCl 150 mg tablet extended release 24 hr 150 mg PO QAM topiramate 25 mg tablet PO acetaminophen 325 mg Tablet 650 mg PO Q6HR PRN (Reason: Pain, Mild (1-3)) Qty: 30 0RF Rx Instructions: do not take with fioricet Purelan Cream 1 applic topical PRN PRN (Reason: Tenderness) Qty: 7 0RF lidocaine 5 % gel See Rx Instructions .ROUTE .COMPLEX PRN (Reason: Irritation) Qty: 30 2RF Rx Instructions: Apply a small amount of the gel to the area of irritation q.4 hours as needed for discomfort sucralfate [Carafate] 100 mg/mL suspension 10 ml PO QACHS PRN (Reason: Painful swallowing) Qty: 414 0RF Referrals: ProviderJong [Primary Care Provider] - Stand Alone Forms: Patient Portal/API
--- NOTE | 2024-03-07 19:30 | DI.CT.S_ITS ---
PROCEDURE: CT ABDOMEN PELVIS W CON INDICATIONS: diffuse abdominal pain, unexplained weight loss TECHNIQUE: After the administration of intravenous contrast, axial sections acquired from the lung bases to the pubic symphysis. Coronal and sagittal reformats were performed. For radiation dose reduction, the following was used: automated exposure control, adjustment of mA and/or kV according to patient size. COMPARISON: None. FINDINGS: Image quality: Diagnostic. Lower Chest: No significant findings. ABDOMEN: Liver: No solid mass. Gallbladder: No radiopaque gallstones or wall thickening. Biliary ducts: No biliary dilation. Pancreas: No ductal dilation. Spleen: Size is within normal limits. Adrenal Glands: No adrenal nodules. Kidneys and Ureters: No hydronephrosis. No solid mass. No complex renal cystic lesion which requires follow up. Single, punctate, nonobstructing left-sided nephrolithiasis. Stomach and Bowel: Normal colonic caliber, without significant wall thickening. Appendix is absent. Large colonic stool load. Peritoneum: No abnormal intraperitoneal fluid. No free air. Ventral Wall: No significant ventral hernia. Abdominal Nodes: No retroperitoneal or mesenteric adenopathy by size criteria. Vessels: Aorta and inferior vena cava are normal in size. PELVIS: Pelvic Organs: Unremarkable. Bladder: No bladder wall thickening, accounting for underdistention. Pelvic Nodes: No enlarged lymph nodes. Miscellaneous: No inguinal hernias are seen. Bones: No aggressive osseous abnormality. IMPRESSION: Large colonic stool load. Otherwise, no acute abnormality. Dictated by: Satanm Mendoza M.D. on 03/07/2024 at 20:07 Approved by: Satnam Mendoza M.D. on 03/07/2024 at 20:09
[2024-03-07] MEDS: SODIUM CHLORIDE 0.9% 1,000 ML 1000 ML IV (19:45)
[2024-03-07] MEDS: MAGNESIUM CITRATE 300 ML SOLUTION PO (21:19)
== END 2024-03-07 21:20 | disposition home or self-care (01) ==
PROVIDERS: Emergency Medicine; Emergency Provider Emergency Medicine
DX: R10.30 Lower abdominal pain, unspecified (principal); K59.01 Slow transit constipation
CPT/HCPCS: 36415; 74177; 80053; 81003; 81015; 81025; 83690; 85025; 96360; 99284; Q9967

== ENCOUNTER 2024-10-27 12:14 | Emergency (ER) | payer OTHER, SELFPAY ==
[2024-10-27 12:19] VITALS: BP 123/83; PULSE 61; RESP 16; TEMP 37; O2SAT 100; BMI 21.6
--- NOTE | 2024-10-27 13:29 | ED.BACK ---
HPI - Back Pain/Injury <Piper Centeno PA-C - Last Filed: 10/27/24 15:55> General Chief Complaint: Back Pain/Injury Stated Complaint: back px x4 days Time Seen by Provider: 10/27/24 13:29 Source: patient History of Present Illness HPI Narrative: 29-year-old female presents to the ED with 5 days of bilateral mid back pain. Patient states that she started a new workout regimen, ran on the treadmill as well as did strength training with a kettle ball. Patient states that the next day she started experiencing mid back pain. Patient's symptoms are most aggravated by twisting movements to the left and right. Pain does not radiate. No numbness, tingling, weakness. No dysuria, urinary hesitancy, urinary incontinence, saddle paresthesias. Related Data Home Medications Medication Instructions Recorded Confirmed aripiprazole 15 mg tablet 15 mg PO DAILY 09/28/22 07/14/24 melatonin 5 mg capsule 5 mg PO .HS PRN insomnia 09/28/22 07/14/24 bupropion HCl 150 mg 24 hr tablet, 150 mg PO QAM 01/04/24 07/14/24 extended release sumatriptan succinate 25 mg tablet See Rx Instructions PO .COMPLEX 01/04/24 07/14/24 (Imitrex) topiramate 25 mg tablet mg PO 01/04/24 07/14/24 levonorgestrel 17.5 mcg/24 hr (up intrauterine 01/22/24 07/14/24 to 5 yrs) 19.5mg intrauterine device (Kyleena) Previous Rx's Medication Instructions Recorded acetaminophen 325 mg tablet 650 mg (2 x 325 mg) PO Q6HR PRN 05/12/23 Pain, Mild (1-3) #30 tabs lanolin (Purelan topical cream) 1 applic topical PRN PRN 05/12/23 Tenderness #7 grams ibuprofen 600 mg tablet 600 mg PO Q6HR PRN Pain, Mild 05/18/23 (1-3) #30 tabs lidocaine 5 % topical gel See Rx Instructions .Route 12/05/23 .COMPLEX PRN Irritation #30 grams hydromorphone 2 mg tablet 4 mg (2 x 2 mg) PO ONCE #2 tabs 12/26/23 sucralfate 100 mg/mL oral 10 ml PO QACHS PRN Painful 02/09/24 suspension (Carafate) swallowing #414 mL Allergies Allergy/AdvReac Type Severity Reaction Status Date / Time lamotrigine [From Lamictal] Allergy Verified 07/14/24 14:34 zolpidem [From Ambien] AdvReac Intermediate Hallucinati Verified 07/14/24 14:34 ng Review of Systems <Piper Centeno PA-C - Last Filed: 10/27/24 15:55> Constitutional Constitutional: Denies chills, Denies fatigue, Denies fever(s), Denies frequent falls, Denies lethargy and Denies weakness Eyes Eyes: Denies change in vision, Denies eye discharge, Denies irritation and Denies loss of vision ENT Ears, Nose, Mouth, and Throat: Denies change in voice, Denies dizziness, Denies neck pain, Denies sore throat and Denies throat swelling Cardiovascular Cardiovascular: Denies chest pain, Denies irregular heart rhythm, Denies lightheadedness, Denies palpitations, Denies dyspnea, Denies dyspnea on exertion and Denies orthopnea Respiratory Respiratory: Denies cough, Denies dyspnea, Denies dyspnea on exertion and Denies wheezing Gastrointestinal Gastrointestinal: Denies abdominal pain, Denies change in bowel habits, Denies diarrhea, Denies nausea and Denies vomiting Musculoskeletal Musculoskeletal: Denies neck pain and Denies numbness Comments: Mid back pain Integumentary/Breasts Skin/Breast: Denies pruritus, Denies erythema, Denies rash and Denies wounds Neurologic Neurologic: Denies behavioral changes, Denies confusion, Denies dizziness, Denies frequent falls, Denies loss of vision, Denies numbness and Denies weakness Psychiatric Psychiatric: Denies anxiety, Denies behavioral changes, Denies confusion, Denies depression, Denies homicidal ideation and Denies suicidal ideation Endocrine Endocrine: Denies fatigue, Denies flushing and Denies palpitations Hematologic/Lymphatic Hematologic/Lymphatic: Denies easy bruising Allergic/Immunologic Allergic/Immunologic: Denies urticaria, Denies throat swelling and Denies wheezing Patient History <Piper Centeno PA-C - Last Filed: 10/27/24 15:55> Medical History Back pain Shoulder pain PCOS (polycystic ovarian syndrome) Ovarian cyst (~2012) Irregular menstrual cycle (~2005) ADHD (~2020) Anxiety Depression Migraine without aura Bulimia (~2012) Anorexia nervosa (~2013) Alcohol use Marijuana use Surgical History Anesthesia History of appendectomy [place] teeth extracted (~2021) Family History Mother Heart attack Hypertension Alcoholism Hyperlipidemia Mental health problem Grandmother Kidney disease History of heart disease Hyperlipidemia Hypertension Mental health problem Family/Other Breast cancer Father Alcoholism Mental health problem Grandfather Alcoholism Grandfather Alcoholism Hypertension Mental health problem Brother Mental health problem Grandmother Breast cancer Hypertension Mental health problem Social History marital status: unmarried,living together household members: significant other and friend(s) lives independently: Yes caregiver/support person: No housing: apartment pets and animals: Yes (dog, cats, fish; aware of toxo precautions) education level: other occupational status: employed current occupational exposures/hazards: Yes (aware of chemical precautions) special boni needs: No travel history: recent seatbelt use: always water heater temp set < 120 deg: No working smoke detector in home: Yes fire extinguisher in home: No carbon monox detector in home: Yes firearms in home: No do you feel safe at home: Yes Smoking Status: Former smoker second hand exposure: No alcohol intake: former substance use type: marijuana during the past year weight has: remained stable well-balanced diet: daily or most days daily servings fruits/ve or more times/day caffeine: Yes (aware of 200mg limit) Type(s) of exercise: aerobic, weight lifting and running frequency: 5-6 times per week Smoking Status: Former smoker tobacco type: vaping alcohol intake frequency: a few times a month Exam <Piper Centeno PA-C - Last Filed: 10/27/24 15:55> Narrative Exam Narrative: Const General:?cooperative, healthy appearing and comfortable [facility] Head:?normal to inspection Ears:?hearing grossly normal bilaterally Nose:?external nose normal Face and sinus:?normal facial exam and sinuses nontender Mouth:?oral mucosae normal Throat:?posterior oropharynx normal Eyes General:?appearance normal, both eyes and all related structures Neck Neck:?normal visual inspection and no lymphadenopathy noted Resp Effort & Inspection:?normal respiratory effort Auscultation:?clear to auscultation bilaterally Cardio Rate:?regular rate Rhythm:?regular rhythm Musculoskeletal No midline tenderness to palpation. No paraspinal tenderness to palpation. Full range of motion. Strength and sensation is intact. Neurovascularly intact. Neuro General:?patient alert, patient awake and patient oriented x3 Initial Vital Signs Initial Vital Signs: Vital Signs Temperature 98.6 F 10/27/24 12:19 Pulse Rate 61 10/27/24 12:19 Respiratory Rate 16 10/27/24 12:19 Blood Pressure 123/83 10/27/24 12:19 Pulse Oximetry 100 10/27/24 12:19 Oxygen Delivery Method Room Air 10/27/24 12:19 <Arcadio Broderick MD - Last Filed: 10/27/24 22:06> Initial Vital Signs Initial Vital Signs: Vital Signs Temperature 98.6 F 10/27/24 12:19 Pulse Rate 61 10/27/24 12:19 Respiratory Rate 16 10/27/24 12:19 Blood Pressure 123/83 10/27/24 12:19 Pulse Oximetry 100 10/27/24 12:19 Oxygen Delivery Method Room Air 10/27/24 12:19 Course <Piper Centeno PA-C - Last Filed: 10/27/24 15:55> Orders Ordered: Discontinued Medications Ibuprofen (Ibuprofen 400 Mg Tablet) 800 mg PO NOW ONE Stop: 10/27/24 13:40 Last Admin: 10/27/24 13:51 Dose: 800 mg Documented By: SPF Vital Signs Vital signs: Vital Signs - 8 hr 10/27/24 12:19 10/27/24 14:00 Temperature 98.6 F Pulse Rate 61 62 Respiratory Rate 16 12 Blood Pressure 123/83 134/89 Pulse Oximetry 100 98 Oxygen Delivery Method Room Air Room Air <Arcadio Broderick MD - Last Filed: 10/27/24 22:06> Orders Ordered: Discontinued Medications Ibuprofen (Ibuprofen 400 Mg Tablet) 800 mg PO NOW ONE Stop: 10/27/24 13:40 Last Admin: 10/27/24 13:51 Dose: 800 mg Documented By: SPF Vital Signs Vital signs: Vital Signs - 8 hr 10/27/24 12:19 10/27/24 14:00 Temperature 98.6 F Pulse Rate 61 62 Respiratory Rate 16 12 Blood Pressure 123/83 134/89 Pulse Oximetry 100 98 Oxygen Delivery Method Room Air Room Air MDM - Back Pain/Injury <Piper Centeno PA-C - Last Filed: 10/27/24 15:55> MDM Narrative Medical decision making narrative: 29-year-old female presents to the ED with 5 days of bilateral mid back pain. History and physical exam most consistent with a musculoskeletal sprain/strain of the mid back. There is no midline tenderness to palpation or CVA tenderness. No red flag symptoms. Patient was given a dose of ibuprofen in the ED. Recommend continuing ibuprofen, lidocaine patches. Recommend rest for the next few days, followed by a gradual increase in exercise intensity. ED return precautions discussed with patient. Patient verbalized understanding. Medical records reviewed: Yes Discharge Plan Departure Patient Disposition: Home Clinical Impression: Back strain Qualifiers: Encounter type: initial encounter Qualified Code(s): S39.012A - Strain of muscle, fascia and tendon of lower back, initial encounter Instructions: DI for Back Strain or Sprain Activity Restrictions/Additional Instructions: You were evaluated in the ED today for mid back pain. It appears that you have a back sprain/strain from exercising. You may take 800 mg of ibuprofen every 8 hours with food. You may also apply lidocaine patches. After resting for the next few days, you may restart exercising, however ensure to protect your back and start with a lower intensity and work your way up. Please follow-up with your PCP as soon as possible. Return to the ED if you have worsening symptoms. Prescriptions: No Action aripiprazole 15 mg tablet 15 mg PO DAILY melatonin 5 mg capsule 5 mg PO .HS PRN (Reason: insomnia) Kyleena 17.5 mcg/24 hrs (5 yrs) 19.5 mg intrauterine device intrauterine ibuprofen 600 mg tablet 600 mg PO Q6HR PRN (Reason: Pain, Mild (1-3)) Qty: 30 0RF hydromorphone 2 mg tablet 4 mg PO ONCE Qty: 2 0RF Rx Instructions: Take tabs PO 1.5 hrs. prior to scheduled procedure sumatriptan succinate [Imitrex] 25 mg tablet See Rx Instructions .ROUTE .COMPLEX Rx Instructions: take 1 tab at onset of headache; if no relief may repeat 1 tab after at least 2 hrs; max = 4 tabs/24 hr bupropion HCl 150 mg tablet extended release 24 hr 150 mg PO QAM topiramate 25 mg tablet PO acetaminophen 325 mg Tablet 650 mg PO Q6HR PRN (Reason: Pain, Mild (1-3)) Qty: 30 0RF Rx Instructions: do not take with fioricet Purelan Cream 1 applic topical PRN PRN (Reason: Tenderness) Qty: 7 0RF lidocaine 5 % gel See Rx Instructions .ROUTE .COMPLEX PRN (Reason: Irritation) Qty: 30 2RF Rx Instructions: Apply a small amount of the gel to the area of irritation q.4 hours as needed for discomfort sucralfate [Carafate] 100 mg/mL suspension 10 ml PO QACHS PRN (Reason: Painful swallowing) Qty: 414 0RF Referrals: Miscellaneous,Doctor, [Primary Care Provider] - Stand Alone Forms: Patient Portal/API/Survey ED Sign-out <Arcadio Broderick MD - Last Filed: 10/27/24 22:06> Cosign ED Attending Cosschuylerature Attestation: I was immediately available in the department for consultation. This documentation has been reviewed and I agree with assessment and plan. Supervised by Arcadio Broderick MD
[2024-10-27] MEDS: IBUPROFEN 400 MG TABLET 800 MG PO (13:51)
[2024-10-27 14:00] VITALS: BP 134/89; PULSE 62; RESP 12; O2SAT 98
== END 2024-10-27 14:00 | disposition home or self-care (01) ==
PROVIDERS: Emergency Provider Student in an Organized Health Care Education/Training Program
DX: S39.012A Strain of muscle, fascia and tendon of lower back, initial encounter (principal); X50.9XXA Other and unspecified overexertion or strenuous movements or postures, initial encounter; Y93.B9 Activity, other involving muscle strengthening exercises
CPT/HCPCS: 99283

== ENCOUNTER 2024-11-02 02:32 | Emergency (ER) | payer OTHER, SELFPAY ==
[2024-11-02 02:46] VITALS: BP 144/107; PULSE 69; RESP 16; TEMP 36.4; O2SAT 99; BMI 21.6
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
[2024-11-02] MEDS: SODIUM CHLORIDE 0.9% 1,000 ML 1000 ML IV (03:17)
[2024-11-02] MEDS: PROCHLORPERAZINE 10 MG/2 ML VIAL IV (03:18)
[2024-11-02] MEDS: KETOROLAC 30 MG/ML VIAL 15 MG IV (03:18)
[2024-11-02 03:20] LABS: Add Manual Diff / Slide Review NO; Basophils Absolute Auto 100 /uL (0-100); Eosinophils Absolute Auto 100 /uL (0-450); Eosinophils Percent Auto 1.4 % (2-4); Hemoglobin 13.5 g/dL (12.0-16.0); Lymphocytes Absolute Auto 1900 /uL (1100-4500); Lymphocytes Percent Auto 30.8 % (25-40); Mean Corpuscular HGB Conc 33.9 % (30-36); Mean Corpuscular Hemoglobin 31.1 PG (26-34); Mean Corpuscular Volume 91.8 fL (80-100); Monocytes Absolute Auto 600 /uL (0-900); Monocytes Percent Auto 9.8 % (3-14); Neutrophils Absolute Auto 3500 /uL (1500-7000); Platelet Count 240 X10^3/uL (150-400); Red Blood Cell Count 4.35 X10^6/uL (4.0-5.2); Red Cell Distribution Width 12.6 % (11.6-14.8); White Blood Cell Count 6.2 X10^3/uL (4.5-11.0)
[2024-11-02 03:30] LABS: Alanine Aminotransferase 30 IU/L (<35); Albumin 4.6 g/dL (3.5-5.0); Albumin Globulin Ratio 1.8 (1.0-2.8); Alkaline Phosphatase 68 U/L (38-126); Aspartate Aminotransferase 37 IU/L (14-36); BUN Creatinine Ratio 35.5 (6-22); Bilirubin Total 0.9 mg/dL (0.2-1.3); Blood Urea Nitrogen 22 mg/dL (7-17); Calcium 9.4 mg/dL (8.4-10.2); Carbon Dioxide 26 mmol/L (22-32); Chloride 103 mmol/L (98-107); Estimated Glomerular Filt Rate > 60 mL/min (>60); Globulin 2.6 g/dL (1.7-4.1); Glucose 87 mg/dL (70-100); HEMOLYSIS < 15 (0-50); Potassium 4.1 mmol/L (3.4-5.1); Sodium 137 mmol/L (137-145); Total Protein 7.2 g/dL (6.3-8.2)
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
[2024-11-02] MEDS: diphenhydrAMINE 50 MG/ML VIAL 25 MG IV (03:40)
--- NOTE | 2024-11-02 03:49 | PC.NURSE ---
Pt possibly had a reaction to Compazine, causing anxiety/panic attack like symptoms. Benadryl given to counteract side effects. However, pt continues to request to leave and go home.
--- NOTE | 2024-11-02 11:51 | CM.SWNOTE ---
ED NATUROPATHIC ONCOLOGY PROVIDER Follow Up Note This NATUROPATHIC ONCOLOGY PROVIDER receives follow up consult from ED Provider Dr. Garvey due to concern for patient's safety and living situation. NATUROPATHIC ONCOLOGY PROVIDER contacts only phone number provided in EMR and the phone number is disconnected. NATUROPATHIC ONCOLOGY PROVIDER to attempt to meet with patient upon next presentation to the ED, ED staff to inquire further about patient's correct contact information. Donna Polanco, PAINT TESTER
== END 2024-11-02 03:50 | disposition left against medical advice (07) ==
PROVIDERS: Emergency Provider Emergency Medicine
DX: G43.909 Migraine, unspecified, not intractable, without status migrainosus (principal); F41.0 Panic disorder [episodic paroxysmal anxiety]
CPT/HCPCS: 36415; 80053; 81003; 81025; 85025; 96374; 96375; 99284; J0780; J1200; J1885